=== PATIENT | male | born 1935 | race Caucasian/White ===

== ENCOUNTER 2021-07-22 08:00 | Outpatient (CLI) | payer MEDICARE, OTHER, SELFPAY ==
--- NOTE | ~2021-07-22 | CT_ITS ---
EXAMINATION: CT abdomen pelvis w con DATE: 07/22/2021 08:42 INDICATION: Neoplasm of the digestive system TECHNIQUE: Computed tomography (CT) of the abdomen and pelvis was performed with 100 cc Omnipaque 350 intravenous contrast. Automated exposure control and iterative reconstruction technique were employe d. Exam dose: 211.25 mGy-cm total exam DLP. COMPARISON: 08/01/2014 CT abdomen pelvis 07/23/2014 CTA abdomen pelvis FINDINGS: The lung bases are clear of infiltrate or consolidation. No pericardial or pleural effusion . There are couple of up to 10 mm stable hepatic cysts since 07/23/2014. The liver otherwise appears unr emarkable. The gallbladder is present. No pericholecystic fluid or fat stranding or gallbladder wall thickening, bile duct or pancreatic duct dilatation is evident. No pancreatic mass lesion or calcific ation is detected. Multiple scattered hypoattenuating splenic lesions are again noted, present on 07/05. There are bilateral renal cysts including the followin.5 cm lower pole right renal cyst. 1.2 cm lower pole right renal cyst. 2.4 cm exophytic upper pole left renal cyst and 2.4 cm anterior exophytic mid left renal cyst. Additional much smaller bilateral renal cysts. No urinary tract calculus or hydroureteronephrosis. Moderate prostate enlargement and moderate diffus e thickening of the urinary bladder wall. Abdominal aortic aneurysm with endovascular stent extending from the descending thoracic aorta into t he bilateral common iliac arteries. Celiac and bilateral renal artery stents. No abdominal aortic rupture or retroperitoneal fibrosis is noted. No intraperitoneal or retroperitone al or pelvic mass lesion or adenopathy or ascites is evident. Status post right colectomy. There are numerous diverticula of the sigmoid colon; no CT evidence of d iverticulitis. No bowel obstruction or intraperitoneal free air. Diffuse osteopenia. Degenerative changes of lumbar spine including prominent degenerative disc disease at L1-2, L4-5 and L5-S1,, with associated mild retrolisthesis at L1-2. There is degenerative change at the apophyseal j oints with associated grade 1 anterolisthesis at L4-5. IMPRESSION: Status post right colectomy for presumed colon cancer No recurrent mass or metastatic disease is evident Endovascular descending thoracic and abdominal aortic and bilateral iliac stent for abdominal aortic aneurysm; celiac and bilateral renal artery stents 2 stable hepatic cysts since 07/23/2014 Stable hypoattenuating splenic lesion since 07/23/2014 Bilateral renal cysts Diverticulosis of the sigmoid colon; no CT evidence of diverticulitis Reviewed, dictated and finalized at [facility]. Reviewed, dictated and finalized at [facility]. [employer]
== END 2021-07-22 08:01 | disposition home or self-care (01) ==
LOC: ANHIMG 08:04
PROVIDERS: PCP Family Medicine; Visit Provider Physician Assistant
DX: D49.0 Neoplasm of unspecified behavior of digestive system (principal); Z90.49 Acquired absence of other specified parts of digestive tract; Z95.5 Presence of coronary angioplasty implant and graft; K76.89 Other specified diseases of liver; D73.89 Other diseases of spleen; N28.1 Cyst of kidney, acquired; K57.30 Diverticulosis of large intestine without perforation or abscess without bleeding
CPT/HCPCS: 74177; Q9967

== ENCOUNTER 2021-11-19 08:03 | Emergency (ER) | payer MEDICARE, OTHER, SELFPAY ==
[2021-11-19 08:15] VITALS: BP 156/68; PULSE 81; RESP 18; TEMP 37.3; O2SAT 98
--- NOTE | 2021-11-19 08:15 | ED.GENADULT ---
HPI - General Adult General Chief complaint: Unspecified Stated complaint: Nose Bleed Time Seen by Provider: 11/19/21 08:15 Source: patient Mode of arrival: ambulatory Limitations: no limitations History of Present Illness HPI narrative: 86-year-old male presents with complaint of nosebleed from left nare for approximately 1.5 hours. Reports last time he [facility] seen [facility] and nare was cauterized after unable to get bleeding to stop. Patient did not follow-up with an ENT specialist. States that he has an appointment with his primary care physician at 11 AM today. Reports that he wants his nare cauterized. He arrived with a nose clamp in place. Patient takes Plavix and aspirin. Has active nosebleed. Ambulatory with steady gait. Denies headache. Reports recent URI symptoms which he is seeing PCP for today. All systems reviewed and negative except as noted above. Related Data Home Medications Medication Instructions Recorded Confirmed amlodipine 5 mg tablet 5 mg PO DAILY 01/15/20 11/19/21 aspirin 81 mg tablet,delayed 81 mg PO DAILY 01/15/20 11/19/21 release clopidogrel 75 mg tablet 75 mg PO DAILY 01/15/20 11/19/21 hydralazine 10 mg tablet 10 mg PO BID 01/15/20 11/19/21 losartan 100 mg tablet 100 mg PO DAILY 01/15/20 11/19/21 multivitamin 1 tablet PO DAILY 01/15/20 11/19/21 propranolol 20 mg tablet 20 mg PO Q12H 01/15/20 11/19/21 rosuvastatin 10 mg tablet 10 mg PO DAILY 01/16/21 11/19/21 Allergies Allergy/AdvReac Type Severity Reaction Status Date / Time JERARDO Inhibitors Allergy Unknown Unknown Verified 11/19/21 08:12 Penicillins Allergy Unknown Unknown Verified 11/19/21 08:12 simvastatin Allergy Unknown Unknown Verified 11/19/21 08:12 Review of Systems Review of Systems: CONSTITUTIONAL: Denies fever, chills, or sweats. EYES: Denies visual changes, redness, or discharge. ENT: Denies rhinorrhea, congestion, sore throat, or otalgia. Reports nosebleed from left nare. CARDIOVASCULAR: Denies chest pain, palpitations, or edema. RESPIRATORY: Denies cough or dyspnea. GASTROINTESTINAL: Denies abdominal pain, nausea, vomiting, or diarrhea. GENITOURINARY: Denies dysuria or hematuria. SKIN: Denies rash or itching. MUSCULOSKELETAL: Denies back pain, joint pain, or myalgia. NEUROLOGIC: Denies headache, numbness, or weakness. PSYCHIATRIC: Denies anxiety or depression. All other systems reviewed are negative, except as documented in HPI. [facility] Past Medical History Medical History Abdominal aortic aneurysm (AAA) without rupture S/p repair Surgical History Surgical History S/P renal artery angioplasty Family History Family History Sibling Patient's sister is in good health Social History Social History Smoking end date: 07/04/98 Alcohol intake: current Drinks per week: 2 Substance use: never Substance use type: does not use Gender identity (if verbalized by the patient): Male Sexual Orientation (if Verbalized by the Patient): Straight or Heterosexual Spiritual care concerns: No Comments At time of signature, agree with nursing past medical, surgical, social and family history. There is no relevant family history pertinent to the presenting complaint. Exam Narrative: GENERAL: This is a well-nourished, well-developed patient, in no apparent distress. HEAD: normocephalic, atraumatic. EYES: PERRL. Sclera clear/white. Vision is grossly intact. EARS: External ears normal NOSE: External nose normal. Active bleeding from left nare. Moderate amount, difficult to evaluate anterior versus posterior. THROAT: Small trickle of blood to posterior pharynx. NECK: Neck supple, non-tender without lymphadenopathy, masses or thyromegaly. CARDIOVASCULAR: Regular rate and rhythm without murmurs, gal
== END 2021-11-19 08:27 | disposition home or self-care (01) ==
PROVIDERS: Emergency Provider Nurse Practitioner Family; PCP Family Medicine
DX: R04.0 Epistaxis (principal); Z87.891 Personal history of nicotine dependence; Z79.82 Long term (current) use of aspirin
CPT/HCPCS: 99211; G0463

== ENCOUNTER 2021-11-19 08:48 | Emergency (ER) | payer MEDICARE, OTHER, SELFPAY ==
--- NOTE | ~2021-11-19 | XR_ITS ---
XR chest 2V 11/19/2021 10:01 Indication: Cough. Bloody nose. Procedure: 2 view chest Comparison: 08/09/2014 Findings: Status post median sternotomy for CABG. Heart size normal. The lungs are hyperinflated whic h is consistent with, but not diagnostic of chronic obstructive pulmonary disease. Partially visualiz ed in the vascular stents of the descending thoracic aorta. Impression: 1: No acute cardiopulmonary disease. Reviewed, dictated and finalized at [facility]. Impression: 1: No acute cardiopulmonary disease.
[2021-11-19 08:50] VITALS: BP 147/92; PULSE 82; RESP 18; TEMP 36.4; O2SAT 100
--- NOTE | 2021-11-19 09:02 | PC.NURSE ---
pt states last time he had a nosebleed he had to have it cauterized. pt also voices concern of productive cough x 2 weeks.
--- NOTE | 2021-11-19 09:52 | ED.EPISTAXIS ---
HPI - Epistaxis General Chief complaint: Epistaxis Stated complaint: NOSEBLEED Time Seen by Provider: 11/19/21 09:45 History of Present Illness HPI Narrative: 86-year-old male presents the emergency room for evaluation of epistaxis. Patient states that he woke up this morning and without provocation his nose began to bleed from the left side. Patient states he is recently been experiencing a productive cough for the past 3 weeks, and believes the nosebleed spontaneously began because of all the coughing. Patient states that he is on Plavix and aspirin, but no other blood thinners at this time. Patient denies injury or trauma to the nose. Patient states that he has had 1 episode of epistaxis in the past, and they attempted to cauterize the area multiple times. Related Data Home Medications Medication Instructions Recorded Confirmed amlodipine 5 mg tablet 5 mg PO DAILY 01/15/20 11/19/21 aspirin 81 mg tablet,delayed 81 mg PO DAILY 01/15/20 11/19/21 release clopidogrel 75 mg tablet 75 mg PO DAILY 01/15/20 11/19/21 hydralazine 10 mg tablet 10 mg PO BID 01/15/20 11/19/21 losartan 100 mg tablet 100 mg PO DAILY 01/15/20 11/19/21 multivitamin 1 tablet PO DAILY 01/15/20 11/19/21 propranolol 20 mg tablet 20 mg PO Q12H 01/15/20 11/19/21 rosuvastatin 10 mg tablet 10 mg PO DAILY 01/16/21 11/19/21 Allergies Allergy/AdvReac Type Severity Reaction Status Date / Time JERARDO Inhibitors Allergy Unknown Unknown Verified 11/19/21 09:06 Penicillins Allergy Unknown Unknown Verified 11/19/21 09:06 simvastatin Allergy Unknown Unknown Verified 11/19/21 09:06 Review of Systems Review of Systems: CONSTITUTIONAL: Denies fever, chills, or sweats. EYES: Denies visual changes, redness, or discharge. ENT: Reports epistaxis CARDIOVASCULAR: Denies chest pain, palpitations, or edema. RESPIRATORY: Reports productive cough GASTROINTESTINAL: Denies abdominal pain, nausea, vomiting, or diarrhea. GENITOURINARY: Denies dysuria or hematuria. SKIN: Denies rash or itching. MUSCULOSKELETAL: Denies back pain, joint pain, or myalgia. NEUROLOGIC: Denies headache, numbness, dizziness, or weakness. PSYCHIATRIC: Denies anxiety or depression. [facility] Past Medical History Medical History Abdominal aortic aneurysm (AAA) without rupture S/p repair Surgical History Surgical History S/P renal artery angioplasty Family History Family History Sibling Patient's sister is in good health Social History Social History Smoking end date: 07/04/98 Alcohol intake: current Drinks per week: 2 Substance use: never Substance use type: does not use Gender identity (if verbalized by the patient): Male Sexual Orientation (if Verbalized by the Patient): Straight or Heterosexual Spiritual care concerns: No Exam Narrative: GENERAL: Well-appearing, well-nourished, and in no acute distress. HEAD: Normocephalic, atraumatic. EYES: PERRLA and EOMI. ENT: Epistaxis to left nare NECK: Supple. No adenopathy or masses. No carotid bruits or JVD CHEST: Clear to auscultation. No respiratory distress. No wheezes rales or rhonchi HEART: Irregular rate and irregular rhythm. No murmur heard. Normal peripheral pulses. ABDOMEN: Soft, nontender, nondistended, normal active bowel sounds. EXTREMITIES: Normal range of motion. No edema. SKIN: Warm, dry, no rash. NEURO: No focal deficits. Alert and oriented x3. PSYCH: Normal mood and affect. Course Vital Signs Vital signs: Vital Signs Temperature 36.4 C L 11/19/21 08:50 Pulse Rate 82 11/19/21 08:50 Respiratory Rate 18 11/19/21 08:50 Blood Pressure 147/92 H 11/19/21 08:50 Pulse Oximetry 100 11/19/21 08:50 Temperature 36.4 C L 11/19/21 08:50 Pulse Rate 82 11/19/21 08:50 Respiratory Rate
[2021-11-19 10:16] LABS: Basophils Percent Auto 0.2 % (0.2-1.2); Eosinophils Absolute Auto 0.3 K/mm3 (0-0.3); Eosinophils Percent Auto 3.3 % (0-4.4); Hematocrit 41.3 % (42.0-52.0); Hemoglobin 13.3 g/dL (14.0-18.0); Immature Granulocyte Absolute 0.03 K/mm3 (0.00-0.031); Immature Granulocyte Percent A 0.3 % (0-0.5); Immature Platelet Fraction Pct 6.5 % (0.9-11.2); Lymphocytes Absolute Auto 0.84 K/mm3 (0.9-3.2); Lymphocytes Percent Auto 8.7 % (18.3-44.2); Mean Corpuscular HGB Conc 32.2 g/dl (32-36); Mean Corpuscular Hemoglobin 32.2 pg (26-34); Mean Platelet Volume 10.8 fl (7.4-10.4); Monocytes Absolute Auto 0.9 K/mm3 (0.1-0.6); Monocytes Percent Auto 9.3 % (2.6-8.5); Neutrophils Absolute Auto 7.5 K/mm3 (1.3-6.7); Neutrophils Percent Auto 78.2 % (45.5-73.1); Platelet Count Result 90 k/mm3 (150-375); Red Blood Count 4.13 M/mm3 (4.6-6.20); Red Cell Distribution Width 13.6 % (11.5-14.5); White Blood Count 9.6 K/mm3 (4.5-10.0)
[2021-11-19 10:26] LABS: Alanine Aminotransferase 24 U/L (6-50); Albumin Level 4.1 g/dL (3.5-5.1); Alkaline Phosphatase 66 U/L (38-126); Anion Gap 6 mmol/L (8-16); Aspartate Amino Transferase 27 U/L (17-59); Bilirubin,Total 1.2 mg/dL (0.2-1.3); Blood Urea Nitrogen 19 mg/dL (9-20); Calcium 10.2 mg/dL (8.4-10.2); Carbon Dioxide 28 mmol/L (22-30); Chloride 106 mmol/L (98-107); Estimated CRCL calculation 44 ml/min; Estimated Glomerular Filt Rate > 60; Glucose 113 mg/dL (65-110); Potassium 4.8 mmol/L (3.4-5.0); Sodium 140 mmol/L (137-145)
[2021-11-19 10:33] LABS: INR 1.2; Prothrombin Time 14.4 Seconds (11.1-14.7)
[2021-11-19 10:34] LABS: Partial Thromboplastin Time 29.8 SECONDS (22.3-36.8)
[2021-11-19 12:16] VITALS: BP 151/70; PULSE 76; RESP 20; O2SAT 98
== END 2021-11-19 12:17 | disposition home or self-care (01) ==
PROVIDERS: Emergency Provider Nurse Practitioner Family; PCP Family Medicine
DX: R04.0 Epistaxis (principal); R05.9 Cough, unspecified; Z79.82 Long term (current) use of aspirin; Z79.02 Long term (current) use of antithrombotics/antiplatelets; Z87.891 Personal history of nicotine dependence
CPT/HCPCS: 36415; 71046; 80053; 85025; 85055; 85610; 85730; 99283; A9270

== ENCOUNTER 2022-04-07 13:40 | Outpatient (CLI) | payer MEDICARE, SELFPAY ==
[2022-04-07 14:05] LABS: Basophils Percent Auto 0.5 % (0.2-1.2); Eosinophils Absolute Auto 0.6 K/mm3 (0-0.3); Eosinophils Percent Auto 9.5 % (0-4.4); Hematocrit 40.8 % (42.0-52.0); Hemoglobin 13.4 g/dL (14.0-18.0); Immature Granulocyte Absolute 0.01 K/mm3 (0.00-0.031); Immature Granulocyte Percent A 0.2 % (0-0.5); Immature Platelet Fraction Pct 5.7 % (0.9-11.2); Lymphocytes Absolute Auto 1.18 K/mm3 (0.9-3.2); Lymphocytes Percent Auto 19.7 % (18.3-44.2); Mean Corpuscular HGB Conc 32.8 g/dl (32-36); Mean Corpuscular Hemoglobin 32.6 pg (26-34); Mean Corpuscular Volume 99.3 fl (80-100); Monocytes Percent Auto 16.4 % (2.6-8.5); Neutrophils Absolute Auto 3.2 K/mm3 (1.3-6.7); Neutrophils Percent Auto 53.7 % (45.5-73.1); Platelet Count Result 113 k/mm3 (150-375); Red Blood Count 4.11 M/mm3 (4.6-6.20); Red Cell Distribution Width 13.1 % (11.5-14.5)
[2022-04-07 14:14] LABS: Alanine Aminotransferase 18 U/L (6-50); Albumin Level 4.2 g/dL (3.5-5.1); Alkaline Phosphatase 62 U/L (38-126); Anion Gap 11 mmol/L (8-16); Aspartate Amino Transferase 28 U/L (17-59); Bilirubin,Total 0.6 mg/dL (0.2-1.3); Blood Urea Nitrogen 18 mg/dL (9-20); Calcium 10.7 mg/dL (8.4-10.2); Carbon Dioxide 27 mmol/L (22-30); Chloride 103 mmol/L (98-107); Estimated Glomerular Filt Rate 53; Glucose 114 mg/dL (65-110); Potassium 3.8 mmol/L (3.4-5.0); Sodium 141 mmol/L (137-145)
== END 2022-04-07 13:41 | disposition home or self-care (01) ==
PROVIDERS: PCP Family Medicine; Visit Provider Physician Assistant
DX: R63.8 Other symptoms and signs concerning food and fluid intake (principal); R19.7 Diarrhea, unspecified; D64.9 Anemia, unspecified; I11.9 Hypertensive heart disease without heart failure
CPT/HCPCS: 36415; 80053; 85025; 85055; 87045; 87427

== ENCOUNTER 2023-04-09 10:04 | Inpatient (IN) | payer MEDICARE, SELFPAY ==
[2023-04-09] VITALS (25 sets, daily range): BP systolic 91–115; BP diastolic 37–65; PULSE 63–90; RESP 16–22; TEMP 36.1–36.8; O2SAT 91–100; BMI 19.5
--- NOTE | ~2023-04-09 | XR_ITS ---
EXAMINATION: XR wrist RT 2V DATE: 04/12/2023 05:57 INDICATION: Right radius fracture. TECHNIQUE: 2 views of right wrist on 3 radiographs were obtained. COMPARISON: None. FINDINGS: There is a fracture of distal radius without definite involvement of the distal articular s urface. The distal fracture fragment demonstrates near-anatomic alignment. There is 8 degrees palmar tilt of the distal articular surface. There is mild osteoarthritis of triscaphe joint. Cast material obscures fine bone detail. IMPRESSION: 1. Fracture of distal radius in near-anatomic alignment. Reviewed, dictated and finalized at location [facility].
--- NOTE | ~2023-04-09 | XR_ITS ---
XR chest 1V portable DATE: 04/09/2023 10:25 INDICATION: Shortness of breath. Weakness. TECHNIQUE: Portable AP chest on 04/09/2023 at 1024 hours COMPARISON: 11/19/2021 PA and lateral chest FINDINGS: Status post sternotomy and probable coronary bypass grafts surgery. There is thoracic aorti c calcification and tortuosity. There is an endovascular stent of the descending thoracic and abdomin al aorta. Bilateral hyperinflation, suggesting COPD. No pulmonary infiltrate or consolidation, pleural effusion or pulmonary vascular congestion or pneumothorax is detected. There is osteopenia. There is dextroscoliosis of the thoracic spine. IMPRESSION: Bilateral hyperinflation suggesting COPD No active pulmonary disease Status post sternotomy and probable CABG Endovascular stent of the descending thoracic and abdominal aorta Reviewed, dictated and finalized at location [facility].
--- NOTE | 2023-04-09 10:11 | ECG_ITS ---
Measurements Intervals [place] Rate: 73 P: WI: 0 QRS: -57 QRSD: 122 T: 106 QT: 374 QTc: 414 Interpretive Statements SINUS RHYTHM WITH ABERRANT CONDUCTION OR VENTRICULAR PREMATURE COMPLEXES MARKED LEFT AXIS DEVIATION [QRS AXIS < -30] LEFT BUNDLE BRANCH BLOCK [120+ ms QRS DURATION, 80+ ms Q/S IN V1/V2, 85+ ms R IN I/aVL/V5/V6] ABNORMAL ECG NO PREVIOUS ECG AVAILABLE FOR COMPARISON Electronically Signed On 04-09-2023 12:31:08 CDT by Kamlesh Ortiz M.D.
--- NOTE | 2023-04-09 10:22 | ED.GIBLEED ---
HPI - GI Bleed General Chief complaint: GI Bleed Stated complaint: poss GI bleed Time Seen by Provider: 04/09/23 10:13 Source: patient and EMS Mode of arrival: EMS Limitations: no limitations History of Present Illness HPI Narrative: 87 years old white female came from [facility] with shortness of breath and black stool over the last 24 hours. Patient is status post right hip surgery at [facility] 6 days ago. Patient on aspirin and Plavix. He denies history of GI bleed. Patient complaining of lower back pain which she been going for a while. He denies any fever, chills, nausea, vomiting, diarrhea or abdominal pain. Related Data Home Medications Medication Instructions Recorded Confirmed amlodipine 5 mg tablet 5 mg PO DAILY 01/15/20 04/07/23 clopidogrel 75 mg tablet 75 mg PO DAILY 01/15/20 04/07/23 hydralazine 10 mg tablet 10 mg PO BID 01/15/20 04/07/23 multivitamin 1 tablet PO DAILY 01/15/20 04/07/23 propranolol 20 mg tablet 20 mg PO Q12H 01/15/20 04/07/23 rosuvastatin 10 mg tablet 10 mg PO DAILY 01/16/21 04/07/23 acetaminophen 500 mg tablet 500 mg PO Q6H PRN Pain 04/07/23 04/07/23 aspirin 81 mg chewable tablet 81 mg PO DAILY 04/07/23 04/07/23 (Aspirin Childrens) bisacodyl 5 mg tablet,delayed 5 mg PO HS PRN Constipation 04/07/23 04/07/23 release cholecalciferol (vitamin D3) 10 400 unit PO DAILY 04/07/23 04/07/23 mcg (400 unit) tablet finasteride 5 mg tablet 5 mg PO DAILY 04/07/23 04/07/23 methocarbamol 500 mg tablet 500 mg PO TID 04/07/23 04/07/23 oxycodone 5 mg tablet 2.5 mg PO Q4H PRN Severe Pain 04/07/23 04/07/23 (Scale Score 7-10) polyethylene glycol 3350 17 gram 17 g PO DAILY 04/07/23 04/07/23 oral powder packet psyllium husk (aspartame) 3.4 gram 1 packet PO DAILY 04/07/23 04/07/23 oral powder packet (Daily Fiber (psyllium-aspartame)) Allergies Allergy/AdvReac Type Severity Reaction Status Date / Time JERARDO Inhibitors Allergy Unknown Unknown Verified 04/09/23 10:26 Penicillins Allergy Unknown Unknown Verified 04/09/23 10:26 simvastatin Allergy Unknown Unknown Verified 04/09/23 10:26 Review of Systems Review of Systems: All systems reviewed & are unremarkable except as noted in HPI and below PMFSH Past Medical History Medical History Abdominal aortic aneurysm (AAA) without rupture S/p repair Surgical History Surgical History S/P renal artery angioplasty Family History Family History Sibling Patient's sister is in good health Social History Social History Social History: Smoking status: Former smoker Tobacco type: cigarettes Second hand tobacco smoke exposure: No Smoking end date: 04/07/23 Alcohol intake: current Drinks per week: 2 Substance use: never Substance use type: does not use Living arrangements: with family Occupation/Education: retired Gender identity (if verbalized by the patient): Male Sexual Orientation (if Verbalized by the Patient): Straight or Heterosexual Spiritual care concerns: No Exam Narrative: General appearance: Well-developed, well-nourished Skin: Pale Head: Normocephalic, nontraumatic Eyes: Clear conjunctiva ENT: Oropharynx normal, ears normal, nose normal Neck: Supple, nontender Chest and respiratory: Airway patent, no respiratory distress, no accessory muscle use Heart: Regular rate/rhythm Abdomen: Soft, nontender, no organomegaly, quiet bowel sounds Vascular: Normal peripheral pulses, normal capillary refill. Musculoskeletal: Right hip, s/p surgery, surgical scar is clean and dry surrounded by ecchymosis Neurologic: Alert and oriented ?3, [employer] is normal as tested, no gross motor deficit
[2023-04-09 10:27] LABS: Basophils Percent Auto 0.1 % (0.2-1.2); Immature Granulocyte Absolute 0.21 K/mm3 (0.00-0.031); Lymphocytes Absolute Auto 1.47 K/mm3 (0.9-3.2); Lymphocytes Percent Auto 7.2 % (18.3-44.2); Mean Corpuscular HGB Conc 31.4 g/dl (32-36); Mean Corpuscular Hemoglobin 32.1 pg (26-34); Mean Corpuscular Volume 102.1 fl (80-100); Mean Platelet Volume 11.2 fl (7.4-10.4); Monocytes Absolute Auto 1.9 K/mm3 (0.1-0.6); Monocytes Percent Auto 9.3 % (2.6-8.5); Neutrophils Absolute Auto 16.8 K/mm3 (1.3-6.7); Neutrophils Percent Auto 82.4 % (45.5-73.1); Nucleated Red Blood Cells Perc 0.1 % (0.0-0.2); Platelet Count Result 142 k/mm3 (150-375); White Blood Count 20.3 K/mm3 (4.5-10.0)
[2023-04-09 10:30] LABS: Hematocrit 19.4 % (42.0-52.0); Hemoglobin 6.1 g/dL (14.0-18.0)
[2023-04-09 10:37] LABS: Alanine Aminotransferase 22 U/L (6-50); Albumin Level 2.7 g/dL (3.5-5.1); Alkaline Phosphatase 41 U/L (38-126); Anion Gap 7 mmol/L (8-16); Aspartate Amino Transferase 40 U/L (17-59); Bilirubin,Total 0.7 mg/dL (0.2-1.3); Blood Urea Nitrogen 88 mg/dL (9-20); Calcium 9.4 mg/dL (8.4-10.2); Carbon Dioxide 22 mmol/L (22-30); Chloride 105 mmol/L (98-107); Estimated CRCL calculation 26 ml/min; Estimated Glomerular Filt Rate 38; Glucose 159 mg/dL (65-110); Potassium 4.6 mmol/L (3.4-5.0); Sodium 134 mmol/L (137-145)
[2023-04-09 10:38] LABS: INR 1.3; Partial Thromboplastin Time 23.5 SECONDS (22.3-36.8); Prothrombin Time 16.4 Seconds (11.1-14.7)
[2023-04-09] MEDS: PANTOPRAZOLE SODIUM IV 40 MG VIAL IV PUSH ×2 (10:46→20:32)
[2023-04-09] MEDS: SODIUM CHLORIDE 0.9% IV 1,000 ML 999 ML IV CONT (11:02)
--- NOTE | 2023-04-09 11:48 | ADMGEN ---
This patient, Oz Luther, was admitted to 2 Medical Room 252-01. Patient/family oriented to hospital policies and general routines including ID bracelet, bed and alarms, visiting hours, pain management, procedures, bathroom and other care routines, personal items, smoking policy, room service/diet, and visiting hours. Information on how to activate the Rapid Response Team has been discussed. Patient/Family are encouraged to report perceived risks to care and to ask questions if they do not understand what they are told or what they should do. Report received from Daisy CORONEL in ED
[2023-04-09] MEDS: SODIUM CHLORIDE 0.9% IV 1,000 ML 100 ML IV CONT (11:53)
[2023-04-09] MEDS: ACETAMINOPHEN 325 MG TABLET 650 MG PO (11:54)
[2023-04-09 13:55] LABS: Appearance Urine Clear (Clear); Bilirubin Urine Negative (Negative); Blood Urine 1+ (Negative); Color Urine Yellow (Yellow); Glucose Urine UA Negative (Negative); Ketones Urine Trace mg/dL (Negative); Leukocyte Esterase Ur Negative LEU/UL (NEGATIVE); Nitrate Urine Negative (Negative); Protein Urine Trace mg/dL (Negative); Urobilinogen Urine 0.2 mg/dL (<2.0)
[2023-04-09 14:10] LABS: Bacteria Urine None Seen /hpf; Need Manual Microscopic Reviewed; RBC Urine 0-2 /hpf (0-2); Squamous Epithelial Cell Urine None seen /hpf (Few); WBC Urine 0-5 /hpf (0-3)
[2023-04-09 14:13] LABS: Add Urine Microscopic? YES
[2023-04-09 14:26] LABS: IFOB Positive Control Positive; Immunochemical Fecal Occult Bl Positive (N)
--- NOTE | 2023-04-09 14:53 | PM.IMHP ---
H&P: HPI History of Present Illness Date/Time: 04/09/23 14:00 Chief Complaint: Suspected GI bleed. Narrative: This is a pleasant 87-year-old gentleman with coronary artery disease status post bypass x4 in 1997, abdominal aortic aneurysm status post endovascular repair, paroxysmal atrial fibrillation, hypertension, hyperlipidemia, anemia, chronic kidney disease, and benign prostatic hyperplasia who presented to the emergency department via EMS from [facility] for evaluation of suspected GI bleeding. The patient provides the following history. He presented to [facility] on 04/04/2023 with complaints of right hip pain following a ground level fall at which time he was found to have a proximal right femur fracture which was repaired with intramedullary nailing. He also had a nondisplaced distal right radius fracture which was treated non operatively with splint. During the stay he required 3 units packed red blood cells for anemia. Overall he did well and was discharged to rehab yesterday. Today he had labs drawn which showed that his hemoglobin had once again dropped and he was sent in for evaluation after it was discovered that he was passing black stools. Aside from feeling weak the patient does not have any specific complaints. Specifically he denies fever, chills, sweats, cold and flu symptoms, lightheadedness, dizziness, chest pain, epigastric pain, abdominal pain, bloating, belching, nausea, vomiting, diarrhea, and dysuria. He is on dual anti-platelet therapy with aspirin and clopidogrel. No NSAID use. He denies history of peptic ulcers. He has lost some weight and is having difficulties putting weight back on. In the ED: He was afebrile on arrival. Blood pressures have been on the low end of normal. Labs were significant for a WBC count of 20.3, hemoglobin 6.1, hematocrit 19.4, platelet 142, INR 1.3, BUN 88, creatinine 1.70, total protein 5.0, albumin 2.7. UA showed trace ketones and 1+ blood. Chest x-ray was negative for acute findings. EKG showed a sinus rhythm with aberrant conduction or ventricular premature complexes, left axis deviation, and left bundle branch block. He was given a dose of pantoprazole 40 mg IV x1 and he is being admitted for blood transfusion and GI consult. Review of Systems Review of Systems: Twelve systems were reviewed and are negative except for as per HPI. [facility] Past Medical History Medical History (Updated 04/09/23 @ 15:04 by Ruby Mackenzie PA-C) Abdominal aortic aneurysm without rupture Status post repair. 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 History of tonsillectomy Status post LASIK surgery of both eyes Status post renal artery angioplasty Family History Family History Sibling Patient's sister is in good health Mother Brain tumor Father Acute myocardial infarction Mother Cerebrovascular accident Sibling Congestive heart failure Sibling Cerebrovascular accident Sibling Diabetes mellitus Social History Social History (Updated 04/09/23 @ 22:01 by Ruby Mackenzie PA-C) Social History: Surrogate medical decision maker: Judy Luther, spouse. Code status: Full code. Smoking packs per day: 1 Smoking cigarettes per day: 20.0 Years smoked: 50 Smoking pack-years: 50.00 Smoking status: Former smoker Tobacco type: cigarettes and pipe Second hand tobacco smoke exposure: No Smoking end date: 04/07/23 Alcohol intake: never Drinks per week: 2 Substance use: never Substance use type: does not us
[2023-04-10] VITALS (13 sets, daily range): BP systolic 107–136; BP diastolic 42–58; PULSE 60–82; RESP 18–24; TEMP 36.2–37.2; O2SAT 97–100
[2023-04-10 01:09] LABS: Hematocrit 25.2 % (42.0-52.0); Hemoglobin 8.3 g/dL (14.0-18.0)
[2023-04-10] MEDS: SODIUM CHLORIDE 0.9% IV 1,000 ML 100 ML IV CONT ×2 (05:19→17:46)
[2023-04-10 05:47] LABS: Hematocrit 24.2 % (42.0-52.0); Hemoglobin 7.9 g/dL (14.0-18.0); Immature Platelet Fraction Pct 4.7 % (0.9-11.2); Immature Reticulocyte Fraction 32.3 % (3.0-15.9); Mean Corpuscular HGB Conc 32.6 g/dl (32-36); Mean Corpuscular Hemoglobin 31.9 pg (26-34); Mean Corpuscular Volume 97.6 fl (80-100); Mean Platelet Volume 10.8 fl (7.4-10.4); Platelet Count Result 108 k/mm3 (150-375); Red Blood Count 2.48 M/mm3 (4.6-6.20); Red Cell Distribution Width 16.8 % (11.5-14.5); Reticulocyte Hemoglobin Conten 33.7 pg (28.2-35.7); Reticulocytes Absolute 0.12 M/mm3 (0.02-0.1); White Blood Count 11.3 K/mm3 (4.5-10.0)
[2023-04-10 05:53] LABS: Anion Gap 3 mmol/L (8-16); Blood Urea Nitrogen 87 mg/dL (9-20); Calcium 8.8 mg/dL (8.4-10.2); Carbon Dioxide 22 mmol/L (22-30); Chloride 111 mmol/L (98-107); Estimated CRCL calculation 26 ml/min; Estimated Glomerular Filt Rate 38; Glucose 109 mg/dL (65-110); Magnesium 2.4 mg/dL (1.6-2.3); Potassium 4.2 mmol/L (3.4-5.0); Sodium 136 mmol/L (137-145)
[2023-04-10 05:59] LABS: Prealbumin 12.7 mg/dL (17.6-36.0)
[2023-04-10 06:46] LABS: Iron 36 ug/dL (49-181)
--- NOTE | 2023-04-10 06:52 | WPDGICN ---
Assessment and Plan Assessment and plan (1) GI bleed: Code(s): K92.2 - Gastrointestinal hemorrhage, unspecified Status: Acute Assessment and Plan: He began seeing black tarry stools about 2 days prior to his admission. He has been on iron supplements but this was a significant change. He also saw some purple in his stool. His hemoglobin did drop from 13 a week ago to 6 point 1. Is now up to 8 after transfusion. He denies taking any NSAIDs recently. (2) Acute blood loss anemia: Code(s): D62 - Acute posthemorrhagic anemia Status: Acute Assessment and Plan: As noted above there has been a dramatic drop in his hemoglobin from 13-6 within a period of 1 week. I suspect upper gastrointestinal bleed such as ulcer. I will schedule him for EGD to be done today. (3) Atrial fibrillation: Code(s): I48.91 - Unspecified atrial fibrillation Status: Acute Assessment and Plan: EKG yesterday shows sinus rhythm but with aberrant conduction. Atrial fibrillation not seen at this time. (4) History of four vessel coronary artery bypass graft: Onset Date: 1997 Code(s): Z95.1 - Presence of aortocoronary bypass graft Status: Acute Assessment and Plan: This was done in 1988. He has been on dual anti-platelet therapy with aspirin and Plavix and this is being held the present time. (5) Acute kidney injury: Code(s): N17.9 - Acute kidney failure, unspecified Status: Acute Assessment and Plan: This is primarily I suspect due to gastrointestinal bleeding and volume loss. BUN has increased from 19 a couple months ago to 423 days ago and now 88. Likewise his creatinine which was 1.1 just a few days ago was not 1.7. He does appears somewhat dehydrated as well. Plan Continue to follow blood counts serially transfuse as necessary EGD to be done today GI Consult Note Consult date/time: 04/10/23 06:52 HPI: Oz Luther is a 87 year old male who was brought to the emergency room from [facility] with suspected gastrointestinal bleeding. He has been having black stools for the last couple of days. His hemoglobin had dropped from 13.1 a week ago to 6 point 1 at this time. The patient states that he has had no significant abdominal pain. He does suffer from indigestion from time to time. His most recent issues began a month ago when he had fallen from his bed when he was getting up to go to the bathroom he sustained a fracture of the right femur which was treated with nailing. He was then sent to rehab just a few days ago. I should add that during his hospitalization for the fracture he did receive 3 units of packed red blood cells. One week ago his hemoglobin was 13 g and now has dropped down to 6.1. After transfusion is up to 8 0. Likewise he has acute kidney injury with his BUN rising from 19 a month ago to 423 days ago and now 88. Meanwhile his creatinine has increased from 1.1-1.7 during that time. He does state that he is thirsty this morning. He has had no hematemesis. He does not recall ever having had an ulcer. 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 He has a history of coronary artery disease status post coronary bypass in 1997 and also a diagnosis of atrial fibrillation. He is on aspirin 81 mg and Plavix. Review of Systems Review of Systems: All systems reviewed & are unremarkable except as noted in HPI and below [facility] Past Medical History Medical History Abdominal aortic aneurysm without rupture Status post repair. Arthritis Benign prostatic hyperplasia Hyperlipidemia Hypertension Kidney stone Surgical History Surgical History History of abdominal aortic aneurysm repair History of cystoscopy History of four vessel
[2023-04-10 06:57] LABS: Percent Iron Saturation 17 % (20-50)
[2023-04-10 06:58] LABS: Folic Acid 17.1 ng/mL (2.76->20)
--- NOTE | 2023-04-10 07:10 | PC.NURSE ---
patient in GI lab at start of shift
--- NOTE | 2023-04-10 07:16 | WPDANESEPP ---
Anes - Eval Pre Procedure Procedure: Operation Date: 04/10/23 07:30 Proposed Procedures p Esophagogastroduodenoscopy - Silviano Lowe MD Date/Time: 04/10/23 07:16 Surgeon: Chrissy Preop Diagnosis: GI bleed, anemia Pre Op Diagnosis: GI Bleed, Anemia Patient Data Age: 87 Gender: M Height: 1.8 m Weight: 73.3 kg Last Vital Signs Temp 36.6 C 04/10/23 07:13 Pulse 78 04/10/23 07:13 Resp 18 04/10/23 07:13 BP 107/48 L 04/10/23 07:13 Pulse Ox 98 04/10/23 07:13 O2 Del Method Room Air 04/10/23 07:13 O2 Flow Rate 2 04/09/23 21:47 Allergies Allergy/AdvReac Type Severity Reaction Status Date / Time JERARDO Inhibitors Allergy Unknown Unknown Verified 04/10/23 07:11 Penicillins Allergy Unknown Unknown Verified 04/10/23 07:11 simvastatin Allergy Unknown Unknown Verified 04/10/23 07:11 Home Medications Medication Instructions Recorded Confirmed Type amlodipine 5 mg tablet 5 mg PO DAILY 01/15/20 04/09/23 History clopidogrel 75 mg tablet 75 mg PO DAILY 01/15/20 04/09/23 History hydralazine 10 mg tablet 10 mg PO BID 01/15/20 04/09/23 History multivitamin 1 tablet PO DAILY 01/15/20 04/09/23 History propranolol 20 mg tablet 20 mg PO Q12H 01/15/20 04/09/23 History rosuvastatin 10 mg tablet 10 mg PO DAILY 01/16/21 04/09/23 History aspirin 81 mg chewable tablet 81 mg PO DAILY 04/07/23 04/09/23 History (Aspirin Childrens) cholecalciferol (vitamin D3) 10 400 unit PO DAILY 04/07/23 04/09/23 History mcg (400 unit) tablet finasteride 5 mg tablet 5 mg PO DAILY 04/07/23 04/09/23 History alprazolam 0.25 mg tablet 0.25 mg PO DAILY PRN Anxiety 04/10/23 04/10/23 History losartan 50 mg tablet 100 mg PO DAILY 04/10/23 04/10/23 History Laboratory Tests 04/09/23 04/09/23 04/10/23 10:16 13:18 00:38 WBC 20.3 H K/mm3 (4.5-10.0) RBC 1.90 L M/mm3 (4.6-6.20) Hgb 6.1 L* g/dL 8.3 L g/dL (14.0-18.0) (14.0-18.0) Hct 19.4 L* % 25.2 L % (42.0-52.0) (42.0-52.0) MCV 102.1 H fl (80-100) MCH 32.1 pg (26-34) MCHC 31.4 L g/dl (32-36) RDW 16.0 H % (11.5-14.5) Plt Count 142 L k/mm3 (150-375) MPV 11.2 H fl (7.4-10.4) Immature Gran % (Auto) 1.0 H % (0-0.5) Neut % (Auto) 82.4 H % (45.5-73.1) Lymph % (Auto) 7.2 L % (18.3-44.2) [place] % (Auto) 9.3 H % (2.6-8.5) Eos % (Auto) 0.0 % (0-4.4) Baso % (Auto) 0.1 L % (0.2-1.2) Lymph # (Auto) 1.47 K/mm3 (0.9-3.2) [place] # (Auto) 1.9 H K/mm3 (0.1-0.6) Eos # (Auto) 0.0 K/mm3 (0-0.3) Baso # (Auto) 0.0 K/mm3 (0.0-0.1) Abs Immat Gran (auto) 0.21 H K/mm3 (0.00-0.031) Absolute Neuts (auto) 16.8 H K/mm3 (1.3-6.7) Absolute Nucleated RBC 0.0 K/mm3 (0.0-0.012) Nucleated RBC % 0.1 % (0.0-0.2) % Immature Plt Fraction Absolute Retic Percent Retic Immature Retic Fraction Retic Hgb Content PT 16.4 H Seconds (11.1-14.7) INR 1.3 APTT 23.5 SECONDS (22.3-36.8) Sodium 134 L mmol/L (137-145) Potassium 4.6 mmol/L (3.4-5.0) Chloride 105 mmol/L (98-107) Carbon Dioxide 22 mmol/L (22-30) Anion Gap 7 L mmol/L (8-16) BUN 88 H D mg/dL (9-20) Creatinine 1.70 H mg/dL (0.7-1.3) Estim Creat Clear Calc 26 ml/min Estimated GFR 38 L (59 - ) Glucose 159 H mg/dL (65-110) Calcium 9.4 mg/dL (8.4-10.2) Magnesium Iron TIBC % Saturation Ferritin Total Bilirubin 0.7 mg/dL (0.2-1.3) AST 40 U/L (17-59) ALT 22 U/L (6-50) Alkaline Phosphatase 41 U/L (38-126) Total Protein 5.0 L g/dL (6.3-8.2) Albumin 2.7 L g/dL
--- NOTE | 2023-04-10 07:16 | PM.IMPN ---
Progress Note: A&P Assessment and Plan (1) GI bleed: Code(s): K92.2 - Gastrointestinal hemorrhage, unspecified Status: Acute Assessment and Plan: Acute blood loss anemia, suspected GI source Hemoglobin in February of this year was 13, on admission today it's 6.1 Transfused with 1 unit of pRBC and Hgb increased to 8.3 Patient reports dark stools the last couple of days Trend H/H and run anemia panel GI consult and recommendations are appreciated. Endoscopy shows nonbleeding duodenal ulcers, likely the source of recent GI bleed On PPI b.i.d. Patient has not had a colonoscopy since 2000 and recent CTA of abdomen and pelvis from February shows mural thickening of the rectum present radiology was recommending correlation with colonoscopy. He has also had unintentional weight loss of approximately 11 lb, abdominal bloating and fullness, and intermittent loose stools for approximately the last 6 months. He states he has been using Imodium and Gas-X for this, previously was taking Pepto-Bismol. Will discuss family concerns with Dr. Lowe and see if colonoscopy could be arranged for tomorrow (2) Acute kidney injury: Code(s): N17.9 - Acute kidney failure, unspecified Status: Acute Assessment and Plan: GLENN likely pre-renal from GI bleed Baseline Cr is 1.10-1.30 Admission Cr was 1.10--->1.70--->1.70 today NS at 100 ml per hour (3) Protein calorie malnutrition: Code(s): E46 - Unspecified protein-calorie malnutrition Status: Acute Assessment and Plan: Total protein 5.0, albumin 2.7 patient reports poor appetite as of late dietitian consulted Plan Feeding: Full liquid Analgesia:tylenol Thromboembolic prophylaxis: scd Ulcer prophylaxis: PPI BID Glycemic control: na Bowel regimen: na Lines: piv Antibiotics: none at this time Subjective Date/time seen: 04/10/23 07:16 Interval history: HPI obtained from chart, This is a pleasant 87-year-old gentleman with coronary artery disease status post bypass x4 in 1997, abdominal aortic aneurysm status post endovascular repair, paroxysmal atrial fibrillation, hypertension, hyperlipidemia, anemia, chronic kidney disease, and benign prostatic hyperplasia who presented to the emergency department via EMS from [facility] for evaluation of suspected GI bleeding. The patient provides the following history. He presented to [facility] on 04/04/2023 with complaints of right hip pain following a ground level fall at which time he was found to have a proximal right femur fracture which was repaired with intramedullary nailing. He also had a nondisplaced distal right radius fracture which was treated non operatively with splint. During the stay he required 3 units packed red blood cells for anemia. Overall he did well and was discharged to rehab yesterday. Today he had labs drawn which showed that his hemoglobin had once again dropped and he was sent in for evaluation after it was discovered that he was passing black stools. Aside from feeling weak the patient does not have any specific complaints. Specifically he denies fever, chills, sweats, cold and flu symptoms, lightheadedness, dizziness, chest pain, epigastric pain, abdominal pain, bloating, belching, nausea, vomiting, diarrhea, and dysuria. He is on dual anti-platelet therapy with aspirin and clopidogrel. No NSAID use. He denies history of peptic ulcers. He has lost some weight and is having difficulties putting weight back on. In the ED: He was afebrile on arrival. Blood pressures have been on the low end of normal. Labs were significant for a WBC count of 20.3, hemoglobin 6.1, hematocrit 19.4, platelet 142, INR 1.3, BUN 88, creatinine 1.70, total protein 5.0, albumin 2.7. UA showed trace ketones and 1+ blood. Chest x-ray was negative for acute findings. EKG showed a sinus rhythm with aberrant conduction or ventricular premature complexes, left axis deviation, and lef
[2023-04-10] MEDS: LACTATED RINGERS 1,000 ML 150 ML IV CONT (07:17)
--- NOTE | 2023-04-10 07:32 | WPDANESEPPF ---
Anes - Initial Pre Proc Eval Procedure: Operation Date: 04/10/23 07:30 Proposed Procedures p Esophagogastroduodenoscopy - Silviano Lowe MD Date/Time: 04/10/23 07:32 Surgeon: Sole Washington DO Pre Op Diagnosis: GI Bleed, Anemia Patient Data Age: 87 Gender: M Height: 1.8 m Weight: 73.3 kg Last Vital Signs Temp 36.6 C 04/10/23 07:13 Pulse 78 04/10/23 07:13 Resp 18 04/10/23 07:13 BP 107/48 L 04/10/23 07:13 Pulse Ox 98 04/10/23 07:13 O2 Del Method Room Air 04/10/23 07:13 O2 Flow Rate 2 04/09/23 21:47 Allergies Allergy/AdvReac Type Severity Reaction Status Date / Time JERARDO Inhibitors Allergy Unknown Unknown Verified 04/10/23 07:11 Penicillins Allergy Unknown Unknown Verified 04/10/23 07:11 simvastatin Allergy Unknown Unknown Verified 04/10/23 07:11 Home Medications Medication Instructions Recorded Confirmed Type amlodipine 5 mg tablet 5 mg PO DAILY 01/15/20 04/09/23 History clopidogrel 75 mg tablet 75 mg PO DAILY 01/15/20 04/09/23 History hydralazine 10 mg tablet 10 mg PO BID 01/15/20 04/09/23 History multivitamin 1 tablet PO DAILY 01/15/20 04/09/23 History propranolol 20 mg tablet 20 mg PO Q12H 01/15/20 04/09/23 History rosuvastatin 10 mg tablet 10 mg PO DAILY 01/16/21 04/09/23 History aspirin 81 mg chewable tablet 81 mg PO DAILY 04/07/23 04/09/23 History (Aspirin Childrens) cholecalciferol (vitamin D3) 10 400 unit PO DAILY 04/07/23 04/09/23 History mcg (400 unit) tablet finasteride 5 mg tablet 5 mg PO DAILY 04/07/23 04/09/23 History alprazolam 0.25 mg tablet 0.25 mg PO DAILY PRN Anxiety 04/10/23 04/10/23 History losartan 50 mg tablet 100 mg PO DAILY 04/10/23 04/10/23 History Laboratory Tests 10/07/23 10/07/23 10/08/23 10:16 13:18 00:38 WBC 20.3 H K/mm3 (4.5-10.0) RBC 1.90 L M/mm3 (4.6-6.20) Hgb 6.1 L* g/dL 8.3 L g/dL (14.0-18.0) (14.0-18.0) Hct 19.4 L* % 25.2 L % (42.0-52.0) (42.0-52.0) MCV 102.1 H fl (80-100) MCH 32.1 pg (26-34) MCHC 31.4 L g/dl (32-36) RDW 16.0 H % (11.5-14.5) Plt Count 142 L k/mm3 (150-375) MPV 11.2 H fl (7.4-10.4) Immature Gran % (Auto) 1.0 H % (0-0.5) Neut % (Auto) 82.4 H % (45.5-73.1) Lymph % (Auto) 7.2 L % (18.3-44.2) [place] % (Auto) 9.3 H % (2.6-8.5) Eos % (Auto) 0.0 % (0-4.4) Baso % (Auto) 0.1 L % (0.2-1.2) Lymph # (Auto) 1.47 K/mm3 (0.9-3.2) [place] # (Auto) 1.9 H K/mm3 (0.1-0.6) Eos # (Auto) 0.0 K/mm3 (0-0.3) Baso # (Auto) 0.0 K/mm3 (0.0-0.1) Abs Immat Gran (auto) 0.21 H K/mm3 (0.00-0.031) Absolute Neuts (auto) 16.8 H K/mm3 (1.3-6.7) Absolute Nucleated RBC 0.0 K/mm3 (0.0-0.012) Nucleated RBC % 0.1 % (0.0-0.2) % Immature Plt Fraction Absolute Retic Percent Retic Immature Retic Fraction Retic Hgb Content PT 16.4 H Seconds (11.1-14.7) INR 1.3 APTT 23.5 SECONDS (22.3-36.8) Sodium 134 L mmol/L (137-145) Potassium 4.6 mmol/L (3.4-5.0) Chloride 105 mmol/L (98-107) Carbon Dioxide 22 mmol/L (22-30) Anion Gap 7 L mmol/L (8-16) BUN 88 H D mg/dL (9-20) Creatinine 1.70 H mg/dL (0.7-1.3) Estim Creat Clear Calc 26 ml/min Estimated GFR 38 L (59 - ) Glucose 159 H mg/dL (65-110) Calcium 9.4 mg/dL (8.4-10.2) Magnesium Iron TIBC % Saturation Ferritin Total Bilirubin 0.7 mg/dL (0.2-1.3) AST 40 U/L (17-59) ALT 22 U/L (6-50) Alkaline Phosphatase 41 U/L (38-126) Total Protein 5.0 L g/dL (6.3-8.2) Albumin 2.7 L g/dL (3.5-5.1)
--- NOTE | 2023-04-10 08:35 | PC.NURSE ---
patient returned from GI lab, report received from M[facility] CORONEL
[2023-04-10] MEDS: PANTOPRAZOLE SODIUM IV 40 MG VIAL IV PUSH ×2 (08:49→20:18)
[2023-04-10] MEDS: FINASTERIDE 5 MG TABLET PO (08:49)
[2023-04-10] MEDS: BISACODYL 5 MG TABLET EC 10 MG PO ×2 (15:08→20:17)
[2023-04-10] MEDS: polyethylene glycoL 3350 238 GM BOTTLE PO (15:08)
[2023-04-10] MEDS: guaiFENesin/DEXTROMETHORPHAN 10 ML UDC PO (20:45)
[2023-04-11] VITALS (19 sets, daily range): BP systolic 115–163; BP diastolic 44–88; PULSE 69–90; RESP 18–21; TEMP 36.3–36.9; O2SAT 97–100; BMI 17.3
[2023-04-11] MEDS: SODIUM CHLORIDE 0.9% IV 1,000 ML 100 ML IV CONT ×2 (03:48→17:01)
[2023-04-11 06:05] LABS: Basophils Percent Auto 0.1 % (0.2-1.2); Eosinophils Absolute Auto 0.3 K/mm3 (0-0.3); Eosinophils Percent Auto 3.7 % (0-4.4); Hematocrit 25.6 % (42.0-52.0); Hemoglobin 7.6 g/dL (14.0-18.0); Immature Granulocyte Absolute 0.07 K/mm3 (0.00-0.031); Immature Granulocyte Percent A 0.9 % (0-0.5); Immature Platelet Fraction Pct 2.7 % (0.9-11.2); Lymphocytes Absolute Auto 0.73 K/mm3 (0.9-3.2); Lymphocytes Percent Auto 9.4 % (18.3-44.2); Mean Corpuscular HGB Conc 29.7 g/dl (32-36); Mean Corpuscular Hemoglobin 31.9 pg (26-34); Mean Corpuscular Volume 107.6 fl (80-100); Mean Platelet Volume 10.3 fl (7.4-10.4); Monocytes Absolute Auto 0.9 K/mm3 (0.1-0.6); Monocytes Percent Auto 10.9 % (2.6-8.5); Neutrophils Absolute Auto 5.8 K/mm3 (1.3-6.7); Nucleated Red Blood Cells Absolute Auto 0.1 K/mm3 (0.0-0.012); Nucleated Red Blood Cells Perc 1.8 % (0.0-0.2); Platelet Count Result 107 k/mm3 (150-375); Red Blood Count 2.38 M/mm3 (4.6-6.20); Red Cell Distribution Width 17.9 % (11.5-14.5); White Blood Count 7.8 K/mm3 (4.5-10.0)
[2023-04-11 06:20] LABS: Alanine Aminotransferase 42 U/L (6-50); Albumin Level 2.3 g/dL (3.5-5.1); Alkaline Phosphatase 40 U/L (38-126); Anion Gap 2 mmol/L (8-16); Aspartate Amino Transferase 64 U/L (17-59); Blood Urea Nitrogen 51 mg/dL (9-20); Calcium 8.7 mg/dL (8.4-10.2); Carbon Dioxide 21 mmol/L (22-30); Chloride 115 mmol/L (98-107); Estimated CRCL calculation 42 ml/min; Estimated Glomerular Filt Rate 58; Glucose 110 mg/dL (65-110); Magnesium 2.2 mg/dL (1.6-2.3); Potassium 3.7 mmol/L (3.4-5.0); Sodium 138 mmol/L (137-145)
[2023-04-11 07:03] LABS: Platelet Estimate Decreased (Adequate)
[2023-04-11 07:04] LABS: Anisocytosis 1+ (NORMAL); Burr Cells 1+ (NORMAL); Poikilocytosis 1+ (NORMAL); Schistocytes None Seen (NORMAL)
--- NOTE | 2023-04-11 08:26 | PCPTNOTE ---
Attempted PT evaluation, pt refused due to going for a procedure this morning. RN aware. Will follow.
--- NOTE | 2023-04-11 08:28 | PCOTNOTE ---
Pt. declining therapy services for this morning due to pending procedure. RN aware. Will follow.
--- NOTE | 2023-04-11 09:46 | WPDANESEPPF ---
Anes - Initial Pre Proc Eval Procedure: Operation Date: 04/10/23 07:30 Proposed Procedures p Esophagogastroduodenoscopy - Silviano Lowe MD Operation Date: 04/11/23 14:15 Proposed Procedures p Colonoscopy - Silviano Lowe MD Date/Time: 04/11/23 09:46 Surgeon: Sole Washington DO Pre Op Diagnosis: GI Bleed, Anemia Patient Data Age: 87 Gender: M Height: 1.8 m Weight: 73.3 kg Last Vital Signs Temp 97.6 F 04/11/23 09:09 Pulse 76 04/11/23 09:09 Resp 18 04/11/23 09:09 BP 115/62 04/11/23 09:09 Pulse Ox 99 04/11/23 09:09 O2 Del Method Room Air 04/11/23 09:09 O2 Flow Rate 2 04/10/23 20:00 Allergies Allergy/AdvReac Type Severity Reaction Status Date / Time JERARDO Inhibitors Allergy Unknown Unknown Verified 04/11/23 08:59 Penicillins Allergy Unknown Unknown Verified 04/11/23 08:59 simvastatin Allergy Unknown Unknown Verified 04/11/23 08:59 Home Medications Medication Instructions Recorded Confirmed Type amlodipine 5 mg tablet 5 mg PO DAILY 01/15/20 04/09/23 History clopidogrel 75 mg tablet 75 mg PO DAILY 01/15/20 04/09/23 History hydralazine 10 mg tablet 10 mg PO BID 01/15/20 04/09/23 History multivitamin 1 tablet PO DAILY 01/15/20 04/09/23 History propranolol 20 mg tablet 20 mg PO Q12H 01/15/20 04/09/23 History rosuvastatin 10 mg tablet 10 mg PO DAILY 01/16/21 04/09/23 History aspirin 81 mg chewable tablet 81 mg PO DAILY 04/07/23 04/09/23 History (Aspirin Childrens) cholecalciferol (vitamin D3) 10 400 unit PO DAILY 04/07/23 04/09/23 History mcg (400 unit) tablet finasteride 5 mg tablet 5 mg PO DAILY 04/07/23 04/09/23 History alprazolam 0.25 mg tablet 0.25 mg PO DAILY PRN Anxiety 04/10/23 04/10/23 History losartan 50 mg tablet 100 mg PO DAILY 04/10/23 04/10/23 History Laboratory Tests 04/11/23 04/11/23 05:30 05:56 WBC 7.8 K/mm3 (4.5-10.0) RBC 2.38 L M/mm3 (4.6-6.20) Hgb 7.6 L g/dL (14.0-18.0) Hct 25.6 L % (42.0-52.0) MCV 107.6 H D fl (80-100) MCH 31.9 pg (26-34) MCHC 29.7 L g/dl (32-36) RDW 17.9 H % (11.5-14.5) Plt Count 107 L k/mm3 (150-375) MPV 10.3 fl (7.4-10.4) Immature Gran % (Auto) 0.9 H % (0-0.5) Neut % (Auto) 75.0 H % (45.5-73.1) Lymph % (Auto) 9.4 L % (18.3-44.2) [place] % (Auto) 10.9 H % (2.6-8.5) Eos % (Auto) 3.7 % (0-4.4) Baso % (Auto) 0.1 L % (0.2-1.2) Lymph # (Auto) 0.73 L K/mm3 (0.9-3.2) [place] # (Auto) 0.9 H K/mm3 (0.1-0.6) Eos # (Auto) 0.3 K/mm3 (0-0.3) Baso # (Auto) 0.0 K/mm3 (0.0-0.1) Abs Immat Gran (auto) 0.07 H K/mm3 (0.00-0.031) Absolute Neuts (auto) 5.8 K/mm3 (1.3-6.7) Absolute Nucleated RBC 0.1 H K/mm3 (0.0-0.012) Nucleated RBC % 1.8 H % (0.0-0.2) Platelet Estimate Decreased (Adequate) % Immature Plt Fraction 2.7 % (0.9-11.2) Poikilocytosis 1+ (NORMAL) Anisocytosis 1+ (NORMAL) David Cells 1+ (NORMAL) Schistocytes None seen (NORMAL) Sodium 138 mmol/L (137-145) Potassium 3.7 mmol/L (3.4-5.0) Chloride 115 H mmol/L (98-107) Carbon Dioxide 21 L mmol/L (22-30) Anion Gap 2 L mmol/L (8-16) BUN 51 H D mg/dL (9-20) Creatinine 1.20 mg/dL (0.7-1.3) Estim Creat Clear Calc 42 ml/min Estimated GFR 58 L (59 - ) Glucose 110 mg/dL (65-110) Calcium 8.7 mg/dL (8.4-10.2) Magnesium 2.2 mg/dL (1.6-2.3) Total Bilirubin 1.0 mg/dL (0.2-1.3) AST 64 H U/L (17-59) ALT 42 U/L (6-50) Alkaline Phosphatase 40 U/L (38-126) Total Protein 4.0 L g/dL (6.3-8.2) Albumin 2.3 L g/dL (3.5-5.1) Patient hx anesthesia problems: none Family hx anesthesia problems: none Results Review: All pre-operative results and documents have been reviewed as part of th
[2023-04-11] MEDS: LACTATED RINGERS 1,000 ML 150 ML IV CONT (09:50)
[2023-04-11] MEDS: FINASTERIDE 5 MG TABLET PO (11:06)
[2023-04-11] MEDS: PANTOPRAZOLE SODIUM IV 40 MG VIAL IV PUSH ×2 (11:07→20:09)
--- NOTE | 2023-04-11 11:13 | P.PNIM_ITS ---
Progress Note: A&P Assessment and Plan (1) GI bleed: Code(s): K92.2 - Gastrointestinal hemorrhage, unspecified Status: Acute Assessment and Plan: Acute blood loss anemia, suspected GI source * Hemoglobin in February of this year was 13, on admission today it's 6.1 * Transfused with 1 unit of pRBC and Hgb increased to 8.3 * Patient reports dark stools the last couple of days * Trend H/H and run anemia panel * GI consult and recommendations are appreciated. * Endoscopy shows nonbleeding duodenal ulcers, likely the source of recent GI bleed * On PPI b.i.d. * Patient has not had a colonoscopy since 2000 and recent CTA of abdomen and pelvis from February shows mural thickening of the rectum present radiology was recommending correlation with colonoscopy. He has also had unintentional weight loss of approximately 11 lb, abdominal bloating and fullness, and intermittent loose stools for approximately the last 6 months. He states he has been using Imodium and Gas-X for this, previously was taking Pepto-Bismol. * Will discuss family concerns with Dr. Lowe and see if colonoscopy could be arranged for tomorrow * Colonoscopy completed 04/11 with findings of internal hemorrhoids, diverticulosis, and colonic ulcers. Biopsys were taken. Recommend low residue diet. (2) Acute kidney injury: Code(s): N17.9 - Acute kidney failure, unspecified Status: Acute Assessment and Plan: GLENN likely pre-renal from GI bleed * Baseline Cr is 1.10-1.30 * Admission Cr was 1.10--->1.70--->1.20 today * NS at 75 ml per hour (3) Protein calorie malnutrition: Code(s): E46 - Unspecified protein-calorie malnutrition Status: Acute Assessment and Plan: Total protein 5.0, albumin 2.7 * patient reports poor appetite as of late * dietitian consulted * Add ensure clear TID with meals * Needs teaching on low residue diet (4) Cough productive of yellow sputum: Code(s): R05.8 - Other specified cough Status: Acute Assessment and Plan: Patient and family reports chronic cough with production of yellow sputum. * XR on 04/09 was not concerning for pneumonia * Sputum sample obtained and sent * No SOB or hypoxia * XR mentions hyperinflation with concerns for COPD. He does have a history of smoking in the past. * Sputum production seems to be chronic since COVID per family. * He is on 1 L NC satting 98%. * Titrate o2 down to room air (5) Distal radius fracture, right: Code(s): S52.501A - Unspecified fracture of the lower end of right radius, initial encounter for closed fracture Status: Acute Assessment and Plan: Fall on 04/04 sustained right radial fracture * Splint placed at [facility] on 04/05 * Per note from ABI needs repeat imaging on right wrist 04/12. Will order for the am. (6) Femur fracture, right: Code(s): S72.91XA - Unspecified fracture of right femur, initial encounter for closed fracture Status: Acute Assessment and Plan: Fall 04/04 with transfer to [facility] * 04/04 surgery with [facility] right hip closed reduction and IM nail * WBAT to [facility] * PT/OT * Needs further placement as family does not wish to go back to [facility] Plan Feeding: low residue with ensure clear Analgesia:tylenol Thromboembolic prophylaxis: scd Ulcer prophylaxis: PPI BID Glycemic control: na Bowel regimen: na Lines: piv Antibiotics: none at this time Assess Hgb in the morning. If stable then he will be medically clear for d/c Needs placement, care coordination assisting with this PT
--- NOTE | 2023-04-11 11:13 | PM.IMPN ---
Progress Note: A&P Assessment and Plan (1) GI bleed: Code(s): K92.2 - Gastrointestinal hemorrhage, unspecified Status: Acute Assessment and Plan: Acute blood loss anemia, suspected GI source Hemoglobin in February of this year was 13, on admission today it's 6.1 Transfused with 1 unit of pRBC and Hgb increased to 8.3 Patient reports dark stools the last couple of days Trend H/H and run anemia panel GI consult and recommendations are appreciated. Endoscopy shows nonbleeding duodenal ulcers, likely the source of recent GI bleed On PPI b.i.d. Patient has not had a colonoscopy since 2000 and recent CTA of abdomen and pelvis from February shows mural thickening of the rectum present radiology was recommending correlation with colonoscopy. He has also had unintentional weight loss of approximately 11 lb, abdominal bloating and fullness, and intermittent loose stools for approximately the last 6 months. He states he has been using Imodium and Gas-X for this, previously was taking Pepto-Bismol. Will discuss family concerns with Dr. Lowe and see if colonoscopy could be arranged for tomorrow Colonoscopy completed 04/11 with findings of internal hemorrhoids, diverticulosis, and colonic ulcers. Biopsys were taken. Recommend low residue diet. (2) Acute kidney injury: Code(s): N17.9 - Acute kidney failure, unspecified Status: Acute Assessment and Plan: GLENN likely pre-renal from GI bleed Baseline Cr is 1.10-1.30 Admission Cr was 1.10--->1.70--->1.20 today NS at 75 ml per hour (3) Protein calorie malnutrition: Code(s): E46 - Unspecified protein-calorie malnutrition Status: Acute Assessment and Plan: Total protein 5.0, albumin 2.7 patient reports poor appetite as of late dietitian consulted Add ensure clear TID with meals Needs teaching on low residue diet (4) Cough productive of yellow sputum: Code(s): R05.8 - Other specified cough Status: Acute Assessment and Plan: Patient and family reports chronic cough with production of yellow sputum. XR on 04/09 was not concerning for pneumonia Sputum sample obtained and sent No SOB or hypoxia XR mentions hyperinflation with concerns for COPD. He does have a history of smoking in the past. Sputum production seems to be chronic since COVID per family. He is on 1 L NC satting 98%. Titrate o2 down to room air (5) Distal radius fracture, right: Code(s): S52.501A - Unspecified fracture of the lower end of right radius, initial encounter for closed fracture Status: Acute Assessment and Plan: Fall on 04/04 sustained right radial fracture Splint placed at [facility] on 04/05 Per note from [facility] needs repeat imaging on right wrist 04/12. Will order for the am. (6) Femur fracture, right: Code(s): S72.91XA - Unspecified fracture of right femur, initial encounter for closed fracture Status: Acute Assessment and Plan: Fall 04/04 with transfer to [facility] 04/04 surgery with [facility] right hip closed reduction and IM nail WBAT to LLE PT/OT Needs further placement as family does not wish to go back to [facility] Plan Feeding: low residue with ensure clear Analgesia:tylenol Thromboembolic prophylaxis: scd Ulcer prophylaxis: PPI BID Glycemic control: na Bowel regimen: na Lines: piv Antibiotics: none at this time Assess Hgb in the morning. If stable then he will be medically clear for d/c Needs placement, care coordination assisting with this PT/OT Repeat imaging of right wrist in the morning to assess for healing Subjective Date/time seen: 04/11/23 11:13 Interval history: HPI obtained from chart, This is a pleasant 87-year-old gentleman with coronary artery disease status post bypass x4 in 1997, abdominal aortic aneurysm status post endovascular repair, paroxysmal atrial fibrillation, hypertension, hyperlipidemia, anemia, chronic kidney disease,
[2023-04-11 15:05] LABS: Basophils Percent Auto 0.1 % (0.2-1.2); Eosinophils Absolute Auto 0.4 K/mm3 (0-0.3); Eosinophils Percent Auto 4.3 % (0-4.4); Hematocrit 24.8 % (42.0-52.0); Hemoglobin 7.8 g/dL (14.0-18.0); Immature Granulocyte Absolute 0.07 K/mm3 (0.00-0.031); Immature Granulocyte Percent A 0.8 % (0-0.5); Lymphocytes Absolute Auto 0.71 K/mm3 (0.9-3.2); Lymphocytes Percent Auto 8.2 % (18.3-44.2); Mean Corpuscular HGB Conc 31.5 g/dl (32-36); Mean Corpuscular Hemoglobin 32.5 pg (26-34); Mean Corpuscular Volume 103.3 fl (80-100); Mean Platelet Volume 10.5 fl (7.4-10.4); Monocytes Percent Auto 11.7 % (2.6-8.5); Neutrophils Absolute Auto 6.5 K/mm3 (1.3-6.7); Neutrophils Percent Auto 74.9 % (45.5-73.1); Nucleated Red Blood Cells Absolute Auto 0.1 K/mm3 (0.0-0.012); Nucleated Red Blood Cells Perc 0.9 % (0.0-0.2); Platelet Count Result 109 k/mm3 (150-375); Red Cell Distribution Width 17.9 % (11.5-14.5); White Blood Count 8.7 K/mm3 (4.5-10.0)
[2023-04-12] VITALS (9 sets, daily range): BP systolic 118–141; BP diastolic 49–66; PULSE 72–99; RESP 13–18; TEMP 36.1–36.9; O2SAT 92–98
[2023-04-12] MEDS: SODIUM CHLORIDE 0.9% IV 1,000 ML 100 ML IV CONT (03:38)
[2023-04-12 05:50] LABS: Basophils Percent Auto 0.2 % (0.2-1.2); Eosinophils Absolute Auto 0.5 K/mm3 (0-0.3); Eosinophils Percent Auto 9.8 % (0-4.4); Hematocrit 23.3 % (42.0-52.0); Hemoglobin 7.2 g/dL (14.0-18.0); Immature Granulocyte Absolute 0.08 K/mm3 (0.00-0.031); Immature Granulocyte Percent A 1.5 % (0-0.5); Lymphocytes Absolute Auto 0.61 K/mm3 (0.9-3.2); Lymphocytes Percent Auto 11.6 % (18.3-44.2); Mean Corpuscular HGB Conc 30.9 g/dl (32-36); Mean Corpuscular Hemoglobin 31.9 pg (26-34); Mean Corpuscular Volume 103.1 fl (80-100); Mean Platelet Volume 10.3 fl (7.4-10.4); Monocytes Absolute Auto 0.5 K/mm3 (0.1-0.6); Monocytes Percent Auto 9.7 % (2.6-8.5); Neutrophils Absolute Auto 3.6 K/mm3 (1.3-6.7); Neutrophils Percent Auto 67.2 % (45.5-73.1); Nucleated Red Blood Cells Perc 0.6 % (0.0-0.2); Platelet Count Result 104 k/mm3 (150-375); Red Blood Count 2.26 M/mm3 (4.6-6.20); Red Cell Distribution Width 18.2 % (11.5-14.5); White Blood Count 5.3 K/mm3 (4.5-10.0)
[2023-04-12 06:04] LABS: Potassium 3.3 mmol/L (3.4-5.0)
[2023-04-12 06:08] LABS: Alanine Aminotransferase 33 U/L (6-50); Albumin Level 2.2 g/dL (3.5-5.1); Alkaline Phosphatase 49 U/L (38-126); Anion Gap 0 mmol/L (8-16); Aspartate Amino Transferase 36 U/L (17-59); Bilirubin,Total 0.9 mg/dL (0.2-1.3); Blood Urea Nitrogen 27 mg/dL (9-20); Calcium 8.7 mg/dL (8.4-10.2); Carbon Dioxide 23 mmol/L (22-30); Chloride 116 mmol/L (98-107); Estimated CRCL calculation 51 ml/min; Estimated Glomerular Filt Rate > 60; Glucose 99 mg/dL (65-110); Magnesium 2.1 mg/dL (1.6-2.3); Sodium 139 mmol/L (137-145)
--- NOTE | 2023-04-12 08:49 | P.PNIM_ITS ---
Progress Note: A&P Assessment and Plan (1) GI bleed: Code(s): K92.2 - Gastrointestinal hemorrhage, unspecified Status: Acute Assessment and Plan: Acute blood loss anemia, suspected GI source * Hemoglobin in February of this year was 13, on admission today it's 6.1 * Transfused with 1 unit of pRBC and Hgb increased to 8.3 * Patient reports dark stools the last couple of days * Trend H/H and run anemia panel * GI consult and recommendations are appreciated. * Endoscopy shows nonbleeding duodenal ulcers, likely the source of recent GI bleed * On PPI b.i.d. * Patient has not had a colonoscopy since 2000 and recent CTA of abdomen and pelvis from February shows mural thickening of the rectum present radiology was recommending correlation with colonoscopy. He has also had unintentional weight loss of approximately 11 lb, abdominal bloating and fullness, and intermittent loose stools for approximately the last 6 months. He states he has been using Imodium and Gas-X for this, previously was taking Pepto-Bismol. * Will discuss family concerns with Dr. Lowe and see if colonoscopy could be arranged for tomorrow * Colonoscopy completed 04/11 with findings of internal hemorrhoids, diverticulosis, and colonic ulcers. Biopsys were taken. Recommend low residue diet. * Thrombocytopenia on labs. Plt 130-140 on admission, now down to 104. If H- pylori is causing his ulcers this could be why he is having a drop. No active bleeding now and generally won't transfuse until less than 50,000. (2) Acute kidney injury: Code(s): N17.9 - Acute kidney failure, unspecified Status: Acute Assessment and Plan: GLENN likely pre-renal from GI bleed * Baseline Cr is 1.10-1.30 * Admission Cr was 1.10--->1.70--->1.20-->0.72 today * Stop IVF (3) Protein calorie malnutrition: Code(s): E46 - Unspecified protein-calorie malnutrition Status: Acute Assessment and Plan: Total protein 5.0, albumin 2.7 * patient reports poor appetite as of late * dietitian consulted * Add ensure clear TID with meals * Needs teaching on low residue diet (4) Cough productive of yellow sputum: Code(s): R05.8 - Other specified cough Status: Acute Assessment and Plan: Patient and family reports chronic cough with production of yellow sputum. * XR on 04/09 was not concerning for pneumonia * Sputum sample obtained and sent * No SOB or hypoxia * XR mentions hyperinflation with concerns for COPD. He does have a history of smoking in the past. * Sputum production seems to be chronic since COVID per family. * He is on 1 L NC satting 98%. * Titrate o2 down to room air (5) Distal radius fracture, right: Code(s): S52.501A - Unspecified fracture of the lower end of right radius, initial encounter for closed fracture Status: Acute Assessment and Plan: Fall on 04/04 sustained right radial fracture * Splint placed at [facility] on 04/05 * Per note from [facility] needs repeat imaging on right wrist 04/12. Will order for the am. * XR right wrist is not displaced. (6) Femur fracture, right: Code(s): S72.91XA - Unspecified fracture of right femur, initial encounter for closed fracture Status: Acute Assessment and Plan: Fall 04/04 with transfer to [facility] * 04/04 surgery with [facility] right hip closed reduction and IM nail * WBAT to LLE * PT/OT * Needs further placement as family does not wish to go back to [facility] Plan Feeding: low residue with ensure clear Analgesia:tylenol Thromboembolic prophylaxis: scd Ulcer prophylaxis:
--- NOTE | 2023-04-12 08:49 | PM.IMPN ---
Progress Note: A&P Assessment and Plan (1) GI bleed: Code(s): K92.2 - Gastrointestinal hemorrhage, unspecified Status: Acute Assessment and Plan: Acute blood loss anemia, suspected GI source Hemoglobin in February of this year was 13, on admission today it's 6.1 Transfused with 1 unit of pRBC and Hgb increased to 8.3 Patient reports dark stools the last couple of days Trend H/H and run anemia panel GI consult and recommendations are appreciated. Endoscopy shows nonbleeding duodenal ulcers, likely the source of recent GI bleed On PPI b.i.d. Patient has not had a colonoscopy since 2000 and recent CTA of abdomen and pelvis from February shows mural thickening of the rectum present radiology was recommending correlation with colonoscopy. He has also had unintentional weight loss of approximately 11 lb, abdominal bloating and fullness, and intermittent loose stools for approximately the last 6 months. He states he has been using Imodium and Gas-X for this, previously was taking Pepto-Bismol. Will discuss family concerns with Dr. Lowe and see if colonoscopy could be arranged for tomorrow Colonoscopy completed 04/11 with findings of internal hemorrhoids, diverticulosis, and colonic ulcers. Biopsys were taken. Recommend low residue diet. Thrombocytopenia on labs. Plt 130-140 on admission, now down to 104. If H-pylori is causing his ulcers this could be why he is having a drop. No active bleeding now and generally won't transfuse until less than 50,000. (2) Acute kidney injury: Code(s): N17.9 - Acute kidney failure, unspecified Status: Acute Assessment and Plan: GLENN likely pre-renal from GI bleed Baseline Cr is 1.10-1.30 Admission Cr was 1.10--->1.70--->1.20-->0.72 today Stop IVF (3) Protein calorie malnutrition: Code(s): E46 - Unspecified protein-calorie malnutrition Status: Acute Assessment and Plan: Total protein 5.0, albumin 2.7 patient reports poor appetite as of late dietitian consulted Add ensure clear TID with meals Needs teaching on low residue diet (4) Cough productive of yellow sputum: Code(s): R05.8 - Other specified cough Status: Acute Assessment and Plan: Patient and family reports chronic cough with production of yellow sputum. XR on 04/09 was not concerning for pneumonia Sputum sample obtained and sent No SOB or hypoxia XR mentions hyperinflation with concerns for COPD. He does have a history of smoking in the past. Sputum production seems to be chronic since COVID per family. He is on 1 L NC satting 98%. Titrate o2 down to room air (5) Distal radius fracture, right: Code(s): S52.501A - Unspecified fracture of the lower end of right radius, initial encounter for closed fracture Status: Acute Assessment and Plan: Fall on 04/04 sustained right radial fracture Splint placed at [facility] on 04/05 Per note from [facility] needs repeat imaging on right wrist 04/12. Will order for the am. XR right wrist is not displaced. (6) Femur fracture, right: Code(s): S72.91XA - Unspecified fracture of right femur, initial encounter for closed fracture Status: Acute Assessment and Plan: Fall 04/04 with transfer to [facility] 04/04 surgery with [facility] right hip closed reduction and IM nail WBAT to [facility] PT/OT Needs further placement as family does not wish to go back to [facility] Plan Feeding: low residue with ensure clear Analgesia:tylenol Thromboembolic prophylaxis: scd Ulcer prophylaxis: PPI BID Glycemic control: na Bowel regimen: na Lines: piv Antibiotics: none at this time IV iron today Hgb repeat lab at 11 am, BUN normal Medically ready for D/C to SNF Needs placement, care coordination assisting with this PT/OT Subjective Date/time seen: 04/12/23 08:49 Interval history: HPI obtained from chart, This is a pleasant 87-year-old gentleman with coronary artery dis
[2023-04-12] MEDS: POTASSIUM CHLORIDE 20 MEQ ER TABLET 40 MEQ PO (09:59)
[2023-04-12] MEDS: FINASTERIDE 5 MG TABLET PO (09:59)
[2023-04-12] MEDS: FERROUS SULFATE 325 MG TABLET DR PO (09:59)
[2023-04-12] MEDS: PANTOPRAZOLE SODIUM IV 40 MG VIAL IV PUSH ×2 (09:59→20:11)
[2023-04-12 11:34] LABS: Hematocrit 24.1 % (42.0-52.0); Hemoglobin 7.5 g/dL (14.0-18.0)
--- NOTE | 2023-04-12 12:46 | WPDANESPN ---
Anes - Prog Note Post-Op Date/Time: 04/12/23 12:46 Cardiovascular status: normal Respiratory status: normal Airway patency: baseline Mental status: baseline Post-Op hydration status: normal Vital Signs: Last Vital Signs Temp 98.4 F 04/12/23 08:40 Pulse 83 04/12/23 08:40 Resp 18 04/12/23 08:40 BP 141/49 H 04/12/23 08:40 Pulse Ox 98 04/12/23 08:40 O2 Del Method Room Air 04/12/23 10:18 O2 Flow Rate 2 04/11/23 21:15 Pain Score (VAS): 0 I/O: Intake & Output 04/11/23 04/12/23 04/12/23 23:59 07:59 15:59 Intake Total 720 1190 720 Output Total 600 Balance 720 590 720 Laboratory Tests 04/12/23 11:16 04/12/23 05:28 04/11/23 04/11/23 04/11/23 11:57 14:35 14:40 WBC 8.7 RBC 2.40 L Hgb 7.8 L Hct 24.8 L MCV 103.3 H MCH 32.5 MCHC 31.5 L RDW 17.9 H Plt Count 109 L MPV 10.5 H Immature Gran % (Auto) 0.8 H Neut % (Auto) 74.9 H Lymph % (Auto) 8.2 L [place] % (Auto) 11.7 H Eos % (Auto) 4.3 Baso % (Auto) 0.1 L Lymph # (Auto) 0.71 L [place] # (Auto) 1.0 H Eos # (Auto) 0.4 H Baso # (Auto) 0.0 Abs Immat Gran (auto) 0.07 H Absolute Neuts (auto) 6.5 Absolute Nucleated RBC 0.1 H Nucleated RBC % 0.9 H Sodium Potassium Chloride Carbon Dioxide Anion Gap BUN Creatinine Estim Creat Clear Calc Estimated GFR Glucose Calcium Magnesium Total Bilirubin AST ALT Alkaline Phosphatase Total Protein Albumin IgA Cancelled Pending ANCA Screen Cancelled Pending c-ANCA Titer Cancelled Proteinase 3 (PR3) Ab Cancelled Pending p-ANCA Titer Cancelled Atypical p-ANCA Titer Cancelled Myeloperoxidase Ab Cancelled Pending Tiss Transglutamin IgG Cancelled Pending Tiss Transglut IgA Comm Cancelled Pending Celiac Disease Interp Cancelled Pending S.cerevisiae IgG Ab Cancelled Pending S.cerevisiae IgA Ab Cancelled Pending 04/12/23 04/12/23 05:28 11:16 WBC 5.3 RBC 2.26 L Hgb 7.2 L 7.5 L Hct 23.3 L 24.1 L MCV 103.1 H MCH 31.9 MCHC 30.9 L RDW 18.2 H Plt Count 104 L MPV 10.3 Immature Gran % (Auto) 1.5 H Neut % (Auto) 67.2 Lymph % (Auto) 11.6 L [place] % (Auto) 9.7 H Eos % (Auto) 9.8 H Baso % (Auto) 0.2 Lymph # (Auto) 0.61 L [place] # (Auto) 0.5 Eos # (Auto) 0.5 H Baso # (Auto) 0.0 Abs Immat Gran (auto) 0.08 H Absolute Neuts (auto) 3.6 Absolute Nucleated RBC 0.0 Nucleated RBC % 0.6 H Sodium 139 Potassium 3.3 L Chloride 116 H Carbon Dioxide 23 Anion Gap 0 L BUN 27 H D Creatinine 1.00 Estim Creat Clear Calc 51 Estimated GFR > 60 Glucose 99 Calcium 8.7 Magnesium 2.1 Total Bilirubin 0.9 AST 36 ALT 33 Alkaline Phosphatase 49 Total Protein 4.0 L Albumin 2.2 L IgA ANCA Screen c-ANCA Titer Proteinase 3 (PR3) Ab p-ANCA Titer Atypical p-ANCA Titer Myeloperoxidase Ab Tiss Transglutamin IgG Tiss Transglut IgA Comm Celiac Disease Interp S.cerevisiae IgG Ab S.cerevisiae IgA Ab Post-procedural complaints: none Patient Feedback: Patient satisfied with anesthetic care.
--- NOTE | 2023-04-12 15:53 | PC.NURSE ---
On 04/12/23, the student, [Grover Hampton], provided care and completed [facility] documentation on this patient. I have reviewed the student's documentation and agree with the findings.
[2023-04-13] VITALS (11 sets, daily range): BP systolic 96–120; BP diastolic 49–68; PULSE 73–100; RESP 14–18; TEMP 36.4–37; O2SAT 93–100
--- NOTE | 2023-04-13 06:38 | P.CDI_ITS ---
CDI Query Clarification Request BMI 17.3 Nutritional Diagnostic Statement Severe malnutrition as related to inadequate protein-energy intake with increased protein-energy needs in setting of chronic disease (anemia) as evidenced by minimal oral intake for > 1-2 months and significant weight loss of 9% (13 lbs) in the past 3 month Please refer to the comprehensive nutrition assessment for further information. Please clarify severity of protein calorie malnutrition if known: * Mild * Moderate * Severe * Other/Unspecified <Carrie Sutton RN - Last Filed: 04/13/23 06:43> Clarified Diagnosis Clarified Diagnosis: Severe protein calorie malnourishment Severe malnutrition as related to inadequate protein-energy intake with increased protein-energy needs in setting of chronic disease (anemia) as evidenced by minimal oral intake for > 1-2 months and significant? weight loss of 9% (13 lbs) in the past 3 month <Isidro Burns APRN - Last Filed: 04/13/23 09:40>
--- NOTE | 2023-04-13 07:14 | WPDGIPROGNO ---
Progress Note: A&P Assessment and Plan (1) GI bleed: Code(s): K92.2 - Gastrointestinal hemorrhage, unspecified Status: Acute Assessment and Plan: He began seeing black tarry stools about 2 days prior to his admission. He has been on iron supplements but this was a significant change. He also saw some purple in his stool. His hemoglobin did drop from 13 a week ago to 6 point 1. Is now up to 8 after transfusion. He denies taking any NSAIDs recently. He denies seen any more blood in his stools. (2) Acute blood loss anemia: Code(s): D62 - Acute posthemorrhagic anemia Status: Acute Assessment and Plan: As noted above there has been a dramatic drop in his hemoglobin from 13-6 within a period of 1 week. I suspect upper gastrointestinal bleed such as ulcer. I will schedule him for EGD to be done today. 04/13/2023 hemoglobin is holding at 7.5 (3) Atrial fibrillation: Code(s): I48.91 - Unspecified atrial fibrillation Status: Acute Assessment and Plan: EKG yesterday shows sinus rhythm but with aberrant conduction. Atrial fibrillation not seen at this time. (4) History of four vessel coronary artery bypass graft: Onset Date: 1997 Code(s): Z95.1 - Presence of aortocoronary bypass graft Status: Acute Assessment and Plan: This was done in 1988. He has been on dual anti-platelet therapy with aspirin and Plavix and this is being held the present time. (5) Acute kidney injury: Code(s): N17.9 - Acute kidney failure, unspecified Status: Acute Assessment and Plan: This is primarily I suspect due to gastrointestinal bleeding and volume loss. BUN has increased from 19 a couple months ago to 423 days ago and now 88. Likewise his creatinine which was 1.1 just a few days ago was not 1.7. He does appears somewhat dehydrated as well. 04/13/2023 BUN is down 27. Partly rise in BUN was likely due to blood in the gut in addition to dehydration. (6) Femur fracture, right: Code(s): S72.91XA - Unspecified fracture of right femur, initial encounter for closed fracture Status: Acute Assessment and Plan: Today his only complaint to me is that he feels frustrated that he cannot move about on his own, being immobilized by the fracture his femur and also the right radius which is in a cast he expects to be transferred to [facility] another rehabilitation place today or tomorrow Plan EGD did reveal Too large and deep duodenal ulcers. there was no active bleeding at the time. Also he had severe he erosive esophagitis. After 6+ weeks on b.i.d. PPI he will return for repeat EGD. I discussed with him the colonoscopy results, ulcerations localized the sigmoid colon. This suggest a transient hypotensive episode as it is consistent with ischemic colitis. While awaiting serology to rule out other colitis such as IBD, will give him a short course of budesonide. I will have follow-up with me in the office in a couple weeks after discharge. Subjective Date/time seen: 04/13/23 07:14 his main complaint is that he feels confined because he is limited due to is the hip surgery and cast on his right arm. He denies any bleeding. He states he has been passing gas and had a small liquid brownish stool. I discussed with him the findings on his colonoscopy that he has a localized area of ulceration. This could be ischemic. Possibly he had an episode of hypotension that induce that. I will obtain serology to rule out inflammatory bowel disease, Which is suspect will be negative. I will start him a short course of budesonide. I told that we will need to follow up with him in the office and also he will have repeat EGD in 6-8 weeks to ensure healing of the duodenal ulcers. Exam Const: General: cooperative and healthy appearing Orientation/consciousness: patient oriented x3 HENMT: Head: normal to inspection Ears: hearing grossly nor
[2023-04-13] MEDS: ACETAMINOPHEN 325 MG TABLET 650 MG PO ×2 (08:26→20:02)
[2023-04-13] MEDS: BUDESONIDE 3 MG CAP.SR.24H 9 MG PO (08:27)
[2023-04-13] MEDS: FERROUS SULFATE 325 MG TABLET DR PO (08:27)
[2023-04-13] MEDS: PANTOPRAZOLE SODIUM IV 40 MG VIAL IV PUSH ×2 (08:27→19:52)
[2023-04-13] MEDS: FINASTERIDE 5 MG TABLET PO (08:27)
--- NOTE | 2023-04-13 09:40 | P.PNIM_ITS ---
Progress Note: A&P Assessment and Plan (1) GI bleed: Code(s): K92.2 - Gastrointestinal hemorrhage, unspecified Status: Acute Assessment and Plan: Acute blood loss anemia, suspected GI source * Hemoglobin in February of this year was 13, on admission today it's 6.1 * Transfused with 1 unit of pRBC and Hgb increased to 8.3 * Patient reports dark stools the last couple of days * Trend H/H and run anemia panel * GI consult and recommendations are appreciated. * Endoscopy shows nonbleeding duodenal ulcers, likely the source of recent GI bleed * On PPI b.i.d. * Patient has not had a colonoscopy since 2000 and recent CTA of abdomen and pelvis from February shows mural thickening of the rectum present radiology was recommending correlation with colonoscopy. He has also had unintentional weight loss of approximately 11 lb, abdominal bloating and fullness, and intermittent loose stools for approximately the last 6 months. He states he has been using Imodium and Gas-X for this, previously was taking Pepto-Bismol. * Will discuss family concerns with Dr. Lowe and see if colonoscopy could be arranged for tomorrow * Colonoscopy completed 04/11 with findings of internal hemorrhoids, diverticulosis, and colonic ulcers. Biopsys were taken. Recommend low residue diet. * Thrombocytopenia on labs. Plt 130-140 on admission, now down to 104. If H- pylori is causing his ulcers this could be why he is having a drop. No active bleeding now and generally won't transfuse until less than 50,000. (2) Acute kidney injury: Code(s): N17.9 - Acute kidney failure, unspecified Status: Acute Assessment and Plan: GLENN likely pre-renal from GI bleed * Baseline Cr is 1.10-1.30 * Admission Cr was 1.10--->1.70--->1.20-->0.72 today * Stop IVF (3) Protein calorie malnutrition: Qualifiers: Protein-calorie malnutrition severity: severe Qualified Code(s): E43 - Unspecified severe protein-calorie malnutrition Code(s): E46 - Unspecified protein-calorie malnutrition Status: Acute Assessment and Plan: Total protein 5.0, albumin 2.7 * patient reports poor appetite as of late * dietitian consulted * Add ensure clear TID with meals * Needs teaching on low residue diet Severe malnutrition as related to inadequate protein-energy intake with increased protein-energy needs in setting of chronic disease (anemia) as evidenced by minimal oral intake for > 1-2 months and significant? weight loss of 9% (13 lbs) in the past 3 month (4) Cough productive of yellow sputum: Code(s): R05.8 - Other specified cough Status: Acute Assessment and Plan: Patient and family reports chronic cough with production of yellow sputum. * XR on 04/09 was not concerning for pneumonia * Sputum sample obtained and sent * No SOB or hypoxia * XR mentions hyperinflation with concerns for COPD. He does have a history of smoking in the past. * Sputum production seems to be chronic since COVID per family. * He is on 1 L NC satting 98%. * Titrate o2 down to room air (5) Distal radius fracture, right: Code(s): S52.501A - Unspecified fracture of the lower end of right radius, initial encounter for closed fracture Status: Acute Assessment and Plan: Fall on 04/04 sustained right radial fracture * Splint placed at [facility] on 04/05 * Per note from [facility] needs repeat imaging on right wrist 04/12. Will order for the am. * XR right wrist is not displaced. * 04/13: Splint removed and velcro splint applied (6) Femur fracture, right: Code(s): S72.
--- NOTE | 2023-04-13 09:40 | PM.IMPN ---
Progress Note: A&P Assessment and Plan (1) GI bleed: Code(s): K92.2 - Gastrointestinal hemorrhage, unspecified Status: Acute Assessment and Plan: Acute blood loss anemia, suspected GI source Hemoglobin in February of this year was 13, on admission today it's 6.1 Transfused with 1 unit of pRBC and Hgb increased to 8.3 Patient reports dark stools the last couple of days Trend H/H and run anemia panel GI consult and recommendations are appreciated. Endoscopy shows nonbleeding duodenal ulcers, likely the source of recent GI bleed On PPI b.i.d. Patient has not had a colonoscopy since 2000 and recent CTA of abdomen and pelvis from February shows mural thickening of the rectum present radiology was recommending correlation with colonoscopy. He has also had unintentional weight loss of approximately 11 lb, abdominal bloating and fullness, and intermittent loose stools for approximately the last 6 months. He states he has been using Imodium and Gas-X for this, previously was taking Pepto-Bismol. Will discuss family concerns with Dr. Lowe and see if colonoscopy could be arranged for tomorrow Colonoscopy completed 04/11 with findings of internal hemorrhoids, diverticulosis, and colonic ulcers. Biopsys were taken. Recommend low residue diet. Thrombocytopenia on labs. Plt 130-140 on admission, now down to 104. If H-pylori is causing his ulcers this could be why he is having a drop. No active bleeding now and generally won't transfuse until less than 50,000. (2) Acute kidney injury: Code(s): N17.9 - Acute kidney failure, unspecified Status: Acute Assessment and Plan: GLENN likely pre-renal from GI bleed Baseline Cr is 1.10-1.30 Admission Cr was 1.10--->1.70--->1.20-->0.72 today Stop IVF (3) Protein calorie malnutrition: Qualifiers: Protein-calorie malnutrition severity: severe Qualified Code(s): E43 - Unspecified severe protein-calorie malnutrition Code(s): E46 - Unspecified protein-calorie malnutrition Status: Acute Assessment and Plan: Total protein 5.0, albumin 2.7 patient reports poor appetite as of late dietitian consulted Add ensure clear TID with meals Needs teaching on low residue diet Severe malnutrition as related to inadequate protein-energy intake with increased protein-energy needs in setting of chronic disease (anemia) as evidenced by minimal oral intake for > 1-2 months and significant? weight loss of 9% (13 lbs) in the past 3 month (4) Cough productive of yellow sputum: Code(s): R05.8 - Other specified cough Status: Acute Assessment and Plan: Patient and family reports chronic cough with production of yellow sputum. XR on 04/09 was not concerning for pneumonia Sputum sample obtained and sent No SOB or hypoxia XR mentions hyperinflation with concerns for COPD. He does have a history of smoking in the past. Sputum production seems to be chronic since COVID per family. He is on 1 L NC satting 98%. Titrate o2 down to room air (5) Distal radius fracture, right: Code(s): S52.501A - Unspecified fracture of the lower end of right radius, initial encounter for closed fracture Status: Acute Assessment and Plan: Fall on 04/04 sustained right radial fracture Splint placed at [facility] on 04/05 Per note from [facility] needs repeat imaging on right wrist 04/12. Will order for the am. XR right wrist is not displaced. 04/13: Splint removed and velcro splint applied (6) Femur fracture, right: Code(s): S72.91XA - Unspecified fracture of right femur, initial encounter for closed fracture Status: Acute Assessment and Plan: Fall 04/04 with transfer to [facility] 04/04 surgery with [facility] right hip closed reduction and IM nail WBAT to LLE PT/OT Needs further placement as family does not wish to go back to [facility] (7) Thrombocytopenia: Code(s): D69.6 - Thrombocytopenia, unspecified
--- NOTE | 2023-04-13 10:16 | PM.CNOR ---
Assessment and Plan Assessment and plan (1) Distal radius fracture, right: Code(s): S52.501A - Unspecified fracture of the lower end of right radius, initial encounter for closed fracture Status: Acute Assessment and Plan: 87 year old male with a non displaced right distal radius fracture. Repeat xray show no displacement at the fracture site. At this point he can be placed in a removable wrist splint. I informed him they could follow up with us in 1 month but he is also following up at [place] for his hip surgery and it seems more reasonable to follow up with them in 1 month, whichever he would prefer. (2) Femur fracture, right: Code(s): S72.91XA - Unspecified fracture of right femur, initial encounter for closed fracture Status: Acute Assessment and Plan: WBAT per surgeon at [facility]. Follow per their instructions. History of Present Illness HPI Consult date: 04/13/23 Chief complaint: GI Bleed, Anemia Narrative: 87 year old male consulted for right wrist fracture. He fell on 04/04 and suffered a right hip and right wrist fracture. He transferred to [facility] after the fall and the hip was surgically pinned. He was been WBAT per their instruction. He was also placed in an splint for his right wrist fracture. Repeat xrays were done and showed no displacement at the fracture site. Review of Systems Constitutional: Constitutional: Reports as per HPI Cardiovascular: Cardiovascular: Reports as per HPI Respiratory: Respiratory: Reports as per HPI Gastrointestinal: Gastrointestinal: Reports as per HPI Musculoskeletal: Musculoskeletal: Reports no additional musculoskeletal complaints and Reports as per HPI Neurologic: Reports system reviewed and no additional complaints, except as documented and Reports as per HPI Psychiatric: Psychiatric: Reports as per HPI Hematologic/Lymphatic: Hematologic/Lymphatic: Reports as per HPI Allergic/Immunologic: Allergic/Immunologic: Reports as per HPI PMFSH Past Medical History Medical History Abdominal aortic aneurysm without rupture Status post repair. 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 History of tonsillectomy Status post LASIK surgery of both eyes Status post renal artery angioplasty Family History Family History Sibling Patient's sister is in good health Mother Brain tumor Father Acute myocardial infarction Mother Cerebrovascular accident Sibling Congestive heart failure Sibling Cerebrovascular accident Sibling Diabetes mellitus Social History Social History Social History: Surrogate medical decision maker: Judy Correiamarc, spouse. Code status: Full code. Smoking packs per day: 1 Smoking cigarettes per day: 20.0 Years smoked: 50 Smoking pack-years: 50.00 Smoking status: Former smoker Tobacco type: cigarettes and pipe Second hand tobacco smoke exposure: No Smoking end date: 04/07/23 Alcohol intake: never Drinks per week: 2 Substance use: never Substance use type: does not use Lack of Transportation: No Lack of Food: Never True Current Housing: I Have Housing Concerned About Future Housing: No Difficulty Paying Gas/Electric Bills: No Difficulty Paying for Meds: No Currently Unemployed: No Education: Associate Degree Difficulty w/ Childcare or Family Care: No Living arrangements: with family Additional living arrangements comments:
--- NOTE | 2023-04-13 11:35 | PCOTNOTE ---
The patient treatment was not able to be completed Family and house keeping in the room. Will plan to continue treatment per plan of care. will come back after lunch to see.
[2023-04-13] MEDS: POTASSIUM CHLORIDE 20 MEQ ER TABLET 40 MEQ PO (16:57)
[2023-04-14 05:57] VITALS: BP 119/46; PULSE 70; RESP 12; TEMP 36.4; O2SAT 97
[2023-04-14 06:05] LABS: Hematocrit 23.1 % (42.0-52.0); Hemoglobin 7.1 g/dL (14.0-18.0); Mean Corpuscular HGB Conc 30.7 g/dl (32-36); Mean Corpuscular Volume 107.4 fl (80-100); Mean Platelet Volume 10.5 fl (7.4-10.4); Platelet Count Result 109 k/mm3 (150-375); Red Blood Count 2.15 M/mm3 (4.6-6.20); Red Cell Distribution Width 19.6 % (11.5-14.5); White Blood Count 9.4 K/mm3 (4.5-10.0)
[2023-04-14 06:21] LABS: Alanine Aminotransferase 24 U/L (6-50); Albumin Level 2.2 g/dL (3.5-5.1); Alkaline Phosphatase 46 U/L (38-126); Anion Gap 0 mmol/L (8-16); Aspartate Amino Transferase 23 U/L (17-59); Bilirubin,Total 1.1 mg/dL (0.2-1.3); Blood Urea Nitrogen 23 mg/dL (9-20); Calcium 9.4 mg/dL (8.4-10.2); Carbon Dioxide 23 mmol/L (22-30); Chloride 113 mmol/L (98-107); Estimated CRCL calculation 56 ml/min; Estimated Glomerular Filt Rate > 60; Glucose 104 mg/dL (65-110); Sodium 136 mmol/L (137-145)
[2023-04-14] MEDS: PANTOPRAZOLE SODIUM IV 40 MG VIAL IV PUSH (07:49)
[2023-04-14] MEDS: FINASTERIDE 5 MG TABLET PO (07:49)
[2023-04-14] MEDS: BUDESONIDE 3 MG CAP.SR.24H 9 MG PO (07:49)
[2023-04-14] MEDS: FERROUS SULFATE 325 MG TABLET DR PO (07:50)
[2023-04-14 07:59] VITALS: O2SAT 96
[2023-04-14 08:00] VITALS: O2SAT 96
[2023-04-14] MEDS: IRON SUCROSE COMPLEX 500 MG in SODIUM CHLORIDE 0.9% IV 250 ML 78.57 MG IVPB (08:40)
[2023-04-14 09:33] LABS: Immunoglobulin A 125 mg/dL (70-320); TTG IGA AB <1.0 U/mL (<15.0)
--- NOTE | 2023-04-14 09:37 | PM.DS ---
DS: Admitting Diagnosis Discharge Date 04/14/2023 Admitting Diagnosis GI bleed, acute blood loss anemia, acute kidney injury, protein calorie malnutrition DS: Discharge Diagnosis Discharge Diagnosis (1) GI bleed: Code(s): K92.2 - Gastrointestinal hemorrhage, unspecified Status: Acute (2) Acute kidney injury: Code(s): N17.9 - Acute kidney failure, unspecified Status: Acute (3) Protein calorie malnutrition: Qualifiers: Protein-calorie malnutrition severity: severe Qualified Code(s): E43 - Unspecified severe protein-calorie malnutrition Code(s): E46 - Unspecified protein-calorie malnutrition Status: Acute (4) Cough productive of yellow sputum: Code(s): R05.8 - Other specified cough Status: Acute (5) Distal radius fracture, right: Code(s): S52.501A - Unspecified fracture of the lower end of right radius, initial encounter for closed fracture Status: Acute (6) Femur fracture, right: Code(s): S72.91XA - Unspecified fracture of right femur, initial encounter for closed fracture Status: Acute (7) Thrombocytopenia: Code(s): D69.6 - Thrombocytopenia, unspecified Status: Acute (8) Atrial fibrillation: Code(s): I48.91 - Unspecified atrial fibrillation Status: Acute DS: Summary Hospital Course Reason for hospitalization: Patient was admitted to [facility] due to GI bleed that developed while patient was at [facility] recovering from a right femur fracture that was surgically repaired at [facility] Course: Patient was admitted for acute GI bleed with anemia. He did receive blood transfusion. He underwent EGD and colonoscopy with erosive esophagitis and large duodenal ulcers as well as ulcerations localized to the sigmoid colon. It was thought that this was related to a transient hypotensive episode consistent with ischemic colitis. Biopsies were taken and patient was tested for inflammatory bowel disease as well as celiac disease. There has been no further GI bleeding and hemoglobin has remained stable settling around 7.1 today. Patient also found to have thrombocytopenia. Aspirin and Plavix are on hold and should not be restarted until cleared by GI. Additionally, patient's blood pressure has been slightly soft. His antihypertensives are also on hold. Patient is progressing with therapy and will require additional therapy at . It is also noted that oxygen saturations decreased overnight so he has been wearing 2 L of oxygen at night and it has been weaned off during the day. Apnea link was completed last night showed no apnea events but did show a couple of desaturation events despite being on 2 L of oxygen. Discharge instructions for SNF will include 2 L of oxygen at night and p.r.n. for shortness of breath. He will also need this long-term at home. Status at Discharge Cognitive/behavioral status at discharge: awake, alert, oriented and pleasant Functional status at discharge: wheelchair bound Overall status at discharge: patient is progressing back to baseline Time Spent with Patient Time attestation: Total time spent providing and/or coordinating discharge services: 38 minutes Time spent: Greater than 30 minutes Exam Narrative: General: Thin, frail, appears stated age. HEENT: normocephalic with ecchymosis, Mucous membranes moist. EOMI, PERRLA, bilateral sclera anicteric, no conjunctival injection. Neck supple without JVD, lymphadenopathy, or bruit. Respiratory: clear to auscultation bilaterally. No rales/rhonchi/wheezes. Cardiovascular: Regular rate and rhythm, normal S1-S2 upon auscultation. No murmurs, rubs, or clicks. PMI is nondisplaced, capillary re-fill less than 3 second. Abdomen: Soft, flat, no pulsatile masses, non-distended and non-tender. No rebound, no guarding. No CVA tenderness, no hepatosplenomegaly. Bowel sounds present to all four quadrants. Extremities: No cyanosis, c
--- NOTE | 2023-04-14 10:41 | PC.NURSE ---
calling report to [place] pt to leave via ambulance awaiting emt's for transport, report given to Lisa.
--- NOTE | 2023-04-14 11:14 | PC.NURSE ---
pcr covid sent to lab for analysis
[2023-04-14 12:02] LABS: SARS-CoV-2 RNA PCR Negative (Negative)
--- NOTE | 2023-04-14 12:07 | PC.NURSE ---
report given to [place] pt covid neg. ok to d/c
--- NOTE | 2023-04-14 13:22 | PC.NURSE ---
pt to be transported to [facility] via jet operator, jet operator here for picker tender.
[2023-04-16 21:55] LABS: ANCA Screen Negative (Negative); Myeloperoxidase Ab <1.0 AI (<1.0); Proteinase-3 Ab <1.0 AI (<1.0); S cerevisiae Ab (IgA) 19.7 U (<=20.0); S cerevisiae Ab (IgG) 34.8 U (<=20.0)
== END 2023-04-14 13:35 | DRG 377 ==
LOC: ANHED 10:57 → ANH2MED 15:49
PROVIDERS: Internal Medicine Gastroenterology; Nurse Practitioner Acute Care; Physician Assistant; Admitting Provider Student in an Organized Health Care Education/Training Program; Emergency Provider Emergency Medicine; PCP Hospitalist; Visit Provider Nurse Practitioner
PROC: 0DJ08ZZ Inspection of Upper Intestinal Tract, Via Natural or Artificial Opening Endoscopic (ICD-10-PCS; CPT 43235; principal; 2023-04-10 07:30)
PROC: 0DJD8ZZ Inspection of Lower Intestinal Tract, Via Natural or Artificial Opening Endoscopic (ICD-10-PCS; CPT 45378; principal; 2023-04-11 14:15)
DX: K26.4 Chronic or unspecified duodenal ulcer with hemorrhage (principal); E43 Unspecified severe protein-calorie malnutrition; D62 Acute posthemorrhagic anemia; S52.501A Unspecified fracture of the lower end of right radius, initial encounter for closed fracture; N17.9 Acute kidney failure, unspecified; K55.9 Vascular disorder of intestine, unspecified; K21.00 Gastro-esophageal reflux disease with esophagitis, without bleeding; Z68.24 Body mass index [BMI] 24.0-24.9, adult; D69.6 Thrombocytopenia, unspecified; Z20.822 Contact with and (suspected) exposure to COVID-19; I48.91 Unspecified atrial fibrillation; I25.10 Atherosclerotic heart disease of native coronary artery without angina pectoris; I48.0 Paroxysmal atrial fibrillation; E78.5 Hyperlipidemia, unspecified; I12.9 Hypertensive chronic kidney disease with stage 1 through stage 4 chronic kidney disease, or unspecified chronic kidney disease; N18.9 Chronic kidney disease, unspecified; R05.8 Other specified cough; K64.8 Other hemorrhoids; I95.9 Hypotension, unspecified; E86.0 Dehydration; N40.0 Benign prostatic hyperplasia without lower urinary tract symptoms; K57.30 Diverticulosis of large intestine without perforation or abscess without bleeding; M19.90 Unspecified osteoarthritis, unspecified site; X58.XXXA Exposure to other specified factors, initial encounter; Z98.890 Other specified postprocedural states; Z87.891 Personal history of nicotine dependence; Z95.1 Presence of aortocoronary bypass graft; Z87.442 Personal history of urinary calculi; Z79.82 Long term (current) use of aspirin; Z79.02 Long term (current) use of antithrombotics/antiplatelets; Z11.52 Encounter for screening for COVID-19
CPT/HCPCS: 36415; 36430; 71045; 73100; 80048; 80053; 81001; 82607; 82728; 82746; 82784; 83540; 83550; 83735; 84134; 85014; 85018; 85025; 85027; 85046; 85055; 85610; 85730; 86036; 86364; 86671; 86850; 86900; 86901; 86920; 87070; 87081; 87205; 87635; 88305; 93005; 94762; 97110; 97116; 97161; 97166; 97530; 97535; 99285; A9270; C9113; J1756; J2001; J2405; J2704; J7030; J7050; J7120; P9016

== ENCOUNTER 2023-05-10 14:48 | Outpatient (CLI) | payer MEDICARE, SELFPAY ==
--- NOTE | ~2023-05-10 | US_ITS ---
EXAMINATION: US venous doppler LE RT DATE: 05/10/2023 15:38 INDICATION: Right lower limb swelling and pain TECHNIQUE: Mccloud scale images without and with compression and Doppler images of the right lower extre mity veins were obtained. COMPARISON: None FINDINGS: The right common femoral vein, profunda femoral vein, femoral vein, popliteal vein, peronea l trunk, posterior tibial veins, and greater saphenous vein are patent. IMPRESSION: 1. Patent right lower extremity veins. No evidence of deep venous thrombosis. Reviewed, dictated and finalized at location L. IFIED OPHTHALMIC SURGICAL ASSISTANT
== END 2023-05-10 14:49 | disposition home or self-care (01) ==
PROVIDERS: PCP Family Medicine; Visit Provider Specialist
DX: I71.40 Abdominal aortic aneurysm, without rupture, unspecified (principal); I73.9 Peripheral vascular disease, unspecified; I82.401 Acute embolism and thrombosis of unspecified deep veins of right lower extremity
CPT/HCPCS: 93971

== ENCOUNTER 2023-06-10 00:20 | Day surgery (SDC) | payer MEDICARE, SELFPAY ==
[2023-06-02 13:12] VITALS: BMI 17.2
--- NOTE | 2023-06-08 09:58 | SUR.PREOP ---
Patient called regarding upcoming procedure. Reviewed preop instructions, appointment times, and procedure prep.
--- NOTE | 2023-06-09 17:55 | PM.HPGS ---
History of Present Illness History of Present Illness Consent: Risks, benefits, and alternatives have been discussed and questions answered. Patient agrees to proceed with procedure. Chief complaint: Duodenal ulcer Narrative: Oz Luther is a 88 year old male Who is here for follow-up of a duodenal ulcer. In April he presented with gastrointestinal bleeding. His hemoglobin had dropped to 6 g. He was found have a deep duodenal ulcer he has been taking pantoprazole 40 mg b.i.d. since then. Review of Systems Review of Systems: All systems reviewed & are unremarkable except as noted in HPI and below PMFSH Past Medical History Medical History Abdominal aortic aneurysm without rupture Status post repair. 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 History of tonsillectomy Status post LASIK surgery of both eyes Status post renal artery angioplasty Family History Family History Sibling Patient's sister is in good health Mother Brain tumor Father Acute myocardial infarction Mother Cerebrovascular accident Sibling Congestive heart failure Sibling Cerebrovascular accident Sibling Diabetes mellitus Social History Social History Social History: Surrogate medical decision maker: Judy Luther, spouse. Code status: Full code. Smoking packs per day: 1 Smoking cigarettes per day: 20.0 Years smoked: 30 Smoking pack-years: 30.00 Smoking status: Former smoker Tobacco type: cigarettes Second hand tobacco smoke exposure: No Alcohol intake: current Alcohol use details: occasional Substance use: never Substance use type: does not use Lack of Transportation: No Lack of Food: Never True Current Housing: I Have Housing Concerned About Future Housing: No Difficulty Paying Gas/Electric Bills: No Difficulty Paying for Meds: No Currently Unemployed: No Education: Associate Degree Difficulty w/ Childcare or Family Care: No Living arrangements: with family Additional living arrangements comments: Lives with spouse in [place]. 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 Spiritual care concerns: No Meds Home Medications and Allergies Home Medications Medication Instructions Recorded Confirmed Type multivitamin 1 tablet PO DAILY 01/15/20 06/08/23 History rosuvastatin 10 mg tablet 10 mg PO DAILY 01/16/21 06/08/23 History cholecalciferol (vitamin D3) 10 400 unit PO DAILY 04/07/23 06/08/23 History mcg (400 unit) tablet pantoprazole 40 mg tablet,delayed 40 mg PO BID #60 tabs 06/01/23 06/08/23 Rx release ascorbic acid (vitamin C) 500 mg 500 mg PO DAILY 06/02/23 06/08/23 History capsule aspirin 81 mg tablet 81 mg PO DAILY 06/02/23 06/08/23 History losartan 50 mg tablet 100 mg PO DAILY 06/02/23 06/08/23 History Allergies Allergy/AdvReac Type Severity Reaction Status Date / Time Penicillins Allergy Unknown Unknown Verified 06/10/23 11:13 Exam Const: General: alert Orientation/consciousness: patient oriented x3 Resp: Auscultation: clear to auscultation bilaterally Cardio: Rhythm: regular rhythm GI: GI Palp: Yes Soft to palpation and No Tenderness to palpation present (GI) Neuro: General: patient oriented x3 Assessment and Plan Assessment and plan (1) Duodenal ulcer: Code(s):
[2023-06-10 11:16] VITALS: BP 158/91; PULSE 92; RESP 18; TEMP 36.1; O2SAT 97
[2023-06-10] MEDS: LACTATED RINGERS 1,000 ML 150 ML IV CONT (11:17)
--- NOTE | 2023-06-10 11:38 | WPDANESEPPF ---
Anes - Initial Pre Proc Eval Procedure: Operation Date: 06/10/23 12:30 Proposed Procedures p Esophagogastroduodenoscopy - Silviano Lowe MD Date/Time: 06/10/23 11:38 Surgeon: Silviano Lowe MD Pre Op Diagnosis: Duodenal ulcer Patient Data Age: 88 Gender: M Height: 1.8 m Weight: 58.1 kg Last Vital Signs Temp 96.9 F L 06/10/23 11:16 Pulse 92 06/10/23 11:16 Resp 18 06/10/23 11:16 BP 158/91 H 06/10/23 11:16 Pulse Ox 97 06/10/23 11:16 O2 Del Method Room Air 06/10/23 11:16 Allergies Allergy/AdvReac Type Severity Reaction Status Date / Time Penicillins Allergy Unknown Unknown Verified 06/10/23 11:13 Home Medications Medication Instructions Recorded Confirmed Type multivitamin 1 tablet PO DAILY 01/15/20 06/08/23 History rosuvastatin 10 mg tablet 10 mg PO DAILY 01/16/21 06/08/23 History cholecalciferol (vitamin D3) 10 400 unit PO DAILY 04/07/23 06/08/23 History mcg (400 unit) tablet pantoprazole 40 mg tablet,delayed 40 mg PO BID #60 tabs 06/01/23 06/08/23 Rx release ascorbic acid (vitamin C) 500 mg 500 mg PO DAILY 06/02/23 06/08/23 History capsule aspirin 81 mg tablet 81 mg PO DAILY 06/02/23 06/08/23 History losartan 50 mg tablet 100 mg PO DAILY 06/02/23 06/08/23 History Patient hx anesthesia problems: none Family hx anesthesia problems: none Results Review: All pre-operative results and documents have been reviewed as part of the pre-operative evaluation. [facility] Past Medical History Medical History Abdominal aortic aneurysm without rupture Status post repair. 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 History of tonsillectomy Status post LASIK surgery of both eyes Status post renal artery angioplasty Family History Family History Sibling Patient's sister is in good health Mother Brain tumor Father Acute myocardial infarction Mother Cerebrovascular accident Sibling Congestive heart failure Sibling Cerebrovascular accident Sibling Diabetes mellitus Social History Social History Social History: Surrogate medical decision maker: Judy Luther, spouse. Code status: Full code. Smoking packs per day: 1 Smoking cigarettes per day: 20.0 Years smoked: 30 Smoking pack-years: 30.00 Smoking status: Former smoker Tobacco type: cigarettes Second hand tobacco smoke exposure: No Alcohol intake: current Alcohol use details: occasional Substance use: never Substance use type: does not use Lack of Transportation: No Lack of Food: Never True Current Housing: I Have Housing Concerned About Future Housing: No Difficulty Paying Gas/Electric Bills: No Difficulty Paying for Meds: No Currently Unemployed: No Education: Associate Degree Difficulty w/ Childcare or Family Care: No Living arrangements: with family Additional living arrangements comments: Lives with spouse in [place]. 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 Spiritual care concerns: No Anes - Eval Final PreProcedure Day of Procedure 06/10/23 11:38 Patient weight: normal Heart: regular rate and rhythm Lungs: clear to auscultation Airway: Mallampati scale class II Neurological: alert and oriented Last oral intake: >/= 8 hours ASA classification: III Emergent: no Anesthetic plan: procee
[2023-06-10 12:26] VITALS: BP 134/75; PULSE 73; RESP 20; O2SAT 100
[2023-06-10 12:36] VITALS: BP 127/74; PULSE 69; RESP 18; O2SAT 100
== END 2023-06-10 12:56 | disposition home or self-care (01) ==
PROVIDERS: PCP Family Medicine; Visit Provider Internal Medicine Gastroenterology
PROC: 0DJ08ZZ Inspection of Upper Intestinal Tract, Via Natural or Artificial Opening Endoscopic (ICD-10-PCS; CPT 43235; principal; 2023-06-10 12:30)
DX: Z09 Encounter for follow-up examination after completed treatment for conditions other than malignant neoplasm (principal); K26.9 Duodenal ulcer, unspecified as acute or chronic, without hemorrhage or perforation; K21.9 Gastro-esophageal reflux disease without esophagitis; I10 Essential (primary) hypertension; E78.5 Hyperlipidemia, unspecified; N40.0 Benign prostatic hyperplasia without lower urinary tract symptoms; Z95.1 Presence of aortocoronary bypass graft; Z90.49 Acquired absence of other specified parts of digestive tract; Z87.891 Personal history of nicotine dependence; Z79.82 Long term (current) use of aspirin
CPT/HCPCS: 43235; J2704; J7120

== ENCOUNTER 2023-07-18 09:43 | Outpatient (CLI) | payer MEDICARE, SELFPAY ==
--- NOTE | ~2023-07-18 | XR_ITS ---
AP and lateral views of the right femur Clinical History: Fracture Findings: Probable near completely healed fracture involving the intertrochanteric region of the prox imal right femur extending to the subtrochanteric region. Femoral intramedullary josefina with distal inte rlocking screws and femoral neck screws are in place, without evidence of hardware complication.. Vis ualized joint spaces are grossly preserved. Soft tissues are unremarkable. Impression: Probable nearly completely healed fracture of the proximal femur, as detailed above, with orthopedic hardware in place. Reviewed, dictated and finalized at location M. CORE ASSEMBLER Impression: Probable nearly completely healed fracture of the proximal femur, as detailed a juan, with orthopedic hardware in place.
== END 2023-07-18 09:44 | disposition home or self-care (01) ==
PROVIDERS: PCP Family Medicine
DX: S72.141D Displaced intertrochanteric fracture of right femur, subsequent encounter for closed fracture with routine healing (principal)
CPT/HCPCS: 73552

== ENCOUNTER 2023-11-10 11:38 | Outpatient (CLI) | payer MEDICARE, SELFPAY ==
--- NOTE | ~2023-11-10 | XR_ITS ---
Clinical Indication: Shortness of breath PA and lateral views of the chest: Comparison: 04/09/2023 Findings: Small bilateral pleural effusions are present. Cardiomediastinal silhouette is stable, sta tus post median sternotomy. Bones and soft tissues are unremarkable. Impression: Small bilateral pleural effusions. Reviewed, dictated and finalized at location . Impression: Small bilateral pleural effusions.
[2023-11-10 13:05] LABS: Hematocrit 38.1 % (42.0-52.0); Hemoglobin 11.9 g/dL (14.0-18.0); Immature Platelet Fraction Pct 5.9 % (0.9-11.2); Mean Corpuscular HGB Conc 31.2 g/dl (32-36); Mean Corpuscular Hemoglobin 32.1 pg (26-34); Mean Corpuscular Volume 102.7 fl (80-100); Mean Platelet Volume 11.7 fl (7.4-10.4); Platelet Count Result 100 k/mm3 (150-375); Red Blood Count 3.71 M/mm3 (4.6-6.20); Red Cell Distribution Width 13.9 % (11.5-14.5); White Blood Count 5.2 K/mm3 (4.5-10.0)
[2023-11-10 13:14] LABS: Alanine Aminotransferase 66 U/L (6-50); Albumin Level 3.9 g/dL (3.5-5.1); Alkaline Phosphatase 80 U/L (38-126); Anion Gap 7 mmol/L (4-12); Aspartate Amino Transferase 52 U/L (17-59); Bilirubin,Total 0.8 mg/dL (0.2-1.3); Blood Urea Nitrogen 35 mg/dL (9-20); Calcium 10.6 mg/dL (8.4-10.2); Carbon Dioxide 27 mmol/L (22-30); Chloride 110 mmol/L (98-107); Estimated Glomerular Filt Rate 38; Glucose 89 mg/dL (65-110); Potassium 4.2 mmol/L (3.4-5.0); Sodium 144 mmol/L (137-145)
[2023-11-10 13:22] LABS: NT Pro B Type Natriuretic Pept 8290 pg/mL (19.9-100)
== END 2023-11-10 11:39 | disposition home or self-care (01) ==
PROVIDERS: PCP Family Medicine; Visit Provider Nurse Practitioner Family
DX: J90 Pleural effusion, not elsewhere classified (principal); R60.0 Localized edema; D62 Acute posthemorrhagic anemia
CPT/HCPCS: 36415; 71046; 80053; 83880; 85027; 85055

== ENCOUNTER 2023-11-10 16:41 | Inpatient (IN) | payer MEDICARE, SELFPAY ==
[2023-11-10 16:45] VITALS: BP 120/59; PULSE 65; RESP 18; TEMP 36.1; O2SAT 100
--- NOTE | 2023-11-10 17:12 | ED.GENADULT ---
HPI - General Adult General Chief complaint: Shortness of Breath/Dyspnea <Irina Guevara November, NETWORK SYSTEMS ANALYST - Last Filed: 11/10/23 20:25> Stated complaint: SOB <Irina Guevara November, NETWORK SYSTEMS ANALYST - Last Filed: 11/10/23 20:25> Time Seen by Provider: 11/10/23 17:12 <Irina Guevara November, NETWORK SYSTEMS ANALYST - Last Filed: 11/10/23 20:25> Focused HPI: Oz Luther is an 88 y/o male who presents with hx of new cardiac stent placed last Tuesday by Dr Beltran at [facility]. He was going to his GI appointment today and his GI doc noticed he was more SOB, and ordered a chest xr and labs which showed bilateral pleural effusions and a BNP of about 8300. He denies any known hx of CHF but says he was given a dose of IV lasix while he was in the hospital recently. He states that he has been having intermittent SOB for a few months but it has felt worse the past couple weeks. He states that he has been sleeping in a chair for the past two nights because he can't lay flat GENERAL: Well-appearing, well-nourished, and in no acute distress. HEAD: Normocephalic, atraumatic. CHEST: ?No respiratory distress. HEART: Regular rate and rhythm.? NEURO: ?Alert and oriented x3. Patient screened in triage and initial orders placed.? ?Additional care and disposition to be based upon?diagnostic testing and treatment. <Irina Guevara November, NETWORK SYSTEMS ANALYST - Last Filed: 11/10/23 20:25> Focused HPI: Oz Luther is an 88 y/o male who presents with hx of new cardiac stent placed last Tuesday by Dr Mcneal at [facility]. He was going to his GI appointment today and his GI doc noticed he was more SOB, and ordered a chest xr and labs which showed bilateral pleural effusions and a BNP of about 8300. He denies any known hx of CHF but says he was given a dose of IV lasix while he was in the hospital recently. He states that he has been having intermittent SOB for a few months but it has felt worse the past couple weeks. He states that he has been sleeping in a chair for the past two nights because he can't lay flat GENERAL: Well-appearing, well-nourished, and in no acute distress. HEAD: Normocephalic, atraumatic. CHEST: ?No respiratory distress. HEART: Regular rate and rhythm.? NEURO: ?Alert and oriented x3. Patient screened in triage and initial orders placed.? ?Additional care and disposition to be based upon?diagnostic testing and treatment. <Verna Elias PA-C - Last Filed: 11/10/23 23:01> Related Data Home medications: Home Medications Medication Instructions Recorded Confirmed multivitamin 1 tablet PO DAILY 01/15/20 11/10/23 rosuvastatin 10 mg tablet 10 mg PO DAILY 01/16/21 11/10/23 cholecalciferol (vitamin D3) 10 400 unit PO DAILY 04/07/23 11/10/23 mcg (400 unit) tablet ascorbic acid (vitamin C) 500 mg 500 mg PO DAILY 06/02/23 11/10/23 capsule aspirin 81 mg tablet 81 mg PO DAILY 06/02/23 11/10/23 alprazolam 0.25 mg tablet 0.25 mg PO QHS PRN 10/17/23 11/10/23 apixaban 2.5 mg tablet 2.5 mg PO BID 11/10/23 11/10/23 clopidogrel 75 mg tablet 75 mg PO DAILY 11/10/23 11/10/23 metoprolol tartrate 50 mg tablet 50 mg PO Q12H 11/10/23 11/10/23 rosuvastatin 10 mg tablet 10 mg PO DAILY 11/10/23 11/10/23 <Irina Raman, NETWORK SYSTEMS ANALYST - Last Filed: 11/10/23 20:25> Allergies/adverse reactions: Allergies Allergy/AdvReac Type Severity Reaction Status Date / Time Penicillins Allergy Unknown Unknown Verified 11/10/23 10:31 <Irina Raman, NETWORK SYSTEMS ANALYST - Last Filed: 11/10/23 20:25> Review of Systems Review of Systems: CONSTITUTIONAL: Denies fever CARDIOVASCULAR: Reports edema. Denies chest pain RESPIRATORY: Reports dyspnea. <Verna Elias PA-C - Last Filed: 11/10/23 23:01> All systems reviewed & are unremarkable except as noted in HPI and below <Verna Elias PA-C - Last Filed: 11/10/23 23:01> PMFSH Past Medical History Medical History: Medical History Abdominal aortic aneurysm without rupture Status post repair. Arthritis Benign prostatic hy
--- NOTE | 2023-11-10 17:19 | ECG_ITS ---
SEE SCANNED COPY FOR CONFIRMED REPORT MTDD
--- NOTE | 2023-11-10 19:37 | ECG_ITS ---
SEE SCANNED COPY FOR CONFIRMED REPORT MTDD
[2023-11-10 21:23] VITALS: BP 150/94; PULSE 99; RESP 30; O2SAT 100
[2023-11-10] MEDS: FUROSEMIDE INJ 40 MG/4 ML VIAL IV PUSH (21:24)
[2023-11-10 21:36] LABS: Alanine Aminotransferase 79 U/L (6-50); Albumin Level 4.2 g/dL (3.5-5.1); Alkaline Phosphatase 86 U/L (38-126); Anion Gap 6 mmol/L (4-12); Aspartate Amino Transferase 55 U/L (17-59); Bilirubin,Total 1.1 mg/dL (0.2-1.3); Blood Urea Nitrogen 33 mg/dL (9-20); Calcium 10.6 mg/dL (8.4-10.2); Carbon Dioxide 26 mmol/L (22-30); Chloride 110 mmol/L (98-107); Estimated Glomerular Filt Rate 38; Glucose 112 mg/dL (65-110); Potassium 4.2 mmol/L (3.4-5.0); Sodium 142 mmol/L (137-145)
[2023-11-10 21:38] LABS: INR 1.4; Prothrombin Time 17.6 Seconds (11.1-14.7)
[2023-11-10 21:51] LABS: Troponin I 0.056 ng/mL (0.000-0.034)
--- NOTE | 2023-11-10 22:13 | PC.NURSE ---
Pt initially told EDP that he would not be staying in the hospital. Pt then ambulated to the restroom and became very short of breath. Pt and stopped by nurses station to inform me that he has changed his mind and will stay for admission. Pt was placed on nasal cannula for comfort, but did not desat upon ambulation.
[2023-11-10 23:01] VITALS: BP 136/100; PULSE 77; PULSE 83; RESP 20; O2SAT 100
[2023-11-10 23:03] VITALS: O2SAT 100
[2023-11-10 23:32] VITALS: BP 147/78; PULSE 73; RESP 16; O2SAT 100
[2023-11-10 23:50] VITALS: BP 111/90; PULSE 99; RESP 24; TEMP 36.3; O2SAT 100
--- NOTE | 2023-11-10 23:55 | ADMGEN ---
This patient, Oz Luther, was admitted to IMU Room 231-01. Patient/family oriented to hospital policies and general routines including ID bracelet, bed and alarms, visiting hours, pain management, procedures, bathroom and other care routines, personal items, smoking policy, room service/diet, and visiting hours. Information on how to activate the Rapid Response Team has been discussed. Patient/Family are encouraged to report perceived risks to care and to ask questions if they do not understand what they are told or what they should do.
[2023-11-11] VITALS (18 sets, daily range): BP systolic 114–147; BP diastolic 57–81; PULSE 69–97; RESP 15–22; TEMP 36–36.6; O2SAT 97–100; BMI 21.2
[2023-11-11 01:20] LABS: Troponin I 0.065 ng/mL (0.000-0.034)
[2023-11-11 01:53] LABS: Magnesium 1.9 mg/dL (1.6-2.3)
[2023-11-11 04:44] LABS: Troponin I 0.071 ng/mL (0.000-0.034)
--- NOTE | 2023-11-11 08:20 | PM.IMHP ---
H&P: HPI History of Present Illness Date/Time: 11/11/23 08:20 Chief Complaint: short of breath Narrative: 88 years old gentleman with history of CAD status post stent, hyperlipidemia, chronic anemia,and CKD stage 3,hypertension, persistent AFib, present ED with chief complaint of shortness breath. Patient went to GI office and at scheduled appointment, and the patient was found have shortness of breath, and patient was transferred to ED for further evaluation treatment. patient has orthopnea, denies chest pain, palpitation, headache, focal weakness. Upon arrival in the ED, patient was afebrile, blood pressure stable, patient had a tachycardia tachypnea. Chest x-ray outpatient shows bilateral pleural effusions as well as BNP of 8290. Kidney function is elevated at 1.7 from baseline likely closer to 1.2. later on patient developed hypoxemia,patient received Lasix in the ED. ER physician consulted the property appraiser we admit patient for further evaluation and treatment Review of Systems Review of Systems: ROS negative except above PMFSH Past Medical History Medical History Abdominal aortic aneurysm without rupture Status post repair. 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 History of tonsillectomy Status post LASIK surgery of both eyes Status post renal artery angioplasty Family History Family History Sibling Patient's sister is in good health Mother Brain tumor Father Acute myocardial infarction Mother Cerebrovascular accident Sibling Congestive heart failure Sibling Cerebrovascular accident Sibling Diabetes mellitus Other Heart disease Social History Social History Social History: Surrogate medical decision maker: Judy Luther, spouse. Code status: Full code. Smoking packs per day: 1 Smoking cigarettes per day: 20.0 Years smoked: 30 Smoking pack-years: 30.00 Smoking status: Former smoker Tobacco type: cigarettes and pipe Second hand tobacco smoke exposure: No Smoking end date: 02/01/98 Alcohol intake: current Drinks per week: 2 Alcohol use details: occasional Substance use: never Substance use type: does not use Do You Feel Safe in your Home?: Yes Lack of Transportation: No Lack of Food: Never True Current Housing: I Have Housing Concerned About Future Housing: No Difficulty Paying Gas/Electric Bills: No Difficulty Paying for Meds: No Currently Unemployed: No Education: Associate Degree Difficulty w/ Childcare or Family Care: No Living arrangements: with family Additional living arrangements comments: Lives with spouse in [place]. 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 Spiritual care concerns: No Meds Home Medications and Allergies Home Medications Medication Instructions Recorded Confirmed Type multivitamin 1 tablet PO DAILY 01/15/20 11/10/23 History ascorbic acid (vitamin C) 500 mg 500 mg PO DAILY 06/02/23 11/10/23 History capsule aspirin 81 mg tablet 81 mg PO DAILY 06/02/23 11/10/23 History pantoprazole 40 mg tablet,delayed 40 mg PO DAILY #90 tabs 06/27/23 11/10/23 Rx release tamsulosin 0.4 mg capsule (Flomax) 0.4 mg PO QHS #90 caps 08/17/23 11/10/23 Rx
--- NOTE | 2023-11-11 08:33 | ECHO_ITS ---
Patient Info Name: Oz Luther Age: 88 years : 1935 Gender: Male Ht: 71 in Wt: 154 lbs BSA: 1.87 m2 HR: 82 bpm BP: 145 / 71 mmHg Heart Rhythm: Atrial Flutter Technical Quality: Good Exam Date: 11/11/2023 9:40 AM Exam Location: Echo Lab Patient Status: Inpatient Admit Date: 11/10/2023 Staff Ordering Physician: Oscar Kern MD Kinder Teacher: Silvio Noble RDCS Attending Provider: Jigna Henry MD Exam Type: CA echo doppler color flow Study Info Indications - acute chf Complete two-dimensional, color flow and Doppler transthoracic echocardiogram is performed with contrast to opacify the left ventricle and to improve the deliniation of the left ventricle endocardial borders. Summary 1. Left ventricular enlargement with severe systolic hypokinesia. 2. Severe biatrial dilation. 3. Mild to moderate aortic valve stenosis valve area 1.2 cm2. 4. Moderate mitral and tricuspid regurgitation. 5. Atrial flutter. Left Ventricle Left ventricular chamber dimension is moderately enlarged. Left ventricular systolic function is severely reduced, estimated at 25-30%. The left ventricular diastolic function is indeterminate. Right Ventricle Right ventricular chamber dimension is normal. Left Atria Left atrial chamber dimension is severely enlarged. Right Atria Right atrial chamber dimension is severely enlarged. Aortic Valve The aortic valve is trileaflet. There is mild to moderate aortic valve stenosis. Pulmonic Valve The pulmonic valve is normal. Mitral Valve The mitral valve has normal leaflets. There is moderate mitral valve regurgitation. Tricuspid Valve The tricuspid valve leaflets are normal. There is moderate tricuspid valve regurgitation. Pericardium/Pleural The pericardium appears normal. Aorta The aortic root size at the sinus of Valsalva is normal. Left Ventricular Outflow Tract Name Value Normal LVOT Doppler LVOT Peak Gradient 2 mmHg LVOT Mean Gradient 1 mmHg LVOT VTI 16 cm LVOT VTI/AV VTI Ratio 0.5 Pulmonic Valve Name Value Normal RVOT Doppler RVOT Peak Gradient 1 mmHg PV Doppler PV Peak Gradient 4 mmHg Mitral Valve Name Value Normal MV Regurgitation Doppler MR Peak Gradient 111 mmHg Tricuspid Valve Name Value Normal TV Regurgitation Doppler TR Peak Velocity 277 cm/s
[2023-11-11] MEDS: PERFLUTREN LIPID MICROSPHERES 1.5 ML VIAL DILUTED TO 10 ML TOTAL VOLUME IV PUSH (09:55)
--- NOTE | 2023-11-11 10:15 | IVDEFINITY ---
Prior to administration of IV Definity the patient was educated on the risks and benefits of the imaging enhancing agent including potential adverse side effects. The patient verbalized understanding. Allergies were verified. No exclusion criteria were identified and at least one of the following inclusion criteria were met: 1) physician request, 2) patient technically difficult to image (per the [place] [employer]chocardi[employer] guidelines of two or more segments not discernable within the apical view), or 3) questionable left ventricular function. ?
[2023-11-11 11:03] LABS: Appearance Urine Clear (Clear); Bacteria Urine None Seen /hpf; Bilirubin Urine Negative (Negative); Blood Urine Negative (Negative); Color Urine Yellow (Yellow); Glucose Urine UA Negative (Negative); Ketones Urine Negative (Negative); Leukocyte Esterase Ur Negative LEU/UL (Negative); Nitrate Urine Negative (Negative); Protein Urine Trace mg/dL (Negative); RBC Urine 0-2 /hpf (0-2); Specific Grav Ur 1.016 (1.001-1.035); Squamous Epithelial Cell Urine None Seen /hpf (Few); Urobilinogen Urine 0.2 mg/dL (<2.0); WBC Urine 0-5 /hpf (0-3)
[2023-11-11 11:04] LABS: Add Urine Microscopic? YES
[2023-11-11] MEDS: METOPROLOL TARTRATE 50 MG TAB PO (11:18)
[2023-11-11] MEDS: PANTOPRAZOLE 40 MG TABLET PO (11:18)
[2023-11-11] MEDS: ROSUVASTATIN 10 MG TABLET PO (11:18)
[2023-11-11] MEDS: MULTIVITAMINS THERAPEUTIC TAB (*BKC) 1 TABLET PO (11:18)
[2023-11-11] MEDS: FUROSEMIDE INJ 40 MG/4 ML VIAL IV PUSH ×2 (11:19→16:53)
[2023-11-11] MEDS: ASCORBIC ACID 500 MG TABLET PO (11:19)
[2023-11-11] MEDS: APIXABAN 2.5 MG TABLET PO ×2 (11:19→21:57)
[2023-11-11] MEDS: CLOPIDOGREL BISULFATE 75 MG TABLET PO (11:19)
[2023-11-11] MEDS: ASPIRIN 81 MG ENTERIC TABLET PO (11:19)
[2023-11-11] MEDS: CHOLECALCIFEROL 1,000 UNITS TABLET 5000 UNITS PO (11:19)
--- NOTE | 2023-11-11 13:02 | PM.CNCAR ---
Assessment and Plan Assessment and plan (1) Acute heart failure: Code(s): I50.9 - Heart failure, unspecified Status: Acute Plan This is fairly complex situation in this 88-year-old man with chronic ischemic heart disease with remote history of surgical revascularization and recent history of percutaneous intervention and a lesion at the anastomosis of his saphenous vein graft to his OM circumflex branch 2 weeks ago at [facility]. He enters the hospital with some CHF decompensation with X edema, pleural effusions and shortness of breath. He is known to have a low ejection fraction. It is also evident according to the records that he developed atrial flutter during that hospitalization at [facility] and remains in this arrhythmia. With low ejection fraction at baseline this certainly is also contributing to his hemodynamic decompensation. On top of all of this his renal function has worsened his creatinine is elevated at 1.710 it was normal and previous records here. I would recommend at this time continuing IV IV furosemide. His metoprolol should be transition to metoprolol succinate given his low ejection fraction. I will start hydralazine and isosorbide for vasodilators therapy because of his renal insufficiency. JERARDO-inhibitor or ARB would likely be poorly tolerated at this time. I will also start oral amiodarone and anticipate electrically cardioverting him to try to restore sinus rhythm prior to this discharge from this hospital. The patient despite his advanced age seems to understand most of this fairly complex situation fairly well. Edwin Garcia MD [facility] History of Present Illness History of Present Illness Consult date/time: 11/11/23 13:02 Reason For Visit: Fluid overload Narrative: This is a very pleasant but rather complex 88-year-old man I am seeing at the request of the hospitalist because of shortness of breath and volume overload. He is recently established with my partner, Dr. Mcneal and has chronic coronary artery disease with ischemic left ventricular dysfunction. This is a patient who has been known to have coronary artery disease for many years he underwent surgical myocardial revascularization in 1989 up in [place] he also has a history of aortic aneurysms and has had previous endovascular treatment of that at [place]. He was referred to our practice and saw my partner in August of this year and a subsequent echocardiogram demonstrated a significant decline in left ventricular systolic function with an ejection fraction in the 30s where it had been in the 40-45% range in the past. He was not reporting any ischemic chest pain nor any symptoms of decompensated heart failure at that time. Because of the decline in his ejection fraction left heart catheterization was recommended and carried out on 11/01/2023 over at [facility]. He was found to have multivessel coronary artery disease with occlusion of the LAD and right coronary arteries. He had a patent MARGARET graft to the LAD and a significant lesion in the OM1 circumflex branch after the anastomosis of the saphenous vein graft to that vessel. His right coronary artery is known to be a chronic total occlusion and did receive some collateral filling. He underwent treatment of the OM lesion using a 2.5 mm on X drug-eluting stent with a good anatomical result. According to the hospital records he did develop atrial flutter following that hospitalization and was placed on medical treatment with apixaban. Was also placed on metoprolol for rate control. 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 He is not reporting any chest pain pressure or heaviness. His electrocardiogram shows persistent atrial flutter with controlled response and intraventricular conduction delay with leftward axis. The patient's chest x-ray shows modest cardiomegal
[2023-11-11] MEDS: hydrALAZINE HCL 25 MG TABLET PO ×2 (14:45→21:57)
[2023-11-11] MEDS: AMIODARONE HCL 200 MG TABLET 400 MG PO (14:45)
[2023-11-11] MEDS: TAMSULOSIN HCL 0.4 MG CAPSULE PO (21:57)
[2023-11-12] VITALS (19 sets, daily range): BP systolic 94–122; BP diastolic 55–89; PULSE 61–82; RESP 16–20; TEMP 35.9–36.4; O2SAT 94–98
[2023-11-12] MEDS: hydrALAZINE HCL 25 MG TABLET PO (06:31)
[2023-11-12] MEDS: CHOLECALCIFEROL 1,000 UNITS TABLET 5000 UNITS PO (09:36)
[2023-11-12] MEDS: AMIODARONE HCL 200 MG TABLET 400 MG PO (09:37)
[2023-11-12] MEDS: MULTIVITAMINS THERAPEUTIC TAB (*BKC) 1 TABLET PO (09:37)
[2023-11-12] MEDS: ISOSORBIDE MONONITRATE 30 MG TAB.ER.24H PO (09:38)
[2023-11-12] MEDS: CLOPIDOGREL BISULFATE 75 MG TABLET PO (09:38)
[2023-11-12] MEDS: ROSUVASTATIN 10 MG TABLET PO (09:38)
[2023-11-12] MEDS: ASCORBIC ACID 500 MG TABLET PO (09:39)
[2023-11-12] MEDS: METOPROLOL SUCCINATE EXT REL 100 MG TABCR PO (09:39)
[2023-11-12] MEDS: APIXABAN 2.5 MG TABLET PO ×2 (09:40→20:59)
[2023-11-12] MEDS: ASPIRIN 81 MG ENTERIC TABLET PO (09:40)
[2023-11-12] MEDS: FUROSEMIDE INJ 40 MG/4 ML VIAL IV PUSH (09:40)
[2023-11-12] MEDS: PANTOPRAZOLE 40 MG TABLET PO (09:40)
--- NOTE | 2023-11-12 12:11 | PM.PNCARD ---
Progress Note: A&P Assessment and Plan (1) Acute renal failure superimposed on stage 3 chronic kidney disease: Code(s): N17.9 - Acute kidney failure, unspecified; N18.30 - Chronic kidney disease, stage 3 unspecified Status: Acute (2) Shortness of breath: Code(s): R06.02 - Shortness of breath Status: Acute (3) S/P CABG x 4: Code(s): Z95.1 - Presence of aortocoronary bypass graft Status: Acute (4) Atrial flutter: Code(s): I48.92 - Unspecified atrial flutter Status: Acute (5) Abdominal aortic aneurysm (AAA) without rupture: Code(s): I71.4 - Abdominal aortic aneurysm, without rupture Status: Acute Plan Fairly complex situation this 88-year-old man with chronic coronary artery disease, significant ischemic cardiomyopathy, recent PCI to these OM branch through his saphenous vein graft as well as recent onset of atrial flutter. It is likely that the loss of sinus rhythm has primarily been what has resulted in his decompensation. We will continue his current medications for now but will stop the intravenous furosemide as he appears to be euvolemic at this time. Anticipate DC cardioversion on Tuesday in hopes of restoring sinus rhythm and regaining hemodynamic benefit of AV synchrony Edwin Garcia MD [facility] Subjective Date/time seen: Date of service: 11/12/23 12:11 Interval history: Follow-up visit in this 88-year-old man with: Longstanding coronary artery disease with significant ischemic cardiomyopathy, recent drug-eluting stent to a stenosis in the OM branch through the previously placed saphenous vein graft, recent onset of atrial flutter during that hospitalization. Patient presented with mildly decompensated heart failure and acute on chronic renal injury in this setting. Most of this is likely due to low cardiac output He feels relatively well today he is comfortable visiting with his family. Shortness of breath has essentially resolved he slept well last night Exam Const: General: comfortable and no acute distress Other: Pleasant elderly man no distress of any kind HENMT: Mouth: Yes moist mucous membranes Eyes: Sclera: sclerae normal Neck: Neck: supple and no JVD Resp: Effort & Inspection: normal respiratory effort Auscultation: clear to auscultation bilaterally Cardio: Rate: regular rate Rhythm: abnormal rhythm irregularly irregular GI: GI Palp: Yes Soft to palpation Auscultation: normal bowel sounds Skin: General skin exam: normal color Neuro: Other: Alert and oriented x3 Extrem: General: normal to inspection Other: There was no residual edema at this time Objective Data Vital Signs Vital Signs: Vital Signs - 24 hr 11/11/23 14:45 11/11/23 14:00 11/11/23 16:00 Temperature 36.5 C Pulse Rate 81 74 75 Respiratory Rate 19 Blood Pressure 116/57 L Pulse Oximetry 97 Oxygen Delivery 11/11/23 16:00 11/11/23 18:00 11/11/23 16:00 Temperature Pulse Rate 80 82 Respiratory Rate Blood Pressure Pulse Oximetry 97 Oxygen Delivery Room Air 11/11/23 20:00 11/12/23 00:00 11/11/23 20:00 Temperature 36.1 C L 36.1 C L Pulse Rate 69 72 74 Respiratory Rate 15 16 Blood Pressure 114/66 113/89 Pulse Oximetry 97 97 Oxygen Delivery 11/11/23 20:00 11/11/23 22:00 11/12/23 00:00 Temperature Pulse Rate 77 Respiratory Rate Blood Pressure Pulse Oximetry 98 97 Oxygen Delivery Room Air Room Air 11/12/23 00:00 11/12/23 02:00 11/12/23 04:00 Temperature 36.2 C L Pulse Rate 70 77 72 Respiratory Rate 16 Blood Pressure 120/61 Pulse Oximetry 94 Oxygen Delivery 11/12/23 04:00 11/12/23 04:00 11/12/23 06:00 Temperature Pulse Rate 61 73 Respiratory Rate Blood Pressure Pulse Oximetry Oxygen Delivery Room Air 11/12/23 08:03 11/12/23 09:35 11/12/23 09:37 Temperature 36.2 C L Pulse Rate 77 80 Respiratory Rate 18 Blood Pressu
[2023-11-12 12:30] LABS: Anion Gap 5 mmol/L (4-12); Blood Urea Nitrogen 37 mg/dL (9-20); Calcium 10.5 mg/dL (8.4-10.2); Carbon Dioxide 29 mmol/L (22-30); Chloride 105 mmol/L (98-107); Estimated CRCL calculation 26 ml/min; Estimated Glomerular Filt Rate 36; Glucose 147 mg/dL (65-110); Potassium 3.8 mmol/L (3.4-5.0); Sodium 139 mmol/L (137-145)
--- NOTE | 2023-11-12 14:04 | PM.IMPN ---
Progress Note: A&P Assessment and Plan (1) Chronic anemia: Code(s): D64.9 - Anemia, unspecified Status: Acute (2) Thrombocytopenia: Code(s): D69.6 - Thrombocytopenia, unspecified Status: Acute (3) Hypertension: Code(s): I10 - Essential (primary) hypertension Status: Acute (4) Atrial fibrillation: Code(s): I48.91 - Unspecified atrial fibrillation Status: Acute (5) Chronic kidney disease: Code(s): N18.9 - Chronic kidney disease, unspecified Status: Acute (6) Acute heart failure: Code(s): I50.9 - Heart failure, unspecified Status: Acute (7) Acute kidney injury: Code(s): N17.9 - Acute kidney failure, unspecified Status: Acute Assessment and Plan: A very pleasant 88-year-old male with a history of ischemic cardiomyopathy, severe systolic heart failure with EF 25-30% estimated on surface echocardiogram on 11/11/2023, hypertension, hyperlipidemia, CKD stage 3, AFib/atrial fibrillation on Eliquis, CAD status post remote surgical revascularization status post recent PCI at the lesion of anastomosis of the saphenous vein graft to his OM circumflex branch 2 weeks prior at [facility]. He presents now with decompensated heart failure with increasing edema pleural effusions and shortness of breath. Acutely decompensated systolic heart failure, a flutter -none 11/11 cardiology has stopped his intravenous furosemide as he appears to be euvolemic. Anticipate DC cardioversion on Tuesday. Decompensation felt to be due to AV asynchrony due to a flutter. -cardiology has also started hydralazine 25 mg p.o. t.i.d. and isosorbide mononitrate 30 mg p.o. q.a.m.. And metoprolol 100 mg p.o. q.a.m.. He is apparently a metoprolol tartrate 50 mg p.o. b.i.d. at home. -continue telemetry -continue Eliquis 5 mg p.o. b.i.d. Ischemic cardiomyopathy, CAD status post CABG status post PCI to saphenous vein graft to his OM circumflex branch -continue Plavix aspirin and Crestor Pleural effusions bilateral -he is currently on room air. Continue to monitor. Essential hypertension -at goal. As above. Chronic anemia and thrombocytopenia -at his baseline. Continue to monitor. CKD stage 3A/B -he presented with serum creatinine of 1.7 which is now 1.8. This may actually not be far off from his baseline. Continue to monitor. FEN: Saline lock IV. Healthy diet. GI prophylaxis: Continue his home dose PPI DVT prophylaxis: Continue home dose Eliquis Lines: Peripheral IV Code Status: Full code Dispo: Stable on telemetry floor Subjective Date/time seen: 11/12/23 14:04 Interval history: No acute overnight events. His , Judy, is at bedside and assists with history of low the patient is a competent historian. Denies any complaints at this time Review of Systems Review of Systems: All systems reviewed & are unremarkable except as noted in HPI and below (Subjective) Exam Const: General: comfortable and no acute distress Other: A&O x3 Eyes: Pupils: Equal, round and reactive pupils present Neck: Neck: supple Resp: Effort & Inspection: normal respiratory effort Auscultation: crackles (At bilateral bases) Cardio: Rate: regular rate Rhythm: regular rhythm GI: GI Palp: Yes Soft to palpation and No Tenderness to palpation present (GI) Extrem: General: edema (Bilateral lower extremities) Objective Data Vital Signs Vital Signs: Vital Signs - 24 hr 11/11/23 14:45 11/11/23 16:00 11/11/23 16:00 Temperature 97.7 F Pulse Rate 81 75 80 Respiratory Rate 19 Blood Pressure 116/57 L Pulse Oximetry 97 Oxygen Delivery 11/11/23 18:00 11/11/23 16:00 11/11/23 20:00 Temperature 97 F L Pulse Rate 82 69 Respiratory Rate 15 Blood Pressure 114/66 Pulse Oximetry 97 97 Oxygen Delivery Room Air 11/12/23 00:00 11/11/23 20:00 11/11/23 20:00 Temperature 97 F L Pulse Rate 72 74 Respiratory Rate 16
[2023-11-12] MEDS: TAMSULOSIN HCL 0.4 MG CAPSULE PO (20:59)
[2023-11-12] MEDS: ALPRAZolam (*CRX) 0.25 MG TABLET PO (23:54)
[2023-11-13] VITALS (18 sets, daily range): BP systolic 113–145; BP diastolic 62–80; PULSE 64–105; RESP 16–20; TEMP 36.3–37; O2SAT 96–98
[2023-11-13 04:36] LABS: Basophils Percent Auto 0.4 % (0.2-1.2); Eosinophils Absolute Auto 0.4 K/mm3 (0-0.3); Eosinophils Percent Auto 7.7 % (0-4.4); Hemoglobin 11.2 g/dL (14.0-18.0); Immature Granulocyte Absolute 0.01 K/mm3 (0.00-0.031); Immature Granulocyte Percent A 0.2 % (0-0.5); Immature Platelet Fraction Pct 4.3 % (0.9-11.2); Lymphocytes Absolute Auto 0.83 K/mm3 (0.9-3.2); Lymphocytes Percent Auto 17.8 % (18.3-44.2); Mean Corpuscular Hemoglobin 31.9 pg (26-34); Mean Corpuscular Volume 99.7 fl (80-100); Mean Platelet Volume 10.9 fl (7.4-10.4); Monocytes Absolute Auto 0.5 K/mm3 (0.1-0.6); Monocytes Percent Auto 10.3 % (2.6-8.5); Neutrophils Percent Auto 63.6 % (45.5-73.1); Platelet Count Result 94 k/mm3 (150-375); Red Blood Count 3.51 M/mm3 (4.6-6.20); Red Cell Distribution Width 13.7 % (11.5-14.5); White Blood Count 4.7 K/mm3 (4.5-10.0)
[2023-11-13 04:47] LABS: Alanine Aminotransferase 51 U/L (6-50); Albumin Level 3.4 g/dL (3.5-5.1); Alkaline Phosphatase 67 U/L (38-126); Anion Gap 4 mmol/L (4-12); Aspartate Amino Transferase 30 U/L (17-59); Bilirubin,Total 1.1 mg/dL (0.2-1.3); Blood Urea Nitrogen 38 mg/dL (9-20); Calcium 10.2 mg/dL (8.4-10.2); Carbon Dioxide 28 mmol/L (22-30); Chloride 108 mmol/L (98-107); Estimated CRCL calculation 26 ml/min; Estimated Glomerular Filt Rate 36; Glucose 100 mg/dL (65-110); Magnesium 1.9 mg/dL (1.6-2.3); Potassium 3.6 mmol/L (3.4-5.0); Sodium 140 mmol/L (137-145)
[2023-11-13] MEDS: CHOLECALCIFEROL 1,000 UNITS TABLET 5000 UNITS PO (09:04)
[2023-11-13] MEDS: APIXABAN 2.5 MG TABLET PO ×2 (09:05→21:03)
[2023-11-13] MEDS: ASCORBIC ACID 500 MG TABLET PO (09:05)
[2023-11-13] MEDS: MULTIVITAMINS THERAPEUTIC TAB (*BKC) 1 TABLET PO (09:05)
[2023-11-13] MEDS: ASPIRIN 81 MG ENTERIC TABLET PO (09:05)
[2023-11-13] MEDS: ROSUVASTATIN 10 MG TABLET PO (09:05)
[2023-11-13] MEDS: CLOPIDOGREL BISULFATE 75 MG TABLET PO (09:05)
[2023-11-13] MEDS: PANTOPRAZOLE 40 MG TABLET PO (09:05)
--- NOTE | 2023-11-13 09:15 | PM.PNCARD ---
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 Patient presented with some CHF decompensation which in part is related also to atrial flutter which developed during his recent hospitalization. Plans for a DC cardioversion tomorrow in hopes of restoring sinus rhythm. Following that resumption of guideline directed medical therapy and amiodarone will be required to maintain stability. Edwin Garcia MD [facility] Subjective Date/time seen: Date of service: 11/13/23 09:15 Interval history: Date of service 11/13/2023: Patient is asymptomatic supine in bed feeling well just finished his breakfast. Discussion about plans for DC cardioversion tomorrow. He remains in atrial flutter with slower ventricular response heart rate in the 60s and 70s. Systolic blood pressure was soft yesterday and GDMT has been placed on hold Exam Const: General: comfortable and no acute distress Other: Pleasant elderly man no distress of any kind HENMT: Mouth: Yes moist mucous membranes Eyes: Sclera: sclerae normal Pupils: Equal, round and reactive pupils present Neck: Neck: supple and no JVD Other: About 2 cm of jugular venous distention with the patient at 45? Resp: Effort & Inspection: normal respiratory effort Auscultation: clear to auscultation bilaterally Cardio: Rate: regular rate Rhythm: abnormal rhythm irregularly irregular Other: Soft systolic murmur does not radiate from the left sternal border GI: Auscultation: normal bowel sounds Skin: General skin exam: normal color Neuro: Cranial nerves: Yes Equal, round and reactive pupils present Other: Alert and oriented x3 Extrem: General: normal to inspection Other: There was no residual edema at this time Objective Data Vital Signs Vital Signs: Vital Signs - 24 hr 11/12/23 09:35 11/12/23 09:37 11/12/23 09:39 Temperature Pulse Rate 80 80 Respiratory Rate Blood Pressure Pulse Oximetry 95 Oxygen Delivery Room Air 11/12/23 12:27 11/12/23 10:00 11/12/23 12:00 Temperature 35.9 C L Pulse Rate 72 71 Respiratory Rate 20 Blood Pressure 97/56 L Pulse Oximetry 97 Oxygen Delivery Room Air 11/12/23 16:44 11/12/23 16:00 11/12/23 12:00 Temperature 36.1 C L Pulse Rate 65 73 Respiratory Rate 18 Blood Pressure 105/55 L Pulse Oximetry 98 Oxygen Delivery Room Air 11/12/23 14:00 11/12/23 16:00 11/12/23 18:00 Temperature Pulse Rate 71 63 71 Respiratory Rate Blood Pressure Pulse Oximetry Oxygen Delivery 11/12/23 20:16 11/13/23 00:18 11/12/23 20:00 Temperature 36.4 C 36.4 C Pulse Rate 62 64 Respiratory Rate 18 18 Blood Pressure 94/55 L 120/69 Pulse Oximetry 96 96 Oxygen Delivery Room Air 11/13/23 00:00 11/13/23 05:05 11/13/23 07:33 Temperature 36.5 C 36.8 C Pulse Rate 70 69 Respiratory Rate 19 18 Blood Pressure 113/64 145/69 H Pulse Oximetry 97 96 Oxygen Delivery Room Air 11/12/23 20:00 11/12/23 22:00 11/13/23 00:00 Temperature Pulse Rate 66 61 66 Respiratory Rate Blood Pressure Pulse Oximetry Oxygen Delivery 11/13/23 02:00 11/13/23 04:00 11/13/23 04:00 Temperature Pulse Rate 71 71 Respiratory Rate Blood Pressure Pulse Oximetry Oxygen Delivery Room A
--- NOTE | 2023-11-13 10:54 | PM.IMPN ---
Progress Note: A&P Assessment and Plan (1) Chronic anemia: Code(s): D64.9 - Anemia, unspecified Status: Acute (2) Thrombocytopenia: Code(s): D69.6 - Thrombocytopenia, unspecified Status: Acute (3) Hypertension: Code(s): I10 - Essential (primary) hypertension Status: Acute (4) Atrial fibrillation: Code(s): I48.91 - Unspecified atrial fibrillation Status: Acute (5) Chronic kidney disease: Code(s): N18.9 - Chronic kidney disease, unspecified Status: Acute (6) Acute heart failure: Code(s): I50.9 - Heart failure, unspecified Status: Acute (7) Acute kidney injury: Code(s): N17.9 - Acute kidney failure, unspecified Status: Acute Assessment and Plan: A very pleasant 88-year-old male with a history of ischemic cardiomyopathy, severe systolic heart failure with EF 25-30% estimated on surface echocardiogram on 11/11/2023, hypertension, hyperlipidemia, CKD stage 3, AFib/atrial fibrillation on Eliquis, CAD status post remote surgical revascularization status post recent PCI at the lesion of anastomosis of the saphenous vein graft to his OM circumflex branch 2 weeks prior at [facility]. He presents now with decompensated heart failure with increasing edema pleural effusions and shortness of breath. Acutely decompensated systolic heart failure, a flutter -none 11/11 cardiology has stopped his intravenous furosemide as he appears to be euvolemic. Anticipate DC cardioversion on Tuesday. Decompensation felt to be due to AV asynchrony due to a flutter. -anti arrhythmics, rate control, blood pressure medications per Cardiology guidance. -continue telemetry -continue Eliquis 5 mg p.o. b.i.d. Ischemic cardiomyopathy, CAD status post CABG status post PCI to saphenous vein graft to his OM circumflex branch -continue Plavix aspirin and Crestor Pleural effusions bilateral -he is currently on room air. Continue to monitor. Essential hypertension -at goal. As above. Chronic anemia and thrombocytopenia -at his baseline. Continue to monitor. CKD stage 3A/B -he presented with serum creatinine of 1.7 which is now 1.8. This may actually not be far off from his baseline. Continue to monitor. FEN: Saline lock IV. Healthy diet. NPO midnight GI prophylaxis: Continue his home dose PPI DVT prophylaxis: Continue home dose Eliquis Lines: Peripheral IV Code Status: Full code Dispo: Stable on telemetry floor Subjective Date/time seen: 11/13/23 10:54 Interval history: No acute overnight events. The patient questions whether should have surgery on his left-sided hernia inguinal. He also questions if his runny nose and congestion she had COVID 2-3 years ago is a serious problem otherwise has no complaints. Review of Systems Review of Systems: All systems reviewed & are unremarkable except as noted in HPI and below (Subjective) Exam Const: General: comfortable and no acute distress Other: A&O x3. Very talkative HENMT: Mouth: Yes moist mucous membranes Other: No postnasal drip Eyes: Pupils: Equal, round and reactive pupils present Neck: Neck: supple Resp: Effort & Inspection: normal respiratory effort Auscultation: clear to auscultation bilaterally Cardio: Rate: regular rate Rhythm: regular rhythm Heart sounds: no gallops, no murmurs and no rubs GI: GI Palp: Yes Soft to palpation and No Tenderness to palpation present (GI) Extrem: General: no edema Objective Data Vital Signs Vital Signs: Vital Signs - 24 hr 11/12/23 12:27 11/12/23 12:00 11/12/23 16:44 Temperature 96.7 F L 97.0 F L Pulse Rate 72 65 Respiratory Rate 20 18 Blood Pressure 97/56 L 105/55 L Pulse Oximetry 97 98 Oxygen Delivery Room Air 11/12/23 16:00 11/12/23 12:00 11/12/23 14:00 Temperature Pulse Rate 73 71 Respiratory Rate Blood Pressure Pulse Oximetry Oxygen Delivery Room Air 11/12/23 16:
[2023-11-13] MEDS: TAMSULOSIN HCL 0.4 MG CAPSULE PO (21:03)
[2023-11-13] MEDS: ALPRAZolam (*CRX) 0.25 MG TABLET PO (21:03)
[2023-11-14] VITALS (25 sets, daily range): BP systolic 114–139; BP diastolic 63–113; PULSE 70–109; RESP 14–19; TEMP 35.9–36.5; O2SAT 93–100
[2023-11-14 04:57] LABS: Hematocrit 36.2 % (42.0-52.0); Immature Platelet Fraction Pct 4.5 % (0.9-11.2); Mean Corpuscular HGB Conc 33.1 g/dl (32-36); Mean Corpuscular Hemoglobin 32.9 pg (26-34); Mean Corpuscular Volume 99.2 fl (80-100); Platelet Count Result 92 k/mm3 (150-375); Red Blood Count 3.65 M/mm3 (4.6-6.20); Red Cell Distribution Width 13.5 % (11.5-14.5); White Blood Count 3.9 K/mm3 (4.5-10.0)
[2023-11-14 05:05] LABS: Mean Platelet Volume 10.9 fl (7.4-10.4)
[2023-11-14 05:11] LABS: Anion Gap 4 mmol/L (4-12); Blood Urea Nitrogen 34 mg/dL (9-20); Calcium 10.1 mg/dL (8.4-10.2); Carbon Dioxide 27 mmol/L (22-30); Chloride 109 mmol/L (98-107); Estimated CRCL calculation 30 ml/min; Estimated Glomerular Filt Rate 44; Glucose 88 mg/dL (65-110); Magnesium 1.8 mg/dL (1.6-2.3); Potassium 3.7 mmol/L (3.4-5.0); Sodium 140 mmol/L (137-145)
[2023-11-14] MEDS: CLOPIDOGREL BISULFATE 75 MG TABLET PO (09:07)
[2023-11-14] MEDS: CHOLECALCIFEROL 1,000 UNITS TABLET 5000 UNITS PO (09:07)
[2023-11-14] MEDS: ASPIRIN 81 MG ENTERIC TABLET PO (09:07)
[2023-11-14] MEDS: ROSUVASTATIN 10 MG TABLET PO (09:08)
[2023-11-14] MEDS: PANTOPRAZOLE 40 MG TABLET PO (09:08)
[2023-11-14] MEDS: MULTIVITAMINS THERAPEUTIC TAB (*BKC) 1 TABLET PO (09:08)
[2023-11-14] MEDS: APIXABAN 2.5 MG TABLET PO ×2 (09:08→20:48)
--- NOTE | 2023-11-14 11:10 | ECG_ITS ---
SEE SCANNED COPY FOR CONFIRMED REPORT MTDD
--- NOTE | 2023-11-14 11:14 | ECG_ITS ---
SEE SCANNED COPY FOR CONFIRMED REPORT MTDD
--- NOTE | 2023-11-14 14:18 | WPDMODSED ---
Moderate Sedation Note-Pt Data Patient Data Diagnosis: Recent onset atrial flutter Left ventricular systolic dysfunction/ischemic cardiomyopathy Recent intervention in OM circumflex branch Congestive heart failure Present Complaint: Shortness of breath Procedure to be performed/Plan: DC cardioversion Allergies Allergy/AdvReac Type Severity Reaction Status Date / Time Penicillins Allergy Unknown Unknown Verified 11/11/23 00:08 Home Medications Medication Instructions Recorded Confirmed Type multivitamin 1 tablet PO DAILY 01/15/20 11/10/23 History ascorbic acid (vitamin C) 500 mg 500 mg PO DAILY 06/02/23 11/10/23 History capsule aspirin 81 mg tablet 81 mg PO DAILY 06/02/23 11/10/23 History pantoprazole 40 mg tablet,delayed 40 mg PO DAILY #90 tabs 06/27/23 11/10/23 Rx release tamsulosin 0.4 mg capsule (Flomax) 0.4 mg PO QHS #90 caps 08/17/23 11/10/23 Rx alprazolam 0.25 mg tablet 0.25 mg PO QHS PRN Anxiety 10/17/23 11/10/23 History apixaban 2.5 mg tablet 2.5 mg PO BID 11/10/23 11/10/23 History clopidogrel 75 mg tablet 75 mg PO DAILY 11/10/23 11/10/23 History metoprolol tartrate 50 mg tablet 50 mg PO Q12H 11/10/23 11/10/23 History rosuvastatin 10 mg tablet 10 mg PO DAILY 11/10/23 11/10/23 History Vitamin D3 5,000 units PO QAM 11/11/23 11/11/23 History Current Medications: Active Medications Alprazolam (Alprazolam (*Crx) 0.25 Mg Tablet) 0.25 mg PO QHS PRN PRN Reason: Anxiety Last Admin: 11/13/23 21:03 Dose: 0.25 mg Amiodarone HCl (Amiodarone Hcl 200 Mg Tablet) 400 mg PO DAILY@0800 [facility] Last Admin: 11/12/23 09:37 Dose: 400 mg Apixaban (Apixaban 2.5 Mg Tablet) 2.5 mg PO Q12HR [facility] Last Admin: 11/14/23 09:08 Dose: 2.5 mg Ascorbic Acid (Ascorbic Acid 500 Mg Tablet) 500 mg PO DAILY [facility] Last Admin: 11/14/23 09:13 Dose: Not Given Aspirin (Aspirin 81 Mg Enteric Tablet) 81 mg PO DAILY [facility] Stop: 12/11/23 08:59 Last Admin: 11/14/23 09:07 Dose: 81 mg Clopidogrel Bisulfate (Clopidogrel Bisulfate 75 Mg Tablet) 75 mg PO DAILY [facility] Last Admin: 11/14/23 09:07 Dose: 75 mg Hydralazine HCl (Hydralazine Hcl 25 Mg Tablet) 25 mg PO Q8H [facility] Last Admin: 11/12/23 14:22 Dose: Not Given Sodium Chloride (Normal Saline Iv) 1,000 mls @ 30 mls/hr IV CONT .Q24H [facility] Isosorbide Mononitrate (Isosorbide Mononitrate 30 Mg Tab.Er.24h) 30 mg PO [facility] Last Admin: 11/12/23 09:38 Dose: 30 mg Metoprolol Succinate (Metoprolol Succinate Ext Rel 100 Mg Tabcr) 100 mg PO [facility] Last Admin: 11/12/23 09:39 Dose: 100 mg Multivitamins Therapeutic (Multivitamins Therapeutic Tab (*Bkc)) 1 tablet PO DAILY [facility] Last Admin: 11/14/23 09:08 Dose: 1 tablet Pantoprazole Sodium (Pantoprazole 40 Mg Tablet) 40 mg PO DAILY [facility] Last Admin: 11/14/23 09:08 Dose: 40 mg Rosuvastatin Calcium (Rosuvastatin 10 Mg Tablet) 10 mg PO DAILY [facility] Last Admin: 11/14/23 09:08 Dose: 10 mg Tamsulosin HCl (Tamsulosin Hcl 0.4 Mg Capsule) 0.4 mg PO QHS [facility] Last Admin: 11/13/23 21:03 Dose: 0.4 mg Vitamin D (Cholecalciferol 1,000 Units Tablet) [facility] Stop: 12/11/23 08:59 Last Admin: 11/14/23 09:07 Dose: 5,000 units Sedation/Anesthesia: No previous sedation/anesthesia problems (including family history). [facility], [facility] Past Medical History Medical History Abdominal aortic aneurysm without rupture Status post repair. Arthritis Benign prostatic hyperplasia Bilateral lower extremity edema Distal radius fracture, right April 2023 Hyperlipidemia Hypertension Kidney stone Shortness of breath Surgical History Surgical History Femur fracture, right s/p ORIF History of abdominal aortic aneurysm repair History of cystoscopy History of four vessel coronary artery bypass graft (1997) History of rectal sphincterotomy History of right hemicolectomy (08/2014) For cecal mass found to be a sessile tub
[2023-11-14] MEDS: ATROPINE SULFATE 1 MG/10 ML SYRINGE (14:35)
--- NOTE | 2023-11-14 14:45 | WPDCARDPROC ---
Cardiac Cath Procedure Note Date of procedure:: 11/14/23 Performing physician:: Edwin Garcia MD Indication:: Ischemic cardiomyopathy Recent PCI Remote history of bypass grafting Recent development of atrial flutter with decompensated CHF Brief clinical history:: This is an 88-year-old man with severe ischemic cardiomyopathy status post bypass grafting in the remote past. He has graft dependent anatomy and at another hospital recently underwent PCI of his circumflex. During that hospitalization he developed atrial flutter. He is now in the hospital with decompensated heart failure and an attempt at restoring sinus rhythm electrically has been recommended. Procedure Procedure performed:: DC cardioversion Sedation/Medication given:: IV propofol total dosage of 70 mg Estimated blood loss:: No blood loss Procedure note:: Patient was brought to the cardiac laboratory animal caretaker holding area where he was in the postabsorptive state. Defibrillator patches were placed in the AP position. He was then sedated with bolus of propofol that was given in the right upper extremity where IV access was obtained. He received total dose of 70 mg in 2 aliquots. He was sedated very well for the procedure and after this he was cardioverted with 200 joules in a synchronized fashion x1 attempt which restored normal sinus rhythm with heart rate in the 60s. Because of his age, ischemic cardiomyopathy and slow atrial flutter I elected to give him a bolus of atropine 1 mg prior to sedation. Findings:: As above Conclusion:: Successful uncomplicated DC cardioversion terminating atrial flutter restoring sinus rhythm using 200 joules x1 shock Edwin Garcia MD [facility]
--- NOTE | 2023-11-14 16:11 | ECG_ITS ---
SEE SCANNED COPY FOR CONFIRMED REPORT MTDD
--- NOTE | 2023-11-14 17:23 | PM.IMPN ---
Progress Note: A&P Assessment and Plan (1) Chronic anemia: Code(s): D64.9 - Anemia, unspecified Status: Acute (2) Thrombocytopenia: Code(s): D69.6 - Thrombocytopenia, unspecified Status: Acute (3) Hypertension: Code(s): I10 - Essential (primary) hypertension Status: Acute (4) Atrial fibrillation: Code(s): I48.91 - Unspecified atrial fibrillation Status: Acute (5) Chronic kidney disease: Code(s): N18.9 - Chronic kidney disease, unspecified Status: Acute (6) Acute heart failure: Code(s): I50.9 - Heart failure, unspecified Status: Acute (7) Acute kidney injury: Code(s): N17.9 - Acute kidney failure, unspecified Status: Acute Assessment and Plan: A very pleasant 88-year-old male with a history of ischemic cardiomyopathy, severe systolic heart failure with EF 25-30% estimated on surface echocardiogram on 11/11/2023, hypertension, hyperlipidemia, CKD stage 3, AFib/atrial fibrillation on Eliquis, CAD status post remote surgical revascularization status post recent PCI at the lesion of anastomosis of the saphenous vein graft to his OM circumflex branch 2 weeks prior at [facility]. On 11/11/2023 the patient presented to his GI office for scheduled appointment and was found to have shortness of breath and lower extremity edema. He is subsequently admitted for acutely decompensated and a cardiomyopathy. Acutely decompensated systolic heart failure, a flutter -11/11 cardiology has stopped his intravenous furosemide as he appears to be euvolemic -on 11/14/2023 at approximately 3:00 p.m. the patient underwent DC cardioversion. He received 75 mg of propofol and was successfully restored to normal sinus rhythm after 1 shock of 200 joules in synchronized fashion. Also received 1 mg of atropine prior to the sedation due to his age and ischemic cardiomyopathy/slow atrial flutter. -further management per Cardiology guidance. He is currently on amiodarone 400 mg p.o. q.day, hydralazine 25 mg p.o. t.i.d., Imdur 30 mg p.o. q.a.m., metoprolol succinate 50 mg p.o. Q a.m. -patient has 2+ pitting edema of lower extremities and bibasilar crackles. He has no other symptomatology such as shortness of breath or cough. Will defer further diuretic management to Cardiology. Patient knows to elevate his legs and stay ambulatory. In the meantime, I have also ordered compression stockings. -continue telemetry for now. -continue Eliquis 2.5 mg p.o. b.i.d. Ischemic cardiomyopathy, CAD status post CABG status post PCI to saphenous vein graft to his OM circumflex branch -continue Plavix aspirin and Crestor Pleural effusions bilateral -he is currently on room air. Continue to monitor. Essential hypertension -at goal. As above. Chronic anemia and thrombocytopenia -at his baseline. Continue to monitor. CKD stage 3A/B -he presented with serum creatinine of 1.7 which is now 1.8. This may actually not be far off from his baseline. Continue to monitor. FEN: Saline lock IV. Healthy diet GI prophylaxis: Continue his home dose PPI DVT prophylaxis: Continue home dose Eliquis Lines: Peripheral IV Code Status: Full code Dispo: Stable on telemetry floor. May transfer out of unit if okay with Cardiology. Subjective Date/time seen: 11/14/23 17:23 Interval history: No acute overnight events. Patient is seen post DC cardioversion with Dr. Garcia. He is in normal sinus rhythm. Denies any complaints he sits up in a chair eating dinner and conversing with 3 of his relatives. Family complains of multiple lower extremity edema although on further questioning this is improved since admission. Review of Systems Review of Systems: All systems reviewed & are unremarkable except as noted in HPI and below (Subjective) Exam Const: General: comfortable and no acute distress Other: A&O x3. Eyes: Pupils: Equal, round and reactive pupils present
[2023-11-14] MEDS: TAMSULOSIN HCL 0.4 MG CAPSULE PO (20:48)
[2023-11-14] MEDS: hydrALAZINE HCL 25 MG TABLET PO (20:48)
[2023-11-14] MEDS: ALPRAZolam (*CRX) 0.25 MG TABLET PO (20:48)
[2023-11-15] VITALS (10 sets, daily range): BP systolic 119–131; BP diastolic 58–77; PULSE 68–83; RESP 18–20; TEMP 36.3–36.4; O2SAT 95–98
[2023-11-15] MEDS: hydrALAZINE HCL 25 MG TABLET PO (04:34)
[2023-11-15] MEDS: ISOSORBIDE MONONITRATE 30 MG TAB.ER.24H PO (09:04)
[2023-11-15] MEDS: CLOPIDOGREL BISULFATE 75 MG TABLET PO (09:04)
[2023-11-15] MEDS: ASCORBIC ACID 500 MG TABLET PO (09:05)
[2023-11-15] MEDS: ROSUVASTATIN 10 MG TABLET PO (09:05)
[2023-11-15] MEDS: MULTIVITAMINS THERAPEUTIC TAB (*BKC) 1 TABLET PO (09:05)
[2023-11-15] MEDS: AMIODARONE HCL 200 MG TABLET 400 MG PO (09:05)
[2023-11-15] MEDS: CHOLECALCIFEROL 1,000 UNITS TABLET 5000 UNITS PO (09:05)
[2023-11-15] MEDS: METOPROLOL SUCCINATE EXT REL 50 MG TABCR PO (09:05)
[2023-11-15] MEDS: APIXABAN 2.5 MG TABLET PO (09:05)
[2023-11-15] MEDS: PANTOPRAZOLE 40 MG TABLET PO (09:05)
[2023-11-15] MEDS: ASPIRIN 81 MG ENTERIC TABLET PO (09:05)
--- NOTE | 2023-11-15 10:20 | PM.DS ---
DS: Admitting Diagnosis Discharge Date November 15, 2023 Admitting Diagnosis Shortness of breath DS: Discharge Diagnosis Discharge Diagnosis (1) Acute heart failure: Code(s): I50.9 - Heart failure, unspecified Status: Acute (2) Atrial flutter: Code(s): I48.92 - Unspecified atrial flutter Status: Acute DS: Summary Hospital Course Hospital Course: This is a very pleasant 88-year-old male with a history of ischemic cardiomyopathy, systolic heart failure with EF 25 30% estimated on surface echocardiogram on 11/11/2023, hypertension, hyperlipidemia, CKD stage 3, atrial fibrillation/a flutter on Eliquis, CAD status post remote surgical revascularization status post recent PCI at the lesion of anastomosis of the saphenous vein graft to his OM circumflex branch 2 weeks prior to admission at [facility]. On 11/11/2023 the patient presented to GI office for schedule appointment was found to have shortness of breath and increasing lower extremity edema. He was subsequently presented to [place] [facility] and admitted for acutely decompensated cardiomyopathy. The patient was effectively diuresed. Furthermore the patient was found to be in a flutter which per the records he was in this at [facility] recently. His acute decompensation was felt due to AV asynchrony therefore on 11/13 at approximately 3:00 p.m. the patient underwent DC cardioversion with 1 shock of 200 joules in synchronized fashion. This was successful and the patient remained in normal sinus rhythm thereafter. He is discharged on amiodarone hydralazine Imdur and metoprolol. On 11/15/2023 the patient is stable and ready for discharge to home. He will also continue Plavix aspirin and Crestor for his CAD status post CABG. He is found to have bilateral pleural effusions and those are to be monitored, there was no intervention for these. Of note, post cardioversion the patient and his family complained his legs are still swollen. He was educated on elevating the legs and he did so overnight and this alone relieved his lower extremity edema. He has also been supplied compression stockings. Spoke with Cardiology on day of discharge and the recommendations are to continue the above medications and not add additional diuresis since he is at normal sinus rhythm now. He has been scheduled for follow-up with outpatient electronic technologist Dr. Mcneal. Adverse effects, risks, benefits of medications discussed and the patient is in understanding and agreement with the above plan. All of his questions has been at to satisfaction. The patient was full code during his admission. Time Spent with Patient Time attestation: Total time spent providing and/or coordinating discharge services: Exam Const: General: comfortable and no acute distress Other: A&O x3. Eyes: Pupils: Equal, round and reactive pupils present Neck: Neck: supple Resp: Effort & Inspection: normal respiratory effort Auscultation: crackles (Wet crackles at the bibasilar lung field. Improved.) Cardio: Rate: regular rate Rhythm: regular rhythm Heart sounds: no gallops, no murmurs and no rubs GI: GI Palp: Yes Soft to palpation and No Tenderness to palpation present (GI) Extrem: General: edema (Trace pitting edema of the bilateral lower extremities distal to the knees.) Discharge Plan Discharge Attending physician on discharge: Beverly Fine Consulting providers: Irina Raman; Navin Guillory Discharging Clinician: Beverly Fine Patient Disposition: Home, Self-Care Activity: november shower Diet: heart healthy Patient Instructions: Antibiotic Form, Apixaban (By mouth), Heart Failure (GEN) Stand Alone Forms: General Discharge Information Follow-up/Referrals: Won Denton MD [Primary Care Provider] - 2 Weeks Jessica Mcneal MD [Physician] - (11/22/23 at 10:00. Arrive at 9:45.) Discharge Medications: New amiodarone [Pacerone] 200 mg Tablet 200 mg PO
== END 2023-11-15 11:03 | disposition home or self-care (01) | DRG 291 ==
LOC: ANHED 22:52 → ANHIMU 23:37
PROVIDERS: Emergency Medicine; Hospitalist; Specialist; Admitting Provider Internal Medicine; Emergency Provider Physician Assistant; PCP Family Medicine; Visit Provider General Practice
PROC: 5A2204Z Restoration of Cardiac Rhythm, Single (ICD-10-PCS; principal; 2023-11-14 14:00)
DX: I13.0 Hypertensive heart and chronic kidney disease with heart failure and stage 1 through stage 4 chronic kidney disease, or unspecified chronic kidney disease (principal); I50.21 Acute systolic (congestive) heart failure; I48.19 Other persistent atrial fibrillation; N17.9 Acute kidney failure, unspecified; I48.92 Unspecified atrial flutter; N18.32 Chronic kidney disease, stage 3b; D64.9 Anemia, unspecified; I25.10 Atherosclerotic heart disease of native coronary artery without angina pectoris; I25.5 Ischemic cardiomyopathy; K21.9 Gastro-esophageal reflux disease without esophagitis; E78.5 Hyperlipidemia, unspecified; D69.6 Thrombocytopenia, unspecified; N40.0 Benign prostatic hyperplasia without lower urinary tract symptoms; I71.40 Abdominal aortic aneurysm, without rupture, unspecified; M19.90 Unspecified osteoarthritis, unspecified site; Z95.5 Presence of coronary angioplasty implant and graft; Z87.891 Personal history of nicotine dependence; Z79.82 Long term (current) use of aspirin; Z79.02 Long term (current) use of antithrombotics/antiplatelets; Z86.16 Personal history of COVID-19
CPT/HCPCS: 36415; 71046; 80048; 80053; 81001; 83735; 83880; 84484; 85025; 85027; 85055; 85610; 85730; 92960; 93005; 93306; 96374; 96375; 99285; A9270; G0378; J0461; J1940; J2704; J7040; Q9957

== ENCOUNTER 2023-12-08 09:46 | Outpatient (CLI) | payer MEDICARE, SELFPAY ==
--- NOTE | ~2023-12-08 | XR_ITS ---
XR chest 2V 12/08/2023 10:05 Indication: Pleural effusion. Procedure: 2 view chest Comparison: Comparison to multiple prior studies sequentially, with oldest reviewed study dated 12/2014. Findings: Status post median sternotomy for CABG. Cardiomegaly. There is atherosclerosis and ectasia of the thoracic aorta. There is an endovascular stent in the lower thoracic and upper abdominal aorta . Small pleural effusions. The lungs are hyperinflated which is consistent with, but not diagnostic o f chronic obstructive pulmonary disease. Impression: 1: Small pleural effusions. Reviewed, dictated and finalized at location B. Impression: 1: Small pleural effusions.
== END 2023-12-08 09:47 | disposition home or self-care (01) ==
PROVIDERS: PCP Family Medicine; Visit Provider Physician Assistant Medical
DX: J90 Pleural effusion, not elsewhere classified (principal)
CPT/HCPCS: 71046

== ENCOUNTER 2024-04-02 16:30 | Outpatient (CLI) | payer MEDICARE, SELFPAY ==
--- NOTE | ~2024-04-02 | XR_ITS ---
EXAMINATION: XR chest 2V Exam Date/Time: 04/02/2024 16:30 CDT HISTORY: R05.9 - Cough, unspecified Comparison: 12/08/2023. RESULT: Lines, tubes, and devices: Intact sternotomy wires. Mediastinal surgical clips. Vascular stents. Lungs and pleura: Emphysematous/senescent change, otherwise clear. Cardiomediastinal silhouette: Stable aortic ectasia. Calcified nodes. Other: No acute osseous or upper abdominal finding. IMPRESSION: No acute cardiopulmonary process. Reviewed, dictated and finalized at location K.
== END 2024-04-02 16:31 | disposition home or self-care (01) ==
LOC: MICIMG 16:31
PROVIDERS: PCP Family Medicine; Visit Provider Physician Assistant Medical
DX: R05.9 Cough, unspecified (principal)
CPT/HCPCS: 71046

== ENCOUNTER 2024-05-01 10:50 | Outpatient (CLI) | payer MEDICARE, SELFPAY ==
[2024-05-01 12:29] LABS: Anion Gap 7 mmol/L (4-12); Blood Urea Nitrogen 22 mg/dL (9-20); Calcium 10.2 mg/dL (8.4-10.2); Carbon Dioxide 30 mmol/L (22-30); Chloride 105 mmol/L (98-107); Estimated Glomerular Filt Rate 41; Glucose 118 mg/dL (65-110); Potassium 3.7 mmol/L (3.4-5.0); Sodium 142 mmol/L (137-145)
== END 2024-05-01 10:51 | disposition home or self-care (01) ==
LOC: ANHSURGERY 11:23
PROVIDERS: Anesthesiology; PCP Family Medicine; Visit Provider Surgery
DX: I10 Essential (primary) hypertension (principal); K40.90 Unilateral inguinal hernia, without obstruction or gangrene, not specified as recurrent
CPT/HCPCS: 36415; 80048; 86850; 86900; 86901

== ENCOUNTER 2024-08-28 07:21 | Outpatient (CLI) | payer MEDICARE, SELFPAY ==
--- NOTE | ~2024-08-28 | CT_ITS ---
EXAMINATION: CTA abdomen pelvis DATE: 08/28/2024 07:56 INDICATION: Abdominal aortic aneurysm. TECHNIQUE: Computed tomographic angiography (CTA) of the abdomen and pelvis was performed without and with 100 mL Omnipaque-350 intravenous contrast. Automated exposure control and iterative reconstruct ion technique were employed. The dose-length product was 761.21 mGy-cm. Maximum intensity projection 3D-reconstructions of the aorta and other arteries were constructed by the technologist on a separate workstation. COMPARISON: CT abdomen pelvis 07/22/21 FINDINGS: The visualized portions of lung bases demonstrate mild atelectasis. No pleural effusion. Ca rdiomegaly is noted. There are coronary artery calcifications. No pericardial effusion. There are cys ts in the liver measuring up to 5 mm. The gallbladder is normal. Calcifications in the spleen are con sistent with old granulomatous disease. There are chronic hypodense masses in the spleen measuring up to 11 mm, likely granulomatous disease. The pancreas and adrenal glands are normal. There are cysts in the kidneys measuring up to 7.8 cm on the right. There is an 8 mm stone in left kidney. There is d iverticulosis of the colon without evidence of diverticulitis. There are changes of right hemicolecto my. There are no pathologically enlarged lymph nodes. There is no free intraperitoneal fluid. There i s a 8.0 cm fusiform aneurysm of infrarenal aorta. Distal descending thoracic aorta measures 4.4 cm. T here is a stent graft from distal descending thoracic aorta to the common iliac arteries. There is a totally occluded stent in celiac axis with reconstitution of flow distal to the stent. There are orozco nt stents in superior mesenteric artery and the renal arteries. 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 There is severe lumbar spondylosis. There is internal fixation of proximal right f emur. IMPRESSION: 1. 8.0 cm fusiform aneurysm of infrarenal aorta, worsened from 6.7 cm on 07/22/2021. The endoleak seen on the prior exam is no longer present. Reviewed, dictated and finalized at location A. AL PROCESS OWNER IMPRESSION: 1. 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 The endoleak seen on the prior exam is no longer present.
--- OUTSIDE RECORDS SUMMARY | 2024-08-28 07:28 | XMS_ITS | Clinical Summary ---
Author Organization [facility] Address [address] [place] [id number] Care Team Providers Care Bicycle Service Technician Name Role Phone Won Denton MD Primary Care Provider Allergies Active Allergy Reactions Criticality Noted Date Comments Penicillins Swelling Medium 11/02/2015 Medications multivitamin with iron-mineral tabletIndicatio ns:Mineral Deficiency Prevention,Mariela min Deficiency Prevention Take 1 tablet by mouth every morning Active rosuvastatin (CRESTOR) 10 mg tabletIndicatio ns:hyperlipidem ia Take 1 tablet (10 mg total) by mouth every morning Active cholecalciferol (VITAMIN D-3) 5,000 unit tablet daily Active pantoprazole DR (PROTONIX) 40 mg EC tablet 40 MG ORALLY DAILY Active tamsulosin (FLOMAX) 0.4 mg extended release capsule Take 1 capsule (0.4 mg total) by mouth nightly 08/17/19 24 Active ALPRAZolam (XANAX) 0.25 mg tablet Take 1 tablet (0.25 mg total) by mouth nightly as needed for anxiety Active apixaban (ELIQUIS) 2.5 mg tabletIndicatio ns:atrial fibrillation Take 1 tablet (2.5 mg total) by mouth every 12 (twelve) hours 60 tablet 11 11/03/19 24 Active hydrALAZINE (APRESOLINE) 50 mg tabletIndicatio ns:hypertension Take 1 tablet (50 mg total) by mouth 3 (three) times a day 90 tablet 11 02/20/20 24 025 Active albuterol HFA (PROVENTIL HFA,VENTOLIN HFA,PROAIR HFA) 90 mcg/actuation inhaler Inhale 1 puff as needed 07/06/19 25 Active vitamin B complex capsule Take 1 capsule by mouth daily Active furosemide (LASIX) 40 mg tabletIndicatio ns:Cardiomyopat hy, unspecified type (HCC) Take 0.5 tablets (20 mg total) by mouth daily as needed (edema or shortness of breath) 08/14/19 25 Active metoprolol XL (TOPROL-XL) 50 mg extended release tablet TAKE 1 TABLET BY MOUTH EVERY DAY 90 tablet 3 08/15/19 25 Active clopidogreL (PLAVIX) 75 mg tablet TAKE 1 TABLET BY MOUTH EVERY DAY 90 tablet 3 08/16/19 25 Active isosorbide mononitrate ER (IMDUR) 30 mg 24 hr tablet TAKE 1 TABLET BY MOUTH EVERY DAY 90 tablet 2 08/16/19 25 Active amiodarone (PACERONE) 200 mg tablet TAKE 1 TABLET BY MOUTH EVERY DAY 90 tablet 2 08/16/19 25 Active ascorbic acid (ascorbic acid with dina hips) 500 mg tablet,chewable 025 Discontinued( erapy completed) clopidogreL (PLAVIX) 75 mg tabletIndicatio ns:myocardial infarction prevention,card iovascular disease Take 1 tablet (75 mg total) by mouth daily 30 tablet 11 11/04/19 24 025 Discontinued isosorbide mononitrate ER (IMDUR) 30 mg 24 hr tablet Take 1 tablet (30 mg total) by mouth daily 90 tablet 2 12/13/19 24 025 Discontinued amiodarone (PACERONE) 200 mg tablet Take 1 tablet (200 mg total) by mouth daily 90 tablet 2 12/13/19 24 025 Discontinued metoprolol XL (TOPROL-XL) 50 mg extended release tablet TAKE 1 TABLET BY MOUTH EVERY DAY 90 tablet 1 03/06/20 24 025 Discontinued furosemide (LASIX) 40 mg tabletIndicatio ns:Chronic combined systolic and diastolic CHF (congestive heart failure) (CMS/HCC) (HCC) Take 40 mg daily on Mon, Wed, and Tue. Take 20 mg daily on Tue, , Sat and Sun. 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 Overview (07/23/2020): Added automatically from request for surgery [id number] Abdominal aortic aneurysm (AAA) without rupture 01/02/2018 Hypertension 01/02/2018 Dyslipidemia 05/12/2017 Benign prostatic hyperplasia 10/15/2015 Dyspnea 10/15/2015 Hyperlipidemia 10/10/2015 Resolved Problems Problem Noted Date Diagnosed Date Resolved Date Coronary artery disease, uns pecified vessel or lesion type, unspecified whether angina present, unspecified whether [place] or transplanted heart 11/02/2023 02/20/2024 Coronary atherosclerosis 01/26/2020 Prominent popliteal pulse 08/20/2019 Encounter for surgical after care following surgery of circulatory system 08/20/2019 02/20/2024 Coronary artery disease invo lving autologous artery coronary bypass graft 01/02/2018 02/20/2024 Disorder of coronary artery 10/10/2015 02/20/2024 Overview (05/19/2023): S/P CABG X 4 1997 Encounters Date Type Department Care Team Description 08/24/2024 Telephone [facility] Cardiology [address] [place] [address] Renae Scott NP 08/14/2024 11:00 AM MUD MILL TENDER Office Visit [facility] Cardiology [address] [place] [address] Renae Scott NP Cardiomyopathy, unspecified type (HCC); Atrial flutter, unspecified type (HCC); Chronic anticoagulation; Stage 3b chronic kidney disease (HCC); Coronary artery disease involving autologous artery coronary bypass graft without angina pectoris; Hx of CABG 07/05/2024 Orders Only [facility] Surgery [address] [facility] [address] [place] [address] [place] [address] Jose Juan Jenkins MD Abdominal aortic aneurysm (AAA) without rupture, unspecified part (HCC) (Primary Dx) 07/05/2024 Telephone [facility] Surgery [address] [facility] [address] [place] [address] Jose Juan Jenkins MD from Last 3 Months Immunizations Immunization Administration Dates Next Due Influenza, Unspecified 04/01/2023 Surgical History Surgery Date Site/Laterality Comments CORONARY ARTERY BYPASS GRAFT 07/04/1997 - 07/03/1998 x4 vessels LITHOTRIPSY 07/04/2014 - 07/03/2015 TONSILLECTOMY 07/04/1961 - 07/03/1962 PENILE FISTULA REPAIR 07/04/1987 - 07/03/1988 COLECTOMY 07/04/2014 - 07/03/2015 removed 12 of intestine ANAL FISSURECTOMY 07/04/1985 - 07/03/1986 CATARACT EXTRACTION W/ INTRAOCULAR LENS IMPLANT 07/04/2012 - 07/03/2013 Bilateral ANAL SPHINCTEROTOMY 11/01/2000 - 12/01/2000 BALLOON ANGIOPLASTY, ARTERY 2019 Right to renal artery with placement of stent OTHER SURGICAL HISTORY 10/20/2018 endovascular repair of TAA with graft, celiac artery angioplasty and stenting, bilateral renal artery angioplasty and stenting, etc APPENDECTOMY no KNEE ARTHROSCOPY W/ LATERAL RELEASE no BRAIN SURGERY no COSMETIC SURGERY no FRACTURE SURGERY Apr 05, 2023 CHOLECYSTECTOMY no CARDIAC VALVE REPLACEMENT no HERNIA REPAIR no JOINT REPLACEMENT no LASIK no PROSTATE SURGERY no SMALL INTESTINE SURGERY no SPINE SURGERY no VASECTOMY no SHUNT EXTERNALIZATION no BARIATRIC SURGERY no BLADDER SURGERY no G TUBE PLACEMENT no ORGAN TRANSPLANT no SPLENECTOMY, TOTAL no ABDOMINAL SURGERY no Medical History Medical History Date Comments Hypertension Impotence PONV (postoperative nausea a nd vomiting) slight N/V after lithotripsy in 2014 AAA (abdominal aortic aneury sm) (HCC) CAD (coronary artery disease) HLD (hyperlipidemia) GERD (gastroesophageal reflu x disease) Kidney stone Cataract BPH (benign prostatic hyperplasia) Aneurysm (CMS/HCC) (HCC) Gastric ulcer Alcohol abuse no Anemia no Anxiety no Arthritis no Asthma no Benign prostatic hyperplasia no Osteoporosis no Clotting disorder (CMS/HCC) (HCC) no Meningitis no Cancer (CMS/HCC) (HCC) no Brain concussion no Chronic bronchitis (HCC) no Depression no Diabetes mellitus (HCC) no Emphysema of lung (HCC) no Glaucoma no Migraines no Heart disease bypass 1997 Infectious viral hepatitis no HIV disease (CMS/HCC) ([facility] no Neuromuscular disorder (HCC) no Rheumatic fever no Seizures (HCC) no Sickle cell anemia (HCC) no Sleep apnea no Stroke (HCC) no Substance abuse (CMS/HCC) ([facility]) no Thyroid disease no Tuberculosis no Autoimmune disease (CMS/HCC) ([facility]) no Blindness no Bulimia nervosa no 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 GI (gastrointestinal bleed) no Infection no Lymphoma (HCC) no Family History Medical History Relation Name Comments Heart attack Father Ed Bietchert Heart disease Father Ed Bietchert Anesthesia problems Neg Hx Aneurysm Neg Hx Relation Name Status Comments Father Ed Bietchert Mother Social History Tobacco Use Types Packs/Day Years Used Date Smoking Tobacco: Former Cigarettes 1 43.7 0 [birth year]/04/1954 - 03/01/1998 Smokeless Tobacco: Never Tobacco Cessation:Counseling Given: Not Answered Alcohol Use Standard Drinks/Week Comments Yes 3 (1 standard drink = 0.6 oz pur e alcohol) [facility] Utilities Answer Date Recorded In the past 12 months has [employer] electric, gas, oil, or water [email or web address] threatened to shut off services in your home? No 11/02/2023 Social Connection and Isolat ion Panel [NHANES] Answer Date Recorded In a typical week, how many times do you talk on the phone with family, friends, or neighbors? More than three times a week 11/02/2023 How often do you get togethe r with friends or relatives? More than three times a week 11/02/2023 How often do you attend chur ch or taoist services? More than 4 times per year 11/02/2023 Do you belong to any clubs o r organizations such as anabaptism groups, unions, fraternal or athletic groups, or school groups? Yes 11/02/2023 How often do you attend meet ings of the clubs or organizations you belong to? 1 to 4 times per year 11/02/2023 Are you , , di vorced, , never , or living with a partner? 11/02/2023 AUDIT-C Answer Date Recorded Q1: How often do you have a drink containing alc ohol? 2-3 times a week 04/04/2023 Q2: How many drinks containi ng alcohol do you have on a typical day when you are drinking? 1 or 2 04/04/2023 Q3: How often do you have si x or more drinks on one occasion? Never 04/04/2023 Overall Financial Resource Strain (CARDIA) Answe r Date Recorded How hard is it for you to pa y for the very basics like food, housing, medical care, and heating? Not hard at all 11/02/2023 Hunger Vital Sign Answer Date Recorded Within the past 12 months, y ou worried that your food would run out before you got the money to buy more. Never true 11/02/19 24 Within the past 12 months, t he food you bought just didn't last and you didn't have money to get more. Never true 11/02/2023 PRAPARE - Transportation Answer Date Re corded In the past 12 months, has l ack of transportation kept you from medical appointments or from getting medications? No 07/2023 In the past 12 months, has l ack of transportation kept you from meetings, work, or from getting things needed for daily living? No 11/02/2023 Housing Stability Vital Sign Answer Lucas e Recorded In the last 12 months, was t here a time when you were not able to pay the mortgage or rent on time? No 11/02/2023 In the last 12 months, how many places have you lived? 1 11/02/2023 In the last 12 months, was t here a time when you did not have a steady place to sleep or slept in a custodial (including now)? No 11/02/2023 Personal Safety Answer Date Recorded Have you ever been in or are you currently in a harmful physical or emotional relationship or is someone making you feel afraid or unsafe? Denies 11/01/2023 Sex and Gender Information Value Date Recorded Sex Assigned at Not on file Legal Sex Male 9:30 AM MUD MILL TENDER Gender Identity Male 02/23/2021 1:28 PM CDT Sexual Orientation Straight 02/29/2020 4: 17 PM CDT Obstetrics History Last Filed Vital Signs Vital Sign Reading Time Taken Comments Blood Pressure 152/70 08/14/2024 10:59 AM MUD MILL TENDER Pulse 60 08/14/2024 10:59 AM MUD MILL TENDER Temperature 36.4 C (97.5 F) 11/03/2023 7:46 AM CDT Respiratory Rate 21 11/03/2023 10:00 AM CDT Oxygen Saturation 97% 08/14/2024 10:59 AM MUD MILL TENDER Inhaled Oxygen Concentration - - Weight 66.2 kg (146 lb) 08/14/2024 10:59 AM MUD MILL TENDER Height 177.8 cm (5' 10 ) 08/14/2024 10:59 AM MUD MILL TENDER Body Mass Index 20.95 08/14/2024 10:59 AM MUD MILL TENDER Plan of Treatment Health Maintenance Due Date Last Done Comments Depression Screening 1935 DTaP/Tdap/Td Vaccine (1 - Tdap) 1948 Hepatitis B Screening 1955 Zoster Vaccine (1 of 2) 1987 Well Visit 65+ 2002 Covid-19 Vaccine (2 - 2023-2 5 season) 2024 06/17/2021 Influenza Vaccine (#1) 2024 , 02/22/2019, 03/13/2018, Additional history exists Fall Risk Assessment 11/02/2024 11/03/2023 Pneumococcal vaccine 65+ Completed 03/23/2016, 08/2012 Medical Devices Implanted Type [employer] Device Identifier Shelf Expiration Date Model / Serial / Lot Zenith Fenestrated Aaa Endovascular Graft Implanted:Qty: 1 on 10/10/2018 by Jose Juan Jenkins MD at [facility] Graft N/A: Aorta [employer] 08/31/2021 [id number] / 00 / [id number] Description:3-Visceral Fenes trated AAA Endograft [employer] [id number] Zenith Flex 36mm 50mm Z-Trak Main Body Extension Graft - S00 - [id number] Implanted:Qty: 1 on 10/10/2018 by Jose Juan Jenkins MD at [facility] Graft N/A: Aorta [employer] [id number] 12/18/2020 [id number] / 00 / [id number] [employer] [id number] [place] Viabahn 7mm 11mm 7fr 79mm 135cm Balloon Expandable Guidewire - [id number] - [id number] Implanted:Qty: 1 on 10/10/2018 by Jose Juan Jenkins MD at [facility] Graft N/A: Other - see comments Wl [employer] 04/21/2021 [id number] / [id number] Description:Celiac Artery Graft Endovascular Zenith L91 Mm L28 Mm Od12 Fr Abdominal Aortic Aneurysm Visceral Fenestration Distal Bifurcated Body - S00 - [id number] Implanted:Qty: 1 on 10/10/2018 by Jose Juan Jenkins MD at [facility] Graft Right: Aorta [employer] [id number] 08/31/2021 [id number] / 00 / [id number] [employer] [id number] Zenith Spiral-Z 20mm 6mm 16fr 74mm Iliac Leg Transcend Precision - S00 - [id number] Implanted:Qty: 1 on 10/10/2018 by Jose Juan Jenkins MD at [facility] Graft Right: Iliac [employer] [id number] 06/13/2021 [id number] / 00 / [id number] [employer] [id number] Zenith Spiral-Z Z-Trak 16mm 5.4mm 14fr 74mm Iliac Leg Transcend - S0 - [id number] Implanted:Qty: 1 on 10/10/2018 by Jose Juan Jenkins MD at [facility] Graft Left: Iliac [employer] [id number] 06/14/2021 [id number] / 0 / [id number] [employer] [id number] Perclose 6fr Suture Mediate Knot Push Vascular Device Closure - S00 - [id number] Implanted:Qty: 1 on 08/01/2020 by Jose Juan Jenkins MD at [facility] Other - see comments N/A: Abdomen [employer] [id number] 05/03/2022 [id number] / 00 / [id number] Description:suture [employer] 16486 Icast 8mm 7fr 38mm 80cm Cover Catheter Introducer Balloon Expand - [id number] - [id number] Implanted:Qty: 1 on 10/10/2018 by Jose Juan Jenkins MD at [facility] Stent N/A: Other - see comments [employer] [id number] 10/12/2020 07875 / [id number] / 00 Description:Superior Mesente gabino Artery [employer] 36417 Icast 6mm 6fr 22mm 80cm Cover Catheter Introducer Balloon Expand - [id number] - [id number] Implanted:Qty: 1 on 10/10/2018 by Jose Juan Jenkins MD at [facility] Stent Left: Other - see comments [employer] [id number] 07/18/2021 22579 / [id number] / 00 Description:Renal Artery [employer] 77548 Icast 6mm 6fr 22mm 80cm Cover Catheter Introducer Balloon Expand - [id number] - [id number] Implanted:Qty: 1 on 10/10/2018 by Jose Juan Jenkins MD at [facility] Stent Right: Other - see comments [employer] [id number] 07/18/2021 20419 / [id number] / Description:Renal Artery Wl [employer] [id number] Stent Endoprosthesis 29mm 7mm 11mm 7fr [place] Viabahn 135cm - [id number] - [id number] Implanted:Qty: 1 on 2019 by Jose Juan Jenkins MD at [facility] Stent Renal Wl [employer] 02/05/2022 [id number] / [id number] / Wl [employer] [id number] Viabahn 6mm 2.5cm 120cm Flexible Self Expand Radiopaque Stent - [id number] - [id number] Implanted:Qty: 1 on 2019 by Jose Juan Jenkins MD at [facility] Stent Right: Aorta Wl [employer] [id number] 12/18/2021 [id number] / [id number] / [employer] 46833 Icast 7mm 7fr 22mm 80cm Cover Catheter Introducer Balloon Expand - [id number] - [id number] Implanted:Qty: 1 on 08/01/2020 by Jose Juan Jenkins MD at [facility] Stent N/A: Abdomen [employer] [id number] 01/07/2023 88826 / [id number] / Description:SMA stent Wires N/A: Sternum Daig Roddy [id number] Device Closure Angio-Seal Vip Bondek-Plus Polyglyd L70 Cm Od6 Fr Odsec.035 In Vascular - [id number] Implanted:Qty: 1 on 01/30/2020 at [facility] Daig [employer]dy[employer] 10/31/2020 [id number] / / [id number] [employer]/Ort ho Intertan 4.5mm 95mm 90mm Lag Compression Integrated Interlocking [id number] - [id number] Implanted:Qty: 1 on 04/04/2023 by La Cavanaugh MD at [facility] Right: Leg [employer] /Ortho [id number] 08/23/2032 [id number] / / [id number] [employer]/Ort ho Intertan 46cm 13mm Right Intertrochanter 130d 1.5mm Nail [id number] - [id number] Implanted:Qty: 1 on 04/04/2023 by La Cavanaugh MD at [facility] Right: Leg [employer] /Ortho [id number] 06/05/2032 [id number] / / [id number] [employer]/Ort ho 5mm 50mm Low Profile Internal Hex Femur Screw Bone Trigen [id number] - [id number] Implanted:Qty: 1 on 04/04/2023 by La Cavanaugh MD at [facility] Right: Leg [employer] /Ortho [id number] / / [employer]/Richco/Ort ho 5mm 70mm Low Profile Internal Hex Femur Screw Bone Trigen [id number] - [id number] Implanted:Qty: 1 on 04/04/2023 by La Cavanaugh MD at [facility] Right: Leg [employer] /Ortho [id number] / / Medtronic Card Vasc Surgery 2.50 X 15mm [place] Rx Coronary Stent [id number] - [id number] Implanted:Qty: 1 on 11/01/2023 by Jessica Mcneal MD at [facility] 06/05/2026 [id number] / / [id number] [employer] Device Vascular Closure Femoral Artery Bioabsorbable Dual Method Vascade 6-7fr Collagen [id number] - [id number] Implanted:Qty: 1 on 11/01/2023 by Jessica Mcneal MD at [facility] [employer] 08/04/2025 [id number] / / [id number] Insurance MEDICARE [facility] SUPPLEMENT MEDICARE COMMERCIAL GENERIC [facility] M[facility] SUPPLEMENT [facility] MCR SUPPLEMENT MEDICARE Advance Directives For more information, please contact: [phone] Documents on File Type Date Recorded Patient Song And Dance Performer Expl anation ADVANCE DIRECTIVE 01/10/2018 3:57 PM * Full Code (Latest Code Status on File) Date Activated Date Inactivated Comments 11/01/2023 2:13 PM 11/03/2023 3:30 PM * Full Code Date Activated Date Inactivated Comments 04/04/2023 2:35 PM 04/07/2023 6:43 PM * Full Code Date Activated Date Inactivated Comments 01/30/2020 8:23 AM 01/30/2020 5:40 PM * Full Code Date Activated Date Inactivated Comments 2019 4:56 PM 2019 10:28 PM * Full Code Date Activated Date Inactivated Comments 10/10/2018 4:30 PM 10/12/2018 4:14 PM Care Teams Bicycle Service Technician Relationship Specialty Start Date End Date Won Denton MD [address] [place] [address] PCP - General Family Medicine 08/02/18
--- OUTSIDE RECORDS SUMMARY | 2024-08-28 07:28 | XMS_ITS | Encounter Summary ---
Author Organization [facility] Address [address] [place] [address] Phone Care Team Providers Care Ethyl Blender Name Role Phone Won Denton MD Primary Care Provider Encounter Details Date Type Department Care Team (Latest Contact Info) Description 07/19/2023 Orders Only [facility] Scanning, Provider Social History Tobacco Use Types Packs/Day Years Used Date Smoking Tobacco: Former Cigarettes 1 43.7 1 955 - 03/01/1998 Smokeless Tobacco: Never Alcohol Use Standard Drinks/Week Comments Yes 3 (1 standard drink = 0.6 oz pur e alcohol) AUDIT-C Answer Date Recorded Q1: How often do you have a drink containing alc ohol? 2-3 times a week 04/04/2023 Q2: How many drinks containi ng alcohol do you have on a typical day when you are drinking? 1 or 2 04/04/2023 Q3: How often do you have si x or more drinks on one occasion? Never 04/04/2023 Personal Safety Answer Date Recorded Have you ever been in or are you currently in a harmful physical or emotional relationship or is someone making you feel afraid or unsafe? Denies 04/04/2023 Sex and Gender Information Value Date Recorded Sex Assigned at Not on file Legal Sex Male 9:30 AM EMERGENCY MEDICAL DISPATCHER Gender Identity Male 02/23/2021 1:28 PM CDT Sexual Orientation Straight 02/29/2020 4: 17 PM CDT documented as of this encounter Plan of Treatment Not on file documented as of this encounter Procedures Procedure Name Priority Date/Time Associated Diagnosis Comments SCAN - RADIOLOGY/IMAGING 07/19/2023 2:36 PM EMERGENCY MEDICAL DISPATCHER documented in this encounter Results * SCAN - RADIOLOGY/IMAGING (07/19/2023 2:36 PM EMERGENCY MEDICAL DISPATCHER) Anatomical Region Laterality Modality Other us Provider Scanning Final Result documented in this encounter Visit Diagnoses Not on filedocumented in this encounter Care Teams Ethyl Blender Relationship Specialty Start Date End Date Won Denton MD [address] [facility] [address] [place] [address] PCP - General Family Medicine 08/02/18 documented as of this encounter
--- OUTSIDE RECORDS SUMMARY | 2024-08-28 07:28 | XMS_ITS | Continuity of Care Document ---
Author Name Auto Generated, Auto Generated Organization [facility] Support Name Relationship Address Phone [facility], December Emergency Contact 1 [address] [place] [address] Kerrie Huggins Emergency Contact 1 Unknown Unav ailable Kerrie Huggins Daughter Unknown Unavailable Sybil Santoyo Daughter Unknown Unavailable Oz Luther Financial Responsible [employer] Party [address] [place] [address] Oz Luther Self [address] [place] [address] Ashkan, Judy [facility] [address] [place] [address] Bren, Judy Spouse [address] [place] [address] Summary Purpose Consult/Referral Allergies, Adverse Reactions, Alerts Type Description/Agent Code Date Allergy Active Date Allergy Inactivated Date of Last Reaction Adverse Reactions Severity Status Comments Source of Information FDB Speci fic Aller gen Group JERARDO Inhibitors Active Pa tient History FDB Medic ation Ingre dient penicillin Active Patien t History FDB Medic ation Ingre dient simvastatin Active Patie nt History Medications No Known Medications Conditions/Problems Problem/Diagnosis Awareness of Diagnosis Code (ICD-10) Onset Date (Start Date) Resolution Date (End Date) Status Source Comments OLECRANON BURSITIS, LEFT ELBOW M70.22 04/27/20 Active MD Andreina Mukund ABDOMINAL AORTIC ANEURYSM, WITHOUT RUPTURE, UNSPECIFIED I71.40 04/14/20 Active MD Andreina Mukund PRESENCE OF OTHER CARDIAC IMPLANTS AND GRAFTS Z95.818 04/14/20 Active MD Andreina Mukund UNSPECIFIED SEVERE PROTEIN-CALORIE MALNUTRITION E43 04/14/20 Active MD Andreina Mukund THROMBOCYTOPENIA, UNSPECIFIED D69.6 04/14/20 Jean-Pierre Hdz MD Mukund UNSPECIFIED ATRIAL FIBRILLATION I48.91 04/14/20 Jean-Pierre Hdz MD Mukund ATHEROSCLEROTIC HEART DISEASE OF [place] CORONARY ARTERY WITHOUT ANGINA PECTORIS I25.10 04/14/20 Jean-Pierre Hdz MD Mukund BENIGN PROSTATIC HYPERPLASIA WITHOUT LOWER URINARY TRACT SYMPTOMS N40.0 04/14/20 Jean-Pierre Hdz MD Muuknd HYPERLIPIDEMIA, UNSPECIFIED E78.5 04/14/20 Jean-Pierre Hdz MD Mukund ESSENTIAL (PRIMARY) HYPERTENSION I10 04/14/20 Jean-Pierre Hdz MD Mukund PERSONAL HISTORY OF COLONIC POLYPS Z86.010 04/14/20 Jean-Pierre Hdz MD Mukund PERSONAL HISTORY OF NICOTINE DEPENDENCE Z87.891 04/14/20 Jean-Pierre Hdz MD Mukund GASTRO-ESOPHAGEAL REFLUX DISEASE WITHOUT ESOPHAGITIS K21.9 04/14/20 Jean-Pierre Hdz MD Mukund UNSPECIFIED ASTHMA, UNCOMPLICATED J45.909 04/14/20 Jean-Pierre Hdz MD Mukund ANXIETY DISORDER, UNSPECIFIED F41.9 04/14/20 Jean-Pierre Hdz MD Mukund ACUTE POSTHEMORRHAGIC ANEMIA D62 04/09/20 Jean-Pierre Hdz MD Mukund GASTROINTESTINAL HEMORRHAGE, UNSPECIFIED K92.2 04/09/20 Jean-Pierre Hdz MD Mukund ACUTE KIDNEY FAILURE, UNSPECIFIED N17.9 04/09/20 Jean-Pierre Hdz MD Mukund UNSPECIFIED FRACTURE OF THE LOWER END OF RIGHT RADIUS, SUBSEQUENT ENCOUNTER FOR CLOSED FRACTURE WITH ROUTINE HEALING S52.501D 04/04/20 Jean-Pierre Hdz MD Mukund UNSPECIFIED FRACTURE OF RIGHT FEMUR, SUBSEQUENT ENCOUNTER FOR CLOSED FRACTURE WITH ROUTINE HEALING S72.91XD 04/04/20 Jean-Pierre Hdz MD Mukund PRESENCE OF OTHER BONE AND TENDON IMPLANTS Z96.7 04/04/20 Jean-Pierre Hdz MD Mukund UNSPECIFIED FALL, SUBSEQUENT ENCOUNTER W19.XXXD 04/04/20 Jean-Pierre Hdz MD Mukund PRESENCE OF AORTOCORONARY BYPASS GRAFT Z95.1 07/04/18 98 Jean-Pierre Hdz MD Mukund Procedures No Known Procedures
--- OUTSIDE RECORDS SUMMARY | 2024-08-28 07:28 | XMS_ITS | Referral Summary ---
Author Organization [facility] Address [address] [place] [id number] Care Team Providers Care University Registrar Name Role Phone Won Denton MD Primary Care Provider Encounters Date Type Department Care Team Description 08/24/[address] 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; Hx of CABG 07/05/2024 Orders Only [facility] Surgery [address] [facility] [address] [place] [address] [place] [address] Jose Juan Jenkins MD Abdominal aortic aneurysm (AAA) without rupture, unspecified part (HCC) (Primary Dx) 07/05/2024 Telephone [facility] Surgery [address] [facility] Floor 1 [place] [address] Jose Juan Jenkins MD from Last 3 Months Allergies Active Allergy Reactions Criticality Noted Date [...] with dina hips) 500 mg tablet,chewable 025 Discontinued(Th erapy completed) clopidogreL (PLAVIX) 75 mg tabletIndicatio [...] Tue. Take 20 mg daily on Tue, Th, Sat and Sun. 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 Overview (07/23/2020): Added automatically from request for surgery [id number] Abdominal aortic aneurysm (AAA) without rupture 01/02/2018 Hypertension 01/02/2018 Dyslipidemia 05/12/2017 Benign prostatic hyperplasia 10/15/2015 Dyspnea 10/15/2015 Hyperlipidemia 10/10/2015 Resolved Problems Problem Noted Date Diagnosed Date Resolved Date Coronary artery disease, uns pecified vessel or lesion type, unspecified whether angina present, unspecified whether standing rock or transplanted heart 11/02/2023 02/20/2024 Coronary atherosclerosis 01/26/2020 Prominent popliteal pulse 08/20/2019 Encounter for surgical after care following surgery of circulatory system 08/20/2019 02/20/2024 Coronary artery disease invo lving autologous artery coronary bypass graft 01/02/2018 02/20/2024 Disorder of coronary artery 10/10/2015 02/20/2024 Overview (05/19/2023): S/P CABG X 4 1997 Immunizations Immunization Administration Dates Next Due Influenza, Unspecified 04/01/2023 Social History Tobacco Use Types Packs/Day Years Used Date Smoking Tobacco: Former Cigarettes 1 43.7 0 07/04/1954 - 03/01/1998 Smokeless Tobacco: Never Tobacco Cessation:Counseling Given: Not Answered Alcohol Use Standard Drinks/Week Comments Yes 3 (1 standard drink = 0.6 oz pur e alcohol) [facility] [employer] Answer Date Recorded In the past 12 months has e [place], gas, oil, or water [employer]iod[employer] threatened to shut off services in your [...] often do you attend chur ch or bahai services? More than 4 times per year 11/02/2023 Do you belong to any clubs o r organizations such as yarsanism groups, unions, fraternal or athletic groups, or [...] place to sleep or slept in a penitentiary (including now)? No 11/02/2023 Personal Safety Answer Date Recorded Have you ever been in or are you currently in a harmful physical or emotional relationship or is someone making you feel afraid or unsafe? Denies 11/01/2023 Sex and Gender Information Value Date Recorded Sex Assigned at Not on file Legal Sex Male 9:30 AM CEMENT BLOCK MAKER Gender Identity Male 02/23/2021 1:28 PM CDT Sexual Orientation Straight 02/29/2020 4: 17 PM CDT Last Filed Vital Signs Vital Sign Reading Time Taken Comments Blood Pressure 152/70 08/14/2024 10:59 AM CEMENT BLOCK MAKER Pulse 60 08/14/2024 10:59 AM CEMENT BLOCK MAKER Temperature 36.4 C (97.5 F) 11/03/2023 7:46 AM CDT Respiratory Rate 21 11/03/2023 10:00 AM CDT Oxygen Saturation 97% 08/14/2024 10:59 AM CEMENT BLOCK MAKER Inhaled Oxygen Concentration - - Weight 66.2 kg (146 lb) 08/14/2024 10:59 AM CEMENT BLOCK MAKER Height 177.8 cm (5' 10 ) 08/14/2024 10:59 AM CEMENT BLOCK MAKER Body Mass Index 20.95 08/14/2024 10:59 AM CEMENT BLOCK MAKER Plan of Treatment Not on file Medical Devices Implanted Type Area Parts Salesman Device Identifier Shelf Expiration Date Model / Serial / Lot Zenith Fenestrated Aaa Endovascular Graft Implanted:Qty: 1 on 10/10/2018 by Jose Juan Jenkins MD at [facility] Graft N/A: Aorta [employer] 08/31/2021 [id number] / 00 / [id number] Description:3-Visceral Fenes trated AAA Endograft [employer] [id number] Zenith Flex 36mm 50mm Z-Trak Main Body Extension Graft - S00 - [id number] Implanted:Qty: 1 on 10/10/2018 by Jose Juan Jenkins MD at [facility] Graft N/A: Aorta [employer] [id number] 12/18/2020 [id number] / 00 / [id number] [employer] [id number] Hope Viabahn 7mm 11mm 7fr 79mm 135cm Balloon Expandable Guidewire - [id number] - [id number] Implanted:Qty: 1 on 10/10/2018 by Jose Juan Jenkins MD at [facility] Graft N/A: Other - see comments [employer] 04/21/2021 [id number] / [id number] / 00 Description:Celiac Artery Graft Endovascular Zenith L91 Mm L28 Mm Od12 Fr Abdominal Aortic Aneurysm Visceral Fenestration Distal Bifurcated Body - S00 - [id number] Implanted:Qty: 1 on 10/10/2018 by Jose Juan Jenkins MD at [facility] Graft Right: Aorta [employer] [id number] 08/31/2021 [id number] / 00 / [id number] [employer] [id number] Zenith Spiral-Z 20mm 6mm 16fr 74mm Iliac Leg Transcend Precision - S00 - [id number] Implanted:Qty: 1 on 10/10/2018 by Jose Juan Jenkins MD at [facility] Graft Right: Iliac [employer] [id number] 06/13/2021 [id number] / 00 / [id number] [employer] [id number] Zenith Spiral-Z Z-Trak 16mm 5.4mm 14fr 74mm Iliac Leg Transcend - S0 - [id number] Implanted:Qty: 1 on 10/10/2018 by Jose Juan Jenkins MD at [facility] Graft Left: Iliac [employer] [id number] 06/14/2021 [id number] / 0 / [id number] [employer] [id number] Perclose 6fr Suture Mediate Knot Push Vascular Device Closure - S00 - [id number] Implanted:Qty: 1 on 08/01/2020 by Jose Juan Jenkins MD at [facility] Other - see comments N/A: Abdomen [employer] [id number] 05/03/2022 [id number] / 00 / [id number] Description:suture [employer] 73898 Icast 8mm 7fr 38mm 80cm Cover Catheter Introducer Balloon Expand - [id number] - [id number] Implanted:Qty: 1 on 10/10/2018 by Jose Juan Jenkins MD at [facility] Stent N/A: Other - see comments [employer] [id number] 10/12/2020 25636 / [id number] / 00 Description:Superior Mesente gabino Artery [employer] 95233 Icast 6mm 6fr 22mm 80cm Cover Catheter Introducer Balloon Expand - [id number] - [id number] Implanted:Qty: 1 on 10/10/2018 by Jose Juan Jenkins MD at [facility] Stent Left: Other - see comments [employer] [id number] 07/18/2021 11547 / [id number] / 00 Description:Renal Artery [employer] 06036 Icast 6mm 6fr 22mm 80cm Cover Catheter Introducer Balloon Expand - [id number] - [id number] Implanted:Qty: 1 on 10/10/2018 by Jose Juan Jenkins MD at [facility] Stent Right: Other - see comments [employer] [id number] 07/18/2021 74773 / [id number] / Description:Renal Artery [employer] [id number] Stent Endoprosthesis 29mm 7mm 11mm 7fr Hope Viabahn 135cm - [id number] - [id number] Implanted:Qty: 1 on 2019 by Jose Juan Jenkins MD at [facility] Stent Renal [employer] 02/05/2022 [id number] / [id number] / [employer] [id number] Viabahn 6mm 2.5cm 120cm Flexible Self Expand Radiopaque Stent - [id number] - [id number] Implanted:Qty: 1 on 2019 by Jose Juan Jenkins MD at [facility] Stent Right: Aorta [employer] [id number] 12/18/2021 [id number] / [id number] / [employer] Inc 37976 Icast 7mm 7fr 22mm 80cm Cover Catheter Introducer Balloon Expand - [id number] - [id number] Implanted:Qty: 1 on 08/01/2020 by Jose Juan Jenkins MD at [facility] Stent N/A: Abdomen [employer] [id number] 01/07/2023 48511 / [id number] / Description:SMA stent Wires N/A: Sternum Daig Roddy [id number] Device Closure Angio-Seal Vip Bondek-Plus Polyglyd L70 Cm Od6 Fr Odsec.035 In Vascular - [id number] Implanted:Qty: 1 on 01/30/2020 at [facility] Daig Roddy/[employer] 10/31/2020 [id number] / / [id number] White & Nephew/Richco/Ort ho Intertan 4.5mm 95mm 90mm Lag Compression Integrated Interlocking [id number] - [id number] Implanted:Qty: 1 on 04/04/2023 by La Cavanaugh MD at [facility] Right: Leg [employer] /Ortho [id number] 08/23/2032 [id number] / / [id number] [employer]Richco/Ort ho Intertan 46cm 13mm Right Intertrochanter 130d 1.5mm Nail [id number] - [id number] Implanted:Qty: 1 on 04/04/2023 by La Cavanaugh MD at [facility] Right: Leg [employer]Rich[employer] /Ortho [id number] 06/05/2032 [id number] / / [id number] [employer]/Richco/Ort ho 5mm 50mm Low Profile Internal Hex Femur Screw Bone Trigen [id number] - [id number] Implanted:Qty: 1 on 04/04/2023 by La Cavanaugh MD at [facility] Right: Leg [employer]/Richco /Ortho [id number] / / White & Nephew/Richco/Ort ho 5mm 70mm Low Profile Internal Hex Femur Screw Bone Trigen [id number] - [id number] Implanted:Qty: 1 on 04/04/2023 by La Cavanaugh MD at [facility] Right: Leg [employer]hew/Richco /Ortho [id number] / / Medtronic Card Vasc Surgery 2.50 X 15mm Alexander Ackerly Rx Coronary Stent [id number] - [id number] Implanted:Qty: 1 on 11/01/2023 by Jessica Mcneal MD at [facility] Card Vasc Surgery 06/05/2026 [id number] / / [id number] [employer] Inc Device Vascular Closure Femoral Artery Bioabsorbable Dual Method Vascade 6-7fr Collagen [id number] - [id number] Implanted:Qty: 1 on 11/01/2023 by Jessica Mcneal MD at [facility] [employer] Medical Inc 08/04/2025 [id number] / / [id number] Insurance MEDICARE [facility] MCR SUPPLEMENT MEDICARE COMMERCIAL GENERIC [facility] MCR SUPPLEMENT VIVIEN HOOVER [id number] [facility] SUPPLEMENT VIVIEN HOOVER [id number] MEDICARE Advance Directives For more information, please contact: [phone] Documents on File Type Date Recorded Patient Sales Center Associate Expl anation ADVANCE DIRECTIVE 01/10/2018 3:57 PM [...] 4:30 PM 10/12/2018 4:14 PM Care Teams University Registrar Relationship Specialty Start Date End Date Won Denton MD [address] [facility] [address] [facility] [address] [place] [address] PCP - General Family Medicine 08/02/18
[2024-08-28 07:49] LABS: Estimated Glomerular Filt Rate 38
== END 2024-08-28 07:22 | disposition home or self-care (01) ==
PROVIDERS: PCP Family Medicine
DX: I71.40 Abdominal aortic aneurysm, without rupture, unspecified (principal)
CPT/HCPCS: 74174; Q9967

== ENCOUNTER 2025-05-08 14:53 | Emergency (ER) | payer MEDICARE, SELFPAY ==
--- NOTE | ~2025-05-08 | CT_ITS ---
CT brain wo con HISTORY:fall COMPARISON: None. TECHNIQUE: Axial images were obtained of the head without intravenous contrast. FINDINGS: No acute intracranial hemorrhage, mass effect or midline shift. No extra-axial fluid collections. There are generalized atrophy and mild chronic white matter microangiopathic changes.Visualized paranasal sinuses and mastoid air cells are clear. IMPRESSION: No acute intracranial hemorrhage or extra axial fluid collections. Generalized atrophy and chronic white matter microangiopathic changes. All CT scans at this facility are performed using low dose modulation techniques as appropriate to perform exam including the following: automated exposure control; use of iterative reconstruction technique; adjustment of the mA and/or kV according to patient size (this includes techniques or standardized protocols for targeted exams where dose is matched to indication/reason for exam). Reviewed, dictated and finalized at location S. SHOVEL OPERATOR IMPRESSION: No acute intracranial hemorrhage or extra axial fluid collections. Generalized atrophy and chronic white matter microangiopathic changes. All CT scans at this facility are performed using low dose modulation techniqu es as appropriate to perform exam including the following: automated exposure c ontrol; use of iterative reconstruction technique; adjustment of the mA and/or kV according to patient size (this includes techniques or standardized protocol s for targeted exams where dose is matched to indication/reason for exam).
--- NOTE | ~2025-05-08 | XR_ITS ---
EXAMINATION: XR elbow LT min 3V, 05/08/2025 16:30 PURSE MAKER HISTORY: fall COMPARISON: No comparisons available. Findings: No acute fracture or malalignment. No significant degenerative changes. Soft tissues unremarkable. Impression: No acute fracture or malalignment. Reviewed, dictated and finalized at location P. E MAKER Impression: No acute fracture or malalignment.
--- NOTE | ~2025-05-08 | XR_ITS ---
EXAMINATION: XR hip LT 2V w AP pelvis, 05/08/2025 16:45 WORKERS COMPENSATION ANALYST HISTORY: FALL ON LEFT HIP COMPARISON: No comparisons available. Findings: No acute fracture or malalignment. No significant degenerative changes. Soft tissues unremarkable. Impression: No acute fracture or malalignment. Reviewed, dictated and finalized at location P. ERS COMPENSATION ANALYST Impression: No acute fracture or malalignment.
--- NOTE | ~2025-05-08 | CT_ITS ---
EXAMINATION: CT hip LT wo con DATE: 05/08/2025 17:12 INDICATION: Left hip pain TECHNIQUE: Computed tomography (CT) of the left hip was performed without intravenous contrast. The dose-length product was 641.20 mGy-cm. Automated exposure control and iterative reconstruction technique were employed. COMPARISON: Left hip series dated 05/08/2020 FINDINGS: Mild osteoarthritis left hip. Osteopenia. Partially visualized abdominal aortic aneurysm with endovascular stent. There is extensive atherosclerosis. No fracture or traumatic malalignment. IMPRESSION: 1. No acute fracture. Reviewed, dictated and finalized at location O. R SAFETY INSTRUCTOR IMPRESSION: 1. No acute fracture.
--- NOTE | ~2025-05-08 | XR_ITS ---
EXAMINATION: XR knee LT 3V, 05/08/2025 16:30 COLLECTION COORDINATOR HISTORY: fall ABRASIONS WITH UPPER LEFT LEG PAIN COMPARISON: No comparisons available. Findings: No acute fracture or malalignment. Moderate tricompartmental degenerative changes Soft tissues unremarkable. Impression: No acute fracture or malalignment. Reviewed, dictated and finalized at location P. ECTION COORDINATOR Impression: No acute fracture or malalignment.
--- NOTE | ~2025-05-08 | CT_ITS ---
CT lumbar spine wo con INDICATION: Fall COMPARISON: None available. TECHNIQUE: Axial images of the lumbar spine were obtained without contrast. Additional coronal and sagittal reformatted images were rendered. FINDINGS: The images demonstrate no acute compression fracture or spondylolysis. There is disc bulging with disc osteophyte complex throughout the lumbar spine most significant at L1-L2 and L2-L3 there is resulting moderate central canal moderate neural foraminal narrowing. There is anterolisthesis of L4 on L5 with resulting central disc bulging resulting in size severe central canal stenosis and moderate to severe neural foraminal narrowing. Aortic biiliac endograft is noted. IMPRESSION: Moderate to severe degenerative changes as above. No acute compression fracture or spondylolysis. All CT scans at this facility are performed using low dose modulation techniques as appropriate to perform exam including the following: automated exposure control; use of iterative reconstruction technique; adjustment of the mA and/or kV according to patient size (this includes techniques or standardized protocols for targeted exams where dose is matched to indication/reason for exam). Reviewed, dictated and finalized at location S. PUNCH AND COILER OPERATOR HELPER IMPRESSION: Moderate to severe degenerative changes as above. No acute compression fracture or spondylolysis. All CT scans at this facility are performed using low dose modulation techniqu es as appropriate to perform exam including the following: automated exposure c ontrol; use of iterative reconstruction technique; adjustment of the mA and/or kV according to patient size (this includes techniques or standardized protocol s for targeted exams where dose is matched to indication/reason for exam).
[2025-05-08 14:57] VITALS: BP 158/63; PULSE 60; RESP 16; TEMP 36.9; O2SAT 95
--- NOTE | 2025-05-08 16:23 | ED.GENADULT ---
HPI - General Adult General Chief complaint: Fall <ANAMARIA Dos Santos - Last Filed: 05/08/25 19:28> Stated complaint: fall <ANAMARIA Dos Santos - Last Filed: 05/08/25 19:28> Time Seen by Provider: 05/08/25 16:23 <ANAMARIA Dos Santos - Last Filed: 05/08/25 19:28> Focused HPI: 89 year old male presenting for a fall on his left side this morning. Denies hitting his head. On eliquis for unknown reason. Sees Apprentice Photographer Dr. Chaidez. GENERAL: Well-appearing, well-nourished, and in no acute distress. HEAD: Normocephalic, atraumatic. CHEST: Clear to auscultation. ?No respiratory distress. HEART: Regular rate and rhythm.? NEURO: ?Alert and oriented x3. Patient screened in triage and initial orders placed.? ?Additional care and disposition to be based upon?diagnostic testing and treatment. <ANAMARIA Dos Santos - Last Filed: 05/08/25 19:28> History of Present Illness HPI narrative: Agree with HPI. Patient has been able to ambulate pain which is unusual for him. <Sudhir Proctor DO - Last Filed: 05/08/25 22:48> Related Data Home medications: Home Medications ?Medication ?Instructions ?Recorded ?Confirmed ?Last Taken ?Type apixaban 2.5 mg tablet 2.5 mg PO BID 11/10/23 12/21/24 05/04/24 History rosuvastatin 10 mg tablet 10 mg PO DAILY 11/10/23 12/21/24 Unknown History furosemide 40 mg tablet 20 mg PO QAM 01/16/24 12/21/24 Unknown History cyanocobalamin (vitamin B-12) 1,000 mcg PO DAILY 04/30/24 12/21/24 05/04/24 History 1,000 mcg tablet hydralazine 50 mg tablet 50 mg PO Q8H 04/30/24 12/21/24 Unknown History <ANAMARIA Dos Santos Last Filed: 05/08/25 19:28> Allergies/adverse reactions: Allergies Allergy/AdvReac Type Severity Reaction Status Date / Time Penicillins Allergy Unknown Swelling Verified 12/21/24 10:25 <ANAMARIA Dos Santos - Last Filed: 05/08/25 19:28> Review of Systems Review of Systems: Gen.: Denies fevers or chills Eyes: Denies eye pain or visual change ENT: Denies congestion Respiratory: Denies shortness of breath or cough CV: Denies chest pain or palpitations GI: Denies abdominal pain nausea, emesis or diarrhea denies burning, urgency, frequency or hematuria Musculoskeletal: As per HPI Neuro: Denies numbness, tingling, weakness or focal weakness Skin: As per HPI Except as documented, all other systems reviewed and negative <Sudhir Proctor DO - Last Filed: 05/08/25 22:48> [facility] Past Medical History Medical History: Medical History CHF (congestive heart failure) Bilateral lower extremity edema Shortness of breath Kidney stone Hypertension Benign prostatic hyperplasia Arthritis Abdominal aortic aneurysm without rupture Status post repair. Distal radius fracture, right April 2023 Hyperlipidemia <ANAMARIA Dos Santos - Last Filed: 05/08/25 19:28> Surgical History Surgical History: Surgical History H/O inguinal hernia repair 05/08/24 Laparoscopic left inguinal hernia repair with mesh, da Yamile assisted Dr. 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 History of cystoscopy History of four vessel coronary artery bypass graft (1997) History of abdominal aortic aneurysm repair Status post renal artery angioplasty Femur fracture, right s/p ORIF <ANAMARIA Dos Santos - Last Filed: 05/08/25 19:28> Family History Family History: Family History Sibling Patient's sister is in good health Mother Brain tumor Father Acute myocardial infarction Mother Cerebrovascular accident Sibling Congestive heart failure Sibling Cerebrovascular accident Sibling Diabetes mellitus Other Heart disease <ANAMARIA Dos Santos - Last Filed: 05/08/25 19:28> Social History Social History: Social History Social History: Surrogate medical decision maker: Judy Luther, spouse. Code status: Full code. Smoking packs per day: 1 Smoking cigarettes per day: 20.0 Years smoked: 30 Smoking pack-years: 30.00 Tobacco type: cigarettes Second hand tobacco smoke exposure: No Smoking end date: 07/04/88 Alcohol intake: current Drinks per week: 2 Alcohol use details: occasional Substance use: never Substance use type: does not use Do You Feel Safe in your Home?: Yes Lack of Transportation: No Lack of Food: Never True Current Housing: I Have Housing Concerned About Future Housing: No Difficulty Paying Gas/Electric Bills: No Difficulty Paying for Meds: No Currently Unemployed: No Education: Associate Degree Difficulty w/ Childcare or Family Care: No Living arrangements: with family Additional living arrangements comments: Lives with spouse in [place]. 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 Spiritual care concerns: No <ANAMARIA Dos Santos - Last Filed: 05/08/25 19:28> Exam Narrative: APPEARANCE: No acute distress, nontoxic, resting in bed EYES: EOMI HEENT: Normocephalic, atraumatic, OMM RESPIRATORY: No respiratory distress Clear to auscultation bilaterally with no rhonchi wheezing or rales. CARDIOVASCULAR: Regular rate and rhythm without murmurs rubs or gallops. ABDOMINAL: Soft, nontender, nondistended, no rebound or guarding MUSCULOSKELETAl: Moves all extremities. Tenderness to palpation over the left greater trochanter, neurovascularly intact distally. NEURO: Awake and alert. Following commands, speech normal, no focal deficits SKIN:: Skin tears to the left upper extremity. First skin tear: 3 cm to the distal upper arm with a small amount of oozing. Second skin tear: 5 cm to the proximal left forearm with some oozing PSYCHIATRIC: Normal affect/mood, <Sudhir Proctor DO - Last Filed: 05/08/25 22:48> Course Vital Signs Vital signs: Vital Signs Temperature 98.4 F 05/08/25 14:57 Pulse Rate 60 05/08/25 14:57 Respiratory Rate 16 05/08/25 14:57 Blood Pressure 158/63 H 05/08/25 14:57 Pulse Oximetry 95 05/08/25 14:57 Temperature 98.4 F 05/08/25 14:57 Pulse Rate 75 05/08/25 18:35 Respiratory Rate 19 05/08/25 18:35 Blood Pressure 140/76 05/08/25 18:35 Pulse Oximetry 99 05/08/25 18:35 <Nimco Mcguire PA - Last Filed: 05/08/25 19:28> Vital Signs Temperature 98.4 F 05/08/25 14:57 Pulse Rate 60 05/08/25 14:57 Respiratory Rate 16 05/08/25 14:57 Blood Pressure 158/63 H 05/08/25 14:57 Pulse Oximetry 95 05/08/25 14:57 Temperature 98.4 F 05/08/25 14:57 Pulse Rate 75 05/08/25 18:35 Respiratory Rate 19 05/08/25 18:35 Blood Pressure 140/76 05/08/25 18:35 Pulse Oximetry 99 05/08/25 18:35 <Sudhir Proctor DO - Last Filed: 05/08/25 22:48> Medical Decision Making MDM Narrative Medical decision making narrative: 89-year-old male Presenting for fall and skin tears and hip pain. On initial evaluation patient was in no acute distress afebrile, hemodynamic stable. Differentials include but are not limited to: Fracture, sprain, strain, contusion Notable exam findings: Tenderness over the left greater trochanter. The 2 skin tears to the left arm with bleeding controlled. Notable imaging findings: CTs and x-rays showed no acute fractures or injuries. Patient was able to ambulate in the department. Skin tears were irrigated and Steri-Strips were applied to loosely approximate them and he was wrapped with a pressure dressing as he is on Eliquis. He was advised to follow-up with his PCP in the next week for re-evaluation. Patient was agreeable to this plan. Given strict return precautions. <Sudhir Proctor DO - Last Filed: 05/08/25 22:48> Vital Signs Vital Signs: Vital Signs Temperature 98.4 F 05/08/25 14:57 Pulse Rate 60 05/08/25 14:57 Respiratory Rate 16 05/08/25 14:57 Blood Pressure 158/63 H 05/08/25 14:57 Pulse Oximetry 95 05/08/25 14:57 Temperature 98.4 F 05/08/25 14:57 Pulse Rate 75 05/08/25 18:35 Respiratory Rate 19 05/08/25 18:35 Blood Pressure 140/76 05/08/25 18:35 Pulse Oximetry 99 05/08/25 18:35 <Nimco Mcguire PA - Last Filed: 05/08/25 19:28> Vital Signs Temperature 98.4 F 05/08/25 14:57 Pulse Rate 60 05/08/25 14:57 Respiratory Rate 16 05/08/25 14:57 Blood Pressure 158/63 H 05/08/25 14:57 Pulse Oximetry 95 05/08/25 14:57 Temperature 98.4 F 05/08/25 14:57 Pulse Rate 75 05/08/25 18:35 Respiratory Rate 19 05/08/25 18:35 Blood Pressure 140/76 05/08/25 18:35 Pulse Oximetry 99 05/08/25 18:35 <Sudhir Proctor DO - Last Filed: 05/08/25 22:48> Lab Data Lab results reviewed: Yes I reviewed the patient's lab results. <Sudhir Proctor DO - Last Filed: 05/08/25 22:48> Imaging Data Attestation: I personally reviewed and interpreted this imaging study as follows: <Sudhir Proctor DO - Last Filed: 05/08/25 22:48> Radiologist's impression: Impressions Elbow X-Ray 05/08/25 16:59 Impression: No acute fracture or malalignment. Hip/Pelvis X-Ray 05/08/25 16:59 Impression: No acute fracture or malalignment. Knee X-Ray 05/08/25 16:59 Impression: No acute fracture or malalignment. Head CT 05/08/25 17:16 IMPRESSION: No acute intracranial hemorrhage or extra axial fluid collections. Generalized atrophy and chronic white matter microangiopathic changes. All CT scans at this facility are performed using low dose modulation techniques as appropriate to perform exam including the following: automated exposure control; use of iterative reconstruction technique; adjustment of the mA and/or kV according to patient size (this includes techniques or standardized protocols for targeted exams where dose is matched to indication/reason for exam). Hip CT 05/08/25 17:17 IMPRESSION: 1. No acute fracture. Lumbar Spine CT 05/08/25 17:19 IMPRESSION: Moderate to severe degenerative changes as above. No acute compression fracture or spondylolysis. All CT scans at this facility are performed using low dose modulation techniques as appropriate to perform exam including the following: automated exposure control; use of iterative reconstruction technique; adjustment of the mA and/or kV according to patient size (this includes techniques or standardized protocols for targeted exams where dose is matched to indication/reason for exam). <Sudhir Proctor DO - Last Filed: 05/08/25 22:48> Discharge Plan Discharge Clinical Impression: Skin tear Fall Qualifiers: Encounter type: initial encounter Qualified Code(s): W19.XXXA - Unspecified fall, initial encounter Contusion of hip Qualifiers: Encounter type: initial encounter Laterality: left Qualified Code(s): S70.02XA - Contusion of left hip, initial encounter <ANAMARIA Dos Santos - Last Filed: 05/08/25 19:28> Patient Disposition: Home <ANAMARIA Dos Santos - Last Filed: 05/08/25 19:28> Condition: Stable <ANAMARIA Dos Santos - Last Filed: 05/08/25 19:28> Instructions: Antibiotic Form, Skin Tear (ED), Fall Prevention (ED) <ANAMARIA Dos Santos - Last Filed: 05/08/25 19:28> Additional Instructions: Keep the Steri-Strips in place, they will fall off on their own in a few days. Keep the wound clean by letting soapy water run over it. Follow-up with your PCP in the next week for re-evaluation. Return to the ED for any new or worsening symptoms. <ANAMARIA Dos Santos - Last Filed: 05/08/25 19:28> Patient Language: Greenlandic <ANAMARIA Dos Santos - Last Filed: 05/08/25 19:28> Prescriptions: No Action apixaban 2.5 mg tablet 2.5 mg PO BID rosuvastatin 10 mg tablet 10 mg PO DAILY furosemide 40 mg tablet 20 mg PO QAM Rx Instructions: Take daily; 40 mg MWF, 20 mg TThSS alprazolam 0.25 mg tablet 0.25 mg PO DAILY PRN (Reason: Anxiety) Qty: 30 2RF amiodarone [Pacerone] 200 mg Tablet 200 mg PO DAILY@0800 Qty: 30 0RF isosorbide mononitrate 30 mg Tablet Extended Release 24 Hr 30 mg PO QAM Qty: 30 0RF metoprolol succinate 50 mg Tablet Extended Release 24 Hr 50 mg PO QAM Qty: 30 0RF hydralazine 50 mg tablet 50 mg PO Q8H cyanocobalamin (vitamin B-12) 1,000 mcg Tablet 1,000 mcg PO DAILY albuterol sulfate 90 mcg/actuation HFA aerosol inhaler 1 inh inhalation Q4H PRN (Reason: shortness of breath or wheezing) Qty: 6.7 2RF tamsulosin 0.4 mg capsule 0.4 mg PO DAILY Qty: 90 1RF aspirin 81 mg tablet,delayed release (DR/EC) 81 mg PO DAILY Qty: 1 0RF <ANAMARIA Dos Santos - Last Filed: 05/08/25 19:28> Follow-up/Referrals: Won Denton MD [Primary Care Provider, Family Practice] <ANAMARIA Dos Santos - Last Filed: 05/08/25 19:28>
[2025-05-08 18:13] VITALS: BP 149/74; PULSE 64; RESP 17; O2SAT 98
[2025-05-08 18:35] VITALS: BP 140/76; PULSE 75; RESP 19; O2SAT 99
--- OUTSIDE RECORDS SUMMARY | 2025-05-09 14:36 | XMS_ITS | Encounter Summary ---
Author Organization [facility] Healthcare Address [address] [place] [address] Care Team Providers Care Medical File Clerk Name Role Phone Won Denton MD Primary Care Provider Encounter Details Date Type Department Care Team (Late st Contact Info) Description 12/03/2024 Orders Only [facility] Information Management [address] [place] [address] Scanning, Provider Social History Tobacco Use Types Packs/Day Years Used Date Smoking Tobacco: Former Cigarettes 1 43.7 0 [birth year]04/1954 - 03/01/1998 Smokeless Tobacco: Never Alcohol Use Standard Drinks/Week Comments Yes 3 (1 standard drink = 0.6 oz pur e alcohol) [facility] Utilities Answer Date Recorded In the past 12 months has [employer], gas, oil, or water company threatened to shut off services in your home? No 11/02/2023 Social Connection and Isolation Panel Answer Date Recorded In a typical week, how many times do you talk on the phone with family, friends, or neighbors? More than three times a week 11/02/2023 How often do you get togethe r with friends or relatives? More than three times a week 11/02/2023 How often do you attend chur or taoist services? More than 4 times per year 11/02/2023 Do you belong to any clubs o r organizations such as jainism groups, unions, fraternal or athletic groups, or [...] place to sleep or slept in a prison (including now)? No 11/02/2023 Personal Safety Answer Date Recorded Have you ever been in or are you currently in a harmful physical or emotional relationship or is someone making you feel afraid or unsafe? Denies 11/01/2023 Sex and Gender Information Value Date Recorded Sex Assigned at Not on file Legal Sex Male 9:30 AM PROCEDURE TECH Gender Identity Male 02/23/2021 1:28 PM CDT Sexual Orientation Straight 02/29/2020 4: 17 PM CDT documented as of this encounter Plan of Treatment Not on file documented as of this encounter Procedures Procedure Name Priority Date/Time Associated Diagnosis Comments SCAN - LABS 12/03/2024 documented in this encounter Results * SCAN - LABS (12/03/2024) us Provider Scanning Final Result documented in this encounter Visit Diagnoses Not on filedocumented in this encounter Care Teams Medical File Clerk Relationship Specialty Start Date End Date Won Denton MD [address] [facility] [address] [place] [address] PCP - General Family Medicine 08/02/18 documented as of this encounter
--- OUTSIDE RECORDS SUMMARY | 2025-05-09 14:36 | XMS_ITS | Clinical Summary ---
Author Organization [facility] Sintia mack Ninfa Address [address] [place] [address] Care Team Providers Care Director Mortgage Name Role Phone Unavailable Primary Care Provider Unavailabl e Social History Tobacco Use Types Packs/Day Years Used Date Smoking Tobacco: Never Assessed Sex and Gender Information Value Date Recorded Sex Assigned at Not on file Legal Sex Male 2:41 PM CDT Gender Identity Not on file Sexual Orientation Not on file Plan of Treatment Upcoming Encounters Date Type Department Care Team (Late st Contact Info) Description 05/22/2025 10:30 AM ENROUTE CONTROLLER Office Visit [facility] Oncology and Hematology - [place] [address] [place] [address] Harika Ni MD [address] [place] [address] Health Maintenance Due Date Last Done Comments DTAP/TDAP/TD VACCINES (1 - Tdap) 1954 PNEUMOCOCCAL VACCINE 50+ YEARS (1 of 1 - PCV) 05/04/19 87 ZOSTER VACCINE (1 of 2) 1987 RSV VACCINE (60+ or ) (1 - 1-dose 75+ series) 2012 INFLUENZA VACCINE (#1) 2025 Insurance MEDICARE PART A AND B
--- OUTSIDE RECORDS SUMMARY | 2025-05-09 14:36 | XMS_ITS | Clinical Summary ---
Author Organization [facility] Address [address] [place] [phone] Care Team Providers Care Cellar Hand Name Role Phone Won Denton MD Primary Care Provider Allergies Active Allergy Reactions Criticality Noted Date Comments Penicillins Swelling Medium 11/02/2015 Medications multivitamin with iron-mineral tabletIndicatio ns:Mineral Deficiency Prevention,Mariela min Deficiency Prevention Take 1 tablet by mouth every morning Active cholecalciferol (VITAMIN D-3) 5,000 unit tablet daily Active pantoprazole DR (PROTONIX) 40 mg EC tablet 40 MG ORALLY DAILY Active tamsulosin (FLOMAX) 0.4 mg extended release capsule Take 1 capsule (0.4 mg total) by mouth nightly 4 Active ALPRAZolam (XANAX) 0.25 mg tablet Take 1 tablet (0.25 mg total) by mouth nightly as needed for anxiety Active albuterol HFA (PROVENTIL HFA,VENTOLIN HFA,PROAIR HFA) 90 mcg/actuation inhaler Inhale 1 puff as needed 5 Active vitamin B complex capsule Take 1 capsule by mouth daily Active rosuvastatin (CRESTOR) 10 mg tabletIndicatio ns:hyperlipidem ia Take 1 tablet (10 mg total) by mouth every morning 90 tablet 3 5 Active Eliquis 2.5 mg tablet TAKE 1 TABLET BY MOUTH EVERY 12 HOURS. 60 tablet 8 5 Active hydrALAZINE (APRESOLINE) 50 mg tablet TAKE 1 TABLET BY MOUTH THREE TIMES A DAY 270 tablet 1 5 Active cyanocobalamin, vitamin B-12, 1,000 mcg/mL drops Take by mouth Active metoprolol XL (TOPROL-XL) 25 mg extended release tabletIndicatio ns:Atrial flutter, unspecified type (HCC) Take 1 tablet (25 mg total) by mouth daily 90 tablet 3 5 026 Active furosemide (LASIX) 40 mg tabletIndicatio ns:Cardiomyopat hy, unspecified type (HCC) Take 0.5 tablets (20 mg total) by mouth daily 5 Active aspirin 81 mg enteric coated tablet Take 1 tablet (81 mg total) by mouth daily Active isosorbide mononitrate ER (IMDUR) 30 mg 24 hr tablet TAKE 1 TABLET BY MOUTH EVERY DAY 90 tablet 1 5 Active amiodarone (PACERONE) 200 mg tablet TAKE 1 TABLET BY MOUTH EVERY DAY 90 tablet 5 Active isosorbide mononitrate ER (IMDUR) 30 mg 24 hr tablet TAKE 1 TABLET BY MOUTH EVERY DAY 90 tablet 2 5 025 Discontinued amiodarone (PACERONE) 200 mg tablet TAKE 1 TABLET BY MOUTH EVERY DAY 90 tablet 2 5 025 Discontinued Active Problems Problem Noted Date Diagnosed Date Coronary artery disease 11/01/2023 Hx of CABG 08/22/2023 Severe protein-calorie malnutrition 04/06/2023 Closed displaced intertrochanteric fracture of r ight femur 04/04/2023 Trauma 04/04/2023 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, 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 Overview (07/23/2020): Added automatically from request for surgery [id number] Abdominal aortic aneurysm (AAA) without rupture 01/02/2018 Hypertension 01/02/2018 Dyslipidemia 05/12/2017 Benign prostatic hyperplasia 10/15/2015 Dyspnea 10/15/2015 Hyperlipidemia 10/10/2015 Resolved Problems Problem Noted Date Diagnosed Date Resolved Date Coronary artery disease, uns pecified vessel or lesion type, unspecified whether angina present, unspecified whether umkumiut or transplanted heart 11/02/2023 02/20/2024 Coronary atherosclerosis 01/26/2020 Prominent popliteal pulse 08/20/2019 Encounter for surgical after care following surgery of circulatory system 08/20/2019 02/20/2024 Coronary artery disease invo lving autologous artery coronary bypass graft 01/02/2018 02/20/2024 Disorder of coronary artery 10/10/2015 02/20/2024 Overview (05/19/2023): S/P CABG X 4 1997 Encounters Date Type Department Care Team Description 03/29/2025 Telephone [facility] Cardiology [address] [address] [facility] [address] [place] [phone] Jessica Mcneal MD 02/07/2025 10:30 AM CDT Office Visit [facility] Cardiology [address] [address] [place] [phone] Renae Scott NP Bradycardia (Primary Dx); Atrial flutter, unspecified type (HCC); Cardiomyopathy, unspecified type (HCC); Chronic anticoagulation; Stage 3b chronic kidney disease (HCC); Coronary artery disease involving autologous artery coronary bypass graft without angina pectoris 02/07/2025 Telephone [facility] Cardiology [address] [place] [phone] Renae Scott NP from Last 3 Months Immunizations Immunization Administration [...] after lithotripsy in 2014 AAA (abdominal aortic aneurysm) CAD (coronary artery disease) HLD (hyperlipidemia) GERD (gastroesophageal reflu x disease) Kidney stone Cataract BPH (benign prostatic hyperplasia) Aneurysm Gastric ulcer Alcohol abuse no Anemia no Anxiety no Arthritis no Asthma no Benign prostatic hyperplasia no Osteoporosis no Clotting disorder no Meningitis no Cancer (HCC) no Brain concussion no Chronic bronchitis (HCC) no Depression no Diabetes mellitus no Emphysema of lung no Glaucoma no Migraines no Heart disease bypass 1997 Infectious viral hepatitis no HIV disease (HCC) no Neuromuscular disorder no Rheumatic fever no Seizures (HCC) no Sickle cell anemia (HCC) no Sleep apnea no Stroke (HCC) no Substance abuse (HCC) no Thyroid disease no Tuberculosis no Autoimmune disease no Blindness no Bulimia nervosa no Mixed [...] drink = 0.6 oz pur e alcohol) [facility] Utilities Answer Date Recorded In the past 12 months has e [employer], gas, oil, or water [employer] threatened to shut off services in your [...] often do you attend chur ch or orthodoxy services? More than 4 times per year 11/02/2023 Do you belong to any clubs o r organizations such as restoration groups, unions, fraternal or athletic groups, or [...] place to sleep or slept in a care home (including now)? No 11/02/2023 Personal Safety Answer Date Recorded Have you ever been in or are you currently in a harmful physical or emotional relationship or is someone making you feel afraid or unsafe? 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 Gender Identity Male 02/23/2021 1:28 PM CDT Sexual Orientation Straight 02/29/2020 4: 17 PM CDT Last Filed Vital Signs Vital Sign Reading Time Taken Comments Blood Pressure 158/70 02/07/2025 10:28 AM CDT Pulse 58 02/07/2025 10:28 AM CDT Temperature 36.4 C (97.5 F) 11/03/2023 7:46 AM CDT Respiratory Rate 21 11/03/2023 10:00 AM CDT Oxygen Saturation 96% 02/07/2025 10:28 AM CDT Inhaled Oxygen Concentration - - Weight 66.7 kg (147 lb) 02/07/2025 10:28 AM CDT Height 177.8 cm (5' 10) 02/07/2025 10:28 AM CDT Body Mass Index 21.09 02/07/2025 10:28 AM CDT Plan of Treatment Health Maintenance Due Date Last Done Comments Depression Screening 1935 DTaP/Tdap/Td Vaccine (1 - Tdap) 1948 Hepatitis B Screening 1955 Zoster Vaccine (1 of 2) 1987 Well Visit 65+ 2002 Fall Risk Assessment 11/02/2024 11/03/2023 Covid-19 Vaccine (2 - 2024-2 6 season) 2025 06/17/2021 Influenza Vaccine (#1) 2025 , 02/22/2019, 03/13/2018, Additional history exists Pneumococcal vaccine 65+ Completed 03/23/2016, 08/2012 Medical Devices Implanted Type Area Wage And Salary Administrator Device Identifier Shelf Expiration Date Model / Serial / Lot Zenith Fenestrated Aaa Endovascular Graft Implanted:Qty: 1 on 10/10/2018 by Jose Juan Jenkins MD at [facility] Graft N/A: Aorta [employer] 08/31/2021 [id number] / / [id number] Description:3-Visceral Fenes trated AAA Endograft [employer] [id number] Zenith Flex 36mm 50mm Z-Trak Main Body Extension Graft - S00 - [id number] Implanted:Qty: 1 on 10/10/2018 by Jose Juan Jenkins MD at [facility] Graft N/A: Aorta [employer] [id number] 12/18/2020 [id number] / / [id number] [employer] [id number] Le[place]dale Viabahn 7mm 11mm 7fr 79mm 135cm Balloon Expandable Guidewire - [id number] - [id number] Implanted:Qty: 1 on 10/10/2018 by Jose Juan Jenkins MD at [facility] Graft N/A: Other - see comments [employer] 04/21/2021 [id number] / [id number] / 00 Description:Celiac Artery Graft Endovascular Zenith L91 Mm L28 Mm Od12 Fr Abdominal Aortic Aneurysm Visceral Fenestration Distal Bifurcated Body - S00 - [id number] Implanted:Qty: 1 on 10/10/2018 by Jose Juan Jenkins MD at [facility] Graft Right: Aorta [employer] [id number] 08/31/2021 [id number] / 00 / [id number] [employer] [id number] Zenith Spiral-Z 20mm 6mm 16fr 74mm Iliac Leg Transcend Precision - S00 - [id number] Implanted:Qty: 1 on 10/10/2018 by Jose Juan Jenkins MD at [facility] Graft Right: Iliac [employer] [id number] 06/13/2021 [id number] / 00 / [id number] [employer] [id number] Zenith Spiral-Z Z-Trak 16mm 5.4mm 14fr 74mm Iliac Leg Transcend - S0 - [id number] Implanted:Qty: 1 on 10/10/2018 by Jose Juan Jenkins MD at [facility] Graft Left: Iliac [employer] [id number] 06/14/2021 [id number] / 0 / [id number] [employer] [id number] Perclose 6fr Suture Mediate Knot Push Vascular Device Closure - S00 - [id number] Implanted:Qty: 1 on 08/01/2020 by Jose Juan Jenkins MD at [facility] Other - see comments N/A: Abdomen [employer] [id number] 05/03/2022 98868-58 / 00 / [id number] Description:suture [employer] 34840 Icast 8mm 7fr 38mm 80cm Cover Catheter Introducer Balloon Expand - [id number] - [id number] Implanted:Qty: 1 on 10/10/2018 by Jose Juan Jenkins MD at [facility] Stent N/A: Other - see comments [employer] [id number] 10/12/2020 62297 / [id number] / 00 Description:Superior Mesente gabino Artery [employer] 09055 Icast 6mm 6fr 22mm 80cm Cover Catheter Introducer Balloon Expand - [id number] - [id number] Implanted:Qty: 1 on 10/10/2018 by Jose Juan Jenkins MD at [facility] Stent Left: Other - see comments [employer] [id number] 07/18/2021 58741 / [id number] / 00 Description:Renal Artery [employer] 33648 Icast 6mm 6fr 22mm 80cm Cover Catheter Introducer Balloon Expand - [id number] - [id number] Implanted:Qty: 1 on 10/10/2018 by Jose Juan Jenkins MD at [facility] Stent Right: Other - see comments [employer] [id number] 07/18/2021 81550 / [id number] / Description:Renal Artery [employer] [id number] Stent Endoprosthesis 29mm 7mm 11mm 7fr Le[employer] Viabahn 135cm - [id number] - [id number] Implanted:Qty: 1 on 2019 by Jose Juan Jenkins MD at [facility] Stent Renal [employer] 02/05/2022 [id number] / [id number] / Wl [employer] [id number] Viabahn 6mm 2.5cm 120cm Flexible Self Expand Radiopaque Stent - [id number] - [id number] Implanted:Qty: 1 on 2019 by Jose Juan Jenkins MD at [facility] Stent Right: Aorta W[employer] [id number] 12/18/2021 [id number] / [id number] / [employer] 65385 Icast 7mm 7fr 22mm 80cm Cover Catheter Introducer Balloon Expand - [id number] - [id number] Implanted:Qty: 1 on 08/01/2020 by Jose Juan Jenkins MD at [facility] Stent N/A: Abdomen [employer] [id number] 01/07/2023 45963 / [id number] / Description:SMA stent Wires N/A: Sternum Daig [employer]dy [id number] Device Closure Angio-Seal Vip Bondek-Plus Polyglyd L70 Cm Od6 Fr Odsec.035 In Vascular - [id number] Implanted:Qty: 1 on 01/30/2020 at [facility] Daig [employer] 10/31/2020 [id number] / / [id number] [employer]/Ort ho Intertan 4.5mm 95mm 90mm Lag Compression Integrated Interlocking [id number] - [id number] Implanted:Qty: 1 on 04/04/2023 by La Cavanaugh MD at [facility] Right: Leg [employer] /Ortho [id number] 08/23/2032 [id number] / / [id number] [employer]/Ort ho Intertan 46cm 13mm Right Intertrochanter 130d 1.5mm Nail [id number] - [id number] Implanted:Qty: 1 on 04/04/2023 by La Cavanaugh MD at [facility] Right: Leg [employer]Ortho [id number] 06/05/2032 [id number] / / [id number] [employer]/Ort ho 5mm 50mm Low Profile Internal Hex Femur Screw Bone Trigen [id number] - [id number] Implanted:Qty: 1 on 04/04/2023 by La Cavanaugh MD at [facility] Right: Leg [employer] /Ortho [id number] / / White [employer]hew/[employer]/Ort ho 5mm 70mm Low Profile Internal Hex Femur Screw Bone Trigen [id number] - [id number] Implanted:Qty: 1 on 04/04/2023 by La Cavanaugh MD at [facility] Right: Leg [employer] /Ortho [id number] / / Med[employer] Card Vasc Surgery 2.50 X 15mm Engadine Worth Rx Coronary Stent [id number] - [id number] Implanted:Qty: 1 on 11/01/2023 by Jessica Mcneal MD at [facility] 06/05/2026 [id number] / / [id number] [employer] [address] [facility] Device Vascular Closure Femoral Artery Bioabsorbable Dual Method Vascade 6-7fr Collagen [id number] - [id number] Implanted:Qty: 1 on 11/01/2023 by Jessica Mcneal MD at [facility] [employer] 08/04/2025 [id number] / / [id number] Procedures Procedure Name Priority Date/Time Associated Diagnosis Comments ECG 12-LEAD Routine 02/07/2025 10:53 AM CDT Bradycardia from Last 3 Months Results * ECG 12 lead (02/07/2025 10:53 AM CDT) 02/07/2025 10:5 3 AM CDT Renae Scott NP ECG ORDERABLES Final Res ult from Last 3 Months Insurance MEDICARE [facility] MCR SUPPLEMENT MEDICARE [facility] SUPPLEMENT [place] [id number] [facility] [place] [id number] 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
--- OUTSIDE RECORDS SUMMARY | 2025-05-09 14:37 | XMS_ITS | Data Portability ---
Author Organization [facility] OFFICE Address [address] [place] [address] Care Team Providers Care Milk Inspector Name Role Phone SANDRA YATES Primary Care Provider Assessment Encounter Date Assessment Date Assessment LastModified by Organization Details LastModified Time 01/26/2023 01/26/2023 Patient Examined by MARCELO Nance, Also Documentation reviewed and approved by supervising physician dutch Not available 01/26/2023 14:09:35 05/24/2023 05/24/2023 This document was scribed by MARCELO Nance Not available 05/24/2023 14:45:08 Plan of Treatment Reminders Order Date Submit Date Provider Last Modified By Organization Details Last Modified Time Details Appointments None recorded. Lab None recorded. Referral None recorded. Procedures None recorded. Surgeries None recorded. Imaging None recorded. Medication Orders rosuvastati n 10 mg tablet 2022 023 [employer] [facility][id number], [address] [place], [address], 3 14:47:30 Lasix 20 mg tablet 2022 023 esto [facility] #[id number], [address] [place], [address], 3 16:09:16 Vascepa 1 gram capsule 2022 023 [employer] [facility][id number], [address] [place], [address], 3 13:58:38 Patient TargetsNo targets recorded. Patient Instructions Encounter Date Encounter Id Patient Instructions Last Modified By Organization Details Last Modified Time 02/12/2022 [id number] Exercise advised Low cholesterol diet advised Low sodium diet advised. [email or web address] Not available 02/12/2022 12:30:33 08/17/2022 [id number] Exercise advised Low cholesterol diet advised Low sodium diet advised. [email or web address] Not available 08/17/2022 12:22:36 05/24/2023 [id number] Exercise advised Low cholesterol diet advised Low sodium diet advised. [email or web address] Not available 05/24/2023 14:47:26 Reason for Referral None Reported. Results Created Date Observation Date Name Description Value Unit Range Abnormal Flag Note LastModifiedBy Organization Detail LastModifiedTime 02/17/20 elect rocar diogr am No observ ation record ed. [email or web address] Not Available 2022 11:04:36 08/18/19 23 08/17/2022 elect rocar diogr am No observ ation record ed. [email or web address] Not Available 2022 11:04:31 01/30/20 23 01/26/2023 elect rocar diogr am No observ ation record ed. [email or web address] Not Available 2022 11:04:26 03/18/20 23 03/14/2023 , [facility] ardio gram No observ ation record ed. [facility] [address] [place], [place], [address], 05/01/2023 15:49:01 05/11/20 23 05/09/2023 elect rocar diogr am No observ ation record ed. esto Not Available 2022 17:45:02 Result Notes None recorded. Problems Name Problem SNOMED Code Status Onset Date Resolution Date Notes Provider Name and Address Organization Details Recorded Time History of hypertensi on 532680885 Completed 201510/15/2015 VANNESA Cobian [facility] 6 01:31:05 Hyperlipid emia 52651140 Completed 201505/12/2017 VANNESA Bruce [facility] 11/09/201 7 11:33:54 Disorder of coronary artery 765387587 Active 2015 S/P CABG X 4 1997 Not Available [facility] 3 14:31:01 Dyspnea 966237890 Active 2015 Not Available [facility] 3 14:31:00 Benign prostatic hyperplasi a 006621542 Active 2015 Not Available [facility] 3 14:31:00 Benign hypertensi on 62147740 Active 2015 Not Available [facility] 3 14:31:00 Dyslipidem ia 985070938 Active 2016: LDL 55 Not Available [facility] 3 14:31:01 Coronary atheroscle rosis 204775244 Active 2019 Not Available [facility] 3 14:31:01 Abdominal aortic aneurysm 328301943 Active 2019 Not Available [facility] 3 14:31:00 Peripheral vascular disease 286245087 Active 2019 Not Available [facility] 3 14:31:01 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 Procedures Surgical History Date Name Laterality Status Provider Name and Address Organization Details Recorded Time Cabg vein four completed Catracho Mesto [place] [facility] 10/15/2015 14:55:39 Tonsillecto my/Adenoide ctomy completed Catracho Mesto [place] [facility] 10/15/2015 14:55:59 Imaging Results None recorded. Procedure Notes None recorded. Medical Equipment None Reported. Allergies Allergen ID Allergen Name Allergen Category Reaction Reaction Severity Criticality Documentation Date Start Date Code Code System Note Provider Name and Address Organization Details Recorded Time 578 Product containin g penicilli n (product) medicatio n Not available Not available Not available 10/16/2015 48439 8001 SNOMED Jessica Montelongo [facility], [place] - [facility] 6 11:32:10 Medications Name Sig Start Date Stop Date Status Note LastModified by Organization Details LastModified Time losartan 50 mg tablet TAKE 2 TABLETS BY MOUTH EVERY DAY DIRECTED 05/10 completed Not Available Not Available Not Available hydralazi ne 10 mg tablet TAKE 1 TABLET BY MOUTH TWICE A DAY 05/10 completed Not Available Not Available Not Available azithromy arnold 250 mg tablet TAKE 2 TABLETS BY MOUTH TODAY, THEN TAKE 1 TABLET DAILY FOR 4 DAYS 02/12 completed Not Available Not Available Not Available atenolol 25 mg tablet 10/15 completed Not Available Not Available Not Available glucosami ne sulfate 500 mg tablet Take 1 tablet every day by oral route. 02/12 completed Not Available Not Available Not Available hydralazi ne 25 mg tablet Take 1 tablet every day by oral route. 04/29 completed Not Available Not Available Not Available clopidogr el 75 mg tablet TAKE 1 TABLET BY MOUTH EVERY DAY 05/24 completed Not Available Not Available Not Available amlodipin e 5 mg tablet TAKE 1 TABLET BY MOUTH EVERY DAY 05/10 completed Not Available Not Available Not Available omeprazol e 40 mg capsule,d elayed release 10/26 completed Not Available Not Available Not Available triamcino lone acetonide 0.1 % topical cream 01/27 completed Not Available Not Available Not Available alprazola m 0.25 mg tablet TAKE 1 TABLET BY MOUTH THREE TIMES A DAY NEEDED FOR ANXIETY 05/10 completed Not Available Not Available Not Available doxycycli ne monohydra te 100 mg capsule TAKE 1 CAPSULE BY MOUTH TWICE A DAY 02/12 completed Not Available Not Available Not Available pantopraz ole 40 mg tablet,de layed release TAKE 1 TABLET BY MOUTH TWICE A DAY active Not Available Not Available No t Available ferrous sulfate 325 mg (65 mg iron) tablet TAKE ONE TABLET BY MOUTH TWICE A DAY 05/24 completed Not Available Not Available Not Available valsartan 320 mg tablet Please specify directio ns, refills and quantity 01/27 completed Not Available Not Available Not Available sertralin e 25 mg tablet TAKE 1 TABLET BY MOUTH EVERY DAY 05/10 completed Not Available Not Available Not Available pravastat in 20 mg tablet TAKE 1 TABLET BY MOUTH EVERY DAY 08/11 completed stopped taking Not Available Not Available Not Available furosemid e 20 mg tablet Take 1 tablet every day by oral route. active Not Available Not Available No t Available chondroit in sulfate A sodium 400 mg capsule Qd 10/26 completed Not Available Not Available Not Available methylpre dnisolone 4 mg tablets in a dose pack PLEASE SEE ATTACHED FOR DETAILED DIRECTIO NS 02/12 completed Not Available Not Available Not Available propranol ol 20 mg tablet TAKE 1 TABLET BY MOUTH TWICE A DAY 05/24 completed Not Available Not Available Not Available losartan 100 mg tablet TAKE 1 TABLET BY MOUTH DAILY 01/27 completed Not Available Not Available Not Available sertralin e 50 mg tablet TAKE 1 TABLET BY MOUTH DAILY 05/10 completed Not Available Not Available Not Available atenolol 50 mg tablet Take 1 tablet every day by oral route. 10/15 completed Not Available Not Available Not Available finasteri de 5 mg tablet TAKE 1 TABLET BY MOUTH EVERY DAY 05/10 completed Not Available Not Available Not Available rosuvasta tin 10 mg tablet TAKE 1 TABLET BY MOUTH EVERYDAY AT BEDTIME active Not Available Not Available No t Available metoprolo l tartrate 25 mg tablet 04/29 completed Not Available Not Available Not Available guaifenes in 100/10mg 05/14 completed Not Available Not Available Not Available furosemid e 06/09 completed Not Available Not Available Not Available amlodipin e active Not Available Not Available Not Available losartan 05/24 completed Not Available Not Available Not Available Vitamin D3 125 mg one daily bm 08/11 completed Not Available Not Available Not Available Aspirin Low Strength 81 mg tablets 1 each once a day 05/09 completed Not Available Not Available Not Available chondroit in sulfate A 400mg 04/29 completed Not Available Not Available Not Available diphenhyd ramine (bulk) 500/25mg 05/14 completed Not Available Not Available Not Available Prepopik 10 mg-3.5 gram-12 gram oral powder packet 10/26 completed Not Available Not Available Not Available Vascepa 1 gram capsule Take 1 capsule twice a day by oral route. 05/10 completed Not Available Not Available Not Available budesrosalined e DR-ER 9 mg tablet,de layed and extended release TAKE 1 TABLET BY MOUTH EVERY DAY 05/24 completed Not Available Not Available Not Available Multi Vitamin 08/11 completed Not Available Not Available Not Available Fluzone High-Dose 3104-6694 (PF) 180 mcg/0.5 mL intramusc ular syringe 11/10 completed Not Available Not Available Not Available Shingrix (PF) 50 mcg/0.5 mL intramusc ular suspensio n, kit 01/27 completed Not Available Not Available Not Available Adult Aspirin Regimen 81 mg tablet,de layed release Take 1 tablet every day by oral route. 2022 active Not Available Not Available Not Avai lable Vitals Date Recorded Body height Body mass index (BMI) Body weight Heart rate Respiratory rate Oxygen saturation Oxygen saturation in Arterial blood by Pulse oximetry Systolic And Diastolic Provider Name and Address Organization Details Last Updated DateTime 3 180.34 cm 19.9 kg/m2 21086.7 1 g 79 /min 16 /min 97 % 97 % 124/74 mm[Hg] Messi Sutton [facility] 3 11:52:33 Date Recorded Body height Body mass index (BMI) Body weight Heart rate Respiratory rate Oxygen saturation Oxygen saturation in Arterial blood by Pulse oximetry Systolic And Diastolic Provider Name and Address Organization Details Last Updated DateTime 3 180.34 cm 18.8 kg/m2 18434.9 7 g 53 /min 16 /min 96 % 96 % 128/78 mm[Hg] Messi Sutton [facility] 3 13:39:56 Date Recorded Body height Body mass index (BMI) Body weight Heart rate Respiratory rate Oxygen saturation Oxygen saturation in Arterial blood by Pulse oximetry Systolic And Diastolic Provider Name and Address Organization Details Last Updated DateTime 2 180.34 cm 19.7 kg/m2 84093.5 2 g 67 /min 16 /min 98 % 98 % 128/62 mm[Hg] Messi Sutton [facility] 2 12:13:43 Date Recorded Body height Body mass index (BMI) Body weight Heart rate Oxygen saturation Oxygen saturation in Arterial blood by Pulse oximetry Systolic And Diastolic Provider Name and Address Organization Details Last Updated DateTime 3 180.34 cm 18.3 kg/m2 30401.0 4 g 85 /min 95 % 95 % 124/50 mm[Hg] Kerrie Adal [facility] 3 14:02:44 Date Recorded Body height Body mass index (BMI) Body weight Heart rate Oxygen saturation Oxygen saturation in Arterial blood by Pulse oximetry Systolic And Diastolic Provider Name and Address Organization Details Last Updated DateTime 3 180.34 cm 17.9 kg/m2 61699.8 2 g 92 /min 96 % 96 % 142/76 mm[Hg] Kerrie Adal [facility] 3 14:23:25 Social History Question Answer Notes LastModified by Aspyra Details LastModified Time Tobacco Smoking Status Former Smoker 1952 - [birth year] Catracho banerjee [facility] 05/09/2023 11:44:52 Do You Have An Advance Directive? Yes Information not available 05/12/2020 What Is Your Level Of Caffeine Consumption? Occasional [email or web address] Information not available 05/12/2020 How Much Tobacco Do You Chew? None [email or web address] Information not available 05/12/2020 What Type Of Diet Are You Following? REGULAR Information not available 05/12/2020 Which Illicit Or Recreational Drugs Have You Used? None [email or web address] Information not available 05/12/2020 Live Alone Or With Others? With Others [email or web address] Information not available 05/12/2020 Marital Status [email or web address] Informatio n not available 05/12/2020 What Was The Date Of Your Most Recent Tobacco Screening? 01/18/2019 [id number] Information not available 05/06/2020 How Much Tobacco Do You Smoke? No [email or web address] Information not available 05/12/2020 General Stress Level Low [email or web address] Information not available 05/12/2020 How Many Years Have You Smoked Tobacco? 40 [email or web address] Information not available 05/09/2023 Sex: Unknown Functional Status Question Answer Note LastModified by Organizat ion Details LastModified Time What is your level of alcohol consumption? Occasional [email or web address] Information not available 05/12/2020 Do you or have you ever used smokeless tobacco? Former smokeless tobacco user [id number] Information not available 05/06/2020 What is your occupation? retired [email or web address] Information not available 05/12/2020 Do you or have you ever used e-cigarettes or vape? Never used electronic cigarettes [id number] Information not available 05/06/2020 What is your exercise level? Occasional [email or web address] Information not available 05/12/2020 Mental Status None recorded. Family History Relationship Description Onset Age of this Age Resolved Age Notes LastModified by Organization Details LastModified Time Father Family history of Father deaf Conges tive heart failur e [email or web address] Not available 10/15/2015 14:57:51 Mother Mother 86 [email or web address] Not available 2015 14:58:26 Medical History Condition Response Coronary Artery Disease Y Peripheral Arterial Disease Y Hyperlipidemia Y Hypertension Y Immunizations Vaccine Type Date Status Note Provider Nam e and Address Organization Details Recorded Time COVID-19, mRNA, LNP-S, PF, 30 mcg/0.3 mL dose 06/17/2021 completed Catracho banerjee, [place] - [facility] 04/19/2023 17:36:00 Influenza, adjuvanted, quadrivalent, PF 03/27/2023 completed Catracho banerjee[place] [facility] 04/19/2023 17:36:00 Influenza, high-dose, trivalent, PF 03/11/2017 completed Catracho banerjee[place] [facility] 04/19/2023 17:36:00 Influenza, high-dose, quadrivalent, PF 03/04/2021 completed Catracho banerjee, [place] - [facility] 04/19/2023 17:35:59 Past Encounters Encounter ID Performer Location Encounter Start Date Encounter Closed Date Diagnosis/Indication Diagnosis SNOMED-CT Code Diagnosis ICD10 Code Diagnosis IMO Codes Diagnosis Note [id number] MD Julio [facility]man Office [address] [place] [address] 10/16/2015 10:37:05 10/17/2015 03:49:27 Dyspnea 317554092 R06.00 Disorder o f coronary artery 139580490 I77.9 s/p CABGTreadm ill Myoview Stress test, has high Salter Path Risk score. Has Known CAD, or CAD risk equivalent . To look for any ischemia. Hyperlipidemia 06630991 E78.5 Seems to be well compensate d nowWill need LFTs Follow up Essential hypertension 25662436 I10 Anxiety 73075764 F41.9 [id number] MD Julio [facility]man Office [address] [place] [address] 10/27/2015 10:58:02 10/28/2015 18:32:26 Benign hypertension 07530748 I10 Coronary arteriosclerosis in [place] artery 0186849160 107 I25.10 The patient will be scheduled for left heart catheteriz ation, with coronary angiogram, and possible PTCA/Stent . The procedure was discussed with the patient, and risks, benefits, and alternativ e options were explained. The patient was given informatio n about heart catheteriz ation and interventi onal procedures . The patient agrees to proceed. Essential hypertension 38459428 I10 [id number] MD Julio Rahman e Office [address] [place] [address] 11/10/2015 12:09:57 11/11/2015 11:28:28 Benign hypertension 86243349 I10 Disorder o f coronary artery 747442786 I77.9 The patient will be scheduled for left heart catheteriz ation, with coronary angiogram, and possible PTCA/Stent . The procedure was discussed with the patient, and risks, benefits, and alternativ e options were explained. The patient was given informatio n about heart catheteriz ation and interventi onal procedures . The patient agrees to proceed. Hyperlipidemia 80056403 E78.5 Needs to keep LDL less than 70, and HDL more than 40 [id number] MD [facility]io [facility] Office [address] [place] [address] 11/27/2015 11:44:37 11/27/2015 17:59:17 Benign hypertension 86932046 I10 Seems to be well compensate d now Hyperlipidemia 78933964 E78.5 Disorder o f coronary artery 815301316 I77.9 Would continue with the current management , and medication s.Added Plavix now [id number] MD Julio Rahman e Office [address] [place] [address] 04/29/2016 11:56:07 04/30/2016 10:19:00 Benign hypertension 16208658 I10 Now well controlled Hyperlipidemia 40677096 E78.5 Now well controlled Disorder o f coronary artery 279786010 I77.9 Would continue with the current management , and medication s.On Plavix now [id number] MD Julio Rahman e Office [address] [place] [address] 11/04/2016 11:29:23 11/08/2016 15:20:46 Benign hypertension 24033503 I10 Now well controlled Hyperlipidemia 40285881 E78.5 Needs to keep LDL less than 70, and HDL more than 40Will get fating lipids for follow up Disorder o f coronary artery 999833268 I77.9 Would continue with the current management , and medication s.On Plavix now Abdominal aortic aneurysm 530073037 I71.4 H e follows up with [place] Ventura [id number] MD Julio Rahman e Office [address] [place] [address] 05/12/2017 11:21:41 05/13/2017 12:29:31 Coronary arteriosclerosis 68578003 I25.10 Benign hypertension 1072 5009 I10 Now well controlled Disorder o f coronary artery 710497679 I77.9 Would continue with the current management , and medication s.On Plavix now Abdominal aortic aneurysm 038356523 I71.[address] He follows up with DR Ventura Dyslipidemia 548552949 E 78.5 Needs to keep LDL less than 70, and HDL more than 40 Will get lipid profile results from PCP 01/07/17 : LDL 55oN pravastati n 20 mg [id number] MD Julio Rahman e Office [address] [place] [address] 11/10/2017 11:14:16 11/10/2017 13:00:28 Coronary arteriosclerosis 02609235 I25.10 Remains asymptomat icHe had a cath 11/19/15 with 50-60 % mid graft disease.Co ntinue maximal medical treatment On Plavix and ASA Benign hypertension 1072 5009 I10 Now well controlled Abdominal aortic aneurysm 756873134 I71.4 Has two AAA's followed by Dr Ventura. He had a recent ultrasound . He thinks it may have grown in size. He has a f/u appointmen t on Tuesday11/15/17. Dyslipidemia 551232575 E 78.5 01/07/17 : LDL 55 On pravastati n 20 mg Needs to keep LDL less than 70, and HDL more than 40 Will get lipid profile results from PCP Dyspnea 794682293 R06.00 Stable Had an echo 11/03/15 Left ventricula r systolic function is low normal. EF=50%. Septal motion is consistent with post-opera tive state. There is mild mitral regurgitat ion. Right ventricula r systolic pressure is normal. Grade I diastolic dysfunctio n [id number] MD Julio Rahman e Office [address] [place] [address] 05/11/2018 11:24:07 05/11/2018 12:22:39 Coronary arteriosclerosis 58517480 I25.10 Remains asymptomat icHe had a cath 11/19/15 with 50-60 % mid graft disease.Co ntinue maximal medical treatment On Plavix and ASA Benign hypertension 1072 5009 I10 Now well controlled Abdominal aortic aneurysm 604474067 I71.4 Has two AAA's followed by Dr Ventura. He had a recent ultrasound . He thinks it may have grown in size. He has a f/u appointmen t on Tuesday11/15/17. Dyspnea 525391499 R06.00 Stable Dyslipidemia 725350869 E 78.5 01/07/17 : LDL 55 On pravastati n 20 mg Needs to keep LDL less than 70, and HDL more than 40 Will get lipid profile results from PCP Essential hypertension 33519703 I10 [id number] MD Julio Rahman e Office [address] [place] [address] 11/09/2018 11:35:46 11/09/2018 12:35:44 Coronary arteriosclerosis 68257662 I25.10 Remains asymptomat icHe had a cath 11/19/15 with 50-60 % mid graft disease. Treadmill Myoview Stress test, has high Salter Path Risk score. Has Known CAD, or CAD risk equivalent . To look for any ischemia.C ontinue maximal medical treatment On Plavix and ASA Obtain FLP Abdominal aortic aneurysm 155920234 I71.4 s/p repair Dyspnea 071216221 R06.00 StableObta in echo to evaluate for structural /functiona l disease. Treadmill Myoview Stress test, has high Salter Path Risk score. Has Known CAD, or CAD risk equivalent . To look for any ischemia. Dyslipidemia 758694163 E 78.5 Needs to keep LDL less than 70, and HDL more than 40 Will get lipid profile. Continue statin. Essential hypertension 85224877 I10 Well controlled . [id number] Williams Hanson MD [facility] Office [address] [facility] [address] [facility] [place] [address] 01/18/2019 11:58:57 01/18/2019 12:26:32 Coronary arteriosclerosis 61657018 I25.10 Remains asymptomat icHguerline had a cath 11/19/15 with 50-60 % mid graft disease. Treadmill Myoview Stress test with mild inferior ischemia, maximal Medical treatment On Plavix and ASA Essential hypertension 94626150 I10 Well controlled . Abdominal aortic aneurysm 670160446 I71.4 s/p repair Dyspnea 077959943 R06.00 StableObta in echo to evaluate for structural /functiona l disease. Treadmill Myoview Stress test, has high Salter Path Risk score. Has Known CAD, or CAD risk equivalent . To look for any ischemia. Dyslipidemia 696889506 E 78.5 Needs to keep LDL less than 70, and HDL more than 40 Will get lipid profile. Continue statin. [id number] Williams Hanson MD [facility] [address] [place] [address] 07/30/2019 13:52:45 07/30/2019 15:21:48 Coronary arteriosclerosis 52610949 I25.10 Remains asymptomat icHe had a cath 11/19/15 with 50-60 % mid graft disease. Treadmill Myoview Stress test with mild inferior ischemia, maximal Medical treatment On Plavix and ASA Essential hypertension 49633835 I10 Well controlled . Abdominal aortic aneurysm 708842251 I71.4 s/p repair Dyspnea 677343092 R06.00 StableObta in echo to evaluate for structural /functiona l disease. Treadmill Myoview Stress test, has high Salter Path Risk score. Has Known CAD, or CAD risk equivalent . To look for any ischemia. Dyslipidemia 626970842 E 78.5 Needs to keep LDL less than 70, and HDL more than 40 Will get lipid profile. Continue statin. Peripheral vascular disease 165534783 I73.9 Aterial duplex [id number] MD Michele Rahman Office [address] [place] [address] 01/28/2020 13:53:02 01/28/2020 14:51:08 Coronary arteriosclerosis 48882038 I25.10 Remains asymptomat icHe had a cath 11/19/15 with 50-60 % mid graft disease. Treadmill Myoview Stress test with mild inferior ischemia, maximal Medical treatment On Plavix [place] to take every other and ASA Essential hypertension 57433506 I10 Well controlled . Abdominal aortic aneurysm 352538897 I71.4 s/p repair, going for repair again Dyspnea 456397998 R06.00 StableObta in echo to evaluate for structural /functiona l disease. Dyslipidemia 343627280 E 78.5 Needs to keep LDL less than 70, and HDL more than 40 Will get lipid profile. Continue statin. Peripheral vascular disease 488106453 I73.9 Aterial duplex [id number] MD Michele Rahman Office [address] [place] [address] 05/12/2020 13:38:14 05/12/2020 14:21:37 Coronary arteriosclerosis 65616966 I25.10 s/p CABG (1997), remains asymptomat ic. TDM 12/27/2018 : Positive stress test. Reversible defect consistent with ischemia in inferior lateral area. Normal LV systolic function. LVEF 45%. [facility] 11/19/2015 : Left internal mammary artery graft to the left anterior descending is patent. Saphenous vein graft to the obtuse marginal with 60% stenosis. Saphenous vein graft to the right coronary artery is completely occluded. Severe [place] CAD. Normal left ventricula r size and systolic function. Continue ASA, holding Plavix d/t endograft leak. Essential hypertension [id number] I10 Blood pressure is elevated today, but this is only one reading, will keep close follow up, and consider medication change if blood pressure is still elevated next visit. Abdominal aortic aneurysm 398721737 I71.4 s/p repair with recent endograft stenting d/t leak Dyspnea 357803024 R06.00 Stable Echo 02/11/2020 : LV chamber size is normal,LV wall thickness is normal,EF 40-45%,the re is septal dyskinesis ,LV relaxation is impiared,t he aortic valve is milldy calcified, the aortic valve leaflet excursion is mildly reduced,th ere is mild aortic root calcificat ion,there is mild thickening of mitral valve anterior leaflet,th ere is mild mitral regurgitat ion,there is moderate tricuspid regurgitat ion,estima ivonne RVSP systolic pressure is 38 mmHg,IRBBB . Dyslipidemia 234520053 E 78.5 Needs to keep LDL less than 70, and HDL more than 40. 01/23/2020 LDL 78 Will switch to rosuvastat in 10mg 05/12/2020 Will get fasting lipids for follow-up Peripheral vascular disease 102075856 I73.9 Arterial duplex 08/03/2019 : Mild PVD, more disease noted distally. [id number] Williams Hanson MD [facility] [address] [place] [id number] 08/11/2020 15:50:24 08/11/2020 16:49:20 Coronary arteriosclerosis 94733813 I25.10 s/p CABG (1997), remains asymptomat ic. TDM 12/27/2018 : Positive stress test. Reversible defect consistent with ischemia in inferior lateral area. Normal LV systolic function. LVEF 45%. [facility] 11/19/2015 : Left internal mammary artery graft to the left anterior descending is patent. Saphenous vein graft to the obtuse marginal with 60% stenosis. Saphenous vein graft to the right coronary artery is completely occluded. Severe [place] CAD. Normal left ventricula r size and systolic function. Continue ASA and Plavix Essential hypertension 23346905 I10 Blood pressure is elevated today, but this is only one reading, will keep close follow up, and consider medication change if blood pressure is still elevated next visit. Instructed to keep blood pressure diary. Abdominal aortic aneurysm 392198074 I71.4 s/p repair with recent endograft stenting d/t leak Dyspnea 878851001 R06.00 Stable, unchanged. Echo 02/11/2020 : LV chamber size is normal. LV wall thickness is normal. EF 40-45%. There is septal dyskinesis . LV relaxation is impaired. The aortic valve is mildly calcified. The aortic valve leaflet excursion is mildly reduced. There is mild aortic root calcificat ion. There is mild thickening of mitral valve anterior leaflet. There is mild mitral regurgitat ion. There is moderate tricuspid regurgitat ion. Estimated RVSP systolic pressure is 38 mmHg. IRBBB. Dyslipidemia 631383963 E 78.5 Needs to keep LDL less than 70, and HDL more than 40. 01/23/2020 LDL 78 Switched to rosuvastat in 10mg at previous visit Will get fasting lipids for follow-up Peripheral vascular disease 143793299 I73.9 Now asymptomat icArterial duplex 08/03/2019 : Mild PVD, more disease noted distally. [id number] Williams Hanson MD [facility] [address] [place] [address] 02/03/2021 10:38:56 02/04/2021 09:25:29 Benign hypertension 41339859 I10 Now well controlled Coronary arteriosclerosis 04493795 I25.10 s/p CABG (1997), remains asymptomat ic. refill Plavix Examined by Jaquelin jensen, KELECHI and Dr Williams Hanson MD TDM 12/27/2018 : Positive stress test. Reversible defect consistent with ischemia in inferior lateral area. Normal LV systolic function. LVEF 45%. repeat stress test test [facility] 11/19/2015 : Left internal mammary artery graft to the left anterior descending is patent. Saphenous vein graft to the obtuse marginal with 60% stenosis. Saphenous vein graft to the right coronary artery is completely occluded. Severe [place] CAD. Normal left ventricula r size and systolic function. Continue ASA and Plavix Dyslipidemia 244186233 E 78.5 Needs to keep LDL less than 70, and HDL more than 40.Recent blood work Saw PCP all well Labs LDL 38, HDL 60, TRG 79 CHOL 114 7--21Swi tched to rosuvastat in 10mg at previous visit Will get fasting lipids for follow-up Peripheral vascular disease 259412826 I73.9 Now asymptomat icArterial duplex 08/03/2019 : Mild PVD, more disease noted distally. [id number] MD Julio [facility] [address] [address] 03/19/2021 12:32:02 03/19/2021 14:46:11 Coronary arteriosclerosis 20434710 I25.10 s/p CABG (1997), remains asymptomat ic. TDM 12/27/2018 : Positive stress test. Reversible defect consistent with ischemia in inferior lateral area. Normal LV systolic function. LVEF 45%. [facility] 11/19/2015 : Left internal mammary artery graft to the left anterior descending is patent. Saphenous vein graft to the obtuse marginal with 60% stenosis. Saphenous vein graft to the right coronary artery is completely occluded. Severe [place] CAD. Normal left ventricula r size and systolic function. Continue ASA and Plavix, has mild ischemia Maximal medical treatment Essential hypertension 58055044 I10 Blood pressure is elevated today, but this is only one reading, will keep close follow up, and consider medication change if blood pressure is still elevated next visit. Instructed to keep blood pressure diary. Abdominal aortic aneurysm 856278978 I71.4 s/p repair with recent endograft stenting d/t leak Dyspnea 919380578 R06.00 Stable, unchanged. Echo 02/11/2020 : LV chamber size is normal. LV wall thickness is normal. EF 40-45%. There is septal dyskinesis . LV relaxation is impaired. The aortic valve is mildly calcified. The aortic valve leaflet excursion is mildly reduced. There is mild aortic root calcificat ion. There is mild thickening of mitral valve anterior leaflet. There is mild mitral regurgitat ion. There is moderate tricuspid regurgitat ion. Estimated RVSP systolic pressure is 38 mmHg. IRBBB. Dyslipidemia 447059107 E 78.5 Needs to keep LDL less than 70, and HDL more than 40. 01/23/2020 LDL 78 Switched to rosuvastat in 10mg at previous visit Will get fasting lipids for follow-up Peripheral vascular disease 019651096 I73.9 Now asymptomat icArterial duplex 08/03/2019 : Mild PVD, more disease noted distally. [id number] Williams Hanson MD [facility] [address] [place] [address] 08/11/2021 12:20:28 08/11/2021 12:51:18 Coronary arteriosclerosis 94838713 I25.10 s/p CABG (1997), remains asymptomat ic. TDM 12/27/2018 : Positive stress test. Reversible defect consistent with ischemia in inferior lateral area. Normal LV systolic function. LVEF 45%. [facility] 11/19/2015 : Left internal mammary artery graft to the left anterior descending is patent. Saphenous vein graft to the obtuse marginal with 60% stenosis. Saphenous vein graft to the right coronary artery is completely occluded. Severe [place] CAD. Normal left ventricula r size and systolic function. Continue ASA and Plavix, has mild ischemia Maximal medical treatment OK to hold 2 day at a time with nose bleed Essential hypertension 79111062 I10 Blood pressure is elevated today, but this is only one reading, will keep close follow up, and consider medication change if blood pressure is still elevated next visit. Instructed to keep blood pressure diary. Abdominal aortic aneurysm 886523571 I71.4 s/p repair with recent endograft stenting d/t leak Dyspnea 407644282 R06.00 Stable, unchanged. Echo 02/11/2020 : LV chamber size is normal. LV wall thickness is normal. EF 40-45%. There is septal dyskinesis . LV relaxation is impaired. The aortic valve is mildly calcified. The aortic valve leaflet excursion is mildly reduced. There is mild aortic root calcificat ion. There is mild thickening of mitral valve anterior leaflet. There is mild mitral regurgitat ion. There is moderate tricuspid regurgitat ion. Estimated RVSP systolic pressure is 38 mmHg. IRBBB. Dyslipidemia 803412339 E 78.5 Needs to keep LDL less than 70, and HDL more than 40. 01/22/2021 LDL 38 Peripheral vascular disease 222696862 I73.9 Now asymptomat icArterial duplex 08/03/2019 : Mild PVD, more disease noted distally. [id number] Williams Hanson MD [facility] [address] [place] [phone] 02/12/2022 11:35:27 02/12/2022 12:32:26 Coronary arteriosclerosis 57625697 I25.10 s/p CABG (1997), remains asymptomat ic. TDM 12/27/2018 : Positive stress test. Reversible defect consistent with ischemia in inferior lateral area. Normal LV systolic function. LVEF 45%. [facility] 11/19/2015 : Left internal mammary artery graft to the left anterior descending is patent. Saphenous vein graft to the obtuse marginal with 60% stenosis. Saphenous vein graft to the right coronary artery is completely occluded. Severe [place] CAD. Normal left ventricula r size and systolic function. Continue ASA and Plavix, has mild ischemia Maximal medical treatment OK to hold 2 day at a time with nose bleed Essential hypertension 05977401 I10 Now well controlled Abdominal aortic aneurysm 812942731 I71.4 s/p repair with recent endograft stenting d/t leak Dyspnea 299467991 R06.00 Stable, unchanged. Echo 02/11/2020 : LV chamber size is normal. LV wall thickness is normal. EF 40-45%. There is septal dyskinesis . LV relaxation is impaired. The aortic valve is mildly calcified. The aortic valve leaflet excursion is mildly reduced. There is mild aortic root calcificat ion. There is mild thickening of mitral valve anterior leaflet. There is mild mitral regurgitat ion. There is moderate tricuspid regurgitat ion. Estimated RVSP systolic pressure is 38 mmHg. IRBBB. Dyslipidemia 631094090 E 78.5 Needs to keep LDL less than 70, and HDL more than 40. 01/22/2021 LDL 38 Peripheral vascular disease 886155194 I73.9 Now asymptomat icArterial duplex 08/03/2019 : Mild PVD, more disease noted distally. [id number] Williams Hanson MD [facility] [place] [address] 08/17/2022 11:36:05 08/17/2022 12:24:41 Coronary arteriosclerosis 58411437 I25.10 s/p CABG (1997), remains asymptomat ic. TDM 12/27/2018 : Positive stress test. Reversible defect consistent with ischemia in inferior lateral area. Normal LV systolic function. LVEF 45%. [facility] 11/19/2015 : Left internal mammary artery graft to the left anterior descending is patent. Saphenous vein graft to the obtuse marginal with 60% stenosis. Saphenous vein graft to the right coronary artery is completely occluded. Severe [place] CAD. Normal left ventricula r size and systolic function. Continue ASA and Plavix, has mild ischemia Maximal medical treatment OK to hold 2 day at a time with nose bleed Essential hypertension 80505610 I10 Now well controlled Abdominal aortic aneurysm 635330134 I71.40 s/p repair with recent endograft stenting d/t leak Dyspnea 008190071 R06.00 Stable, unchanged. Echo 02/11/2020 : LV chamber size is normal. LV wall thickness is normal. EF 40-45%. There is septal dyskinesis . LV relaxation is impaired. The aortic valve is mildly calcified. The aortic valve leaflet excursion is mildly reduced. There is mild aortic root calcificat ion. There is mild thickening of mitral valve anterior leaflet. There is mild mitral regurgitat ion. There is moderate tricuspid regurgitat ion. Estimated RVSP systolic pressure is 38 mmHg. IRBBB. Dyslipidemia 369935974 E 78.5 Needs to keep LDL less than 70, and HDL more than 40. 01/22/2021 LDL 38 Peripheral vascular disease 367107371 I73.9 Now asymptomat icArterial duplex 08/03/2019 : Mild PVD, more disease noted distally. [id number] Williams Hanson MD [facility] [place] [address] 01/26/2023 13:23:43 01/26/2023 14:27:20 Coronary arteriosclerosis 45294725 I25.10 He is due for stress test but he is refusing to have it and he agreed on Echo s/p CABG (1997), remains asymptomat ic. TDM 12/27/2018 : Positive stress test. Reversible defect consistent with ischemia in inferior lateral area. Normal LV systolic function. LVEF 45%. [facility] 11/19/2015 : Left internal mammary artery graft to the left anterior descending is patent. Saphenous vein graft to the obtuse marginal with 60% stenosis. Saphenous vein graft to the right coronary artery is completely occluded. Severe [place] CAD. Normal left ventricula r size and systolic function. Continue ASA and Plavix, has mild ischemia Maximal medical treatment OK to hold 2 day at a time with nose bleed Essential hypertension 48745068 I10 Now well controlled Abdominal aortic aneurysm 724378953 I71.40 s/p repair with recent endograft stenting d/t leak Dyspnea 273413334 R06.00 repeat Echo Echo 02/11/2020 : LV chamber size is normal. LV wall thickness is normal. EF 40-45%. There is septal dyskinesis . LV relaxation is impaired. The aortic valve is mildly calcified. The aortic valve leaflet excursion is mildly reduced. There is mild aortic root calcificat ion. There is mild thickening of mitral valve anterior leaflet. There is mild mitral regurgitat ion. There is moderate tricuspid regurgitat ion. Estimated RVSP systolic pressure is 38 mmHg. IRBBB. Dyslipidemia 352043991 E 78.5 Needs to keep LDL less than 70, and HDL more than 40. 01/2023 LDL 46continue with crestor 10 mg daily Peripheral vascular disease 161603893 I73.9 Now asymptomat icArterial duplex 08/03/2019 : Mild PVD, more disease noted distally. Ventricula r premature complex 686103851 I49.3 continue with propranolo l BID and might consider switching to metopadd vascepa [id number] Williams Hanson MD [facility] [address] [place] [address] 05/10/2023 13:41:31 05/10/2023 14:41:22 Coronary arteriosclerosis 53586867 I25.10 He is due for stress test but he is refusing to have it and he agreed on Echo s/p CABG (1997), remains asymptomat ic. TDM 12/27/2018 : Positive stress test. Reversible defect consistent with ischemia in inferior lateral area. Normal LV systolic function. LVEF 45%. [facility] 11/19/2015 : Left internal mammary artery graft to the left anterior descending is patent. Saphenous vein graft to the obtuse marginal with 60% stenosis. Saphenous vein graft to the right coronary artery is completely occluded. Severe [place] CAD. Normal left ventricula r size and systolic function. Had GI Bleed, will esu,e low dose ASA Essential hypertension 06333252 I10 Now well controlled Abdominal aortic aneurysm 762963191 I71.40 s/p repair with recent endograft stenting d/t leak Dyslipidemia 671559961 E 78.5 Needs to keep LDL less than 70, and HDL more than 40. 01/2023 LDL 46continue with crestor 10 mg daily Peripheral vascular disease 348158724 I73.9 Now asymptomat icArterial duplex 08/03/2019 : Mild PVD, more disease noted distally. Ventricula r premature complex 630982724 I49.3 continue with propranolo l BID and might consider switching to metopadd vascepa Edema of lower leg 62612 7004 R60.0 will Det Venous [place] [id number] Williams Hanson MD [facility] [address] [place] [address] 05/24/2023 14:15:29 05/24/2023 14:54:58 Coronary arteriosclerosis 27831031 I25.10 He is due for stress test but he is refusing to have it and he agreed on Echo will continue with aspirin and hold his plavix for now due to bleedings/ p CABG (1997), remains asymptomat ic. TDM 12/27/2018 : Positive stress test. Reversible defect consistent with ischemia in inferior lateral area. Normal LV systolic function. LVEF 45%. [facility] 11/19/2015 : Left internal mammary artery graft to the left anterior descending is patent. Saphenous vein graft to the obtuse marginal with 60% stenosis. Saphenous vein graft to the right coronary artery is completely occluded. Severe [place] CAD. Normal left ventricula r size and systolic function. Had GI Bleed, will esu,e low dose ASA Essential hypertension 94943091 I10 fair controlled losartan decreased to 50 mg daily Abdominal aortic aneurysm 829349806 I71.40 s/p repair with recent endograft stenting d/t leak Dyslipidemia 547728882 E 78.5 Needs to keep LDL less than 70, and HDL more than 40. 01/2023 LDL 46continue with crestor 10 mg daily Peripheral vascular disease 120091872 I73.9 Now asymptomat icArterial duplex 08/03/2019 : Mild PVD, more disease noted distally. Ventricula r premature complex 462530620 I49.3 continue with propranolo l BID and might consider switching to metopadd vascepa Health Concerns Section Related Observation LastModified by Organization Detai ls LastModified Time None Recorded Concern Status LastModified by Organization Details LastModified Time None Recorded Advance Directives Directive Y: Payers Insurance Date Sequence Insurance Name Policy Number Policy Gonzalez Covered Member ID Gonzalez Member ID Guarantor Name 05/09/2023 1 MEDICARE-[place] (MEDICARE) Oz Luther [id number] 05/21/2023 2 [employer] - DOS PRIOR TO 2024 (PPO) Oz Luther [id number] [facility] 12/24/2015 3 MEDICARE B-[place]: [employer] Oz Luther [id number] Notes Date Note Type Note Provider Name and Address Organization Details Recorded Time 02/12/2022 text/html 02/12/22CC : Cardiac follow up, dyspnea on [id number] year-old white man with coronary artery disease s/p coronary artery bypass grafting (X 4 1997), AAA, former smoker (quit 1997), is here for 6 month follow-up. He was last seen in the clinic on 08/11/21, since then he lost few poundsHe denies ER visits and hospitalizations since he was last seen. Today reports:Denies chest pain.Denies shortness of breath at rest. Has mild dyspnea on exertion.No orthopnea. No PNDs.Denies heart palpitations.Denies dizziness. Denies syncope or near syncope.No ankle or leg edema.No major bleeding events.No reported side effects from medications. Taking medications as prescribed with no missed doses.Denies snoring, daytime somnolence and AM headache.*Last LDL was 38 done on 05/25/21 .Pt takes rosuvastatin 10 mg. PreviouslyHe had a stress test with inferior ischemia *He is fairly active. He walks on the treadmill 2 days a week. He had another procedure with Dr. Jenkins 2 weeks ago on 07/28/2020. He reports he had a kinked vessel that needed fixed. He is unsure if he received a stent at that time but he was restarted on Plavix at that time. 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 *ECHO 02/11/20:LV chamber size is normal,LV wall thickness is normal,EF 40-45%,there is septal dyskinesia,LV relaxation is impaired,the aortic valve is milldy calcified,the aortic valve leaflet excursion is mildly reduced,there is mild aortic root calcification,there is mild thickening of mitral valve anterior leaflet,there is mild mitral regurgitation,there is moderate tricuspid regurgitation,estimate d RVSP systolic pressure is 38 mmHg,IRBBB. *12/27/18 TDM: Positive stress test. Reversible defect consistent with ischemia in inferior lateral area. Normal LV systolic function. 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 : SOD 143,K 4.3,CL 108,CO2 28,GLU 99,BUN 19,CR 1.27,AST 16,ALT 11,CK 94,TC 133,TG 101,HDL 58,LDL 55.11/02/15: SOD 141, K 4.6, CL 103, CO2 25, GL 103, BUN 21. CR 1.3, TC 137, HDL 57, TR 78, LDL 64, AST 19, ALT 14.10/28/2015 CMP: SOD 140, K 4.2, CL 107, CO2 25, GL 92, BUN 22, CR 22, HGB 14.1, HCT 43.5, PT 10.7, INR 1.005: SOD 141, K 4.6, CL 103, CO2 25, GL 103, BUN 21. CR 1.3, TC 137, HDL 57, TR 78, LDL 64, AST 19, ALT 14.10-28-2015 Sod 140, K 4.2, Cl 107, Co2 25,GL 92, BUN 22 , Cr 1.05/12/20 EKG: Atrial rhythm. P: QRS - 1:1, abnormal P axis, Hrate 69. Incomplete RBBB. Left atrial enlargement. Nonspecific ST depression + T - abnormality.01/28/20 EKG: Sinus rhythm - frequent ectopic ventricular beats. Incomplete RBBB and left axis - anterior fascicular block. Left atrial enlargement.EKG 07/30/19: Atrial rhythm. Incomplete RBBB and left axis- anterior fascicular block. Left atrial enlargement. Nonspecific T-abnormality.EKG 11/10/17: frequent ventricular premature beats. Incomplete rbbb. Non-specific inverted T waves, inferior leads. Left axis deviationEK05/12/17 Sinus Rhythm frequent ectopic ventricular beat s # VECs=4 Incomplete right bundle branch and left axis anterior fascicular block. Voltage criteria for LVH (R(V6) exceeds 2.26 mV). Nonspecific ST depression + nonspecific T-abnormality -Seen with left ventricular hypertrophy (strain) or digitals effect.EK01/24/2017 Sinus bradycardia. IRBBB and left axis. Anterior fascicular block. Left atrial enlargement. Nonspecific T abnormality. ABNORMAL.EK11/04/16 Sinus bradycardia. IBBB and left axis. Anterior fascicular block.EK11/02/15 Sinus rhythm with frequent premature ventricular complexes. Possible left atrial enlargement. RBBB. Left anterior fascicular block. Bifascicular block Left ventricular hypertrophy. Abnormal ECG. When compared with ECG of 02-NOV-2015 No significant change was found.EK04/29/16 Sinus bradycardia. incomplete right bundle branch block, left axis. anterior fascicular block. left atrial enlargement. nonspecific T depression abnormality . abnormal.EK10/16/15 Sinus bradycardia. Incomplete RBBB and left axis. Anterior fascicular block. Left atrial enlargement. Nonspecific T-abnormality. AbnormalEK04/29/16 Sinus bradycardia. incomplete right bundle branch block, left axis. anterior fascicular block. left atrial enlargement. nonspecific T depression abnormality . abnormal.EK10/16/15 Sinus bradycardia. Incomplete RBBB and left axis. Anterior fascicular block. Left atrial enlargement. Nonspecific T-abnormality. AbnormalLexi 12/27/2018 Positive stress test. Reversible defect consistent with ischemia in inferior lateral area. Normal LVSF. LVEF 45%10/23/15 Positive stress test. Reversible defect consistent with ischemia in inferior lateral area. Mild LV dysfunction. Exercise tolerance average. LVEF 35%.ECHO 02/11/20:LV chamber size is normal,LV wall thickness is normal,EF 40-45%,there is septal dyskinesia,LV relaxation is impaired,the aortic valve is mildly calcified,the aortic valve leaflet excursion is mildly reduced,there is mild aortic root calcification,there is mild thickening of mitral valve anterior leaflet,there is mild mitral regurgitation,there is moderate tricuspid regurgitation,estimate d RVSP systolic pressure is 38 mmHg,IRBBB.Echo 12/27/2018 LV chamber size is normal. There is normal global systolic function and contractility. The estimated LVEF is greater than 55%. There is impaired LV relaxation. There is mild aortic valve sclerosis without significant stenosis. There is mild to moderate mitral regurgitation. There is mild tricuspid regurgitation.11/09/18 ,NCD, 1st degree AV block,incomplete rbbb,left atrial kauyixbzft04/05/18 ECHO: LV chamber size is normal. LV wall thickness is mildly increased. There is normal global systolic function and contractility. The estimated left ventricle ejection fraction is 55-60%( normal). Left ventricular diastolic function is normal. Diastolic filling appears normal. There is mild right ventricular systolic dysfunction. Right atrium chamber is mildly dilated. There is minimal aortic regurgitation. Mitral valve prolapse is present. theres mild mitral regurgitation. There is mild tricuspid regurgitation. The estimated RV systolic pressure is 30-40. There is mild to moderate pulmonic regurgitation.ECHO: 11/03/15 Left ventricular systolic function is low normal. EF=50%. Septal motion is consistent with post-operative state. There is mild mitral regurgitation. Right ventricular systolic pressure is normal. Grade I diastolic dysfunction, (abnormal relaxation pattern).11/07/17 Duplex scan Renal Art/AO/IVC: Both suprarenal and infrarenal abdominal aortic aneurysms with size indicated. The suprarenal component is gradually increasing in size while the infrarenal component remained.angiogram (PROC) 11/19/15 : Left internal mammary artery graft to the left anterior descending is patent. Saphenous vein graft to the obtuse marginal with 60% stenosis. Saphenous vein graft to the right coronary artery is completely occluded. Severe [place] CAD. Normal left ventricular size and systolic function. Williams Hanson MD [address] [place], [address], [facility] 02/12/2022 12:31:03 08/17/2022 text/html 08/17/22CC : Cardiac follow up87 year-old white man with coronary artery disease s/p coronary artery bypass grafting (X 4 1997), AAA, former smoker (quit 1997), is here for 6 month follow-up. He was last seen in the clinic on 02/12/22, since then he is activeHe denies ER visits and hospitalizations since he was last seen. Today reports:Denies chest pain.Denies shortness of breath at rest. Has mild dyspnea on exertion.No orthopnea. No PNDs.Denies heart palpitations.Denies dizziness. Denies syncope or near syncope.No ankle or leg edema.No major bleeding events.No reported side effects from medications. Taking medications as prescribed with no missed doses.Denies snoring, daytime somnolence and AM headache.*Last LDL was 46 done on 08/30/21 .Pt takes rosuvastatin 10 mg. He had a stress test with inferior ischemia *He is fairly active. He walks on the treadmill 2 days a week. He had another procedure with Dr. Jenkins 2 weeks ago on 07/28/2020. He reports he had a kinked vessel that needed fixed. He is unsure if he received a stent at that time but he was restarted on Plavix at that time. 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 *ECHO 02/11/20:LV chamber size is normal,LV wall thickness is normal,EF 40-45%,there is septal dyskinesia,LV relaxation is impaired,the aortic valve is milldy calcified,the aortic valve leaflet excursion is mildly reduced,there is mild aortic root calcification,there is mild thickening of mitral valve anterior leaflet,there is mild mitral regurgitation,there is moderate tricuspid regurgitation,estimate d RVSP systolic pressure is 38 mmHg,IRBBB. *12/27/18 TDM: Positive stress test. Reversible defect consistent with ischemia in inferior lateral area. Normal LV systolic function. 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 : SOD 143,K 4.3,CL 108,CO2 28,GLU 99,BUN 19,CR 1.27,AST 16,ALT 11,CK 94,TC 133,TG 101,HDL 58,LDL 55.11/02/15: SOD 141, K 4.6, CL 103, CO2 25, GL 103, BUN 21. CR 1.3, TC 137, HDL 57, TR 78, LDL 64, AST 19, ALT 14.10/28/2015 CMP: SOD 140, K 4.2, CL 107, CO2 25, GL 92, BUN 22, CR 22, HGB 14.1, HCT 43.5, PT 10.7, INR 1.005: SOD 141, K 4.6, CL 103, CO2 25, GL 103, BUN 21. CR 1.3, TC 137, HDL 57, TR 78, LDL 64, AST 19, ALT 14.10-28-2015 Sod 140, K 4.2, Cl 107, Co2 25,GL 92, BUN 22 , Cr 1.05/12/20 EKG: Atrial rhythm. P: QRS - 1:1, abnormal P axis, Hrate 69. Incomplete RBBB. Left atrial enlargement. Nonspecific ST depression + T - abnormality.01/28/20 EKG: Sinus rhythm - frequent ectopic ventricular beats. Incomplete RBBB and left axis - anterior fascicular block. Left atrial enlargement.EKG 07/30/19: Atrial rhythm. Incomplete RBBB and left axis- anterior fascicular block. Left atrial enlargement. Nonspecific T-abnormality.EKG 11/10/17: frequent ventricular premature beats. Incomplete rbbb. Non-specific inverted T waves, inferior leads. Left axis deviationEK05/12/17 Sinus Rhythm frequent ectopic ventricular beat s # VECs=4 Incomplete right bundle branch and left axis anterior fascicular block. Voltage criteria for LVH (R(V6) exceeds 2.26 mV). Nonspecific ST depression + nonspecific T-abnormality -Seen with left ventricular hypertrophy (strain) or digitals effect.EK01/24/2017 Sinus bradycardia. IRBBB and left axis. Anterior fascicular block. Left atrial enlargement. Nonspecific T abnormality. ABNORMAL.EK11/04/16 Sinus bradycardia. IBBB and left axis. Anterior fascicular block.EK11/02/15 Sinus rhythm with frequent premature ventricular complexes. Possible left atrial enlargement. RBBB. Left anterior fascicular block. Bifascicular block Left ventricular hypertrophy. Abnormal ECG. When compared with ECG of 02-NOV-2015 No significant change was found.EK04/29/16 Sinus bradycardia. incomplete right bundle branch block, left axis. anterior fascicular block. left atrial enlargement. nonspecific T depression abnormality . abnormal.EK10/16/15 Sinus bradycardia. Incomplete RBBB and left axis. Anterior fascicular block. Left atrial enlargement. Nonspecific T-abnormality. AbnormalEK04/29/16 Sinus bradycardia. incomplete right bundle branch block, left axis. anterior fascicular block. left atrial enlargement. nonspecific T depression abnormality . abnormal.EK10/16/15 Sinus bradycardia. Incomplete RBBB and left axis. Anterior fascicular block. Left atrial enlargement. Nonspecific T-abnormality. AbnormalLexi 12/27/2018 Positive stress test. Reversible defect consistent with ischemia in inferior lateral area. Normal LVSF. LVEF 45%10/23/15 Positive stress test. Reversible defect consistent with ischemia in inferior lateral area. Mild LV dysfunction. Exercise tolerance average. LVEF 35%.ECHO 02/11/20:LV chamber size is normal,LV wall thickness is normal,EF 40-45%,there is septal dyskinesia,LV relaxation is impaired,the aortic valve is mildly calcified,the aortic valve leaflet excursion is mildly reduced,there is mild aortic root calcification,there is mild thickening of mitral valve anterior leaflet,there is mild mitral regurgitation,there is moderate tricuspid regurgitation,estimate d RVSP systolic pressure is 38 mmHg,IRBBB.Echo 12/27/2018 LV chamber size is normal. There is normal global systolic function and contractility. The estimated LVEF is greater than 55%. There is impaired LV relaxation. There is mild aortic valve sclerosis without significant stenosis. There is mild to moderate mitral regurgitation. There is mild tricuspid regurgitation.11/09/18 ,NCD, 1st degree AV block,incomplete rbbb,left atrial nbqimzakin50/05/18 ECHO: LV chamber size is normal. LV wall thickness is mildly increased. There is normal global systolic function and contractility. The estimated left ventricle ejection fraction is 55-60%( normal). Left ventricular diastolic function is normal. Diastolic filling appears normal. There is mild right ventricular systolic dysfunction. Right atrium chamber is mildly dilated. There is minimal aortic regurgitation. Mitral valve prolapse is present. theres mild mitral regurgitation. There is mild tricuspid regurgitation. The estimated RV systolic pressure is 30-40. There is mild to moderate pulmonic regurgitation.ECHO: 11/03/15 Left ventricular systolic function is low normal. EF=50%. Septal motion is consistent with post-operative state. There is mild mitral regurgitation. Right ventricular systolic pressure is normal. Grade I diastolic dysfunction, (abnormal relaxation pattern).11/07/17 Duplex scan Renal Art/AO/IVC: Both suprarenal and infrarenal abdominal aortic aneurysms with size indicated. The suprarenal component is gradually increasing in size while the infrarenal component remained.angiogram (PROC) 11/19/15 : Left internal mammary artery graft to the left anterior descending is patent. Saphenous vein graft to the obtuse marginal with 60% stenosis. Saphenous vein graft to the right coronary artery is completely occluded. Severe [place] CAD. Normal left ventricular size and systolic function. Williams Hanson MD [address] [place], [address], [facility] 08/17/2022 12:22:42 01/26/2023 text/html 01/27/23CC : Cardiac follow up dyspnea on year-old white man with coronary artery disease s/p coronary artery bypass grafting (X 4 1997), AAA, former smoker (quit 1997), is here for 6 month follow-up. He was last seen in the clinic on 08/17/22, since then he is active . He is doing well. He denied chest pain or dyspnea on exertion. His EKG showed multiple PVCS. *Last LDL was 46 done on 08/30/21 .Pt takes rosuvastatin 10 mg.He denies ER visits and hospitalizations since he was last seen. Today reports:Denies chest pain.Denies shortness of breath at rest. Has mild dyspnea on exertion.No orthopnea. No PNDs.Denies heart palpitations.Denies dizziness. Denies syncope or near syncope.No ankle or leg edema.No major bleeding events.No reported side effects from medications. Taking medications as prescribed with no missed doses.Denies snoring, daytime somnolence and AM headache.*Last LDL was 46 done on 08/30/21 .Pt takes rosuvastatin 10 mg. Previously:He had a stress test with inferior ischemia *He is fairly active. He walks on the treadmill 2 days a week. He had another procedure with Dr. Jenkins 2 weeks ago on 07/28/2020. He reports he had a kinked vessel that needed fixed. He is unsure if he received a stent at that time but he was restarted on Plavix at that time. 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 *ECHO 02/11/20:LV chamber size is normal,LV wall thickness is normal,EF 40-45%,there is septal dyskinesia,LV relaxation is impaired,the aortic valve is milldy calcified,the aortic valve leaflet excursion is mildly reduced,there is mild aortic root calcification,there is mild thickening of mitral valve anterior leaflet,there is mild mitral regurgitation,there is moderate tricuspid regurgitation,estimate d RVSP systolic pressure is 38 mmHg,IRBBB. *12/27/18 TDM: Positive stress test. Reversible defect consistent with ischemia in inferior lateral area. Normal LV systolic function. 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 : SOD 143,K 4.3,CL 108,CO2 28,GLU 99,BUN 19,CR 1.27,AST 16,ALT 11,CK 94,TC 133,TG 101,HDL 58,LDL 55.11/02/15: SOD 141, K 4.6, CL 103, CO2 25, GL 103, BUN 21. CR 1.3, TC 137, HDL 57, TR 78, LDL 64, AST 19, ALT 14.10/28/2015 CMP: SOD 140, K 4.2, CL 107, CO2 25, GL 92, BUN 22, CR 22, HGB 14.1, HCT 43.5, PT 10.7, INR 1.005: SOD 141, K 4.6, CL 103, CO2 25, GL 103, BUN 21. CR 1.3, TC 137, HDL 57, TR 78, LDL 64, AST 19, ALT 14.10-28-2015 Sod 140, K 4.2, Cl 107, Co2 25,GL 92, BUN 22 , Cr 1.05/12/20 EKG: Atrial rhythm. P: QRS - 1:1, abnormal P axis, Hrate 69. Incomplete RBBB. Left atrial enlargement. Nonspecific ST depression + T - abnormality.01/28/20 EKG: Sinus rhythm - frequent ectopic ventricular beats. Incomplete RBBB and left axis - anterior fascicular block. Left atrial enlargement.EKG 07/30/19: Atrial rhythm. Incomplete RBBB and left axis- anterior fascicular block. Left atrial enlargement. Nonspecific T-abnormality.EKG 11/10/17: frequent ventricular premature beats. Incomplete rbbb. Non-specific inverted T waves, inferior leads. Left axis deviationEK05/12/17 Sinus Rhythm frequent ectopic ventricular beat s # VECs=4 Incomplete right bundle branch and left axis anterior fascicular block. Voltage criteria for LVH (R(V6) exceeds 2.26 mV). Nonspecific ST depression + nonspecific T-abnormality -Seen with left ventricular hypertrophy (strain) or digitals effect.EK01/24/2017 Sinus bradycardia. IRBBB and left axis. Anterior fascicular block. Left atrial enlargement. Nonspecific T abnormality. ABNORMAL.EK11/04/16 Sinus bradycardia. IBBB and left axis. Anterior fascicular block.EK11/02/15 Sinus rhythm with frequent premature ventricular complexes. Possible left atrial enlargement. RBBB. Left anterior fascicular block. Bifascicular block Left ventricular hypertrophy. Abnormal ECG. When compared with ECG of 02-NOV-2015 No significant change was found.EK04/29/16 Sinus bradycardia. incomplete right bundle branch block, left axis. anterior fascicular block. left atrial enlargement. nonspecific T depression abnormality . abnormal.EK10/16/15 Sinus bradycardia. Incomplete RBBB and left axis. Anterior fascicular block. Left atrial enlargement. Nonspecific T-abnormality. AbnormalEK04/29/16 Sinus bradycardia. incomplete right bundle branch block, left axis. anterior fascicular block. left atrial enlargement. nonspecific T depression abnormality . abnormal.EK10/16/15 Sinus bradycardia. Incomplete RBBB and left axis. Anterior fascicular block. Left atrial enlargement. Nonspecific T-abnormality. AbnormalLexi 12/27/2018 Positive stress test. Reversible defect consistent with ischemia in inferior lateral area. Normal LVSF. LVEF 45%10/23/15 Positive stress test. Reversible defect consistent with ischemia in inferior lateral area. Mild LV dysfunction. Exercise tolerance average. LVEF 35%.ECHO 02/11/20:LV chamber size is normal,LV wall thickness is normal,EF 40-45%,there is septal dyskinesia,LV relaxation is impaired,the aortic valve is mildly calcified,the aortic valve leaflet excursion is mildly reduced,there is mild aortic root calcification,there is mild thickening of mitral valve anterior leaflet,there is mild mitral regurgitation,there is moderate tricuspid regurgitation,estimate d RVSP systolic pressure is 38 mmHg,IRBBB.Echo 12/27/2018 LV chamber size is normal. There is normal global systolic function and contractility. The estimated LVEF is greater than 55%. There is impaired LV relaxation. There is mild aortic valve sclerosis without significant stenosis. There is mild to moderate mitral regurgitation. There is mild tricuspid regurgitation.11/09/18 ,NCD, 1st degree AV block,incomplete rbbb,left atrial oxgucahmxd28/05/18 ECHO: LV chamber size is normal. LV wall thickness is mildly increased. There is normal global systolic function and contractility. The estimated left ventricle ejection fraction is 55-60%( normal). Left ventricular diastolic function is normal. Diastolic filling appears normal. There is mild right ventricular systolic dysfunction. Right atrium chamber is mildly dilated. There is minimal aortic regurgitation. Mitral valve prolapse is present. theres mild mitral regurgitation. There is mild tricuspid regurgitation. The estimated RV systolic pressure is 30-40. There is mild to moderate pulmonic regurgitation.ECHO: 11/03/15 Left ventricular systolic function is low normal. EF=50%. Septal motion is consistent with post-operative state. There is mild mitral regurgitation. Right ventricular systolic pressure is normal. Grade I diastolic dysfunction, (abnormal relaxation pattern).11/07/17 Duplex scan Renal Art/AO/IVC: Both suprarenal and infrarenal abdominal aortic aneurysms with size indicated. The suprarenal component is gradually increasing in size while the infrarenal component remained.angiogram (PROC) 11/19/15 : Left internal mammary artery graft to the left anterior descending is patent. Saphenous vein graft to the obtuse marginal with 60% stenosis. Saphenous vein graft to the right coronary artery is completely occluded. Severe [place] CAD. Normal left ventricular size and systolic function. ANNY RITCHIE [facility] [place] [facility] 01/26/2023 14:19:50 05/10/2023 text/html 05/10/23CC : Cardiac follow up87 year-old white man with coronary artery disease s/p coronary artery bypass grafting (X 4 1997), AAA, former smoker (quit 1997), is here for follow-up. He was last seen in the clinic on 01/26/23, since then he was in the hospital on 04/04/23 because of Fall. And had GI bleeding, now has leg swelling, had left femur surgery *Head CT and fernandez scan demonstrating : Displaced extra-articular proximal right femur fracture with adjacent hematoma and swelling of the adjacent musculature, and nondisplaced right distal radius fracture and no additional abnormality. Today reports:Denies chest pain.Denies shortness of breath at rest. Has mild dyspnea on exertion.No orthopnea. No PNDs.Denies heart palpitations.Denies dizziness. Denies syncope or near syncope.No major bleeding events.No reported side effects from medications. Taking medications as prescribed with no missed doses.Denies snoring, daytime somnolence and AM headache.*Last LDL was 46 done on 01/27/22.Pt takes rosuvastatin 10 mg. 04/04/23:Na 143,K 4.7,CL 109,CO2 27,Glu 145,Bun 28,Cr 1.40,AST 38,ALT 24 .04/06/23:WBC 10.0,RBC 2.10,HGB 6.7,HCT 20.4,PLT 71. *He had an ECHO on 03/14/23 showed LVEF is 40-45%,LV relaxation is impaired,left atrium chamber is mildly dilated,the aortic valve is moderately calcified,there is mild aortic root calcification,there is mild aortic valve stenosis,there is mild thickening of the mitral valve anterior leaflet,there is mild to moderate mitral regurgitation,there is mild tricuspid regurgitation,there is mild pulmonic regurgitation. Previously:His EKG showed multiple PVCS. He had a stress test with inferior ischemia *He is fairly active. He walks on the treadmill 2 days a week. He had another procedure with Dr. Jenkins 2 weeks ago on 07/28/2020. He reports he had a kinked vessel that needed fixed. He is unsure if he received a stent at that time but he was restarted on Plavix at that time. 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 *12/27/18 TDM: Positive stress test. Reversible defect consistent with ischemia in inferior lateral area. Normal LV systolic function. 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 : SOD 143,K 4.3,CL 108,CO2 28,GLU 99,BUN 19,CR 1.27,AST 16,ALT 11,CK 94,TC 133,TG 101,HDL 58,LDL 55.11/02/15: SOD 141, K 4.6, CL 103, CO2 25, GL 103, BUN 21. CR 1.3, TC 137, HDL 57, TR 78, LDL 64, AST 19, ALT 14.10/28/2015 CMP: SOD 140, K 4.2, CL 107, CO2 25, GL 92, BUN 22, CR 22, HGB 14.1, HCT 43.5, PT 10.7, INR 1.005: SOD 141, K 4.6, CL 103, CO2 25, GL 103, BUN 21. CR 1.3, TC 137, HDL 57, TR 78, LDL 64, AST 19, ALT 14.10-28-2015 Sod 140, K 4.2, Cl 107, Co2 25,GL 92, BUN 22 , Cr 1.05/12/20 EKG: Atrial rhythm. P: QRS - 1:1, abnormal P axis, Hrate 69. Incomplete RBBB. Left atrial enlargement. Nonspecific ST depression + T - abnormality.01/28/20 EKG: Sinus rhythm - frequent ectopic ventricular beats. Incomplete RBBB and left axis - anterior fascicular block. Left atrial enlargement.EKG 07/30/19: Atrial rhythm. Incomplete RBBB and left axis- anterior fascicular block. Left atrial enlargement. Nonspecific T-abnormality.EKG 11/10/17: frequent ventricular premature beats. Incomplete rbbb. Non-specific inverted T waves, inferior leads. Left axis deviationEK05/12/17 Sinus Rhythm frequent ectopic ventricular beat s # VECs=4 Incomplete right bundle branch and left axis anterior fascicular block. Voltage criteria for LVH (R(V6) exceeds 2.26 mV). Nonspecific ST depression + nonspecific T-abnormality -Seen with left ventricular hypertrophy (strain) or digitals effect.EK01/24/2017 Sinus bradycardia. IRBBB and left axis. Anterior fascicular block. Left atrial enlargement. Nonspecific T abnormality. ABNORMAL.EK11/04/16 Sinus bradycardia. IBBB and left axis. Anterior fascicular block.EK11/02/15 Sinus rhythm with frequent premature ventricular complexes. Possible left atrial enlargement. RBBB. Left anterior fascicular block. Bifascicular block Left ventricular hypertrophy. Abnormal ECG. When compared with ECG of 02-NOV-2015 No significant change was found.EK04/29/16 Sinus bradycardia. incomplete right bundle branch block, left axis. anterior fascicular block. left atrial enlargement. nonspecific T depression abnormality . abnormal.EK10/16/15 Sinus bradycardia. Incomplete RBBB and left axis. Anterior fascicular block. Left atrial enlargement. Nonspecific T-abnormality. AbnormalEK04/29/16 Sinus bradycardia. incomplete right bundle branch block, left axis. anterior fascicular block. left atrial enlargement. nonspecific T depression abnormality . abnormal.EK10/16/15 Sinus bradycardia. Incomplete RBBB and left axis. Anterior fascicular block. Left atrial enlargement. Nonspecific T-abnormality. AbnormalLexi 12/27/2018 Positive stress test. Reversible defect consistent with ischemia in inferior lateral area. Normal LVSF. LVEF 45%10/23/15 Positive stress test. Reversible defect consistent with ischemia in inferior lateral area. Mild LV dysfunction. Exercise tolerance average. LVEF 35%.ECHO 02/11/20:LV chamber size is normal,LV wall thickness is normal,EF 40-45%,there is septal dyskinesia,LV relaxation is impaired,the aortic valve is mildly calcified,the aortic valve leaflet excursion is mildly reduced,there is mild aortic root calcification,there is mild thickening of mitral valve anterior leaflet,there is mild mitral regurgitation,there is moderate tricuspid regurgitation,estimate d RVSP systolic pressure is 38 mmHg,IRBBB.Echo 12/27/2018 LV chamber size is normal. There is normal global systolic function and contractility. The estimated LVEF is greater than 55%. There is impaired LV relaxation. There is mild aortic valve sclerosis without significant stenosis. There is mild to moderate mitral regurgitation. There is mild tricuspid regurgitation.11/09/18 ,NCD, 1st degree AV block,incomplete rbbb,left atrial vzinevniis30/05/18 ECHO: LV chamber size is normal. LV wall thickness is mildly increased. There is normal global systolic function and contractility. The estimated left ventricle ejection fraction is 55-60%( normal). Left ventricular diastolic function is normal. Diastolic filling appears normal. There is mild right ventricular systolic dysfunction. Right atrium chamber is mildly dilated. There is minimal aortic regurgitation. Mitral valve prolapse is present. theres mild mitral regurgitation. There is mild tricuspid regurgitation. The estimated RV systolic pressure is 30-40. There is mild to moderate pulmonic regurgitation.ECHO: 11/03/15 Left ventricular systolic function is low normal. EF=50%. Septal motion is consistent with post-operative state. There is mild mitral regurgitation. Right ventricular systolic pressure is normal. Grade I diastolic dysfunction, (abnormal relaxation pattern).11/07/17 Duplex scan Renal Art/AO/IVC: Both suprarenal and infrarenal abdominal aortic aneurysms with size indicated. The suprarenal component is gradually increasing in size while the infrarenal component remained.angiogram (PROC) 11/19/15 : Left internal mammary artery graft to the left anterior descending is patent. Saphenous vein graft to the obtuse marginal with 60% stenosis. Saphenous vein graft to the right coronary artery is completely occluded. Severe [place] CAD. Normal left ventricular size and systolic function. Williams Hanson MD [address] [place], [address], [facility] 05/10/2023 14:33:27 05/24/2023 text/html 05/24/23CC : Cardiac follow up dyspnea on [id number] year-old white man with coronary artery disease s/p coronary artery bypass grafting (X 4 1997), AAA, former smoker (quit 1997), is here for 2 week follow-up. He was last seen in the clinic on 05/10/23, since then he is doing well.He denies ER visits and hospitalizations since he was last seen. Today reports:no ccDenies chest pain.Denies shortness of breath at rest. Has mild dyspnea on exertion.No orthopnea. No PNDs.Denies heart palpitations.Denies dizziness. Denies syncope or near syncope.No ankle or leg edema.No major bleeding events.No reported side effects from medications. Taking medications as prescribed with no missed doses.Denies snoring, daytime somnolence and AM headache.*Last LDL was 46 done on 01/27/22.Pt takes rosuvastatin 10 mg. Previously:He was in the hospital on 04/04/23 because of Fall. And had GI bleeding, now has leg swelling, had left femur surgery *Head CT and fernandez scan demonstrating : Displaced extra-articular proximal right femur fracture with adjacent hematoma and swelling of the adjacent musculature, and nondisplaced right distal radius fracture and no additional abnormality. 04/04/23:Na 143,K 4.7,CL 109,CO2 27,Glu 145,Bun 28,Cr 1.40,AST 38,ALT 24 .04/06/23:WBC 10.0,RBC 2.10,HGB 6.7,HCT 20.4,PLT 71. *He had an ECHO on 03/14/23 showed LVEF is 40-45%,LV relaxation is impaired,left atrium chamber is mildly dilated,the aortic valve is moderately calcified,there is mild aortic root calcification,there is mild aortic valve stenosis,there is mild thickening of the mitral valve anterior leaflet,there is mild to moderate mitral regurgitation,there is mild tricuspid regurgitation,there is mild pulmonic regurgitation. His EKG showed multiple PVCS. He had a stress test with inferior ischemia *He is fairly active. He walks on the treadmill 2 days a week. He had another procedure with Dr. Jenkins 2 weeks ago on 07/28/2020. He reports he had a kinked vessel that needed fixed. He is unsure if he received a stent at that time but he was restarted on Plavix at that time. 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 *12/27/18 TDM: Positive stress test. Reversible defect consistent with ischemia in inferior lateral area. Normal LV systolic function. 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 : SOD 143,K 4.3,CL 108,CO2 28,GLU 99,BUN 19,CR 1.27,AST 16,ALT 11,CK 94,TC 133,TG 101,HDL 58,LDL 55.11/02/15: SOD 141, K 4.6, CL 103, CO2 25, GL 103, BUN 21. CR 1.3, TC 137, HDL 57, TR 78, LDL 64, AST 19, ALT 14.10/28/2015 CMP: SOD 140, K 4.2, CL 107, CO2 25, GL 92, BUN 22, CR 22, HGB 14.1, HCT 43.5, PT 10.7, INR 1.005: SOD 141, K 4.6, CL 103, CO2 25, GL 103, BUN 21. CR 1.3, TC 137, HDL 57, TR 78, LDL 64, AST 19, ALT 14.10-28-2015 Sod 140, K 4.2, Cl 107, Co2 25,GL 92, BUN 22 , Cr 1.05/12/20 EKG: Atrial rhythm. P: QRS - 1:1, abnormal P axis, Hrate 69. Incomplete RBBB. Left atrial enlargement. Nonspecific ST depression + T - abnormality.01/28/20 EKG: Sinus rhythm - frequent ectopic ventricular beats. Incomplete RBBB and left axis - anterior fascicular block. Left atrial enlargement.EKG 07/30/19: Atrial rhythm. Incomplete RBBB and left axis- anterior fascicular block. Left atrial enlargement. Nonspecific T-abnormality.EKG 11/10/17: frequent ventricular premature beats. Incomplete rbbb. Non-specific inverted T waves, inferior leads. Left axis deviationEK05/12/17 Sinus Rhythm frequent ectopic ventricular beat s # VECs=4 Incomplete right bundle branch and left axis anterior fascicular block. Voltage criteria for LVH (R(V6) exceeds 2.26 mV). Nonspecific ST depression + nonspecific T-abnormality -Seen with left ventricular hypertrophy (strain) or digitals effect.EK01/24/2017 Sinus bradycardia. IRBBB and left axis. Anterior fascicular block. Left atrial enlargement. Nonspecific T abnormality. ABNORMAL.EK11/04/16 Sinus bradycardia. IBBB and left axis. Anterior fascicular block.EK11/02/15 Sinus rhythm with frequent premature ventricular complexes. Possible left atrial enlargement. RBBB. Left anterior fascicular block. Bifascicular block Left ventricular hypertrophy. Abnormal ECG. When compared with ECG of 02-NOV-2015 No significant change was found.EK04/29/16 Sinus bradycardia. incomplete right bundle branch block, left axis. anterior fascicular block. left atrial enlargement. nonspecific T depression abnormality . abnormal.EK10/16/15 Sinus bradycardia. Incomplete RBBB and left axis. Anterior fascicular block. Left atrial enlargement. Nonspecific T-abnormality. AbnormalEK04/29/16 Sinus bradycardia. incomplete right bundle branch block, left axis. anterior fascicular block. left atrial enlargement. nonspecific T depression abnormality . abnormal.EK10/16/15 Sinus bradycardia. Incomplete RBBB and left axis. Anterior fascicular block. Left atrial enlargement. Nonspecific T-abnormality. AbnormalLexi 12/27/2018 Positive stress test. Reversible defect consistent with ischemia in inferior lateral area. Normal LVSF. LVEF 45%10/23/15 Positive stress test. Reversible defect consistent with ischemia in inferior lateral area. Mild LV dysfunction. Exercise tolerance average. LVEF 35%.ECHO 02/11/20:LV chamber size is normal,LV wall thickness is normal,EF 40-45%,there is septal dyskinesia,LV relaxation is impaired,the aortic valve is mildly calcified,the aortic valve leaflet excursion is mildly reduced,there is mild aortic root calcification,there is mild thickening of mitral valve anterior leaflet,there is mild mitral regurgitation,there is moderate tricuspid regurgitation,estimate d RVSP systolic pressure is 38 mmHg,IRBBB.Echo 12/27/2018 LV chamber size is normal. There is normal global systolic function and contractility. The estimated LVEF is greater than 55%. There is impaired LV relaxation. There is mild aortic valve sclerosis without significant stenosis. There is mild to moderate mitral regurgitation. There is mild tricuspid regurgitation.11/09/18 ,NCD, 1st degree AV block,incomplete rbbb,left atrial bylwkrjqwi74/05/18 ECHO: LV chamber size is normal. LV wall thickness is mildly increased. There is normal global systolic function and contractility. The estimated left ventricle ejection fraction is 55-60%( normal). Left ventricular diastolic function is normal. Diastolic filling appears normal. There is mild right ventricular systolic dysfunction. Right atrium chamber is mildly dilated. There is minimal aortic regurgitation. Mitral valve prolapse is present. theres mild mitral regurgitation. There is mild tricuspid regurgitation. The estimated RV systolic pressure is 30-40. There is mild to moderate pulmonic regurgitation.ECHO: 11/03/15 Left ventricular systolic function is low normal. EF=50%. Septal motion is consistent with post-operative state. There is mild mitral regurgitation. Right ventricular systolic pressure is normal. Grade I diastolic dysfunction, (abnormal relaxation pattern).11/07/17 Duplex scan Renal Art/AO/IVC: Both suprarenal and infrarenal abdominal aortic aneurysms with size indicated. The suprarenal component is gradually increasing in size while the infrarenal component remained.angiogram (PROC) 11/19/15 : Left internal mammary artery graft to the left anterior descending is patent. Saphenous vein graft to the obtuse marginal with 60% stenosis. Saphenous vein graft to the right coronary artery is completely occluded. Severe [place] CAD. Normal left ventricular size and systolic function. Williams Hanson MD [address] [place], [address], [facility] 05/24/2023 14:47:32
--- OUTSIDE RECORDS SUMMARY | 2025-05-09 14:37 | XMS_ITS | Encounter Summary ---
Author Organization [facility] Address [address] [place] [address] Phone Care Team Providers Care Bus Attendant Name Role Phone Won Denton MD Primary [...] on file Legal Sex Male 9:30 AM SNUFF GRINDER AND SCREENER Gender Identity Male 02/23/2021 1:28 PM CDT Sexual Orientation Straight 02/29/2020 4: 17 PM CDT documented as of this encounter Plan of Treatment Not on file documented as of this encounter Procedures Procedure Name Priority Date/Time Associated Diagnosis Comments SCAN - RADIOLOGY/IMAGING 07/19/2023 2:36 PM SNUFF GRINDER AND SCREENER documented in this encounter Results * SCAN - RADIOLOGY/IMAGING (07/19/2023 2:36 PM SNUFF GRINDER AND SCREENER) Anatomical Region Laterality Modality Other us Provider Scanning Final Result documented in this encounter Visit Diagnoses Not on filedocumented in this encounter Care Teams Bus Attendant Relationship Specialty Start Date End Date Won Denton MD [address] [facility] [address] [place] [address] PCP - General Family Medicine 08/02/18 documented as of this encounter
--- OUTSIDE RECORDS SUMMARY | 2025-05-09 15:23 | XMS_ITS | Clinical Summary ---
Author Organization [facility] Address [address] [place] [id number] Care Team Providers Care Import Coordination And Production Head Name Role Phone Won Denton MD Primary [...] (07/23/2020): Added automatically from request for surgery [id number] Abdominal aortic aneurysm (AAA) without rupture 01/02/2018 Hypertension 01/02/2018 Dyslipidemia 05/12/2017 Benign prostatic hyperplasia 10/15/2015 Dyspnea 10/15/2015 Hyperlipidemia 10/10/2015 Resolved Problems Problem Noted Date Diagnosed Date Resolved Date Coronary artery disease, uns pecified vessel or lesion type, unspecified whether angina present, unspecified whether kiana or transplanted heart 11/02/2023 02/20/2024 Coronary atherosclerosis 01/26/2020 Prominent popliteal pulse 08/20/2019 Encounter for surgical after care following surgery of circulatory system 08/20/2019 02/20/2024 Coronary artery disease invo lving autologous artery coronary bypass graft 01/02/2018 02/20/2024 Disorder of coronary artery 10/10/2015 02/20/2024 Overview (05/19/2023): S/P CABG X 4 1997 Encounters Date Type Department Care Team Description 03/29/2025 Telephone [facility] Cardiology [address] [place] [phone] Jessica Mcneal MD 02/07/2025 10:30 AM CDT Office Visit [facility] Cardiology [address] [place] [phone] Renae Scott NP Bradycardia (Primary Dx); Atrial flutter, unspecified type (HCC); Cardiomyopathy, unspecified type (HCC); Chronic anticoagulation; Stage 3b chronic kidney disease (HCC); Coronary artery disease involving autologous artery coronary bypass graft without angina pectoris 02/07/2025 Telephone [facility] Cardiology [address] [place] [phone] Renae Scott NP from Last 3 [...] drink = 0.6 oz pur e alcohol) [facility] Utilities Answer Date Recorded In the past 12 months has e [employer], gas, oil, or water Seesearch threatened to shut off services in your [...] often do you attend chur ch or sabianist services? More than 4 times per year 11/02/2023 Do you belong to any clubs o r organizations such as lutheran groups, unions, fraternal or athletic groups, or [...] place to sleep or slept in a correction (including now)? No 11/02/2023 Personal Safety Answer Date Recorded Have you ever been in or are you currently in a harmful physical or emotional relationship or is someone making you feel afraid or unsafe? Denies 11/01/2023 Sex and Gender Information Value Date Recorded Sex Assigned at Not on file Legal Sex Male 9:30 AM VASCULAR SONOGRAPHER Gender Identity Male 02/23/2021 1:28 PM CDT [...] 03/23/2016, 08/2012 Medical Devices Implanted Type Area Mutual Fund Analyst Device Identifier Shelf Expiration Date Model / Serial / Lot Zenith Fenestrated Aaa Endovascular Graft Implanted:Qty: 1 on 10/10/2018 by Jose Juan Jenkins MD at [facility] Graft N/A: Aorta [employer] 08/31/2021 [id number] / / [id number] Description:3-Visceral Fenes trated AAA Endograft [employer] [id number] Zenith Flex 36mm 50mm Z-Trak Main Body Extension Graft - S00 - [id number] Implanted:Qty: 1 on 10/10/2018 by Jose Juan Jenkins MD at [facility] Graft N/A: Aorta [employer] [id number] 12/18/2020 [id number] / / [id number] [employer] [id number] Odell Viabahn 7mm 11mm 7fr 79mm 135cm Balloon Expandable Guidewire - [id number] - [id number] Implanted:Qty: 1 on 10/10/2018 by Jose Juan Jenkins MD at [facility] Graft N/A: Other - see comments [employer] 04/21/2021 [id number] / [id number] / 00 Description:Celiac Artery Graft Endovascular Zenith L91 Mm L28 Mm Od12 Fr Abdominal Aortic Aneurysm Visceral Fenestration Distal Bifurcated Body - S00 - [id number] Implanted:Qty: 1 on 10/10/2018 by Jose Juan Jenkins MD at [facility] Graft Right: Aorta [employer] [id number] 08/31/2021 [id number] / 00 / [id number] [employer] [id number] Zenith Spiral-Z 20mm 6mm 16fr 74mm Iliac Leg Transcend Precision - S00 - [id number] Implanted:Qty: 1 on 10/10/2018 by Jose Juan Jenkins MD at [facility] Graft Right: Iliac [employer] [id number] 06/13/2021 [id number] / 00 / [id number] [employer] [id number] Zenith Spiral-Z Z-Trak 16mm 5.4mm 14fr 74mm Iliac Leg Transcend - S0 - [id number] Implanted:Qty: 1 on 10/10/2018 by Jose Juan Jenkins MD at [facility] Graft Left: Iliac [employer] [id number] 06/14/2021 [id number] / 0 / [id number] [employer] 62619-44 Perclose 6fr Suture Mediate Knot Push Vascular Device Closure - S00 - [id number] Implanted:Qty: 1 on 08/01/2020 by Jose Juan Jenkins MD at [facility] Other - see comments N/A: Abdomen [employer] [id number] 05/03/2022 90070-30 / 00 / [id number] Description:suture [employer] 76555 Icast 8mm 7fr 38mm 80cm Cover Catheter Introducer Balloon Expand - [id number] - [id number] Implanted:Qty: 1 on 10/10/2018 by Jose Juan Jenkins MD at [facility] Stent N/A: Other - see comments [employer] [id number] 10/12/2020 58836 / [id number] / 00 Description:Superior Mesente gabino Artery [employer] Inc 09784 Icast 6mm 6fr 22mm 80cm Cover Catheter Introducer Balloon Expand - [id number] - [id number] Implanted:Qty: 1 on 10/10/2018 by Jose Juan Jenkins MD at [facility] Stent Left: Other - see comments [employer] [id number] 07/18/2021 [id number] / [id number] / 00 Description:Renal Artery [employer] Inc 98061 Icast 6mm 6fr 22mm 80cm Cover Catheter Introducer Balloon Expand - [id number] - [id number] Implanted:Qty: 1 on 10/10/2018 by Jose Juan Jenkins MD at [facility] Stent Right: Other - see comments [employer] [id number] 07/18/2021 16918 / [id number] / Description:Renal Artery [employer] [id number] Stent Endoprosthesis 29mm 7mm 11mm 7fr Odell Viabahn 135cm - [id number] - [id number] Implanted:Qty: 1 on 2019 by Jose Juan Jenkins MD at [facility] Stent Renal [employer] 02/05/2022 [id number] / [id number] / W[employer] Inc [id number] Viabahn 6mm 2.5cm 120cm Flexible Self Expand Radiopaque Stent - [id number] - [id number] Implanted:Qty: 1 on 2019 by Jose Juan Jenkins MD at [facility] Stent Right: Aorta [employer] [id number] 12/18/2021 [id number] / [id number] / Maquet Inc 19088 Icast 7mm 7fr 22mm 80cm Cover Catheter Introducer Balloon Expand - [id number] - [id number] Implanted:Qty: 1 on 08/01/2020 by Jose Juan Jenkins MD at [facility] Stent N/A: Abdomen [employer] [id number] 01/07/2023 19449 / [id number] / Description:SMA stent Wires N/A: Sternum Daig Roddy [id number] Device Closure Angio-Seal Vip Bondek-Plus Polyglyd L70 Cm Od6 Fr Odsec.035 In Vascular - [id number] Implanted:Qty: 1 on 01/30/2020 at [facility] Daig Roddy/[employer] 10/31/2020 [id number] / / [id number] White & Nephew/Richco/Ort ho Intertan 4.5mm 95mm 90mm Lag Compression Integrated Interlocking [id number] - [id number] Implanted:Qty: 1 on 04/04/2023 by La Cavanaugh MD at [facility] Right: Leg [employer]/Richco /Ortho [id number] 08/23/2032 [id number] / / [id number] White [employer]hew/Richco/Ort ho Intertan 46cm 13mm Right Intertrochanter 130d 1.5mm Nail [id number] - [id number] Implanted:Qty: 1 on 04/04/2023 by La Cavanaugh MD at [facility] Right: Leg [employer]Rich[employer] /Ortho [id number] 06/05/2032 [id number] / / [id number] [employer]hew/Richco/Ort ho 5mm 50mm Low Profile Internal Hex Femur Screw Bone Trigen [id number] - [id number] Implanted:Qty: 1 on 04/04/2023 by La Cavanaugh MD at [facility] Right: Leg [employer]hew/Richco /Ortho [id number] / / White & Nephew/Richco/Ort ho 5mm 70mm Low Profile Internal Hex Femur Screw Bone Trigen [id number] - [id number] Implanted:Qty: 1 on 04/04/2023 by La Cavanaugh MD at [facility] Right: Leg White [employer] Nephew/Richco /Ortho [id number] / / Medtronic Card Vasc Surgery 2.50 X 15mm [place] Cherry Rx Coronary Stent [id number] - [id number] Implanted:Qty: 1 on 11/01/2023 by Jessica Mcneal MD at [facility] 06/05/2026 [id number] / / [id number] [employer] Medical [facility] Device Vascular Closure Femoral Artery Bioabsorbable Dual Method Vascade 6-7fr Collagen [id number] - [id number] Implanted:Qty: 1 on 11/01/2023 by Jessica Mcneal MD at [facility] [employer] 08/04/2025 [id number] / / [id number] Procedures Procedure Name Priority Date/Time Associated Diagnosis Comments ECG 12-LEAD Routine 02/07/2025 10:53 AM CDT Bradycardia from Last 3 Months Results * ECG 12 lead (02/07/2025 10:53 AM CDT) 02/07/2025 10:5 3 AM CDT Renae Scott NP ECG ORDERABLES Final Res ult from Last 3 Months Insurance MEDICARE [facility] MCR SUPPLEMENT MEDICARE [facility] SUPPLEMENT [place] [id number] [facility] [place] [id number] MEDICARE [facility] Address: [address] [address] [place] [address] [facility] Advance Directives For more information, please contact: [phone] Documents on File Type Date Recorded Patient Sports Photographer Expl anation ADVANCE DIRECTIVE 01/10/2018 3:57 PM [...] 4:30 PM 10/12/2018 4:14 PM Care Teams Import Coordination And Production Head Relationship Specialty Start Date End Date Won Denton MD [address] [place] [id number] PCP - General Family Medicine 08/02/18
--- OUTSIDE RECORDS SUMMARY | 2025-05-09 15:24 | XMS_ITS | Encounter Summary ---
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 Gender Identity Male 02/23/2021 1:28 PM CDT Sexual Orientation Straight 02/29/2020 4: 17 PM CDT documented as of this encounter Plan of Treatment Not on file documented as of this encounter Procedures Procedure Name Priority Date/Time Associated Diagnosis Comments SCAN - RADIOLOGY/IMAGING 07/19/2023 2:36 PM BANDING MACHINE OPERATOR documented in this encounter Results * SCAN - RADIOLOGY/IMAGING (07/19/2023 2:36 PM BANDING MACHINE OPERATOR) Anatomical Region Laterality Modality Other us Provider Scanning Final Result documented in this encounter Visit Diagnoses Not on filedocumented in this encounter Care Teams Lock Installer Relationship Specialty Start Date End Date Won Denton MD [address] [facility] [address] [place] [address] PCP - General Family Medicine 08/02/18 documented as of this encounter
--- OUTSIDE RECORDS SUMMARY | 2025-05-09 15:24 | XMS_ITS | Encounter Summary ---
Author Organization [facility] Address [address] [place] [address] Care Team Providers Care Multi Slide Machine Tender Name Role Phone Won Denton MD Primary Care Provider Encounter Details Date Type Department Care Team (Late st Contact Info) Description 12/03/2024 Orders Only [facility] [address] [place] [address] Scanning, Provider Social History Tobacco Use Types Packs/Day Years Used Date Smoking Tobacco: Former Cigarettes 1 43.7 0 07/04/1954 - 03/01/1998 Smokeless Tobacco: Never Alcohol Use Standard Drinks/Week Comments Yes 3 (1 standard drink = 0.6 oz pur e alcohol) [facility] Utilities Answer Date Recorded In the past 12 months has [employer], gas, oil, or water company threatened to [...] How often do you attend chur or scientologist services? More than 4 times per year 11/02/2023 Do you belong to any clubs o r organizations such as congregational groups, unions, fraternal or athletic groups, or [...] place to sleep or slept in a retirement (including now)? No 11/02/2023 Personal Safety Answer Date Recorded Have you ever been in or are you currently in a harmful physical or emotional relationship or is someone making you feel afraid or unsafe? Denies 11/01/2023 Sex and Gender Information Value Date Recorded Sex Assigned at Not on file Legal Sex Male 9:30 AM GI PHYSICIAN Gender Identity Male 02/23/2021 1:28 PM CDT [...] on filedocumented in this encounter Care Teams Multi Slide Machine Tender Relationship Specialty Start Date End Date Won Denton MD [address] [facility] [address] [place] [address] PCP - General Family Medicine 08/02/18 documented as of this encounter
--- OUTSIDE RECORDS SUMMARY | 2025-05-09 15:24 | XMS_ITS | Clinical Summary ---
Author Organization [facility] Sintia mack Ninfa Address [address] [place] [address] Care Team Providers Care Pharmacist Manager Name Role Phone Unavailable Primary Care Provider [...] st Contact Info) Description 05/22/2025 10:30 AM TEACHER'S ASSISTANT Office Visit [facility] Oncology and Hematology - Michele [address] [place] [address] Harika Ni MD [address] [place] [address] Health Maintenance Due Date Last Done Comments DTAP/TDAP/TD VACCINES (1 - Tdap) 1954 PNEUMOCOCCAL VACCINE 50+ YEARS (1 of 1 - PCV) 05/04/19 87 ZOSTER VACCINE (1 of 2) 1987 RSV VACCINE (60+ or ) (1 - 1-dose 75+ series) 2012 INFLUENZA VACCINE (#1) 2025 Insurance MEDICARE PART A AND B
== END 2025-05-08 18:37 | disposition home or self-care (01) ==
PROVIDERS: Emergency Provider Student in an Organized Health Care Education/Training Program; PCP Family Medicine
DX: S70.02XA Contusion of left hip, initial encounter (principal); S41.112A Laceration without foreign body of left upper arm, initial encounter; S51.812A Laceration without foreign body of left forearm, initial encounter; I50.9 Heart failure, unspecified; I11.0 Hypertensive heart disease with heart failure; E78.5 Hyperlipidemia, unspecified; N40.0 Benign prostatic hyperplasia without lower urinary tract symptoms; M19.90 Unspecified osteoarthritis, unspecified site; Z95.1 Presence of aortocoronary bypass graft; Z87.442 Personal history of urinary calculi; Z87.891 Personal history of nicotine dependence; Z90.49 Acquired absence of other specified parts of digestive tract; Z79.01 Long term (current) use of anticoagulants; W19.XXXA Unspecified fall, initial encounter
CPT/HCPCS: 70450; 72131; 73080; 73502; 73562; 73700; 99284

== ENCOUNTER 2025-05-22 11:59 | Outpatient (CLI) | payer MEDICARE, SELFPAY ==
--- OUTSIDE RECORDS SUMMARY | 2025-05-22 10:30 | XMS_ITS | Encounter Summary ---
Author Organization [facility] Address [address] [place] [address] Care Team Providers Care Fashion Adviser Name Role Phone Unavailable Primary Care Provider Unavailabl e Reason for Referral * Radiology Services (Routine) - Closed Specialty Diagnoses / Procedures Referred By Patricia t Referred To Contact Diagnoses Macrocytosis Other secondary thrombocytopenia Procedures US ABDOMEN COMPLETE Harika Ni MD [address] [place] [address] Phone: tel: fax: [place] [phone] Referral ID Status Reason Start Date Expiration Date V isits Requested Visits Authorized [id number] Closed STL CTS 05/22/2025 06/22/2026 1 1 IN EXTERMINATOR Encounter Details Date Type Department Care Team (Late st Contact Info) Description 05/22/2025 10:30 AM VERMIN EXTERMINATOR Office Visit [facility] Oncology and Hematology [facility] [address] [place] [address] Harika Ni MD [address] [place] [address] Macrocytosis (Primary Dx); Other secondary thrombocytopenia Social History Tobacco Use Types Packs/Day Years Used Date Smoking Tobacco: Former Cigarettes 0.8 40 0 02/01/1958 - 02/01/1998 Smokeless Tobacco: Never Tobacco Cessation:Counseling Given: Not Answered Alcohol Use Standard Drinks/Week Comments Yes 0 (1 standard drink = 0.6 oz pur e alcohol) 2 drinks a day Sex and Gender Information Value Date Recorded Sex Assigned at Not on file Legal Sex Male 2:41 PM CDT Gender Identity Not on file Sexual Orientation Not on file documented as of this encounter Last Filed Vital Signs Vital Sign Reading Time Taken Comments Blood Pressure 160/59 05/22/2025 10:52 AM VERMIN EXTERMINATOR Pulse 66 05/22/2025 10:45 AM VERMIN EXTERMINATOR Temperature 36.2 C (97.2 F) 05/22/2025 10:45 AM VERMIN EXTERMINATOR Respiratory Rate 16 05/22/2025 10:45 AM VERMIN EXTERMINATOR Oxygen Saturation 91% 05/22/2025 10:45 AM VERMIN EXTERMINATOR Inhaled Oxygen Concentration - - Weight 66 kg (145 lb 6.4 oz) 05/22/2025 10:45 AM VERMIN EXTERMINATOR Height - - Body Mass Index - - documented in this encounter Plan of Treatment Upcoming Encounters Date Type Department Care Team (Late st Contact Info) Description 06/18/2025 2:45 PM VERMIN EXTERMINATOR Office Visit [facility] Oncology and Hematology - Michele [address] [facility] [address] [place] [address] Tavares Godwin MD [address] [facility] [address] [place] [address] Scheduled Orders Name Type Priority Associated Diagnoses Orde r Schedule CBC WITH DIFFERENTIAL Lab Routine Macrocytosis Other secondary thrombocytopenia Ordered: 05/22/2025 COMPREHENSIVE METABOLIC PANEL Lab Stat Macrocytosis Other secondary thrombocytopenia Expected: 05/22/2025, Expires: 05/22/2026 VITAMIN B12 AND FOLATE Lab Routine Macrocytosis Other secondary thrombocytopenia Ordered: 05/22/2025 METHYLMALONIC ACID Lab Routine Macrocytosis Other secondary thrombocytopenia Ordered: 05/22/2025 HOMOCYSTEINE Lab Routine Macrocytosis Other secondary thrombocytopenia Ordered: 05/22/2025 RETICULOCYTES Lab Routine Macrocytosis Other secondary thrombocytopenia Ordered: 05/22/2025 PROTEIN ELECTROPHORESIS W/REFLEX,SERUM Lab Routine Macrocytosis Other secondary thrombocytopenia Ordered: 05/22/2025 US ABDOMEN COMPLETE Imaging Routine Macrocytosis Other secondary thrombocytopenia 1 Occurrences starting 05/22/2025 until 05/22/2026 documented as of this encounter Visit Diagnoses Diagnosis Macrocytosis- Primary Other specified diseases of blood and blood-forming organs Other secondary thrombocytopenia documented in this encounter
[2025-05-22 12:16] LABS: Hematocrit 38.5 % (42.0-52.0); Hemoglobin 12.3 g/dL (14.0-18.0); Immature Granulocyte Percent A 0.7 % (0-0.5); Immature Reticulocyte Fraction 11.0 % (3.0-15.9); Lymphocytes Absolute Auto 0.79 K/mm3 (0.9-3.2); Mean Corpuscular HGB Conc 31.9 g/dl (32-36); Mean Corpuscular Hemoglobin 33.3 pg (26-34); Mean Corpuscular Volume 104.3 fl (80-100); Nucleated Red Blood Cells Absolute Auto 0.000 K/mm3 (0.0-0.012); Nucleated Red Blood Cells Perc 0.0 % (0.0-0.2); Platelet Count Result 113 k/mm3 (150-375); Red Blood Count 3.69 M/mm3 (4.6-6.20); Reticulocyte Hemoglobin Conten 37.3 pg (28.2-36.6); Reticulocytes Absolute 0.05 10^6/uL (0.02-0.10); White Blood Count 5.6 K/mm3 (4.5-10.0)
--- OUTSIDE RECORDS SUMMARY | 2025-05-22 17:27 | XMS_ITS | Encounter Summary ---
Author Organization [facility] Healthcare Address [address] [place] [address] Care Team Providers Care Pilot Instructor Name Role Phone Won Denton MD Primary Care Provider Encounter Details Date Type Department Care Team (Late st Contact Info) Description 12/03/2024 Orders Only [facility] Information Management [address] [place] [address] Scanning, Provider Social History Tobacco Use Types Packs/Day Years Used Date Smoking Tobacco: Former Cigarettes 1 43.7 0 07/04/1954 - 03/01/1998 Smokeless Tobacco: Never Alcohol Use Standard Drinks/Week Comments Yes 3 (1 standard drink = 0.6 oz pur e alcohol) [facility] Utilities Answer Date Recorded In the past 12 months has [employer], gas, oil, or water company threatened to [...] How often do you attend chur or synagogue services? More than 4 times per year 11/02/2023 Do you belong to any clubs o r organizations such as jehovah's witness groups, unions, fraternal or athletic groups, or [...] place to sleep or slept in a skilled nursing (including now)? No 11/02/2023 Personal Safety Answer Date Recorded Have you ever been in or are you currently in a harmful physical or emotional relationship or is someone making you feel afraid or unsafe? 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
--- OUTSIDE RECORDS SUMMARY | 2025-05-22 17:27 | XMS_ITS | Clinical Summary ---
Author Organization [facility] Sintia Berry Address [address] [place] [address] Care Team Providers Care Anthropologist Name Role Phone Unavailable Primary Care Provider Unavailabl e Allergies Active Allergy Reactions Criticality Noted Date Comments Penicillins Other (See Comments) 05/22/2025 Medications ALPRAZolam (XANAX) 0.25 mg tablet Take 0.25 mg by mouth. 5 Active amiodarone (CORDARONE) 200 mg tablet Take 1 Tablet by mouth daily. 5 Active Eliquis 2.5 mg tablet Take 2.5 mg by mouth 2 times daily. 5 Active furosemide (LASIX) 40 mg tablet Take 40 mg by mouth daily. 5 Active hydrALAZINE (APRESOLINE) 50 mg tablet Take 1 Tablet by mouth 3 times daily. 5 Active isosorbide mononitrate (IMDUR) 30 mg Extended Release 24 hour tablet Take 1 Tablet by mouth daily. 5 Active metoprolol succinate (TOPROL XL) 25 mg Extended Release 24 hour tablet Take 1 Tablet by mouth daily. 5 Active rosuvastatin (CRESTOR) 10 mg tablet Take 10 mg by mouth daily at bedtime. Active tamsulosin (FLOMAX) 0.4 mg capsule Take 0.4 mg by mouth daily. 5 Active aspirin (ECOTRIN EC) 81 mg Tablet, Delayed Release (E.C.) Take 81 mg by mouth daily. 3 Active albuterol sulfate 90 mcg/Actuation inhaler Take 2 Puffs by inhalation every 6 hours as needed for Shortness of Breath. Active cyanocobalamin 1,000 mcg Tablet Take 1,000 mcg by mouth daily. Active Encounters Date Type Department Care Team Description 05/22/2025 10:30 AM PERSONNEL ADMINISTRATOR Office Visit [facility] Oncology and Hematology - Michele [address] [place] [address] Harika Ni MD Macrocytosis (Primary Dx); Other secondary thrombocytopenia 05/22/2025 Refill [facility] Oncology and Hematology - Michele [address] [place] [address] Shasha Ward MD from Last 3 Months Family History Medical History Relation Name Comments No Known Problems Brother No Known Problems Child 1 No Known Problems Child 2 Heart Disease Father No Known Problems Mother No Known Problems Sister 1 Diabetes Sister 2 Relation Name Status Comments Brother Child 1 Alive Child 2 Alive Father Mother Sister 1 Sister 2 Social History Tobacco Use Types Packs/Day Years [...] on file Sexual Orientation Not on file Last Filed Vital Signs Vital Sign Reading Time Taken Comments Blood Pressure 160/59 05/22/2025 10:52 AM PERSONNEL ADMINISTRATOR Pulse 66 05/22/2025 10:45 AM PERSONNEL ADMINISTRATOR Temperature 36.2 C (97.2 F) 05/22/2025 10:45 AM PERSONNEL ADMINISTRATOR Respiratory Rate 16 05/22/2025 10:45 AM PERSONNEL ADMINISTRATOR Oxygen Saturation 91% 05/22/2025 10:45 AM PERSONNEL ADMINISTRATOR Inhaled Oxygen Concentration - - Weight 66 kg (145 lb 6.4 oz) 05/22/2025 10:45 AM PERSONNEL ADMINISTRATOR Height - - Body Mass Index - - Plan of Treatment Upcoming Encounters Date Type Department Care Team (Late st Contact Info) Description 06/18/2025 2:45 PM PERSONNEL ADMINISTRATOR Office Visit [facility] Oncology and Hematology - Michele [address] [place] [address] Tavares Godwin MD [address] [facility] [address] [place] [address] Health Maintenance Due Date Last Done Comments DTAP/TDAP/TD VACCINES (1 - Tdap) 1954 PNEUMOCOCCAL VACCINE 50+ YEA RS (1 of 1 - PCV) 1987 ZOSTER VACCINE (1 of 2) 1987 RSV VACCINE (60+ or ) (1 - 1-dose 75+ series) 2012 INFLUENZA VACCINE (#1) 2025 , 03/04/2021, 03/11/2017 COVID-19 Vaccine (2 - 2024- season) 2025 Insurance MEDICARE PART A AND B [employer] PLUS [id number]
--- OUTSIDE RECORDS SUMMARY | 2025-05-22 17:27 | XMS_ITS | Clinical Summary ---
Author Organization [facility] Address [address] [place] [address] Care Team Providers Care Internet Retailer Name Role Phone Won Denton MD Primary [...] (07/23/2020): Added automatically from request for surgery [id number] Abdominal aortic aneurysm (AAA) without rupture 01/02/2018 Hypertension 01/02/2018 Dyslipidemia 05/12/2017 Benign prostatic hyperplasia 10/15/2015 Dyspnea 10/15/2015 Hyperlipidemia 10/10/2015 Resolved Problems Problem Noted Date Diagnosed Date Resolved Date Coronary artery disease, uns pecified vessel or lesion type, unspecified whether angina present, unspecified whether [place] or transplanted heart 11/02/2023 02/20/2024 Coronary atherosclerosis 01/26/2020 Prominent popliteal pulse 08/20/2019 Encounter for surgical after care following surgery of circulatory system 08/20/2019 02/20/2024 Coronary artery disease invo lving autologous artery coronary bypass graft 01/02/2018 02/20/2024 Disorder of coronary artery 10/10/2015 02/20/2024 Overview (05/19/2023): S/P CABG X 4 1997 Encounters Date Type Department Care Team Description 03/29/2025 Telephone [facility] Cardiology [address] [place] [address] Jessica Mcneal MD from Last 3 Months Immunizations Immunization [...] nd vomiting) slight N/V after lithotripsy in 2015 AAA (abdominal aortic aneurysm) CAD (coronary artery [...] Relation Name Comments Heart attack Father Ed Ashkan Heart disease Father Ed Ashkan Anesthesia problems Neg Hx Aneurysm Neg Hx Relation Name Status Comments Father Ed Niichermarc Mother Social History Tobacco Use Types Packs/Day Years Used Date Smoking Tobacco: Former Cigarettes 1 43.7 0 07/04/1954 - 03/01/1998 Smokeless Tobacco: Never Tobacco Cessation:Counseling Given: Not Answered Alcohol Use Standard Drinks/Week Comments Yes 3 (1 standard drink = 0.6 oz pur e alcohol) [facility] Utilities Answer Date Recorded In the past 12 months has e electric, gas, oil, or water company threatened to [...] How often do you attend chur or mormonism services? More than 4 times per year 11/02/2023 Do you belong to any clubs o r organizations such as bahai groups, unions, fraternal or athletic groups, or [...] place to sleep or slept in a fci (including now)? No 11/02/2023 Personal Safety Answer Date Recorded Have you ever been in or are you currently in a harmful physical or emotional relationship or is someone making you feel afraid or unsafe? 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 Gender Identity Male 02/23/2021 1:28 PM CDT [...] season) 2025 06/17/2021 Influenza Vaccine (#1) 2025 3, 02/22/2019, 03/13/2018, Additional history exists Pneumococcal vaccine 65+ Completed 03/23/2016, 08/2012 Medical Devices Implanted Type Area Shipping Room Helper Device Identifier Shelf Expiration Date Model / Serial / Lot Zenith Fenestrated Aaa Endovascular Graft Implanted:Qty: 1 on 10/10/2018 by Jose Juan Jenkins MD at [facility] Graft N/A: Aorta [employer] 08/31/2021 [id number] / 00 / [id number] Description:3-Visceral Fenes trated AAA Endograft [employer] [id number] Zenith Flex 36mm 50mm Z-Trak Main Body Extension Graft - S00 - [id number] Implanted:Qty: 1 on 10/10/2018 by Jose Juan Jenkins MD at [facility] Graft N/A: Aorta [employer] [id number] 12/18/2020 [id number] / [id number] [employer] [id number] Lutz Viabahn 7mm 11mm 7fr 79mm 135cm Balloon Expandable Guidewire - [id number] - [id number] Implanted:Qty: 1 on 10/10/2018 by Jose Juan Jenkins MD at [facility] Graft N/A: Other - see comments [employer] 04/21/2021 [id number] / Description:Celiac Artery Graft Endovascular Zenith L91 Mm L28 Mm Od12 Fr Abdominal Aortic Aneurysm Visceral Fenestration Distal Bifurcated Body - S00 - [id number] Implanted:Qty: 1 on 10/10/2018 by Jose Juan Jenkins MD at [facility] Graft Right: Aorta [employer] [id number] 08/31/2021 [id number] / 00 / [id number] [employer] [id number] Zenith Spiral-Z 20mm 6mm 16fr 74mm Iliac Leg Transcend Precision - S00 - [id number] Implanted:Qty: 1 on 10/10/2018 by Jose Juan Jenkins MD at [facility] Graft Right: Iliac [employer] [id number] 06/13/2021 [id number] / 00 / [id number] [employer] [id number] Zenith Spiral-Z Z-Trak 16mm 5.4mm 14fr 74mm Iliac Leg Transcend - S0 - [id number] Implanted:Qty: 1 on 10/10/2018 by Jose Juan Jenkins MD at [facility] Graft Left: Iliac [employer] [id number] 06/14/2021 [id number] / 0 / [id number] [employer] 12307-07 Perclose 6fr Suture Mediate Knot Push Vascular Device Closure - S00 - [id number] Implanted:Qty: 1 on 08/01/2020 by Jose Juan Jenkins MD at [facility] Other - see comments N/A: Abdomen [employer] [id number] 05/03/2022 75700-06 / 00 / [id number] Description:suture [employer] 99633 Icast 8mm 7fr 38mm 80cm Cover Catheter Introducer Balloon Expand - [id number] - [id number] Implanted:Qty: 1 on 10/10/2018 by Jose Juan Jenkins MD at [facility] Stent N/A: Other - see comments [employer] [id number] 10/12/2020 40360 / [id number] / 00 Description:Superior Mesente gabino Artery [employer] 47310 Icast 6mm 6fr 22mm 80cm Cover Catheter Introducer Balloon Expand - [id number] - [id number] Implanted:Qty: 1 on 10/10/2018 by Jose Juan Jenkins MD at [facility] Stent Left: Other - see comments [employer] [id number] 07/18/2021 75055 / [id number] / 00 Description:Renal Artery [employer] 16276 Icast 6mm 6fr 22mm 80cm Cover Catheter Introducer Balloon Expand - [id number] - [id number] Implanted:Qty: 1 on 10/10/2018 by Jose Juan Jenkins MD at [facility] Stent Right: Other - see comments [employer] [id number] 07/18/2021 08663 / [id number] / Description:Renal Artery [employer] [id number] Stent Endoprosthesis 29mm 7mm 11mm 7fr Lutz Viabahn 135cm - [id number] - [id number] Implanted:Qty: 1 on 2019 by Jose Juan Jenkins MD at [facility] Stent Renal [employer] 02/05/2022 [id number] / [id number] / [employer] [id number] Viabahn 6mm 2.5cm 120cm Flexible Self Expand Radiopaque Stent - [id number] - [id number] Implanted:Qty: 1 on 2019 by Jose Juan Jenkins MD at [facility] Stent Right: Aorta [employer] [id number] 12/18/2021 [id number] / [id number] / Ma[employer] Inc 35325 Icast 7mm 7fr 22mm 80cm Cover Catheter Introducer Balloon Expand - [id number] - [id number] Implanted:Qty: 1 on 08/01/2020 by Jose Juan Jenkins MD at [facility] Stent N/A: Abdomen [employer] [id number] 01/07/2023 67777 / [id number] / Description:SMA stent Wires N/A: Sternum Daig Roddy [id number] Device Closure Angio-Seal Vip Bondek-Plus Polyglyd L70 Cm Od6 Fr Odsec.035 In Vascular - [id number] Implanted:Qty: 1 on 01/30/2020 at [facility] Daig Roddy/[employer] 10/31/2020 [id number] / / [id number] White [employer] Nephew[employer]/Ort ho Intertan 4.5mm 95mm 90mm Lag Compression Integrated Interlocking [id number] - [id number] Implanted:Qty: 1 on 04/04/2023 by La Cavanaugh MD at [facility] Right: Leg [employer] /Ortho [id number] 08/23/2032 [id number] / / [id number] [employer]/Ort ho Intertan 46cm 13mm Right Intertrochanter 130d 1.5mm Nail [id number] - [id number] Implanted:Qty: 1 on 04/04/2023 by La Cavanaugh MD at [facility] Right: Leg [employer] /Ortho [id number] 06/05/2032 [id number] / / [id number] [employer]/Ort ho 5mm 50mm Low Profile Internal Hex Femur Screw Bone Trigen [id number] - [id number] Implanted:Qty: 1 on 04/04/2023 by La Cavanaugh MD at [facility] Right: Leg [employer] /Ortho [id number] / / White [employer] Nephew/Richco/Ort ho 5mm 70mm Low Profile Internal Hex Femur Screw Bone Trigen [id number] - [id number] Implanted:Qty: 1 on 04/04/2023 by La Cavanaugh MD at [facility] Right: Leg [employer] /Ortho [id number] / / Medtronic Card Vasc Surgery 2.50 X 15mm Alexander [employer] Rx Coronary Stent [id number] - [id number] Implanted:Qty: 1 on 11/01/20[facility] 06/05/2026 [id number] / / [id number] [employer] [facility] Device Vascular Closure Femoral Artery Bioabsorbable Dual Method Vascade 6-7fr Collagen [id number] - [id number] Implanted:Qty: 1 on 11/01/2023 by Jessica Mcneal MD at [facility] [employer] 08/04/2025 [id number] / / [id number] Insurance MEDICARE [facility] SUPPLE[facility] [place] [id number] MEDICARE [facility] SU[facility] MEDICARE [facility] Advance Directives For more information, please contact: [phone] Documents on File Type Date Recorded Patient Inclusion Special Educator Expl anation ADVANCE DIRECTIVE 01/10/2018 3:57 PM [...] 4:30 PM 10/12/2018 4:14 PM Care Teams Internet Retailer Relationship Specialty Start Date End Date Won Denton MD [address] [address] PCP - General Family Medicine 08/02/18
--- OUTSIDE RECORDS SUMMARY | 2025-05-22 17:28 | XMS_ITS | Encounter Summary ---
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 Gender Identity Male 02/23/2021 1:28 PM CDT Sexual Orientation Straight 02/29/2020 4: 17 PM CDT documented as of this encounter Plan of Treatment Not on file documented as of this encounter Procedures Procedure Name Priority Date/Time Associated Diagnosis Comments SCAN - RADIOLOGY/IMAGING 07/19/2023 2:36 PM TRACK REPAIRER HELPER documented in this encounter Results * SCAN - RADIOLOGY/IMAGING (07/19/2023 2:36 PM TRACK REPAIRER HELPER) Anatomical Region Laterality Modality Other us Provider Scanning Final Result documented in this encounter Visit Diagnoses Not on filedocumented in this encounter Care Teams Cane Burner Relationship Specialty Start Date End Date Won Denton MD [address] [facility] [address] [place] [address] PCP - General Family Medicine 08/02/18 documented as of this encounter
--- OUTSIDE RECORDS SUMMARY | 2025-05-22 17:29 | XMS_ITS | Data Portability ---
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 Patient Instructions Encounter Date Encounter Id Patient Instructions Last Modified By Organization Details Last Modified Time 02/12/2022 [id number] Exercise advised Low cholesterol diet advised Low sodium diet advised. [email or web address] Not available 02/12/2022 12:30:33 08/17/2022 [id number] Exercise advised Low cholesterol diet advised Low sodium diet advised. [email or web address] Not available 08/17/2022 12:22:36 05/24/2023 [id number] Exercise advised Low cholesterol diet advised Low [...] Available 2022 11:04:26 03/18/20 23 03/14/2023 , [facility] ardio gram No observ ation record ed. [facility] [address] [place], [place], [address], 05/01/2023 15:49:01 05/11/20 23 05/09/2023 elect rocar diogr am No observ ation record ed. esto Not Available 2022 17:45:02 Result Notes None recorded. Problems Name Problem SNOMED Code Status Onset Date Resolution Date Notes Provider Name and Address Organization Details Recorded Time History of hypertensi on 178069263 Completed 201510/15/2015 VANNESA Cobian [facility] 6 01:31:05 Hyperlipid emia 90177628 Completed 201505/12/2017 VANNESA Bruce [facility] 11/09/201 7 11:33:54 Disorder of coronary artery 536299388 Active 2015 S/P CABG X 4 1997 Not Available [facility] 3 14:31:01 Dyspnea 521488274 Active 2015 Not Available [facility] 3 14:31:00 Benign prostatic hyperplasi a 820107905 Active 2015 Not Available [facility] 3 14:31:00 Benign hypertensi on 16713957 Active 2015 Not Available [facility] 3 14:31:00 Dyslipidem ia 378357550 Active 2016: LDL 55 Not Available [facility] 3 14:31:01 Coronary atheroscle rosis 831090583 Active 2019 Not Available [facility] 3 14:31:01 Abdominal aortic aneurysm 928848799 Active 2019 Not Available [facility] 3 14:31:00 Peripheral vascular disease 139506164 Active 2019 Not Available [facility] 3 14:31:01 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 Hayden Mesto [place], [place] - [facility] 3 11:42:25 Renal artery stenosis 341487935 Active 2022 Catracho Fongto [place], [place] - [facility] 3 11:49:20 Atrial fibrillati on 96888395 Active 2022 Catracho Fongto [place], [place] - [...] Not available Not available Not available 10/16/2015 12546 8001 SNOMED Jessica Montelongo [facility], [place] - [facility] 6 11:32:10 [...] Available Not Available Not Available Fluzone High-Dose 2302-4746 (PF) 180 mcg/0.5 mL intramusc ular syringe [...] Updated DateTime 3 180.34 cm 19.9 kg/m2 42446.7 1 g 79 /min 16 /min 97 % 97 % 124/74 mm[Hg] Messi Sutton [facility] 3 11:52:33 Date Recorded Body height Body mass index (BMI) Body weight Heart rate Respiratory rate Oxygen saturation Oxygen saturation in Arterial blood by Pulse oximetry Systolic And Diastolic Provider Name and Address Organization Details Last Updated DateTime 3 180.34 cm 18.8 kg/m2 19551.9 7 g 53 /min 16 /min 96 % 96 % 128/78 mm[Hg] Messi Sutton [facility] 3 13:39:56 Date Recorded Body height Body mass index (BMI) Body weight Heart rate Respiratory rate Oxygen saturation Oxygen saturation in Arterial blood by Pulse oximetry Systolic And Diastolic Provider Name and Address Organization Details Last Updated DateTime 2 180.34 cm 19.7 kg/m2 97641.5 2 g 67 /min 16 /min 98 % 98 % 128/62 mm[Hg] Messi Sutton [facility] 2 12:13:43 Date Recorded Body height Body mass index (BMI) Body weight Heart rate Oxygen saturation Oxygen saturation in Arterial blood by Pulse oximetry Systolic And Diastolic Provider Name and Address Organization Details Last Updated DateTime 3 180.34 cm 18.3 kg/m2 35214.0 4 g 85 /min 95 % 95 % 124/50 mm[Hg] Kerrie Adal [facility] 3 14:02:44 Date Recorded Body height Body mass index (BMI) Body weight Heart rate Oxygen saturation Oxygen saturation in Arterial blood by Pulse oximetry Systolic And Diastolic Provider Name and Address Organization Details Last Updated DateTime 3 180.34 cm 17.9 kg/m2 00850.8 2 g 92 /min 96 % 96 % 142/76 mm[Hg] Kerrie Adal [facility] 3 14:23:25 Social History Question Answer Notes LastModified by [email or web address] Details LastModified Time Tobacco Smoking Status Former Smoker 1952 - 8 Catracho banerjee [facility] 05/09/2023 11:44:52 Do You Have An Advance Directive? Yes [email or web address] Information not available 05/12/2020 What Is Your Level Of Caffeine Consumption? Occasional [email or web address] Information not available 05/12/2020 How Much Tobacco Do You Chew? None [email or web address] Information not available 05/12/2020 What Type Of Diet Are You Following? REGULAR [email or web address] Information not available 05/12/2020 Which Illicit Or Recreational Drugs Have You Used? None [email or web address] Information not available 05/12/2020 Live Alone Or With Others? With Others [email or web address] Information not available 05/12/2020 Marital Status [email or web address] Informatio n not available 05/12/2020 What Was The Date Of Your Most Recent Tobacco Screening? 01/18/2019 [id number] Information not available 05/06/2020 How Much Tobacco Do You Smoke? No [email or web address] Information not available 05/12/2020 General Stress Level Low [email or web address] Information not available 05/12/2020 How Many Years Have You Smoked Tobacco? 40 [email or web address] Information not available 05/09/2023 Sex: Unknown Functional Status Question Answer Note LastModified by Organizat ion Details LastModified Time What is your level of alcohol consumption? Occasional [email or web address] Information not available 05/12/2020 Do you or have you ever used smokeless tobacco? Former smokeless tobacco user [id number] Information not available 05/06/2020 What is your occupation? retired [email or web address] Information not available 05/12/2020 Do you or have you ever used e-cigarettes or vape? Never used electronic cigarettes [id number] Information not available 05/06/2020 What is your exercise level? Occasional Information not available 05/12/2020 Mental Status None [...] Note 548 MD [facility] Office [address] [place] [address] 10/16/2015 10:37:05 10/17/2015 03:49:27 Dyspnea 923837167 R06.00 Disorder o f coronary artery 877605805 I77.9 s/p CABGTreadm ill Myoview Stress test, has high Kerby Risk score. Has Known CAD, or CAD risk equivalent . To look for any ischemia. Hyperlipidemia 27566940 E78.5 Seems to be well compensate d nowWill need LFTs Follow up Essential hypertension 38386956 I10 Anxiety 63695561 F41.9 829 MD [facility] Office [address] [place] [address] 10/27/2015 10:58:02 10/28/2015 18:32:26 Benign hypertension 30434492 I10 Coronary arteriosclerosis in [place] artery 1194620068 107 I25.10 The patient will be scheduled for left heart catheteriz ation, with coronary angiogram, and possible PTCA/Stent . The procedure was discussed with the patient, and risks, benefits, and alternativ e options were explained. The patient was given informatio n about heart catheteriz ation and interventi onal procedures . The patient agrees to proceed. Essential hypertension 79913107 I10 1214 MD Julio [facility]man e Office [address] [place] [address] 11/10/2015 12:09:57 11/11/2015 11:28:28 Benign hypertension 48832247 I10 Disorder o f coronary artery 991101205 I77.9 The patient will be scheduled for left heart catheteriz ation, with coronary angiogram, and possible PTCA/Stent . The procedure was discussed with the patient, and risks, benefits, and alternativ e options were explained. The patient was given informatio n about heart catheteriz ation and interventi onal procedures . The patient agrees to proceed. Hyperlipidemia 68933663 E78.5 Needs to keep LDL less than 70, and HDL more than 40 1740 MD [facility] Office [address] [place] [address] 11/27/2015 11:44:37 11/27/2015 17:59:17 Benign hypertension 72738878 I10 Seems to be well compensate d now Hyperlipidemia 51345934 E78.5 Disorder o f coronary artery 133257827 I77.9 Would continue with the current management , and medication s.Added Plavix now 5885 MD Julio Rahman e Office [address] [place] [address] 04/29/2016 11:56:07 04/30/2016 10:19:00 Benign hypertension 83909732 I10 Now well controlled Hyperlipidemia 39403387 E78.5 Now well controlled Disorder o f coronary artery 389322286 I77.9 Would continue with the current management , and medication s.On Plavix now 53140 MD Julio Rahman e Office [address] [place] [address] 11/04/2016 11:29:23 11/08/2016 15:20:46 Benign hypertension 13841367 I10 Now well controlled Hyperlipidemia 27791690 E78.5 Needs to keep LDL less than 70, and HDL more than 40Will get fating lipids for follow up Disorder o f coronary artery 454411136 I77.9 Would continue with the current management , and medication s.On Plavix now Abdominal aortic aneurysm 263381419 I71.4 H e [place] up with [place] Ventura [address]604 MD Julio Rahman e Office [address] [place] [address] 05/12/2017 11:21:41 05/13/2017 12:29:31 Coronary arteriosclerosis 59425465 I25.10 Benign hypertension 1072 5009 I10 Now well controlled Disorder o f coronary artery 271596238 I77.9 Would continue with the current management , and medication s.On Plavix now Abdominal aortic aneurysm 138826225 I71.[address] He follows up with DR Ventura Dyslipidemia 869791541 E 78.5 Needs to keep LDL less than 70, and HDL more than 40 Will get lipid profile results from PCP 01/07/17 : LDL 55oN pravastati n 20 mg 45086 MD Julio Rahman e Office [address] [place] [address] 11/10/2017 11:14:16 11/10/2017 13:00:28 Coronary arteriosclerosis 46300857 I25.10 Remains asymptomat icHe had a cath 11/19/15 with 50-60 % mid graft disease.Co ntinue maximal medical treatment On Plavix and ASA Benign hypertension 1072 5009 I10 Now well controlled Abdominal aortic aneurysm 353025343 I71.4 Has two AAA's followed by Dr Ventura. He had a recent ultrasound . He thinks it may have grown in size. He has a f/u appointmen t on Tuesday11/15/17. Dyslipidemia 940581628 E 78.5 01/07/17 : LDL 55 On pravastati n 20 mg Needs to keep LDL less than 70, and HDL more than 40 Will get lipid profile results from PCP Dyspnea 228220251 R06.00 Stable Had an echo 11/03/15 Left ventricula r systolic function is low normal. EF=50%. Septal motion is consistent with post-opera tive state. There is mild mitral regurgitat ion. Right ventricula r systolic pressure is normal. Grade I diastolic dysfunctio n 99331 MD Julio Rahman e Office [address] [place] [address] 05/11/2018 11:24:07 05/11/2018 12:22:39 Coronary arteriosclerosis 03196671 I25.10 Remains asymptomat icHe had a cath 11/19/15 with 50-60 % mid graft disease.Co ntinue maximal medical treatment On Plavix and ASA Benign hypertension 1072 5009 I10 Now well controlled Abdominal aortic aneurysm 044511451 I71.4 Has two AAA's followed by Dr Ventura. He had a recent ultrasound . He thinks it may have grown in size. He has a f/u appointmen t on Tuesday11/15/17. Dyspnea 900226312 R06.00 Stable Dyslipidemia 108142005 E 78.5 01/07/17 : LDL 55 On pravastati n 20 mg Needs to keep LDL less than 70, and HDL more than 40 Will get lipid profile results from PCP Essential hypertension 88109093 I10 52078 MD Julio Rahman e Office [address] [place] [address] 11/09/2018 11:35:46 11/09/2018 12:35:44 Coronary arteriosclerosis 75059437 I25.10 Remains asymptomat icHe had a cath 11/19/15 with 50-60 % mid graft disease. Treadmill Myoview Stress test, has high Kerby Risk score. Has Known CAD, or CAD risk equivalent . To look for any ischemia.C ontinue maximal medical treatment On Plavix and ASA Obtain FLP Abdominal aortic aneurysm 400416482 I71.4 s/p repair Dyspnea 203012866 R06.00 StableObta in echo to evaluate for structural /functiona l disease. Treadmill Myoview Stress test, has high Kerby Risk score. Has Known CAD, or CAD risk equivalent . To look for any ischemia. Dyslipidemia 487772336 E 78.5 Needs to keep LDL less than 70, and HDL more than 40 Will get lipid profile. Continue statin. Essential hypertension 65654176 I10 Well controlled . [address] Williams Hanson MD [facility] Office [address] [facility] [address] [facility] [facility] [place] [address] 01/18/2019 11:58:57 01/18/2019 12:26:32 Coronary arteriosclerosis 30023635 I25.10 Remains asymptomat icHguerline had a cath 11/19/15 with 50-60 % mid graft disease. Treadmill Myoview Stress test with mild inferior ischemia, maximal Medical treatment On Plavix and ASA Essential hypertension 10556321 I10 Well controlled . Abdominal aortic aneurysm 229846167 I71.4 s/p repair Dyspnea 857363884 R06.00 StableObta in echo to evaluate for structural /functiona l disease. Treadmill Myoview Stress test, has high Kerby Risk score. Has Known CAD, or CAD risk equivalent . To look for any ischemia. Dyslipidemia 180655957 E 78.5 Needs to keep LDL less than 70, and HDL more than 40 Will get lipid profile. Continue statin. 91795 Williams Hanson MD [facility] [address] [place] [address] 07/30/2019 13:52:45 07/30/2019 15:21:48 Coronary arteriosclerosis 43595409 I25.10 Remains asymptomat icHe had a cath 11/19/15 with 50-60 % mid graft disease. Treadmill Myoview Stress test with mild inferior ischemia, maximal Medical treatment On Plavix and ASA Essential hypertension 46060681 I10 Well controlled . Abdominal aortic aneurysm 299025194 I71.4 s/p repair Dyspnea 471916248 R06.00 StableObta in echo to evaluate for structural /functiona l disease. Treadmill Myoview Stress test, has high Kerby Risk score. Has Known CAD, or CAD risk equivalent . To look for any ischemia. Dyslipidemia 410800182 E 78.5 Needs to keep LDL less than 70, and HDL more than 40 Will get lipid profile. Continue statin. Peripheral vascular disease 514777608 I73.9 Aterial duplex 46031 MD Michele [facility]man Office [address] [place] [address] 01/28/2020 13:53:02 01/28/2020 14:51:08 Coronary arteriosclerosis 53152673 I25.10 Remains asymptomat icHe had a cath 11/19/15 with 50-60 % mid graft disease. Treadmill Myoview Stress test with mild inferior ischemia, maximal Medical treatment On Plavix OK to take every other and ASA Essential hypertension 96067624 I10 Well controlled . Abdominal aortic aneurysm 708986710 I71.4 s/p repair, going for repair again Dyspnea 213289511 R06.00 StableObta in echo to evaluate for structural /functiona l disease. Dyslipidemia 380678848 E 78.5 Needs to keep LDL less than 70, and HDL more than 40 Will get lipid profile. Continue statin. Peripheral vascular disease 047193513 I73.9 Aterial duplex 68318 MD Michele [facility]man Office [address] [place] [address] 05/12/2020 13:38:14 05/12/2020 14:21:37 Coronary arteriosclerosis 55642970 I25.10 s/p CABG (1997), remains asymptomat ic. TDM 12/27/2018 : Positive stress test. Reversible defect consistent with ischemia in inferior lateral area. Normal LV systolic function. LVEF 45%. [facility] 11/19/2015 : Left internal mammary artery graft to the left anterior descending is patent. Saphenous vein graft to the obtuse marginal with 60% stenosis. Saphenous vein graft to the right coronary artery is completely occluded. Severe [place] CAD. Normal left ventricula r size and systolic function. Continue ASA, holding Plavix d/t endograft leak. Essential hypertension 29050916 I10 Blood pressure is elevated today, but this is only one reading, will keep close follow up, and consider medication change if blood pressure is still elevated next visit. Abdominal aortic aneurysm 218026945 I71.4 s/p repair with recent endograft stenting d/t leak Dyspnea 944519382 R06.00 Stable Echo 02/11/2020 : LV chamber [...] systolic pressure is 38 mmHg,IRBBB . Dyslipidemia 709915903 E 78.5 Needs to keep LDL less than 70, and HDL more than 40. 01/23/2020 LDL 78 Will switch to rosuvastat in 10mg 05/12/2020 Will get fasting lipids for follow-up Peripheral vascular disease 153957661 I73.9 Arterial duplex 08/03/2019 : Mild PVD, more disease noted distally. 69570 Williams Hanson MD [facility] Office [address] [place] [address] 08/11/2020 15:50:24 08/11/2020 16:49:20 Coronary arteriosclerosis 17917186 I25.10 s/p CABG (1997), remains asymptomat ic. TDM 12/27/2018 : Positive stress test. Reversible defect consistent with ischemia in inferior lateral area. Normal LV systolic function. LVEF 45%. [facility] 11/19/2015 : Left internal mammary artery graft to the left anterior descending is patent. Saphenous vein graft to the obtuse marginal with 60% stenosis. Saphenous vein graft to the right coronary artery is completely occluded. Severe [place] CAD. Normal left ventricula r size and systolic function. Continue ASA and Plavix Essential hypertension 14279260 I10 Blood pressure is elevated today, but this is only one reading, will keep close follow up, and consider medication change if blood pressure is still elevated next visit. Instructed to keep blood pressure diary. Abdominal aortic aneurysm 046459076 I71.4 s/p repair with recent endograft stenting d/t leak Dyspnea 689612359 R06.00 Stable, unchanged. Echo 02/11/2020 : LV [...] systolic pressure is 38 mmHg. IRBBB. Dyslipidemia 866871651 E 78.5 Needs to keep LDL less than 70, and HDL more than 40. 01/23/2020 LDL 78 Switched to rosuvastat in 10mg at previous visit Will get fasting lipids for follow-up Peripheral vascular disease 967265039 I73.9 Now asymptomat icArterial duplex 08/03/2019 : Mild PVD, more disease noted distally. [address]85[address] Williams Hanson MD [facility] [address] [place] [address] 02/03/2021 10:38:56 02/04/2021 09:25:29 Benign hypertension 80679386 I10 Now well controlled Coronary arteriosclerosis 69736952 I25.10 s/p CABG (1997), remains asymptomat ic. refill Plavix Examined by Jaquelin jensen, KELECHI and Dr Williams Hanson MD TDM 12/27/2018 : Positive stress test. Reversible defect consistent with ischemia in inferior lateral area. Normal LV systolic function. LVEF 45%. repeat stress test test [facility] 11/19/2015 : Left internal mammary artery graft to the left anterior descending is patent. Saphenous vein graft to the obtuse marginal with 60% stenosis. Saphenous vein graft to the right coronary artery is completely occluded. Severe [place] CAD. Normal left ventricula r size and systolic function. Continue ASA and Plavix Dyslipidemia 459521565 E 78.5 Needs to keep LDL less than 70, and HDL more than 40.Recent blood work Saw PCP all well Labs LDL 38, HDL 60, TRG 79 CHOL 114 7--21Swi tched to rosuvastat in 10mg at previous visit Will get fasting lipids for follow-up Peripheral vascular disease 618272334 I73.9 Now asymptomat icArterial duplex 08/03/2019 : Mild PVD, more disease noted distally. 65822 MD Julio Rahman e Office [address] [place] [address] 03/19/2021 12:32:02 03/19/2021 14:46:11 Coronary arteriosclerosis 69276570 I25.10 s/p CABG (1997), remains asymptomat ic. TDM 12/27/2018 : Positive stress test. Reversible defect consistent with ischemia in inferior lateral area. Normal LV systolic function. LVEF 45%. [facility] 11/19/2015 : Left internal mammary artery graft to the left anterior descending is patent. Saphenous vein graft to the obtuse marginal with 60% stenosis. Saphenous vein graft to the right coronary artery is completely occluded. Severe [place] CAD. Normal left ventricula r size and systolic function. Continue ASA and Plavix, has mild ischemia Maximal medical treatment Essential hypertension 62360090 I10 Blood pressure is elevated today, but this is only one reading, will keep close follow up, and consider medication change if blood pressure is still elevated next visit. Instructed to keep blood pressure diary. Abdominal aortic aneurysm 649878725 I71.4 s/p repair with recent endograft stenting d/t leak Dyspnea 361939324 R06.00 Stable, unchanged. Echo 02/11/2020 : LV [...] systolic pressure is 38 mmHg. IRBBB. Dyslipidemia 242810417 E 78.5 Needs to keep LDL less than 70, and HDL more than 40. 01/23/2020 LDL 78 Switched to rosuvastat in 10mg at previous visit Will get fasting lipids for follow-up Peripheral vascular disease 169029672 I73.9 Now asymptomat icArterial duplex 08/03/2019 : Mild PVD, more disease noted distally. [address] Williams Hanson MD [facility] [address] [place] [address] 08/11/2021 12:20:28 08/11/2021 12:51:18 Coronary arteriosclerosis 56525283 I25.10 s/p CABG (1997), remains asymptomat ic. TDM 12/27/2018 : Positive stress test. Reversible defect consistent with ischemia in inferior lateral area. Normal LV systolic function. LVEF 45%. [facility] 11/19/2015 : Left internal mammary artery graft to the left anterior descending is patent. Saphenous vein graft to the obtuse marginal with 60% stenosis. Saphenous vein graft to the right coronary artery is completely occluded. Severe [place] CAD. Normal left ventricula r size and systolic function. Continue ASA and Plavix, has mild ischemia Maximal medical treatment OK to hold 2 day at a time with nose bleed Essential hypertension 89291667 I10 Blood pressure is elevated today, but this is only one reading, will keep close follow up, and consider medication change if blood pressure is still elevated next visit. Instructed to keep blood pressure diary. Abdominal aortic aneurysm 812632197 I71.4 s/p repair with recent endograft stenting d/t leak Dyspnea 480002663 R06.00 Stable, unchanged. Echo 02/11/2020 : LV [...] systolic pressure is 38 mmHg. IRBBB. Dyslipidemia 141946439 E 78.5 Needs to keep LDL less than 70, and HDL more than 40. 01/22/2021 LDL 38 Peripheral vascular disease 244224358 I73.9 Now asymptomat icArterial duplex 08/03/2019 : Mild PVD, more disease noted distally. [address] Williams Hanson MD [facility] [address] [place] [address] 02/12/2022 11:35:27 02/12/2022 12:32:26 Coronary arteriosclerosis 00949486 I25.10 s/p CABG (1997), remains asymptomat ic. TDM 12/27/2018 : Positive stress test. Reversible defect consistent with ischemia in inferior lateral area. Normal LV systolic function. LVEF 45%. [facility] 11/19/2015 : Left internal mammary artery graft to the left anterior descending is patent. Saphenous vein graft to the obtuse marginal with 60% stenosis. Saphenous vein graft to the right coronary artery is completely occluded. Severe [place] CAD. Normal left ventricula r size and systolic function. Continue ASA and Plavix, has mild ischemia Maximal medical treatment OK to hold 2 day at a time with nose bleed Essential hypertension 72673022 I10 Now well controlled Abdominal aortic aneurysm 103544086 I71.4 s/p repair with recent endograft stenting d/t leak Dyspnea 527414460 R06.00 Stable, unchanged. Echo 02/11/2020 : LV [...] systolic pressure is 38 mmHg. IRBBB. Dyslipidemia 026624546 E 78.5 Needs to keep LDL less than 70, and HDL more than 40. 01/22/2021 LDL 38 Peripheral vascular disease 231867550 I73.9 Now asymptomat icArterial duplex 08/03/2019 : Mild PVD, more disease noted distally. 60422 Williams Hanson MD [facility] OFFICE [facility] [place] [address] 08/17/2022 11:36:05 08/17/2022 12:24:41 Coronary arteriosclerosis 79320610 I25.10 s/p CABG (1997), remains asymptomat ic. TDM 12/27/2018 : Positive stress test. Reversible defect consistent with ischemia in inferior lateral area. Normal LV systolic function. LVEF 45%. [facility] 11/19/2015 : Left internal mammary artery graft to the left anterior descending is patent. Saphenous vein graft to the obtuse marginal with 60% stenosis. Saphenous vein graft to the right coronary artery is completely occluded. Severe [place] CAD. Normal left ventricula r size and systolic function. Continue ASA and Plavix, has mild ischemia Maximal medical treatment OK to hold 2 day at a time with nose bleed Essential hypertension [id number] I10 Now well controlled Abdominal aortic aneurysm 278732269 I71.40 s/p repair with recent endograft stenting d/t leak Dyspnea 625773327 R06.00 Stable, unchanged. Echo 02/11/2020 : LV [...] systolic pressure is 38 mmHg. IRBBB. Dyslipidemia 136498960 E 78.5 Needs to keep LDL less than 70, and HDL more than 40. 01/22/2021 LDL 38 Peripheral vascular disease 792022046 I73.9 Now asymptomat icArterial duplex 08/03/2019 : Mild PVD, more disease noted distally. [id number] Williams Hanson MD [place] OFFICE [facility] [place] [address] 01/26/2023 13:23:43 01/26/2023 14:27:20 Coronary arteriosclerosis 24842898 I25.10 He is due for stress test but he is refusing to have it and he agreed on Echo s/p CABG (1997), remains asymptomat ic. TDM 12/27/2018 : Positive stress test. Reversible defect consistent with ischemia in inferior lateral area. Normal LV systolic function. LVEF 45%. [facility] 11/19/2015 : Left internal mammary artery graft to the left anterior descending is patent. Saphenous vein graft to the obtuse marginal with 60% stenosis. Saphenous vein graft to the right coronary artery is completely occluded. Severe [place] CAD. Normal left ventricula r size and systolic function. Continue ASA and Plavix, has mild ischemia Maximal medical treatment OK to hold 2 day at a time with nose bleed Essential hypertension 92270059 I10 Now well controlled Abdominal aortic aneurysm 478594863 I71.40 s/p repair with recent endograft stenting d/t leak Dyspnea 481038584 R06.00 repeat Echo Echo 02/11/2020 : LV [...] systolic pressure is 38 mmHg. IRBBB. Dyslipidemia 860152130 E 78.5 Needs to keep LDL less than 70, and HDL more than 40. 01/2023 LDL 46continue with crestor 10 mg daily Peripheral vascular disease 846970528 I73.9 Now asymptomat icArterial duplex 08/03/2019 : Mild PVD, more disease noted distally. 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 TDM 12/27/2018 : Positive stress test. Reversible defect consistent with ischemia in inferior lateral area. Normal LV systolic function. LVEF 45%. [facility] 11/19/2015 : Left internal mammary artery graft to the left anterior descending is patent. Saphenous vein graft to the obtuse marginal with 60% stenosis. Saphenous vein graft to the right coronary artery is completely occluded. Severe [place] CAD. Normal left ventricula r size and systolic function. Had GI Bleed, will esu,e low dose ASA Essential hypertension 83421740 I10 Now well controlled Abdominal aortic aneurysm 804164818 I71.40 s/p repair with recent endograft stenting d/t leak Dyslipidemia 583482774 E 78.5 Needs to keep LDL less than 70, and HDL more than 40. 01/2023 LDL 46continue with crestor 10 mg daily Peripheral vascular disease 966194648 I73.9 Now asymptomat icArterial duplex 08/03/2019 : Mild PVD, more disease noted distally. Ventricula r premature complex 970710384 I49.3 continue with propranolo l BID and might consider switching to metopadd vascepa Edema of lower leg 00990 7004 R60.0 will Det Venous Duplex stat R/O D[place] [id number] Williams Hanson MD [place] OFFICE [address] [place] [address] 05/24/2023 14:15:29 05/24/2023 14:54:58 Coronary arteriosclerosis 60282546 I25.10 He is due for stress test but he is refusing to have it and he agreed on Echo will continue with aspirin and hold his plavix for now due to bleedings/ p CABG (1997), remains asymptomat ic. TDM 12/27/2018 : Positive stress test. Reversible defect consistent with ischemia in inferior lateral area. Normal LV systolic function. LVEF 45%. [facility] 11/19/2015 : Left internal mammary artery graft to the left anterior descending is patent. Saphenous vein graft to the obtuse marginal with 60% stenosis. Saphenous vein graft to the right coronary artery is completely occluded. Severe [place] CAD. Normal left ventricula r size and systolic function. Had GI Bleed, will esu,e low dose ASA Essential hypertension 95995176 I10 fair controlled losartan decreased to 50 mg daily Abdominal aortic aneurysm 417220975 I71.40 s/p repair with recent endograft stenting d/t leak Dyslipidemia 364632194 E 78.5 Needs to keep LDL less than 70, and HDL more than 40. 01/2023 LDL 46continue with crestor 10 mg daily Peripheral vascular disease 731138749 I73.9 Now asymptomat icArterial duplex 08/03/2019 : Mild PVD, more disease noted distally. Ventricula r premature complex 773254925 I49.3 continue with propranolo l BID and might consider switching to metopadd vascepa Health Concerns Section Related Observation LastModified by Organization Detai ls LastModified Time None Recorded Concern Status LastModified by Organization Details LastModified Time None Recorded Advance Directives Directive Y: Payers Insurance Date Sequence Insurance Name Policy Number Policy Gonzalez Covered Member ID Gonzalez Member ID Guarantor Name 05/09/2023 1 [place] Oz Luther [id number] 05/21/2023 2 [employer] - [employer] - DOS PRIOR TO 2024 (PPO) Oz Luther [id number] [facility] 12/24/2015 3 MEDICARE [place]: [place] Oz Luther [id number] Notes Date Note Type Note Provider Name and Address Organization Details Recorded Time 02/12/2022 text/html 02/12/22CC : Cardiac follow up, dyspnea on [id number] year-old white man with coronary artery disease [...] ,NCD, 1st degree AV block,incomplete rbbb,left atrial ectzqlxkxh85/05/18 ECHO: LV chamber size is normal. LV [...] right coronary artery is completely occluded. Severe [place] CAD. Normal left ventricular size and systolic function. Williams Hanson MD [address] [place], [address], [facility] 02/12/2022 12:31:03 08/17/2022 [...] ,NCD, 1st degree AV block,incomplete rbbb,left atrial jtqfcmlajc65/05/18 ECHO: LV chamber size is normal. LV [...] right coronary artery is completely occluded. Severe [place] CAD. Normal left ventricular size and systolic function. Williams Hanson MD [address] [place], [address], [facility] 08/17/2022 12:22:42 01/26/2023 text/html 01/27/23CC : Cardiac follow up dyspnea on [id number] year-old white man with coronary artery disease [...] ,NCD, 1st degree AV block,incomplete rbbb,left atrial edsyhubugs48/05/18 ECHO: LV chamber size is normal. LV [...] right coronary artery is completely occluded. Severe [place] CAD. Normal left ventricular size and systolic function. ANNY RITCHIE [facility] 01/26/2023 14:19:50 05/10/2023 [...] ,NCD, 1st degree AV block,incomplete rbbb,left atrial ulebedfqny10/05/18 ECHO: LV chamber size is normal. LV [...] right coronary artery is completely occluded. Severe [place] CAD. Normal left ventricular size and systolic function. Williams Hanson MD [address] [place], [address], [facility] 05/10/2023 14:33:27 05/24/2023 text/html 05/24/23CC : Cardiac follow up dyspnea on [id number] year-old white man with coronary artery disease [...] ,NCD, 1st degree AV block,incomplete rbbb,left atrial ndtrsmhypp72/05/18 ECHO: LV chamber size is normal. LV [...] right coronary artery is completely occluded. Severe [place] CAD. Normal left ventricular size and systolic function. Williams Hanson MD [address] [place], [address], [facility] 05/24/2023 14:47:32
--- OUTSIDE RECORDS SUMMARY | 2025-05-22 17:29 | XMS_ITS | Encounter Summary ---
Author Organization [facility] Address [address] [place] [address] Care Team Providers Care Coding Compliance Specialist Name Role Phone Unavailable Primary Care Provider Unavailabl e Reason for Visit * Reason Onset Date Comments Medication Refill 05/22/2025 Encounter Details Date Type Department Care Team (Late Contact Info) Description 05/22/2025 Refill [facility] Oncology and Hematology [facility] [address] [place] [address] Shasha Ward MD [address] [facility] [address] [place], [place] [id number] Social History Tobacco Use Types Packs/Day Years Used Date Smoking Tobacco: Former Cigarettes 0.8 40 0 02/01/1958 - 02/01/1998 Smokeless Tobacco: Never Alcohol Use Standard Drinks/Week Comments Yes 0 (1 standard drink = 0.6 oz pur e alcohol) 2 drinks a day Sex and Gender Information Value Date Recorded Sex Assigned at Not on file Legal Sex Male 2:41 PM CDT Gender Identity Not on file Sexual Orientation Not on file documented as of this encounter Plan of Treatment Upcoming Encounters Date Type Department Care Team (Late Contact Info) Description 06/18/2025 2:45 PM SPIRITUAL ADVISOR Office Visit [facility] Oncology and Hematology [facility] [address] [place] [address] Tavares Godwin MD [address] [facility] [address] [place] [address] documented as of this encounter Visit Diagnoses Not on filedocumented in this encounter
[2025-05-22 17:39] LABS: Alanine Aminotransferase 23 U/L (6-50); Albumin Level 4.1 g/dL (3.5-5.1); Alkaline Phosphatase 105 U/L (38-126); Anion Gap 4 mmol/L (4-12); Aspartate Amino Transferase 32 U/L (17-59); Bilirubin,Total 0.9 mg/dL (0.2-1.3); Blood Urea Nitrogen 21 mg/dL (9-20); Calcium 10.1 mg/dL (8.4-10.2); Carbon Dioxide 31 mmol/L (22-30); Chloride 105 mmol/L (98-107); Estimated Glomerular Filt Rate 49; Glucose 74 mg/dL (65-110); Potassium 4.2 mmol/L (3.4-5.0); Sodium 140 mmol/L (137-145); Total Protein 6.6 g/dL (6.3-8.2)
[2025-05-22 18:57] LABS: Vitamin B12 921.0 pg/mL (239-931)
[2025-05-23 14:09] LABS: Albumin 3.7 g/dL (2.9-4.4); Alpha-1-Globulin 0.3 g/dL (0.0-0.4); Alpha-2-Globulin 0.6 g/dL (0.4-1.0); Gamma Globulin 0.7 g/dL (0.4-1.8)
== END 2025-05-22 12:00 | disposition home or self-care (01) ==
LOC: ANHLAB 11:59
PROVIDERS: PCP Family Medicine; Visit Provider Internal Medicine Hematology & Oncology
DX: D75.89 Other specified diseases of blood and blood-forming organs (principal); D69.59 Other secondary thrombocytopenia
CPT/HCPCS: 36415; 80053; 82607; 82746; 83090; 83921; 84155; 84165; 85025; 85046

== ENCOUNTER 2025-06-10 08:49 | Outpatient (CLI) | payer MEDICARE, SELFPAY ==
--- NOTE | ~2025-06-10 | US_ITS ---
EXAMINATION: US abdomen complete DATE: 06/10/2025 10:55 INDICATION: TECHNIQUE: Multiple grayscale and Doppler ultrasound images of the abdomen were obtained. COMPARISON: None FINDINGS: Pancreas is incompletely visualized. Visualized portions of liver unremarkable Gallbladder wall thickness 2.2 mm. No cholelithiasis or biliary ductal dilatation. Common bile duct: 2.5 mm Right kidney: 10.3 x 4.6 x 5.2 cm Multiple cysts noted with the largest measuring 8.7 x 8.7 cm. Left kidney: 11.0 x 4.6 x 4.8 cm Multiple cysts present with the largest measuring 3.2 x 2.9 cm. No hydronephrosis or large suspicious parenchymal masses seen in either kidney. No free fluid seen. Possible aortic aneurysmal repair. IMPRESSION: 1. Numerous bilateral renal cysts. 2. Incomplete visualization of the pancreas. 3. Abdominal aortic aneurysm changes of the; see also report for CT examination from August 28, 2024. Reviewed, dictated and finalized at location A. HINOLARYNGOLOGIST
== END 2025-06-10 08:50 | disposition home or self-care (01) ==
PROVIDERS: PCP Family Medicine; Visit Provider Internal Medicine Hematology & Oncology
DX: D75.89 Other specified diseases of blood and blood-forming organs (principal); D69.59 Other secondary thrombocytopenia; D50.8 Other iron deficiency anemias
CPT/HCPCS: 76700